=== PATIENT | male | born 1955 | race Two or more races ===

== ENCOUNTER 2016-03-24 02:36 | Inpatient (IN) | payer MEDICARE, OTHER ==
[~2016-03-24] VITALS: Ht 167.6 cm; Wt 83.9 kg
[2016-03-24] VITALS (27 sets, daily range): BP systolic 88–214; BP diastolic 67–121; PULSE 42–70; RESP 16–21; TEMP 91.4
[~2016-03-24 02:36] MED LIST: BACTDS PO; DICL100G9 TP; DULO60CA6 PO; ESOM40CA PO; ROSU20TA PO; SSD1C20 TOP; TELM40TA2 PO; TIOT18CA IH
[2016-03-24] MEDS ORDERED: AMIODARONE 150 MG INJ ONE (02:49)
[2016-03-24] MEDS ORDERED: ROCURONIUM 50 MG INJ ONE (03:00)
[2016-03-24] MEDS ORDERED: ETOMIDATE 20 MG INJ ONE (03:00)
[2016-03-24] MEDS ORDERED: PROPOFOL 100 ML ONE (03:04)
[2016-03-24] MEDS ORDERED: PROPOFOL 100 ML IV STA (03:12)
[2016-03-24] MEDS ORDERED: VECURONIUM 100 MG in DEXTROSE 5% 100 ML IV ONE (03:12)
[2016-03-24] MEDS ORDERED: ASPIRIN 300 MG SUPP PR STA (03:12)
[2016-03-24] MEDS ORDERED: SODIUM CHLORIDE 0.9% 500 ML BAG IV* STA (03:12)
[2016-03-24 03:27] LABS: BASOPHILS % 0.4 % (0.0-2.0); EOSINOPHILS # 0.1 10^3/ul (0.0-0.5); EOSINOPHILS % 0.6 % (0.0-7.0); HEMATOCRIT 39.5 % (42.0-52.0); HEMOGLOBIN 13.2 g/dl (14.0-18.0); LYMPHOCYTES # 3.9 10^3/ul (0.8-2.9); LYMPHOCYTES % 42.9 % (15.0-51.0); MEAN CORPUSCULAR HEMOGLOBIN 29.2 pg (29.0-33.0); MEAN CORPUSCULAR HGB CONC 33.5 g/dl (32.0-37.0); MEAN CORPUSCULAR VOLUME 87.3 fl (82.0-101.0); MEAN PLATELET VOLUME 8.4 fl (7.4-10.4); MONOCYTE # 0.7 10^3/ul (0.3-0.9); MONOCYTES % 7.3 % (0.0-11.0); NEUTROPHIL # 4.4 10^3/ul (1.6-7.5); NEUTROPHILS % 48.8 % (39.0-77.0); PLATELET COUNT 291 10^3/UL (140-440); RED BLOOD COUNT 4.52 10^6/ul (4.70-6.10); RED CELL DISTRIBUTION WIDTH 12.5 % (11.5-14.5); UNCORRECTED WBC 9.1 10^3/ul (4.8-10.8); WHITE BLOOD COUNT 9.1 10^3/ul (4.8-10.8)
--- NOTE | 2016-03-24 03:29 | RADRPT ---
PROCEDURE: XR Chest. CLINICAL INDICATION: Patient experiencing Hypothermia. TECHNIQUE: Single frontal chest x-ray. COMPARISON: None. FINDINGS: The tip of the endotracheal tube is approximately 7.4 cm above the lana. There is hypoinflation of the lungs. The patient is in lordotic position. The heart is not enlarged. External cardiac pacema ker pad projected over left chest. No focal lung consolidation is seen. Degenerative changes in th oracic spine. Calcification in the aortic arch. Appearance of left subclavian catheter with the ti p in the region of the atriocaval junction projected over electrode. No definite pneumothorax is see n with the patient supine. IMPRESSION: No acute abnormality seen as noted above. Please see above. RPTAT: HJES .Edgard Christianson MD, MD Date Time Electronically viewed and signed by .Edgard Christianson MD, on 03/24/2016 03:28 .S/
[2016-03-24 03:30] LABS: ALBUMIN 4.3 g/dl (3.3-4.9); CONDITION 1
[2016-03-24] MEDS ORDERED: OCULAR LUBRICANT 3.5 GM OPH OINT BOTH EYES ONE (03:30)
[2016-03-24] MEDS ORDERED: LIDOCAINE 100 MG SYRINGE IV ONE (03:30)
[2016-03-24] MEDS ORDERED: LIDOCAINE 2 GM/D5W 500 ML IV SCH (03:30)
[2016-03-24] MEDS ORDERED: ETOMIDATE 20 MG INJ IV ONE (03:30)
[2016-03-24] MEDS ORDERED: ARTIFICIAL TEARS 15 ML OPH BOTH EYES ONE (03:30)
[2016-03-24] MEDS ORDERED: AMIODARONE 150MG/D5W BOLUS 100 ML IV ONE (03:30)
[2016-03-24] MEDS ORDERED: SUCCINYLCHOLINE CHLORIDE 100 MG/5 ML SYG IV ONE (03:30)
[2016-03-24 03:31] LABS: POTASSIUM 3.9 mmol/L (3.5-5.1)
[2016-03-24 03:32] LABS: INR 0.85; PARTIAL THROMBOPLASTIN TIME 29.5 Sec (25.0-35.0); PROTIME 11.6 Sec (12.2-14.2); PT RATIO 0.9
[2016-03-24 03:33] LABS: ALBUMIN/GLOBULIN RATIO 1.34; BILIRUBIN,INDIRECT 0.4 mg/dl (0-1.1); BILIRUBIN,TOTAL 0.4 mg/dl (0.2-1.3); CREATININE 0.74 mg/dl (0.61-1.24); PHOSPHORUS 4.5 mg/dl (2.5-4.9); TOTAL PROTEIN 7.5 g/dl (6.1-8.1)
[2016-03-24 03:34] LABS: CALCIUM 9.6 mg/dl (8.4-10.2); MAGNESIUM 1.9 mg/dl (1.7-2.5)
[2016-03-24 03:35] LABS: ADD UMIC YES; URINE BILIRUBIN (Dip) NEGATIVE (NEGATIVE); URINE BLOOD (Dip) 3+ (NEGATIVE); URINE COLOR LT. YELLOW (YELLOW); URINE KETONES (Dip) NEGATIVE (NEGATIVE); URINE LEUKOCYTE ESTERASE (Dip) NEGATIVE (NEGATIVE); URINE NITRITE (Dip) NEGATIVE (NEGATIVE); URINE TOTAL PROTEIN (Dip) 4+ (NEGATIVE); URINE UROBILINOGEN (Dip) 0.2 E.U./dL (0.1-1.0)
[2016-03-24 03:44] LABS: TROPONIN-I 0.019 ng/ml (0.00-0.12)
--- NOTE | 2016-03-24 03:44 | ERA ---
ER Documentation Chief Complaint Date/Time DATE: 03/24/16 TIME: 03:40 Chief Complaint HPI This is a 60-year-old male initially checked in for a "cough". Patient syncopized and was found to be in full arrest immediately rushed into the department from triage. Found to be in V. fib arrest. Patient shocked at 200. Regain a pulse. Intubated. Went into V. fib again. Shocked again. Interestingly, was given amiodarone bolus along with amiodarone drip along with lidocaine bolus along with lidocaine drip. Patient ruled in for hypothermia protocol and was started on that as well. No history of cardiac disease per family at the bedside. Patient has a [id number] history of smoking. ROS All systems reviewed and are negative except as per history of present illness. Medications Home Meds Active Scripts Silver Sulfadiazine (THERMAZENE 1% 25 GM) 1 Applic Cr, 1 APPLIC TOP BID, #1 TUB Prov:EZIO NAVARRETE 07/13/15 Sulfamethoxazole-Trimethoprim* (Bactrim* DS) 800-160 Mg Tab, 1 TAB PO BID for 5 Days, TAB Prov:EZIO NAVARRETE 07/13/15 Reported Medications Diclofenac Sodium (Voltaren) 100 Gm Gel..gm., 100 GM TP 04/29/11 Duloxetine Hcl* (Cymbalta*) 60 Mg Capsule.dr, 60 MG PO 04/29/11 Rosuvastatin Calcium* (Crestor*) 20 Mg Tablet, 20 MG PO 04/29/11 Esomeprazole Mag Trihydrate (Nexium) 40 Mg Capsule.dr, 40 MG PO 04/29/11 Telmisartan (Micardis) 40 Mg Tablet, 40 MG PO 04/29/11 Tiotropium Adolphus* (Spiriva*) 18 Mcg Cap.w.dev, 18 MCG IH 04/29/11 Allergies Allergies: Coded Allergies: No Known Allergy (Unverified , 04/29/11) PMhx/Soc History of Surgery: Yes (RIGHT EAR SURGERY - 5 YRS AGO) Anesthesia Reaction: No Hx Neurological Disorder: No Hx Respiratory Disorders: No Hx Cardiac Disorders: Yes (HTN) Hx Psychiatric Problems: No Hx Miscellaneous Medical Probl: No Hx Alcohol Use: Yes (OCCASIONAL) Hx Substance Use: No Hx Tobacco Use: Yes (~1 PACK IN 3 DAYS) Physical Exam Vitals Vital Signs Date Time Temp Pulse Resp B/P Pulse Ox O2 Delivery O2 Flow Rate FiO2 03/24/16 02:58 103 16 100 100 Physical Exam Const: [] Head: Atraumatic Eyes: Normal Conjunctiva ENT: Normal External Ears, Nose and Mouth. Neck: Full range of motion..~ No meningismus. Resp: Clear to auscultation bilaterally Cardio: Regular rate and rhythm, no murmurs Abd: Soft, non tender, non distended. Normal bowel sounds Skin: No petechiae or rashes Back: No midline or flank tenderness Ext: No cyanosis, or edema Neur: obtunded Psych: Normal Mood and Affect Result Diagram: 03/24/16 02503/24/16 0250 Results 24 hrs Laboratory Tests Test 03/24/16 02:50 03/24/16 03:28 Activated Partial Thromboplast Time 29.5Sec Alanine Aminotransferase (ALT/SGPT) 29IU/L Albumin 4.3g/dl Albumin/Globulin Ratio 1.34 Alkaline Phosphatase 79IU/L Anion Gap 17 Aspartate Amino Transf (AST/SGOT) 22IU/L Basophils # 0.010^3/ul Basophils % 0.4% Blood Urea Nitrogen 15mg/dl Calcium Level 9.6mg/dl Carbon Dioxide Level 29mmol/L Chloride Level 101mmol/L Creatinine 0.74mg/dl Direct Bilirubin 0.00mg/dl Eosinophils # 0.110^3/ul Eosinophils % 0.6% Globulin 3.20g/dl Glucose Level 103mg/dl Hematocrit 39.5% Hemoglobin 13.2g/dl INR International Normalized Ratio 0.85 Indirect Bilirubin 0.4mg/dl Lymphocytes # 3.910^3/ul Lymphocytes % 42.9% Magnesium Level 1.9mg/dl Mean Corpuscular Hemoglobin 29.2pg Mean Corpuscular Hemoglobin Concent 33.5g/dl Mean Corpuscular Volume 87.3fl Mean Platelet Volume 8.4fl Monocytes # 0.710^3/ul Monocytes % 7.3% Neutrophils # 4.410^3/ul Neutrophils % 48.8% Nucleated Red Blood Cells # 0.010^3/ul Nucleated Red Blood Cells % 0.0/100WBC Phosphorus Level 4.5mg/dl Platelet Count 76277^3/UL Potassium Level 3.9mmol/L Prothrombin Time 11.6Sec Prothrombin Time Ratio 0.9 Red Blood Count 4.5210^6/ul Red Cell Distribution Width 12.5% Sodium Level 143mmol/L Total Bilirubin 0.4mg/dl Total Protein 7.5g/dl Troponin I Pending White Blood Count 9.110^3/ul Bedside Glucose 183mg/dL Current Medications Medications (Trade) Dose Ordered Sig/Sudheer Route PRN Reason Start Time Stop Time Status Last Admin Dose Admin Propofol (Diprivan) 100 ml @ ud STK-MED ONCE .ROUTE 03/24/16 03:04 03/24/16 03:05 DC Sodium Chloride 500 ml 500 ml ONCE STAT IV* 03/24/16 03:12 03/24/16 03:15 DC 03/24/16 03:18 Propofol (Diprivan) 100 ml @ 0 mls/hr ONCE STAT IV 03/24/16 03:12 03/24/16 03:15 DC 03/24/16 03:19 Aspirin 300 mg 300 mg ONCE STAT DE 03/24/16 03:12 03/24/16 03:15 DC 03/24/16 03:20 Vecuronium Adolphus/Dextrose (Norcuron/D5W) 100 ml @ 0 mls/hr Q0M ONCE IV 03/24/16 03:12 03/24/16 03:15 DC Eye Lubricant (Akwa Oint) 1 applic ONCE ONCE BOTH EYES 03/24/16 03:30 03/24/16 03:31 DC Eye Lubricant 2 drop 2 drop ONCE ONCE BOTH EYES 03/24/16 03:30 03/24/16 03:31 DC Amiodarone HCl 100 ml @ 600 mls/hr ONCE ONCE IV 03/24/16 03:30 03/24/16 03:39 DC Amiodarone HCl/ Dextrose (Cordarone Iv/ D5W) 500 ml @ 0 mls/hr Q0M IV 03/24/16 03:30 03/25/16 03:29 Lidocaine 100 mg 100 mg ONCE ONCE IV 03/24/16 03:30 03/24/16 03:31 DC 03/24/16 03:25 Lidocaine HCl/ Dextrose (Lidocaine 2 Gm/ D5W) 500 ml @ 15 mls/hr Q24H IV 03/24/16 03:30 Etomidate (Amidate) 20 mg ONCE ONCE IV 03/24/16 03:30 03/24/16 03:31 DC 03/24/16 03:25 Succinylcholine Chloride (Anectine Syringe) 100 mg ONCE ONCE IV 03/24/16 03:30 03/24/16 03:31 DC Procedures/MDM EKG: Rate/Rhythm: Sinus tachycardia QRS, ST, T-waves: ST depressions 2 3 aVF Impression: Postarrest ischemia Chest X-ray 1V Interpreted by me: Soft Tissue: No acute abnormalities Bones: No acute abnormalities Mediastinum/Cardiac Silhouette/Lungs: ET tube and central line in good position Critical Care: Time: 74 minute minutes Treatments/Evaluations: Close monitoring and treatment of unstable vital signs, cardiorespiratory, and neurologic status, while maintaining tight balance of fluid, respiratory, and cardiac interventions. Patient suffered a V. tach ventricular fibrillation arrest. He has been stabilized in the department. Is been started on hypothermia protocol. He will be admitted to the ICU to the hospitalist. Departure Diagnosis: Primary Impression: Cardiac arrest Additional Impression: Ventricular fibrillation Condition: Critical CHANDAN NIXON Mar 24, 2016 03:44
[2016-03-24 03:47] LABS: AADO2 Arterial 97.4 mmHg (7.0-24.0); Allen Test ACCEPTAB; Arterial Base Excess -4.4 mmol/L (-3.0-3); Arterial COHb 0.6 % (0.0-3.0); Arterial HCO3 22.6 mmol/L (22.0-26.0); Arterial MetHb 0.3 % (0.0-1.5); Arterial Total Hemglobin 13.8 g/dl (12.0-18.0); MODE VENT - AC
[2016-03-24] MEDS: SOD CHLORIDE 0.9% 1,000 ML IV SCH ×4 (03:47→23:47)
[2016-03-24] MEDS: AMIODARONE 900 MG in DEXTROSE 5% 482 ML IV SCH ×2 (03:51→19:59)
[2016-03-24] MEDS ORDERED: NITROGLYCERIN (SL) 0.4 MG TAB SL PRN (04:00)
[2016-03-24] MEDS ORDERED: ACETAMINOPHEN 650 MG SUPP PR PRN ×2 (04:00)
[2016-03-24] MEDS ORDERED: MEPERIDINE 25 MG INJ IV PRN ×2 (04:00)
[2016-03-24] MEDS ORDERED: ONDANSETRON 4 MG INJ IV PRN (04:00)
[2016-03-24] MEDS ORDERED: ACETAMINOPHEN 650MG/20.3ML CUP PO PRN (04:00)
[2016-03-24] MEDS ORDERED: BISACODYL (EC) 5 MG TAB PO PRN (04:00)
[2016-03-24] MEDS ORDERED: DEXTROSE 50% 50 ML SYRINGE IV PRN ×2 (04:00)
[2016-03-24 04:02] LABS: BACTERIA,URINE MANY; SQUAMOUS EPITHELIAL CELL,UR FEW; URINE RBCS >50 /HPF (0)
[2016-03-24] MEDS: VECURONIUM 100 MG in DEXTROSE 5% 100 ML IV SCH ×2 (04:15→21:28)
[2016-03-24] MEDS ORDERED: LEVALBUTEROL (NEB) 1.25 MG/0.5 ML AMP INH STA (04:25)
[2016-03-24] MEDS: LIDOCAINE 2 GM/D5W 500 ML IV SCH ×2 (04:30→19:03)
[2016-03-24] MEDS ORDERED: AMIODARONE 900 MG in DEXTROSE 5% 482 ML IV SCH (04:30)
[2016-03-24] MEDS ORDERED: HEPARIN 1000 UNITS/ML 10 ML INJ IV ONE (04:30)
--- NOTE | 2016-03-24 04:36 | HP ---
Date/Time of Note Date/Time of Note DATE: 03/24/16 TIME: 04:25 Assessment/Plan VTE Prophylaxis VTE Prophylaxis Intervention: heparin Assessment/Plan Assessment/Plan 60 yo male with a past medical history of essential hypertension, arthritis, dyslipidemia, GERD, depression who came in for cough. 1. V fib arrest - will admit the patient to the ICU, continue with hypothermia protocol, consult pulm/cardio, heparin gtt, IV fluids, sedation, serial labs, TSH, Mag level, cardiac enzymes 2. Vent dependent respiratory failure with acidosis - continue with vent, pulm recs 3. Essential hypertension - maintain sbp > 90 4. Dyslipidemia - check lipid panel, hold statin 5. Arthritis - hold medications 6. GERD - continue with protonix IV 7. Depression - hold medications 8. GI ppx - protonix 9. DVT ppx - heparin gtt serious condition. as per clinical course. this critical care note took greater than 1 hour to complete HPI/ROS Admit Date/Time Admit Date/Time 03/24/2016, 4:25 am Hx of Present Illness 60 yo male with a past medical history of essential hypertension, arthritis, dyslipidemia, GERD, depression who came in for cough. He subsequently had a coughing bout while being seen in the ER here at [facility] and passed out. He was noted to be in Vfib arrest. He was shocked twice, CPR was initiated as per ACLS protocol, given Amiodarone gtt and Lidocaine gtt. He was appropriately resuscitated, and intubated. He is subsequently going to be placed on hypothermia protocol. All this information was gathered from the chart and ER physician. ROS cannot be completed, the patient is intubated and sedated PMH/Family/Social Past Medical History depression, sciatica, arthritis Medical History: GERD, high cholesterol, hypertension Past Surgical History Past Surgical Hx: no surgical history Family History Significant Family History: other (both parents are unknown cause) Social History Alcohol Use: none Smoking Status: Current every day smoker Drug Use: none Exam/Review of Systems Vital Signs Vitals Vital Signs Date Time Temp Pulse Resp B/P Pulse Ox O2 Delivery O2 Flow Rate FiO2 03/24/16 03:53 88 99 40 03/24/16 02:58 16 Exam Exam Gen Ko: intubated and sedated HEENT: NC/AT, PERRLA, EOMI, ETT in place NECK: supple, no thyromegaly THORAX: symmetrical, no obvious deformities CV: S1S2, RRR, II/ aortic sclerosis murmur Lungs: coarse breath sounds throughout all lung horne Abd: soft, NT/ND, +BS, no rebound, no guarding, neg HSM EXT: no edema, no ecchymosis, no clubbing Neuro: sedated Psych: cannot assess Skin: C/D/I Labs Result Diagram: 03/24/16 0250 03/24/16 0250 Medications Medications Current Medications Amiodarone HCl 900 mg/Dextrose 500 ml @ 0 mls/hr Q0M IV Last administered on t 03:51; Admin Dose 0 MLS/HR; Start 03/24/16 at 03:30; Stop 03/25/16 at 03 :29 Lidocaine HCl/ Dextrose 500 ml @ 15 mls/hr Q24H IV ; Start 03/24/16 at 03:30; Stop 03/24/16 at 04:29 Sodium Chloride (NS) 1,000 ml @ 50 mls/hr Q20H IV ; Start 03/24/16 at 03:47 Ondansetron HCl (Zofran Inj) 4 mg Q6H PRN IV NAUSEA AND/OR VOMITING; Start 01/28 at 04:00 Nitroglycerin (Nitroglycerin (Sl Tab) 0.4 Mg) 1 tab Q5M PRN SL CHEST PAIN; Start 03/24/16 at 04:00 Acetaminophen (Tylenol Supp) 650 mg Q4H PRN [place] PAIN LEVEL 1-3 OR FEVER; Start 03/24/16 at 04:00 Morphine Sulfate (morphine) 2 mg Q4H PRN IV PAIN LEVEL 7-10; Start 03/24/16 at 04:00 Lorazepam (Ativan) 1 mg Q2H PRN IV ANXIETY; Start 03/24/16 at 04:00 Bisacodyl (Dulcolax) 5 mg DAILY PRN PO CONSTIPATION; Start 03/24/16 at 04:00 Pantoprazole 40 mg 40 mg DAILY@06 IV ; Start 03/24/16 at 06:00 Vecuronium [place] 100 mg/ Dextrose 100 ml @ 4.1 mls/hr Q24H IV ; Start at 04:15 Sodium Chloride (NS) 1,000 ml @ 50 mls/hr Q20H IV ; Start 03/24/16 at 03:47 Acetaminophen (Tylenol Supp) 650 mg Q4H PRN IL TEMP > 37C; Start 03/24/16 at 04 :00 Acetaminophen (Tylenol Liquid) 650 mg Q4H PRN PO TEMP > 37C; Start 03/24/16 at 04:00 Acetaminophen (Tylenol Supp) 500 mg Q6H [place] ; Start 03/25/16 at 04:00 Acetaminophen (Tylenol Liquid) 500 mg Q6H PO ; Start 03/25/16 at 04:00 Meperidine HCl (Demerol) 12.5 mg Q4H PRN IV POST OPERATIVE SHIVERING; Start 01/28 at 04:00 Meperidine HCl (Demerol) 25 mg Q4H PRN IV POST OPERATIVE SHIVERING; Start 03/24 at 04:00 Eye Lubricant (Akwa Oint) 1 applic Q6 BOTH EYES ; Start 03/24/16 at 06:00 Eye Lubricant (Artificial Tears Oph) 2 drop Q6 BOTH EYES ; Start 03/24/16 at 06: 00 Diagnostic Test (Pha) (Accucheck) 1 ea Q1H XX ; Start 03/24/16 at 04:00 Dextrose (D50w Syringe) 25 ml Q15M PRN IV Till BS 80 mg/dL or above x2; Start 03/24/16 at 04:00 Dextrose 50 ml 50 ml Q15M PRN IV Till BS 80 mg/dL or above x2; Start 03/24/16 at 04:00 Amiodarone HCl 900 mg/Dextrose 500 ml @ 0 mls/hr Q0M IV ; Start 03/24/16 at 04: 30; Stop 03/25/16 at 04:29 Lidocaine HCl/ Dextrose (Lidocaine 2 Gm/ D5W) 500 ml @ 15 mls/hr Q24H IV ; Start 03/24/16 at 04:30 Procedures Procedures CXR IMPRESSION: No acute abnormality seen as noted above. Please see above. RAMAN BARRETT MD Mar 24, 2016 04:35
[2016-03-24] MEDS: ACCUCHECK XX SCH ×19 (04:49→23:08)
--- NOTE | 2016-03-24 05:03 | RADRPT ---
PROCEDURE: XR Abdomen. CLINICAL INDICATION: Cardiac arrest TECHNIQUE: AP abdomen x-ray. COMPARISON: None. FINDINGS: External pacer overlies the chest. Nasogastric tube courses into the mid stomach. The lung bases a re grossly clear. Degenerative change of the spine is seen. Nonobstructive bowel gas pattern. No definite supine evidence for free air. Probable rectal temperature probe. No abnormal calcificatio ns.. IMPRESSION: No definite acute abnormality. RPTAT: HLBE Physician Berhane Date Time Electronically viewed and signed by Lisa Garcia Physician on 03/24/2016 05:03 LE/
[2016-03-24] MEDS: INSULIN REGULAR, HUMAN 100 UNIT in SOD CHLORIDE 0.9% 99 ML IV SCH ×4 (05:28→20:33)
[2016-03-24] MEDS ORDERED: VECURONIUM 10 MG VIAL IV ONE (05:30)
[2016-03-24] MEDS ORDERED: hydrALAzine 20 MG INJ IV ONE (06:00)
[2016-03-24 06:20] LABS: EOSINOPHILS % 0.1 % (0.0-7.0); HEMOGLOBIN 13.3 g/dl (14.0-18.0); LYMPHOCYTES # 1.5 10^3/ul (0.8-2.9); MEAN CORPUSCULAR HEMOGLOBIN 29.7 pg (29.0-33.0); MEAN CORPUSCULAR HGB CONC 34.1 g/dl (32.0-37.0); MEAN PLATELET VOLUME 8.4 fl (7.4-10.4); MONOCYTES % 6.9 % (0.0-11.0); NEUTROPHIL # 12.6 10^3/ul (1.6-7.5); PLATELET COUNT 252 10^3/UL (140-440); RED BLOOD COUNT 4.48 10^6/ul (4.70-6.10); RED CELL DISTRIBUTION WIDTH 12.9 % (11.5-14.5); UNCORRECTED WBC 15.2 10^3/ul (4.8-10.8); WHITE BLOOD COUNT 15.2 10^3/ul (4.8-10.8)
[2016-03-24 06:26] LABS: CONDITION 1
[2016-03-24 06:49] LABS: ALBUMIN 4.2 g/dl (3.3-4.9); POTASSIUM 3.6 mmol/L (3.5-5.1)
[2016-03-24 06:52] LABS: ALBUMIN/GLOBULIN RATIO 1.2; BILIRUBIN,INDIRECT 0.4 mg/dl (0-1.1); BILIRUBIN,TOTAL 0.4 mg/dl (0.2-1.3); CREATININE 0.56 mg/dl (0.61-1.24); TOTAL PROTEIN 7.7 g/dl (6.1-8.1)
[2016-03-24] MEDS ORDERED: OLME40TA14 PO (07:00)
[2016-03-24] MEDS ORDERED: ROSU40TA PO (07:00)
[2016-03-24] MEDS ORDERED: DUTA0.5C PO (07:01)
[2016-03-24] MEDS ORDERED: LISI40TA9 PO (07:01)
[2016-03-24] MEDS ORDERED: LIPA1CAP6 PO (07:02)
[2016-03-24] MEDS ORDERED: BUDE6HFA INHALATION (07:03)
[2016-03-24] MEDS ORDERED: GABA300C16 PO (07:04)
[2016-03-24 07:13] LABS: CHOL/HDL RATIO 10.2 RATIO
[2016-03-24] MEDS ORDERED: HYDROmorphONE 1 MG/ML SYG IV STA (07:16)
[2016-03-24] MEDS: OCULAR LUBRICANT 3.5 GM OPH OINT BOTH EYES SCH ×3 (07:29→18:16)
[2016-03-24] MEDS: ARTIFICIAL TEARS 15 ML OPH BOTH EYES SCH ×3 (07:29→18:16)
[2016-03-24 08:38] LABS: INR 0.83; PROTIME 11.4 Sec (12.2-14.2); PT RATIO 0.9
[2016-03-24 08:39] LABS: PARTIAL THROMBOPLASTIN TIME 28.1 Sec (25.0-35.0)
[2016-03-24] MEDS: HEPARIN 25000 UNITS/250 ML 250 ML IV SCH ×2 (08:58→21:55)
[2016-03-24] MEDS: PANTOPRAZOLE 40 MG INJ IV SCH (09:04)
[2016-03-24 10:06] LABS: AADO2 Arterial 140.9 mmHg (7.0-24.0); Allen Test ACCEPTAB; Arterial Base Excess -0.8 mmol/L (-3.0-3); Arterial COHb 0.3 % (0.0-3.0); Arterial Fraction of Oxyhgb 97.5 % (93.0-99.0); Arterial HCO3 24.6 mmol/L (22.0-26.0); Arterial MetHb 0.3 % (0.0-1.5); Arterial Total Hemglobin 14.2 g/dl (12.0-18.0); Blood Gas Low PEEP Setting 0 cmH2O; MODE VENT - AC
--- NOTE | 2016-03-24 10:28 | QN ---
Documentation Comment Observation Note: Time: 4 hours Family Hx: Negative for diabetes Evaluation: Multiple exams showed improving symptoms and no evidence of clinical decompensation. Patient is still pending an ICU bed at this time. RICHARD CAVAZOS MD Mar 24, 2016 10:27
[2016-03-24] MEDS ORDERED: HEPARIN 1000 UNITS/ML 10 ML INJ IV PRN (10:30)
[2016-03-24] MEDS ORDERED: ASPIRIN 81 MG TAB PO ONE (15:00)
[2016-03-24 15:55] LABS: TROPONIN-I 3.68 ng/ml (0.00-0.12)
--- NOTE | 2016-03-24 16:00 | RADRPT ---
Echocardiogram Report Patient Name: JACKIE BARTHOLOMEW Gender: Male Date: 1955 Study Date: 24-Mar-2016 Lubricating Machine Tender: German Mcghee RDCS Location: ER Ref. Physician: RAMAN BARRETT Quality: Good Procedures: Transthoracic echocardiogram with complete 2D, M-Mode, and doppler examination. Indications: Cardiac Arrest. 2D/M Mode Doppler Measurement Value Normal Ranges Measurement Value Normal Ranges LVIDd 2D 4.8 3.5 - 5.6 cm AV Peak Clayton 1.1 m/sec LVIDs 2D 3.7 2.1 - 4.1 cm AV Peak PG 5.2 mmHg LVPWd 2D 1.0 0.6 - 1.1 cm LVOT Peak Clayton 1.1 m/sec IVSd 2D 1.1 0.6 - 1.1 cm LVOT Peak PG 4.4 mmHg AoR Diam 2D 2.2 2.0 - 3.7 cm MV E Peak Clayton 0.6 m/sec EDV 2D 108.0 cm3 MV A Peak Clayton 0.8 m/sec ESV 2D 51.5 cm3 MV E/A 0.8 LA Dimen 2D 3.1 2.3 - 4.0 cm MV Decel Time 159 msec MV Decel Bowman 4 MV E/A 0.8 Findings Left Ventricle: Normal left ventricular systolic function. Normal left ventricular cavity size. Normal left ventricular wall thickness. Ejection fraction is visually estimated at 65 %. Tissue Doppler/Mitral Doppler indices are consistent with impaired relaxation (Stage I diastolic dysfunction). Right Ventricle: Normal right ventricular size. Normal right ventricular systolic function. Left Atrium: The left atrium is normal in size. Right Atrium: The right atrium is normal in size. Mitral Valve: Normal appearance and function of the mitral valve with trace physiologic regurgitation. Aortic Valve: Normal appearance of the aortic valve. No significant aortic stenosis or insufficiency. Tricuspid Valve: Normal appearance and function of the tricuspid valve with trace physiologic regurgitation. Pericardium: Normal pericardium with no significant pericardial effusion. Aorta: Normal aortic root. IVC: Inferior vena cava without respiratory collapse, however, patient on ventilator. Conclusions 1.Normal left ventricular systolic function. Normal left ventricular cavity size. Normal left ventricular wall thickness. Ejection fraction is visually estimated at 60-65 %. Tissue Doppler/Mitral Doppler indices are consistent with impaired relaxation (Stage I diastolic dysfunction). 2.Normal appearance and function of the mitral valve with trace physiologic regurgitation. 3.Normal appearance and function of the tricuspid valve with trace physiologic regurgitation. Electronically Signed By: Didier Stephens 24-Mar-2016 15:59:09 -0800 Patient Name: JACKIE BARTHOLOMEW Study Date: 24-Mar-[id number]
--- NOTE | 2016-03-24 17:09 | CONS ---
DATE OF ADMISSION: 03/24/2016 DATE OF CONSULTATION: 03/24/2016 TYPE OF CONSULTATION: Cardiology. REASON FOR CONSULTATION: Cardiac arrest. REQUESTING PHYSICIAN: Dr. Oliver from the hospitalist service. HISTORY OF PRESENT ILLNESS: Mr. Guillory is a 60-year-old male with history of hypertension, dyslip idemia, gastroesophageal reflux disease, depression who initially presented with complaints of cough and an additional substernal chest pain per family at bedside. While in the emergency department, h e patient passed out and was found to have a Vfib requiring shocks x2, CPR and ACLS protocol. The p atient was given amiodarone and lidocaine and resuscitated, intubated, and has been placed on hypoth ermic protocol. The patient's initial EKG upon arrival had revealed sinus tachycardia 125 with conc erning inferior elevations and anterior depressions. The patient had a followup EKG that continued to show this. Per ER doctor, Dr. Nair they contacted the on-call map clerk, Dr. Nevarez, who felt that the patient should not go to the cardiac cath technician overnight and as noted earlier, the patient was placed on hypothermic protocol, where he remains at this time with stable blood pressure. The patie nt's most recent EKG from 3:50 in the morning reveals sinus rhythm at a rate of 90, right axis deviation, anterior ST depressions. Patient's initial labs were notable for white count of 9.1, he moglobin 13.2, platelet count 291, a sodium of 143, potassium 3.9, creatinine of 0.7, BUN 15. Tropo hang negative. LDL 198, HDL 30, triglycerides of 397. INR 0.85. UA borderline positive. The teze nt has not had a followup troponin drawn since admit. The patient's AST is 146 and ALT is 153. Patient's chest x-ray revealed no acute cardiopulmonary abnormalities, and the patient underwent a K UB revealing no definite acute abnormalities. The patient at this time is in the ER on sedation, in tubated ongoing antiarrhythmics waiting admit to the ICU. PAST MEDICAL HISTORY: As above in HPI. MEDICATIONS CURRENTLY IN HOSPITAL: 1. Tylenol. 2. Lipitor 20 mg at bedtime. 3. Heparin IV. 4. Protonix. 5. Amiodarone IV. 6. Lidocaine IV. 7. Zofran p.r.n. 8. Ativan p.r.n. 9. Dulcolax p.r.n. 10. Tylenol p.r.n. ALLERGIES: NO KNOWN DRUG ALLERGIES. SOCIAL HISTORY: Positive tobacco, social ETOH, no illicit drug use. FAMILY HISTORY: No history of sudden cardiac or early CAD. REVIEW OF SYSTEMS: As above in HPI. CONSTITUTIONAL: No fevers, chills. PULMONARY: Respiratory failure status post intubation. GASTROINTESTINAL: No nausea, vomiting. GENITOURINARY: No hematuria, dysuria. MUSCULOSKELETAL: Degenerative joint disease. PSYCHIATRIC: The patient has depression. NEUROLOGIC: Sedated, altered mental status. CARDIOVASCULAR: Chest pain prior to arrest. PHYSICAL EXAMINATION: VITAL SIGNS: Temperature of 91.4 on hypothermic protocol, blood pressure 109/83, pulse 50, respirat ions 16, saturating 100%. GENERAL: The patient is sedated, intubated. NECK: JVP approximately 9 cm water. CHEST: Upper airway sounds are rhonchorous sounds. HEART: Bradycardic, regular rhythm, normal S1, S2, 1/6 systolic murmur. ABDOMEN: Positive bowel sounds, soft. EXTREMITIES: No pitting edema, 1+ pulses bilaterally posterior tibial. LABORATORIES: As above in HPI, with most recently from this morning, sodium of 41, potassium 3.6, c reatinine of 0.56, BUN 12. AST 146, ALT 153. INR 0.83. UA positive. White blood cell count 15.2, hemoglobin 13.3, platelet count 252. ABG revealing a pH of 7.413, a PaO2 103, a pCO2 of 38. ELECTROCARDIOGRAM: As above in HPI. No further electrocardiograms for my review at this time. IMPRESSION: 1. Cardiac arrest. Assess for acute coronary syndrome preceding possibly. 2. Chest pain concerning for possible acute coronary syndrome prior to arrest. 3. Abnormal EKG with initial ST elevations concerning for acute myocardial infarction. 4. Respiratory failure, status post intubation. 5. Encephalopathy. 6. Bradycardia, likely secondary to hypothermia. 7. Ongoing tobacco usage. 8. Leukocytosis. 9. Mild anemia. 10. Increased liver function tests. RECOMMENDATIONS: 1. At this time, would maintain the patient on telemetry monitoring, follow rhythm and rate control closely. 2. Continue the patient's heparin at this time and additionally initiate patient on standing aspiri n. 3. Continue the patient's amiodarone and lidocaine at this time. 4. Continue the patient's statin at this time. 5. Trend the patient's cardiac enzymes and thus second troponin stat now, has not had one since 3:0 0 in the morning. 6. Check serial EKGs and thus check a repeat EKG now. It has not been done since 3:00 in the [facility]. 7. Continue the patient's hypothermia protocol. Thank you for allowing me to take part in the care of this patient. I will continue to follow along very closely with you. Further recommendations will be made as the patient progresses through his inpatient hospital clinical course. Dictated By: LEROY WEINER/AMBER Conf#: [id number] DID#: [id number] CC: DELMY OLIVER MD;*End*
--- NOTE | 2016-03-24 18:05 | CONS ---
DATE OF ADMISSION: 03/24/2016 DATE OF CONSULTATION: REASON FOR CONSULTATION: Ventilator management. Thank you, Dr. Garcia, for this consultation. HISTORY OF PRESENT ILLNESS: This is a 60-year-old gentleman with history of hypertension, hyperlipi demia, depression presented with several days of cough, was being seen in the emergency room, became unresponsive, and went into VFib arrest requiring defibrillation, CPR, ACLS protocol, placed on lid ocaine and then amiodarone drip with return of circulation after that. Placed on mechanical ventila tion. Currently continues heparin drip, amiodarone, vecuronium, propofol. Remains currently hemody namically stable on hypothermia protocol. PAST MEDICAL HISTORY: As above. MEDICATIONS: Per chart. ALLERGIES: NONE. SOCIAL HISTORY: Alcohol occasionally. SYSTEMS REVIEW: A 12-point review of systems currently unable to perform. PHYSICAL EXAMINATION: GENERAL: Morbidly obese gentleman, intubated on mechanical ventilation, appears comfortable at rest , no acute distress. VITAL SIGNS: Temperature 93, pulse is 43, blood pressure 137/91, O2 saturation 96% on FIO2 of 100%. NECK: Supple. No JVD or lymphadenopathy. CARDIAC: S1, S2. No added sounds or murmurs. CHEST: Diminished air entry bilaterally. ABDOMEN: Soft, nontender. No guarding or rebound. EXTREMITIES: No cyanosis, clubbing, 1+ edema. NEUROLOGIC: Generalized weakness. Unable to assess. LABORATORY DATA: White count 15.2, hemoglobin 13.3, platelets 252. BNP was pending at time of this dictation. Troponin 3.68. ABG: pH 7.41, pCO2 of 38, PaO2 of 103, bicarbonate was 24. EKG shows no acute ischemic changes. Abdominal x-ray was unremarkable. Chest x-ray was clear, no infiltrates or effusions. IMPRESSION AND PLAN: 1. Ventricular fibrillation arrest, possible underlying coronary artery disease. 2. Possible anoxic brain injury. 3. Probable aspiration pneumonitis. 4. History of questionable coronary artery disease. The patient will require: 1. Supplemental O2. 2. Bronchodilators. 3. Hypothermia protocol. 4. Sedation and paralysis. 5. DVT and GI prophylaxis. 6. Neurology evaluation post-reversal of hypothermia. 7. Consider cardiac catheterization. Dictated By: ASHISH CRUZ/AMBER Conf#: [id number] DID#: [id number] CC: RAMAN GARCIA MD;*End*
[2016-03-24] MEDS: LEVOFLOXACIN 500MG/D5W (PMX) 100 ML IVPB SCH (18:13)
[2016-03-24 18:49] LABS: AADO2 Arterial 183.8 mmHg (7.0-24.0); Allen Test ACCEPTAB; Arterial Base Excess -3.2 mmol/L (-3.0-3); Arterial COHb 0.3 % (0.0-3.0); Arterial Fraction of Oxyhgb 95.2 % (93.0-99.0); Arterial HCO3 22.4 mmol/L (22.0-26.0); Arterial MetHb 0.3 % (0.0-1.5); Arterial Total Hemglobin 13.5 g/dl (12.0-18.0); MODE VENT - AC
[2016-03-24] MEDS: FENTAnyl 1,000 MCG in DEXTROSE 5% 80 ML IV SCH (18:51)
[2016-03-24] MEDS: PROPOFOL 100 ML IV SCH ×2 (19:13→21:39)
[2016-03-24 19:33] LABS: TROPONIN-I 8.53 ng/ml (0.00-0.12)
[2016-03-24] MEDS: ATORVASTATIN 40 MG TAB PO SCH (21:03)
[2016-03-24 21:28] LABS: BASOPHILS % 0.1 % (0.0-2.0); EOSINOPHILS % 0.1 % (0.0-7.0); HEMATOCRIT 37.4 % (42.0-52.0); HEMOGLOBIN 12.6 g/dl (14.0-18.0); LYMPHOCYTES # 1.1 10^3/ul (0.8-2.9); LYMPHOCYTES % 11.5 % (15.0-51.0); MEAN CORPUSCULAR HEMOGLOBIN 29.6 pg (29.0-33.0); MEAN CORPUSCULAR HGB CONC 33.8 g/dl (32.0-37.0); MEAN CORPUSCULAR VOLUME 87.8 fl (82.0-101.0); MEAN PLATELET VOLUME 8.3 fl (7.4-10.4); MONOCYTE # 0.7 10^3/ul (0.3-0.9); MONOCYTES % 6.6 % (0.0-11.0); NEUTROPHIL # 8.1 10^3/ul (1.6-7.5); NEUTROPHILS % 81.7 % (39.0-77.0); PLATELET COUNT 226 10^3/UL (140-440); RED BLOOD COUNT 4.26 10^6/ul (4.70-6.10); RED CELL DISTRIBUTION WIDTH 13.2 % (11.5-14.5); UNCORRECTED WBC 9.9 10^3/ul (4.8-10.8); WHITE BLOOD COUNT 9.9 10^3/ul (4.8-10.8)
[2016-03-24 21:32] LABS: POTASSIUM 3.5 mmol/L (3.5-5.1)
[2016-03-24 21:35] LABS: CALCIUM 8.6 mg/dl (8.4-10.2); CREATININE 0.48 mg/dl (0.61-1.24); PHOSPHORUS 4.1 mg/dl (2.5-4.9)
[2016-03-24 21:36] LABS: MAGNESIUM 1.5 mg/dl (1.7-2.5)
[2016-03-24 22:06] LABS: TROPONIN-I 9.81 ng/ml (0.00-0.12)
[2016-03-24 22:20] LABS: CONDITION 1
[2016-03-24] MEDS: morphine 2 MG INJ IV PRN (22:27)
[2016-03-24] MEDS ORDERED: MAGNESIUM SULFATE 3 GM in SOD CHLORIDE 0.9% 100 ML IVPB ONE (22:30)
[2016-03-25] VITALS (103 sets, daily range): BP systolic 79–216; BP diastolic 59–139; PULSE 39–132; RESP 16; Ht 167.6 cm; Wt 83.9 kg
[2016-03-25 00:57] LABS: 50/50 PTT 1 HOUR 49.7 Sec; 50/50 PTT IMMED 43.6 Sec; PARTIAL THROMBOPLASTIN TIME 69.8 Sec (25.0-35.0)
[2016-03-25] MEDS: ACCUCHECK XX SCH ×24 (01:00→23:00)
[2016-03-25] MEDS: ACETAMINOPHEN 650 MG SUPP PR SCH ×4 (04:00→22:00)
[2016-03-25] MEDS: morphine 2 MG INJ IV PRN ×2 (04:00→18:17)
[2016-03-25] MEDS ORDERED: ACETAMINOPHEN 650MG/20.3ML CUP PO SCH (04:00)
[2016-03-25 04:15] LABS: BASOPHILS % 0.3 % (0.0-2.0); EOSINOPHILS % 0.2 % (0.0-7.0); HEMATOCRIT 37.8 % (42.0-52.0); HEMOGLOBIN 12.8 g/dl (14.0-18.0); LYMPHOCYTES # 1.1 10^3/ul (0.8-2.9); LYMPHOCYTES % 12.2 % (15.0-51.0); MEAN CORPUSCULAR HEMOGLOBIN 29.5 pg (29.0-33.0); MEAN CORPUSCULAR HGB CONC 33.9 g/dl (32.0-37.0); MEAN PLATELET VOLUME 8.1 fl (7.4-10.4); MONOCYTE # 0.7 10^3/ul (0.3-0.9); NEUTROPHIL # 7.1 10^3/ul (1.6-7.5); NEUTROPHILS % 79.3 % (39.0-77.0); PLATELET COUNT 227 10^3/UL (140-440); RED BLOOD COUNT 4.35 10^6/ul (4.70-6.10); RED CELL DISTRIBUTION WIDTH 12.7 % (11.5-14.5)
[2016-03-25 04:28] LABS: ALBUMIN 3.7 g/dl (3.3-4.9)
[2016-03-25 04:29] LABS: POTASSIUM 3.1 mmol/L (3.5-5.1)
[2016-03-25 04:31] LABS: ALBUMIN/GLOBULIN RATIO 1.23; BILIRUBIN,INDIRECT 0.5 mg/dl (0-1.1); BILIRUBIN,TOTAL 0.5 mg/dl (0.2-1.3); CONDITION 1; CREATININE 0.49 mg/dl (0.61-1.24); TOTAL PROTEIN 6.7 g/dl (6.1-8.1)
[2016-03-25 05:16] LABS: TROPONIN-I 18.1 ng/ml (0.00-0.12)
[2016-03-25] MEDS: ARTIFICIAL TEARS 15 ML OPH BOTH EYES SCH ×5 (05:27→23:54)
[2016-03-25] MEDS: OCULAR LUBRICANT 3.5 GM OPH OINT BOTH EYES SCH ×5 (05:27→23:54)
[2016-03-25] MEDS: PANTOPRAZOLE 40 MG INJ IV SCH (05:31)
[2016-03-25] MEDS: VECURONIUM 100 MG in DEXTROSE 5% 100 ML IV SCH (06:20)
--- NOTE | 2016-03-25 07:03 | RADRPT ---
PROCEDURE: CHEST - 1 VIEW CLINICAL INDICATION: 60 year-old male with shortness of breath. TECHNIQUE: A single frontal AP view of the chest was performed. The images were reviewed on a PAC S workstation. COMPARISON: Chest x-ray January 22, 2017. FINDINGS: There is a left subclavian central line present with the tip in the mid superior vena cava. There i s an endotracheal tube identified with the tip in the mid trachea approximately 4.0 cm above the car do. There is a nasogastric tube extending below the diaphragm in the stomach region however the ti p is not on the current radiograph. The cardiomediastinal silhouette is prominent but without signi ficant interval change. There has been interval collapse of the right upper lobe. There is a shall ow inspiration. There is minimal bibasilar subsegmental atelectasis. . There is no evidence for c ongestive heart failure. There is no evidence for pneumothorax. The osseous structures are intact. IMPRESSION: 1. Left subclavian central line with the tip in the mid superior vena cava. 2. Endotracheal tube with the tip in the mid trachea. 3. Nasogastric tube. 4. Interval collapse right upper lobe. 5. Shallow inspiration. 6. Minimal bilateral lower lung zone subsegmental atelectasis. CALL REPORT: A call report was made to [facility] ICU Dom RN on March 25, 2016 at 06:59 a.m. .Corey Bonilla MD, MD Date Time Electronically viewed and signed by .Corey Bonilla MD, on 03/25/2016 07:02 .M/
[2016-03-25 07:17] LABS: MAGNESIUM 2.7 mg/dl (1.7-2.5); PHOSPHORUS 4.2 mg/dl (2.5-4.9)
[2016-03-25] MEDS: PROPOFOL 100 ML IV SCH ×3 (07:58→23:55)
[2016-03-25 08:02] LABS: CHOL/HDL RATIO 7.7 RATIO
[2016-03-25 08:34] LABS: AADO2 Arterial 132.4 mmHg (7.0-24.0); Allen Test ACCEPTAB; Arterial Base Excess -0.2 mmol/L (-3.0-3); Arterial COHb 0.3 % (0.0-3.0); Arterial Fraction of Oxyhgb 97.5 % (93.0-99.0); Arterial HCO3 25.2 mmol/L (22.0-26.0); Arterial MetHb 0.4 % (0.0-1.5); Arterial Total Hemglobin 13.8 g/dl (12.0-18.0); Blood Gas Low PEEP Setting 0 cmH2O; MODE VENT - AC
[2016-03-25] MEDS: LEVOFLOXACIN 500MG/D5W (PMX) 100 ML IVPB SCH (09:00)
[2016-03-25 09:23] LABS: INR 0.9; PROTIME 12.1 Sec (12.2-14.2); PT RATIO 0.9
[2016-03-25] MEDS ORDERED: POTASSIUM CHLORIDE 250 ML IVPB ONE (10:00)
--- NOTE | 2016-03-25 10:19 | PN ---
DATE: 03/25/2016 SUBJECTIVE: The patient is still intubated, on hypothermia protocol, seen by cardiology team and pulmonary team yesterday. OBJECTIVE VITAL SIGNS: T-max 93.6. Pulse is 50 to 52, respirations 16. Blood pressure is 112/82, saturating 100% on mechanical ventilation, FIO2 of 40. GENERAL: The patient is lying in bed, intubated and sedated. HEENT: Unable to assess fully. NECK: Supple, no thyromegaly. LUNGS: Distant breath sounds bilaterally. CARDIOVASCULAR: S1, S2 heard. No rubs or gallops. ABDOMEN: Soft, nontender, nondistended. nL BS MUSCULOSKELETAL: No lower extremity edema bilaterally. NEUROLOGIC: Unable to fully assess as the patient is sedated. LABORATORY DATA: CBC is normal. Comprehensive metabolic panel shows an AST of 310, ALT is 149, potassium is 3.1. The rest of the comprehensive metabolic panel is normal. Troponin is 18.1. Triglycerides 469, total cholesterol 280, mag 2.7. IMAGING: Chest x-ray this morning interval collapsed right upper lobe, shallow inspiration, minimal bilateral lower lung zone subsegmental atelectasis. ASSESSMENT AND PLAN: This is a 60-year-old male with past medical history of hypertension, arthritis, high cholesterol, gastroesophageal reflux disease, depression who comes in with ventricular fibrillation arrest, now intubated and sedated on the hypothermia protocol. 1. Ventricular fibrillation arrest. Again, continue intensive care unit care with hypothermia protocol. Follow cardiology and pulmonary recommendations. The patient is on intravenous fluids. Continue statin. Off of heparin drip now. 2. Essential hypertension. Blood pressure stable. Continue to monitor for now. 3. Elevated troponins, concern for ST elevation myocardial infarction given initially EKG and follow up cardiology recommendations. The patient initially was on heparin drip. Continue to monitor for now. Heart rate is in the sinus deshawn range. 4. High cholesterol. Continue Lipitor. 5. Possible anoxic brain injury from. Consider electroencephalogram and neurology consult. 6. Check TSH. 7. Gastrointestinal prophylaxis. Proton pump inhibitor. 8. Deep venous thrombosis prophylaxis. Would add sequential compression devices. Critical care time spent on patient care today 45 minutes. Dictated By: SUNDEEP REDDY Conf#: [id number] DID#: [id number] [facility]
--- NOTE | 2016-03-25 10:20 | CONS ---
Date/Time of Note Date/Time of Note DATE: 03/25/16 TIME: 10:18 Consult Date/Type/Reason Admit Date/Time Mar 24, 2016 at 17:54 Initial Consult Date Type of Consultation: pulmonary Subjective Patient remains stable on mechanical ventilation Continues rewarming process Currently hemodynamically stable Still continues paralytic and sedation Objective Vital Signs Date Time Temp Pulse Resp B/P Pulse Ox O2 Delivery O2 Flow Rate FiO2 03/25/16 09:40 64 16 100 40 03/25/16 09:00 112/82 Mechanical Ventilator 03/25/16 08:00 93.6 Intake and Output 03/24/16 03/24/16 03/25/16 14:59 22:59 06:59 Intake Total 503.44 ml 905.4 ml Output Total 1175 ml 1245 ml Balance -671.56 ml -339.6 ml PHYSICAL EXAMINATION: GENERAL: Morbidly obese gentleman, intubated on mechanical ventilation, appears comfortable at rest, no acute distress. VITAL SIGNS: As above NECK: Supple. No JVD or lymphadenopathy. CARDIAC: S1, S2. No added sounds or murmurs. CHEST: Diminished air entry bilaterally. ABDOMEN: Soft, nontender. No guarding or rebound. EXTREMITIES: No cyanosis, clubbing, 1+ edema. NEUROLOGIC: Generalized weakness. Unable to assess. Results/Medications Result Diagram: 03/25/16 0343 03/25/16 0343 Results 24 hrs Laboratory Tests Test 03/24/16 10:25 03/24/16 11:09 03/24/16 12:09 03/24/16 13:02 Bedside Glucose 98 100 123 121 Test 03/24/16 14:02 03/24/16 14:54 03/24/16 14:55 03/24/16 15:05 Bedside Glucose 113 119 Creatine Kinase 1402 H Creatine Kinase Index 10.8 Creatinine Kinase MB (Mass) 151.00 H Troponin I 3.680 *H Activated Partial Thromboplast Time 76.8 *H Test 03/24/16 15:47 03/24/16 16:28 03/24/16 18:32 03/24/16 18:35 Arterial Blood HCO3 22.4 Arterial Blood Base Excess -3.2 L Arterial Blood Oxygen Saturation 95.8 Flip Test ACCEPTAB Arterial Blood Gas Puncture Site Right Radial Arterial Blood Carboxyhemoglobin 0.3 Arterial Blood Date Drawn 03/24/2016 6:35:26 PM Arterial Blood Methemoglobin 0.3 Arterial Blood pCO2 (Temp correct) 34.7 L Arterial Blood pH (Temp corrected) 7.406 Arterial Blood pO2 (Temp corrected) 65.5 L Blood Gas A-a O2 Differential 183.8 H Blood Gas Actual Respiration Rate 16 Blood Gas Critical Value Read Back Juwan KRAFT RN Blood Gas Modality VENT - AC Blood Gas Notified Time 03/24/2016 6:49:10 PM Blood Gas Notified Whom RDIX Blood Gas Respiration Rate 16.0 Blood Gas Specimen Source Blood arterial Blood Gas Temperature 32.6 Blood Gas Tidal Volume 500.0 FiO2 40.0 Oxyhemoglobin Percent 95.2 Total Hemoglobin 13.5 Bedside Glucose 114 126 Creatine Kinase 2512 #H Creatine Kinase Index 10.4 Creatinine Kinase MB (Mass) 262.00 H Troponin I 8.530 *H Test 03/24/16 19:06 03/24/16 20:28 03/24/16 21:05 03/24/16 21:10 Bedside Glucose 131 116 110 Activated Partial Thromboplast Time 69.8 H Amylase Level 51 Anion Gap 13 Basophils # 0.0 Basophils % 0.1 Blood Urea Nitrogen 9 Calcium Level 8.6 Carbon Dioxide Level 27 Chloride Level 100 Creatinine 0.48 L Eosinophils # 0.0 Eosinophils % 0.1 Fibrinogen 466.0 H Glucose Level 111 Hematocrit 37.4 L Hemoglobin 12.6 L Lipase 178 Lymphocytes # 1.1 Lymphocytes % 11.5 L Magnesium Level 1.5 L Mean Corpuscular Hemoglobin 29.6 Mean Corpuscular Hemoglobin Concent 33.8 Mean Corpuscular Volume 87.8 Mean Platelet Volume 8.3 Mix PTT Normal Plasma 1 Hour 49.7 Mix PTT Normal Plasma Immediate 43.6 Monocytes # 0.7 Monocytes % 6.6 Neutrophils # 8.1 H Neutrophils % 81.7 H Nucleated Red Blood Cells # 0.0 Nucleated Red Blood Cells % 0.0 Phosphorus Level 4.1 Platelet Count 226 Potassium Level 3.5 Red Blood Count 4.26 L Red Cell Distribution Width 13.2 Sodium Level 136 Troponin I 9.810 *H White Blood Count 9.9 # Test 03/24/16 21:58 03/24/16 23:08 03/25/16 00:14 03/25/16 02:13 Bedside Glucose 128 115 117 92 Test 03/25/16 03:16 03/25/16 03:43 03/25/16 04:14 03/25/16 05:08 Bedside Glucose 98 111 116 Activated Partial Thromboplast Time 71.8 *H Alanine Aminotransferase (ALT/SGPT) 149 H Albumin 3.7 Albumin/Globulin Ratio 1.23 Alkaline Phosphatase 107 Amylase Level 43 Anion Gap 15 Aspartate Amino Transf (AST/SGOT) 310 #H Basophils # 0.0 Basophils % 0.3 Blood Urea Nitrogen 8 Calcium Level 9.0 Carbon Dioxide Level 28 Chloride Level 103 Cholesterol Level 280 H Cholesterol/HDL Ratio 7.7 Creatine Kinase 4758 H Creatine Kinase Index 10.4 Creatinine 0.49 L Creatinine Kinase MB (Mass) 493.00 H Direct Bilirubin 0.00 Eosinophils # 0.0 Eosinophils % 0.2 Fibrinogen 474.0 H Globulin 3.00 Glucose Level 100 HDL Cholesterol 36 Hematocrit 37.8 L Hemoglobin 12.8 L INR International Normalized Ratio 0.90 Indirect Bilirubin 0.5 LDL Cholesterol, Calculated 150 Lipase 150 Lymphocytes # 1.1 Lymphocytes % 12.2 L Magnesium Level 2.7 #H Mean Corpuscular Hemoglobin 29.5 Mean Corpuscular Hemoglobin Concent 33.9 Mean Corpuscular Volume 87.0 Mean Platelet Volume 8.1 Monocytes # 0.7 Monocytes % 8.0 Neutrophils # 7.1 Neutrophils % 79.3 H Nucleated Red Blood Cells # 0.0 Nucleated Red Blood Cells % 0.0 Phosphorus Level 4.2 Platelet Count 227 Potassium Level 3.1 L Prothrombin Time 12.1 L Prothrombin Time Ratio 0.9 Red Blood Count 4.35 L Red Cell Distribution Width 12.7 Sodium Level 143 Total Bilirubin 0.5 Total Protein 6.7 # Triglycerides Level 469 H Troponin I 18.100 *H White Blood Count 9.0 Test 03/25/16 06:16 03/25/16 07:00 03/25/16 09:05 Bedside Glucose 108 106 96 Arterial Blood HCO3 25.2 Arterial Blood Base Excess -0.2 Arterial Blood Oxygen Saturation 98.2 H Flip Test ACCEPTAB Arterial Blood Gas Puncture Site Right Radial Arterial Blood Carboxyhemoglobin 0.3 Arterial Blood Date Drawn 03/25/2016 7:35:53 AM Arterial Blood Methemoglobin 0.4 Arterial Blood pCO2 (Temp correct) 38.6 Arterial Blood pH (Temp corrected) 7.420 Arterial Blood pO2 (Temp corrected) 111.2 H Blood Gas A-a O2 Differential 132.4 H Blood Gas Actual Respiration Rate 16 Blood Gas Low PEEP Setting 0 Blood Gas Modality VENT - AC Blood Gas Notified Time 03/25/2016 7:56:32 AM Blood Gas Notified Whom JLD Blood Gas Respiration Rate 16.0 Blood Gas Specimen Source Blood arterial Blood Gas Temperature 34.1 Blood Gas Tidal Volume 500.0 FiO2 40.0 Oxyhemoglobin Percent 97.5 Total Hemoglobin 13.8 Medications Current Medications Sodium Chloride (NS) 1,000 ml @ 50 mls/hr Q20H IV Last administered on 18:12; Admin Dose 50 MLS/HR; Start 03/24/16 at 03:47 Ondansetron HCl (Zofran Inj) 4 mg Q6H PRN IV NAUSEA AND/OR VOMITING; Start 01/28 at 04:00 Nitroglycerin (Nitroglycerin (Sl Tab) 0.4 Mg) 1 tab Q5M PRN SL CHEST PAIN; Start 03/24/16 at 04:00 Morphine Sulfate (morphine) 2 mg Q4H PRN IV PAIN LEVEL 7-10 Last administered on 03/25/16 04:00; Admin Dose 2 MG; Start 03/24/16 at 04:00 Lorazepam (Ativan) 1 mg Q2H PRN IV ANXIETY; Start 03/24/16 at 04:00 Bisacodyl (Dulcolax) 5 mg DAILY PRN PO CONSTIPATION; Start 03/24/16 at 04:00 Pantoprazole 40 mg 40 mg DAILY@06 IV Last administered on 03/25/16 05:31; Admin Dose 40 MG; Start 03/24/16 at 06:00 Vecuronium [place] 100 mg/ Dextrose 100 ml @ 4.1 mls/hr Q24H IV Last administered on 03/25/16 06:20; Admin Dose 8.1 MLS/HR; Start 03/24/16 at 04:15 Sodium Chloride (NS) 1,000 ml @ 50 mls/hr Q20H IV Last administered on 23:47; Admin Dose 50 MLS/HR; Start 03/24/16 at 03:47 Acetaminophen (Tylenol Supp) 650 mg Q4H PRN VA TEMP > 37C; Start 03/24/16 at 04 :00 Acetaminophen (Tylenol Liquid) 650 mg Q4H PRN PO TEMP > 37C; Start 03/24/16 at 04:00 Acetaminophen (Tylenol Supp) 500 mg Q6H VA ; Start 03/25/16 at 04:00 Acetaminophen (Tylenol Liquid) 500 mg Q6H PO ; Start 03/25/16 at 04:00; Status Future Hold Meperidine HCl (Demerol) 12.5 mg Q4H PRN IV POST OPERATIVE SHIVERING; Start 01/28 at 04:00 Meperidine HCl (Demerol) 25 mg Q4H PRN IV POST OPERATIVE SHIVERING; Start 03/24 at 04:00 Eye Lubricant (Akwa Oint) 1 applic Q6 BOTH EYES Last administered on 03/25/16 05:27; Admin Dose 1 APPLIC; Start 03/24/16 at 06:00 Eye Lubricant (Artificial Tears Oph) 2 drop Q6 BOTH EYES Last administered on 05:27; Admin Dose 2 DROP; Start 03/24/16 at 06:00 Diagnostic Test (Pha) (Accucheck) 1 ea Q1H XX Last administered on 03/25/16 09 :06; Admin Dose 1 EA; Start 03/24/16 at 04:00 Dextrose (D50w Syringe) 25 ml Q15M PRN IV Till BS 80 mg/dL or above x2; Start 03/24/16 at 04:00 Dextrose (D50w Syringe) 50 ml Q15M PRN IV Till BS 80 mg/dL or above x2; Start 03/24/16 at 04:00 Atorvastatin Calcium 40 mg 40 mg QHS PO Last administered on 03/24/16 21:03; Admin Dose 40 MG; Start 03/24/16 at 21:00 Fentanyl 1000 mcg/ Dextrose 100 ml @ 2.5 mls/hr TITRATE IV Last administered on 03/24/16 18:51; Admin Dose 2.5 MLS/HR; Start 03/24/16 at 17:30 Levofloxacin/ Dextrose 100 ml @ 100 mls/hr DAILY IVPB Last administered on 09:00; Admin Dose 100 MLS/HR; Start 03/24/16 at 18:00 Potassium Chloride (KCl 40 MEQ/250 ML NS) 250 ml @ 62.5 mls/hr ONCE ONCE IVPB ; Start 03/25/16 at 10:00; Stop 03/25/16 at 13:59 Assessment/Plan Chief Complaint/Hosp Course IMPRESSION AND PLAN: 1. Ventricular fibrillation arrest, possible underlying coronary artery disease. 2. Possible anoxic brain injury. 3. Probable aspiration pneumonitis. 4. History of questionable coronary artery disease. The patient will require: 1. Supplemental O2. 2. Bronchodilators. 3. Hypothermia protocol. 4. Sedation and paralysis. 5. DVT and GI prophylaxis. 6. Neurology evaluation post-reversal of hypothermia. 7. Consider cardiac catheterization. 8. DC IV heparin Problems: ASHISH MOORE MD, [facility] Mar 25, 2016 10:20
--- NOTE | 2016-03-25 11:03 | RADRPT ---
Vent Rate: 51 bpm RR Interval: 0 msec NC Interval: 182 msec QRS Duration: 86 msec QT Interval: 494 msec QTC Interval: 455 msec P-R-T [place]: 4 - 9 - 61 degrees Sinus bradycardia Nonspecific T wave abnormality Abnormal ECG Electronically Signed By: Feliz Kennedy [id number]
[2016-03-25 11:50] LABS: BASOPHILS % 0.1 % (0.0-2.0); EOSINOPHILS % 0.1 % (0.0-7.0); HEMATOCRIT 36.3 % (42.0-52.0); HEMOGLOBIN 12.3 g/dl (14.0-18.0); LYMPHOCYTES # 0.7 10^3/ul (0.8-2.9); LYMPHOCYTES % 7.1 % (15.0-51.0); MEAN CORPUSCULAR HEMOGLOBIN 29.6 pg (29.0-33.0); MEAN CORPUSCULAR HGB CONC 33.9 g/dl (32.0-37.0); MEAN CORPUSCULAR VOLUME 87.4 fl (82.0-101.0); MEAN PLATELET VOLUME 8.6 fl (7.4-10.4); MONOCYTE # 0.5 10^3/ul (0.3-0.9); MONOCYTES % 5.4 % (0.0-11.0); NEUTROPHIL # 8.2 10^3/ul (1.6-7.5); NEUTROPHILS % 87.3 % (39.0-77.0); PLATELET COUNT 202 10^3/UL (140-440); RED BLOOD COUNT 4.15 10^6/ul (4.70-6.10); RED CELL DISTRIBUTION WIDTH 13.4 % (11.5-14.5); UNCORRECTED WBC 9.4 10^3/ul (4.8-10.8); WHITE BLOOD COUNT 9.4 10^3/ul (4.8-10.8)
[2016-03-25 11:53] LABS: POTASSIUM 3.8 mmol/L (3.5-5.1)
[2016-03-25 11:55] LABS: CREATININE 0.6 mg/dl (0.61-1.24)
[2016-03-25 11:56] LABS: CALCIUM 8.8 mg/dl (8.4-10.2); MAGNESIUM 2.2 mg/dl (1.7-2.5); PHOSPHORUS 4.1 mg/dl (2.5-4.9)
[2016-03-25 12:02] LABS: INR 0.9; PROTIME 12.1 Sec (12.2-14.2); PT RATIO 0.9
[2016-03-25] MEDS: ASPIRIN 81 MG TAB PO SCH (12:02)
[2016-03-25 12:03] LABS: PARTIAL THROMBOPLASTIN TIME 34.9 Sec (25.0-35.0)
[2016-03-25 12:34] LABS: CONDITION 1
[2016-03-25 12:48] LABS: TROPONIN-I 19.1 ng/ml (0.00-0.12)
[2016-03-25] MEDS: FENTAnyl 1,000 MCG in DEXTROSE 5% 80 ML IV SCH (15:08)
[2016-03-25 16:25] LABS: AADO2 Arterial 142.5 mmHg (7.0-24.0); Allen Test ACCEPTAB; Arterial Base Excess 0.2 mmol/L (-3.0-3); Arterial COHb 0.3 % (0.0-3.0); Arterial Fraction of Oxyhgb 96.4 % (93.0-99.0); Arterial HCO3 25.8 mmol/L (22.0-26.0); Arterial MetHb 0.3 % (0.0-1.5); Arterial Total Hemglobin 13.8 g/dl (12.0-18.0); MODE VENT - AC
[2016-03-25] MEDS: SOD CHLORIDE 0.9% 1,000 ML IV SCH ×2 (16:55→19:47)
--- NOTE | 2016-03-25 17:18 | RADRPT ---
PROCEDURE: XR Chest. CLINICAL INDICATION: Shortness of breath. TECHNIQUE: Single frontal view. COMPARISON: 03/25/2016. 0608 hours. FINDINGS: The endotracheal tube, nasogastric tube, and left subclavian vein catheter remain in satisfactory po sition. There is complete collapse of the right upper lobe, unchanged. The lungs are otherwise sesar ar. The heart size is normal. There is no pleural effusion. There is no pneumothorax. IMPRESSION: 1. No change from the prior study done earlier the same day. RPTAT: QQ .Yossi Larose MD, MD Date Time Electronically viewed and signed by .Yossi Larose MD, MD on 03/25/2016 17:18 .R/
[2016-03-25 18:15] LABS: HEMATOCRIT 37.6 % (42.0-52.0); HEMOGLOBIN 12.7 g/dl (14.0-18.0); MEAN CORPUSCULAR HEMOGLOBIN 29.5 pg (29.0-33.0); MEAN CORPUSCULAR HGB CONC 33.7 g/dl (32.0-37.0); MEAN CORPUSCULAR VOLUME 87.5 fl (82.0-101.0); MEAN PLATELET VOLUME 8.1 fl (7.4-10.4); PLATELET COUNT 209 10^3/UL (140-440); RED CELL DISTRIBUTION WIDTH 13.1 % (11.5-14.5)
[2016-03-25 18:21] LABS: CONDITION 1; LH ANALYZER COMMENTS 1
[2016-03-25 18:25] LABS: INR 0.94; PROTIME 12.6 Sec (12.2-14.2)
[2016-03-25 18:26] LABS: CREATININE 0.58 mg/dl (0.61-1.24); PARTIAL THROMBOPLASTIN TIME 34.5 Sec (25.0-35.0)
[2016-03-25 18:27] LABS: MAGNESIUM 1.9 mg/dl (1.7-2.5)
[2016-03-25 18:54] LABS: TROPONIN-I 48.4 ng/ml (0.00-0.12)
[2016-03-25 19:14] LABS: LYMPHOCYTES # 0.7 10^3/ul (0.8-2.9); NEUTROPHIL # 10.1 10^3/ul (1.6-7.5)
[2016-03-25] MEDS: LORAZEPAM 2 MG INJ IV PRN (20:24)
[2016-03-25] MEDS: ATORVASTATIN 40 MG TAB PO SCH (22:23)
[2016-03-26] VITALS (71 sets, daily range): BP systolic 77–125; BP diastolic 46–99; PULSE 92–110; RESP 12–25
[2016-03-26] MEDS: FENTAnyl 1,000 MCG in DEXTROSE 5% 80 ML IV SCH ×3 (00:01→22:55)
[2016-03-26] MEDS: ACCUCHECK XX SCH ×8 (00:03→07:54)
[2016-03-26] MEDS: LORAZEPAM 2 MG INJ IV PRN (03:34)
[2016-03-26] MEDS: ACETAMINOPHEN 650 MG SUPP PR SCH ×4 (04:00→21:36)
[2016-03-26 05:44] LABS: HEMATOCRIT 33.6 % (42.0-52.0); HEMOGLOBIN 11.2 g/dl (14.0-18.0); LYMPHOCYTES % 7.9 % (15.0-51.0); MEAN CORPUSCULAR HEMOGLOBIN 29.6 pg (29.0-33.0); MEAN CORPUSCULAR HGB CONC 33.3 g/dl (32.0-37.0); MEAN CORPUSCULAR VOLUME 88.9 fl (82.0-101.0); MEAN PLATELET VOLUME 9.3 fl (7.4-10.4); MONOCYTE # 0.9 10^3/ul (0.3-0.9); MONOCYTES % 7.2 % (0.0-11.0); NEUTROPHIL # 10.4 10^3/ul (1.6-7.5); NEUTROPHILS % 84.9 % (39.0-77.0); PLATELET COUNT 204 10^3/UL (140-440); RED BLOOD COUNT 3.78 10^6/ul (4.70-6.10); RED CELL DISTRIBUTION WIDTH 13.3 % (11.5-14.5); UNCORRECTED WBC 12.3 10^3/ul (4.8-10.8); WHITE BLOOD COUNT 12.3 10^3/ul (4.8-10.8)
[2016-03-26] MEDS: ARTIFICIAL TEARS 15 ML OPH BOTH EYES SCH ×3 (05:50→17:12)
[2016-03-26] MEDS: SOD CHLORIDE 0.9% 1,000 ML IV SCH ×3 (05:50→21:34)
[2016-03-26] MEDS: OCULAR LUBRICANT 3.5 GM OPH OINT BOTH EYES SCH ×3 (05:50→17:12)
[2016-03-26] MEDS: PANTOPRAZOLE 40 MG INJ IV SCH (05:50)
[2016-03-26 05:53] LABS: POTASSIUM 3.9 mmol/L (3.5-5.1)
[2016-03-26 05:54] LABS: CONDITION 1
[2016-03-26 05:55] LABS: CREATININE 1.25 mg/dl (0.61-1.24)
[2016-03-26 05:56] LABS: ALBUMIN/GLOBULIN RATIO 1.03; BILIRUBIN,INDIRECT 0.7 mg/dl (0-1.1); BILIRUBIN,TOTAL 0.7 mg/dl (0.2-1.3); CALCIUM 8.5 mg/dl (8.4-10.2); TOTAL PROTEIN 5.9 g/dl (6.1-8.1)
[2016-03-26] MEDS: PROPOFOL 100 ML IV SCH ×4 (07:51→21:33)
--- NOTE | 2016-03-26 08:40 | PN ---
Date/Time of Note Date/Time of Note DATE: 03/26/16 TIME: 08:29 Assessment/Plan VTE Prophylaxis VTE Prophylaxis Intervention: SCD's Lines/Catheters IV Catheter Type (from Nrs): Central Line Central line still needed: Yes Urinary Cath still in place: Yes Reason Cath still needed: other (indicate) Assessment/Plan Assessment/Plan This is a 60-year-old male with past medical history of hypertension, arthritis , high cholesterol, gastroesophageal reflux disease, depression who comes in with ventricular fibrillation arrest, now intubated and sedated on the hypothermia protocol. 1. Ventricular fibrillation arrest likely 2/ #4 s/p CPR + ROSC / Hypothermia protocol 2. Acute resp failure with collapsed RUL on last CXR: remains intubated on full vent support / pulm following 3. Essential hypertension. Blood pressure stable. Continue to monitor for now. 3. NSTEMI + probable ST elevation myocardial infarction given initial EKG and follow up cardiology recommendations. Cardiology following / patient may require Cath when more stable 4. Hyperglycemia without Documented hx of DM likely steroid induced / was on steroids for ?COPD / d/c insulin drip and use SSI only 5. Depression resume home meds once stable 6. COPD no evidence of exacerbation / pulm following 7. BPH mccann currently in place / resume home meds once stable 8. High cholesterol. Continue Lipitor. 9. Transaminitis: improving 10. Rhabdomyolysis: Continue IVF / trend CK 11. RANDY: ?ATN / monitor creatinine / r/o obstruction / cont IVF Dispo: f/u cardio and pulm recs. Prophylaxis: Lovenox / PPI Further evaluation and treatment will be based on clinical course Full discussion with care team done. All questions Answered Please also see orders. Total time spent on this evaluation >35mins Subjective 24 Hr Interval Summary Free Text/Dictation Patient seen and examined. opens eyes and moves all extremities and tries to pull at tube off sedation Intubated and sedated for comfort, but no pressor support. Now off hypothermia protocol Subjective hx not possible: pt critical status Exam/Review of Systems Vital Signs Vitals Vital Signs Date Time Temp Pulse Resp B/P Pulse Ox O2 Delivery O2 Flow Rate FiO2 03/26/16 06:45 101 16 92/60 97 Mechanical Ventilator 03/26/16 05:28 40 03/26/16 04:00 99.2 Intake and Output 03/25/16 03/25/16 03/26/16 15:00 23:00 07:00 Intake Total 681.2 ml 639.7 ml 559.4 ml Output Total 630 ml 470 ml 330 ml Balance 51.2 ml 169.7 ml 229.4 ml Exam Constitutional: No alert, No oriented Psych: other (unable to assess) Head: atraumatic, normocephalic Eyes: PERRL ENMT: intubated Respiratory: clear to auscultation, diminished breath sounds Cardiovascular: regular rate and rhythm, No murmurs/extra sounds Gastrointestinal: bowel sounds, non-tender, soft Neurological: other (sedated on propofol) Results Result Diagram: 03/26/16 0245 03/26/16 0245 Results 24 hrs Laboratory Tests Test 03/25/16 09:05 03/25/16 11:10 03/25/16 11:11 03/25/16 11:15 Bedside Glucose 96 105 Activated Partial Thromboplast Time 34.9 Amylase Level 46 Anion Gap 12 Basophils # 0.0 Basophils % 0.1 Blood Urea Nitrogen 9 Calcium Level 8.8 Carbon Dioxide Level 29 Chloride Level 103 Creatine Kinase 4122 H Creatine Kinase Index 12.3 Creatinine 0.60 L Creatinine Kinase MB (Mass) 508.00 H Eosinophils # 0.0 Eosinophils % 0.1 Fibrinogen 507.0 #H Glucose Level 91 Hematocrit 36.3 L Hemoglobin 12.3 L INR International Normalized Ratio 0.90 Lipase 49 Lymphocytes # 0.7 L Lymphocytes % 7.1 L Magnesium Level 2.2 Mean Corpuscular Hemoglobin 29.6 Mean Corpuscular Hemoglobin Concent 33.9 Mean Corpuscular Volume 87.4 Mean Platelet Volume 8.6 Monocytes # 0.5 Monocytes % 5.4 Neutrophils # 8.2 H Neutrophils % 87.3 H Nucleated Red Blood Cells # 0.0 Nucleated Red Blood Cells % 0.0 Phosphorus Level 4.1 Platelet Count 202 Potassium Level 3.8 Prothrombin Time 12.1 L Prothrombin Time Ratio 0.9 Red Blood Count 4.15 L Red Cell Distribution Width 13.4 Sodium Level 140 Thyroid Stimulating Hormone (TSH) 1.700 Troponin I 19.100 *H White Blood Count 9.4 Free Thyroxine 1.36 Test 03/25/16 13:05 03/25/16 15:02 03/25/16 16:00 03/25/16 17:06 Bedside Glucose 95 95 102 Arterial Blood HCO3 25.8 Arterial Blood Base Excess 0.2 Arterial Blood Oxygen Saturation 97.0 Flip Test ACCEPTAB Arterial Blood Gas Puncture Site Right Radial Arterial Blood Carboxyhemoglobin 0.3 Arterial Blood Date Drawn 03/25/2016 4:05:51 PM Arterial Blood Methemoglobin 0.3 Arterial Blood pCO2 (Temp correct) 43.3 Arterial Blood pH (Temp corrected) 7.389 Arterial Blood pO2 (Temp corrected) 94.0 Blood Gas A-a O2 Differential 142.5 H Blood Gas Actual Respiration Rate 16 Blood Gas Modality VENT - AC Blood Gas Notified Time 03/25/2016 4:24:48 PM Blood Gas Notified Whom AT Blood Gas Respiration Rate 16.0 Blood Gas Specimen Source Blood arterial Blood Gas Temperature 36.0 Blood Gas Tidal Volume 500.0 FiO2 40.0 Oxyhemoglobin Percent 96.4 Total Hemoglobin 13.8 Test 03/25/16 18:05 03/25/16 19:08 03/25/16 20:53 03/25/16 22:26 Activated Partial Thromboplast Time 34.5 Amylase Level 36 Anion Gap 13 Band Neutrophils % 9.0 H Basophils # Basophils % Blood Urea Nitrogen 8 Calcium Level 9.0 Carbon Dioxide Level 30 Chloride Level 102 Creatine Kinase 2329 H Creatine Kinase Index 17.3 Creatinine 0.58 L Creatinine Kinase MB (Mass) 403.00 H Eosinophils # Eosinophils % Fibrinogen 562.0 #H Glucose Level 105 Hematocrit 37.6 L Hemoglobin 12.7 L INR International Normalized Ratio 0.94 Lipase 28 Lymphocytes # 0.7 L Lymphocytes % 5.0 L Magnesium Level 1.9 Mean Corpuscular Hemoglobin 29.5 Mean Corpuscular Hemoglobin Concent 33.7 Mean Corpuscular Volume 87.5 Mean Platelet Volume 8.1 Monocytes # 1.0 H Monocytes % 8.0 Neutrophils # 10.1 H Neutrophils % 78.0 H Nucleated Red Blood Cells # Nucleated Red Blood Cells % 0.0 Phosphorus Level 4.0 Platelet Count 209 Potassium Level 4.0 Prothrombin Time 12.6 Prothrombin Time Ratio 1.0 Red Blood Count 4.30 L Red Cell Distribution Width 13.1 Sodium Level 141 Troponin I 48.400 *H White Blood Count 13.0 #H Bedside Glucose 95 108 96 Test 03/25/16 23:59 03/26/16 02:45 03/26/16 03:58 03/26/16 07:53 Bedside Glucose 98 95 101 Alanine Aminotransferase (ALT/SGPT) 111 H Albumin 3.0 L Albumin/Globulin Ratio 1.03 Alkaline Phosphatase 85 Anion Gap 14 Aspartate Amino Transf (AST/SGOT) 177 H Basophils # 0.0 Basophils % 0.0 Blood Urea Nitrogen 11 Calcium Level 8.5 Carbon Dioxide Level 28 Chloride Level 103 Creatinine 1.25 H Direct Bilirubin 0.00 Eosinophils # 0.0 Eosinophils % 0.0 Globulin 2.90 Glucose Level 92 Hematocrit 33.6 L Hemoglobin 11.2 L Indirect Bilirubin 0.7 Lymphocytes # 1.0 Lymphocytes % 7.9 L Mean Corpuscular Hemoglobin 29.6 Mean Corpuscular Hemoglobin Concent 33.3 Mean Corpuscular Volume 88.9 Mean Platelet Volume 9.3 Monocytes # 0.9 Monocytes % 7.2 Neutrophils # 10.4 H Neutrophils % 84.9 H Nucleated Red Blood Cells # 0.0 Nucleated Red Blood Cells % 0.0 Platelet Count 204 Potassium Level 3.9 Red Blood Count 3.78 L Red Cell Distribution Width 13.3 Sodium Level 141 Total Bilirubin 0.7 Total Protein 5.9 L White Blood Count 12.3 H Medications Medications Current Medications Sodium Chloride (NS) 1,000 ml @ 50 mls/hr Q20H IV Last administered on 05:50; Admin Dose 50 MLS/HR; Start 03/24/16 at 03:47 Ondansetron HCl (Zofran Inj) 4 mg Q6H PRN IV NAUSEA AND/OR VOMITING; Start 01/28 at 04:00 Nitroglycerin (Nitroglycerin (Sl Tab) 0.4 Mg) 1 tab Q5M PRN SL CHEST PAIN; Start 03/24/16 at 04:00 Morphine Sulfate (morphine) 2 mg Q4H PRN IV PAIN LEVEL 7-10 Last administered on 03/25/16 18:17; Admin Dose 2 MG; Start 03/24/16 at 04:00 Lorazepam (Ativan) 1 mg Q2H PRN IV ANXIETY Last administered on 03/26/16 03:34 ; Admin Dose 1 MG; Start 03/24/16 at 04:00 Bisacodyl (Dulcolax) 5 mg DAILY PRN PO CONSTIPATION; Start 03/24/16 at 04:00 Pantoprazole 40 mg 40 mg DAILY@06 IV Last administered on 03/26/16 05:50; Admin Dose 40 MG; Start 03/24/16 at 06:00 Vecuronium [place] 100 mg/ Dextrose 100 ml @ 4.1 mls/hr Q24H IV Last administered on 03/25/16 06:20; Admin Dose 8.1 MLS/HR; Start 03/24/16 at 04:15 Sodium Chloride (NS) 1,000 ml @ 50 mls/hr Q20H IV Last administered on 23:47; Admin Dose 50 MLS/HR; Start 03/24/16 at 03:47 Acetaminophen (Tylenol Supp) [address] TEMP > 37C; Start 03/24/16 at 04 :00 Acetaminophen (Tylenol Liquid) 650 mg Q4H PRN PO TEMP > 37C; Start 03/24/16 at 04:00 Acetaminophen (Tylenol Supp) [address] ; Start 03/25/16 at 04:00 Acetaminophen (Tylenol Liquid) 500 mg Q6H PO ; Start 03/25/16 at 04:00; Status Future Hold Meperidine HCl (Demerol) 12.5 mg Q4H PRN IV POST OPERATIVE SHIVERING; Start 01/28 at 04:00 Meperidine HCl (Demerol) 25 mg Q4H PRN IV POST OPERATIVE SHIVERING; Start 03/24 at 04:00 Eye Lubricant (Akwa Oint) 1 applic Q6 BOTH EYES Last administered on 03/26/16 05:50; Admin Dose 1 APPLIC; Start 03/24/16 at 06:00 Eye Lubricant (Artificial Tears Oph) 2 drop Q6 BOTH EYES Last administered on 05:50; Admin Dose 2 DROP; Start 03/24/16 at 06:00 Diagnostic Test (Pha) (Accucheck) 1 ea Q1H XX Last administered on 03/26/16 07 :54; Admin Dose 1 EA; Start 03/24/16 at 04:00 Dextrose (D50w Syringe) 25 ml Q15M PRN IV Till BS 80 mg/dL or above x2; Start 03/24/16 at 04:00 Dextrose (D50w Syringe) 50 ml Q15M PRN IV Till BS 80 mg/dL or above x2; Start 03/24/16 at 04:00 Atorvastatin Calcium 40 mg 40 mg QHS PO Last administered on 03/25/16 22:23; Admin Dose 40 MG; Start 03/24/16 at 21:00 Fentanyl 1000 mcg/ Dextrose 100 ml @ 2.5 mls/hr TITRATE IV Last administered on 03/26/16 00:01; Admin Dose 2.5 MLS/HR; Start 03/24/16 at 17:30 Levofloxacin/ Dextrose (Levaquin 500mg/ D5W 100 ml (Pmx)) 100 ml @ 100 mls/hr DAILY IVPB Last administered on 03/25/16 09:00; Admin Dose 100 MLS/HR; Start 03/24/16 at 18:00 Aspirin (Aspirin) 162 mg DAILY PO Last administered on 03/25/16 12:02; Admin Dose 162 MG; Start 03/25/16 at 11:30 Procedures Procedures Echocardiogram Report Patient Name: JACKIE BARTHOLOMEW Gender: Male Date: 1955 Study Date: 24-Mar-2016 Rn Telemetry: German Mcghee RDCS Location: ER Ref. Physician: RAMAN BARRETT Quality: Good Procedures: Transthoracic echocardiogram with complete 2D, M-Mode, and doppler examination. Indications: Cardiac Arrest. 2D/M Mode Doppler Measurement Value Normal Ranges Measurement Value Normal Ranges LVIDd 2D 4.8 3.5 - 5.6 cm AV Peak [place] 1.1 m/sec LVIDs 2D 3.7 2.1 - 4.1 cm AV Peak PG 5.2 mmHg LVPWd 2D 1.0 0.6 - 1.1 cm LVOT Peak [place] 1.1 m/sec IVSd 2D 1.1 0.6 - 1.1 cm LVOT Peak PG 4.4 mmHg AoR Diam 2D 2.2 2.0 - 3.7 cm MV E Peak [place] 0.6 m/sec EDV 2D 108.0 cm3 MV A Peak [place] 0.8 m/sec ESV 2D 51.5 cm3 MV E/A 0.8 LA Dimen 2D 3.1 2.3 - 4.0 cm MV Decel Time 159 msec MV Decel [place] 4 MV E/A 0.8 Findings Left Ventricle: Normal left ventricular systolic function. Normal left ventricular cavity size. Normal left ventricular wall thickness. Ejection fraction is visually estimated at 65 %. Tissue Doppler/Mitral Doppler indices are consistent with impaired relaxation (Stage I diastolic dysfunction). Right Ventricle: Normal right ventricular size. Normal right ventricular systolic function. Left Atrium: The left atrium is normal in size. Right Atrium: The right atrium is normal in size. Mitral Valve: Normal appearance and function of the mitral valve with trace physiologic regurgitation. Aortic Valve: Normal appearance of the aortic valve. No significant aortic stenosis or insufficiency. Tricuspid Valve: Normal appearance and function of the tricuspid valve with trace physiologic regurgitation. Pericardium: Normal pericardium with no significant pericardial effusion. Aorta: Normal aortic root. IVC: Inferior vena cava without respiratory collapse, however, patient on ventilator. Conclusions 1. Normal left ventricular systolic function. Normal left ventricular cavity size. Normal left ventricular wall thickness. Ejection fraction is visually estimated at 60-65 %. Tissue Doppler/Mitral Doppler indices are consistent with impaired relaxation (Stage I diastolic dysfunction). 2. Normal appearance and function of the mitral valve with trace physiologic regurgitation. 3. Normal appearance and function of the tricuspid valve with trace physiologic regurgitation. Electronically Signed By: Didier Stephens 24-Mar-2016 15:59:09 -0800 PROCEDURE: XR Chest. CLINICAL INDICATION: Shortness of breath. TECHNIQUE: Single frontal view. COMPARISON: 03/25/2016. FINDINGS: The endotracheal tube, nasogastric tube, and left subclavian vein catheter remain in satisfactory position. There is persistent opacification of the right upper lobe, unchanged. The lungs are hypoinflated with central vascular crowding. The heart size is normal. There is no pleural effusion. There is no pneumothorax. IMPRESSION: Hypoinflation. Otherwise, no significant interval change compared to the prior study. RPTAT: JJ .Freeman Jim MD, MD Date Time Electronically viewed and signed by .Freeman Jim MD, on 03/26/2016 09:21 DELMY OLIVER Mar 26, 2016 08:39
--- NOTE | 2016-03-26 08:53 | RADRPT ---
Vent Rate: 54 bpm RR Interval: 0 msec NH Interval: 170 msec QRS Duration: 100 msec QT Interval: 530 msec QTC Interval: 502 msec P-R-T [place]: -3 - 10 - 68 degrees Sinus bradycardia Nonspecific T wave abnormality Prolonged QT Abnormal ECG Electronically Signed By: Feliz Kennedy [id number]
[2016-03-26] MEDS: LEVOFLOXACIN 500MG/D5W (PMX) 100 ML IVPB SCH (09:19)
[2016-03-26] MEDS: ASPIRIN 81 MG TAB PO SCH (09:19)
--- NOTE | 2016-03-26 09:21 | RADRPT ---
PROCEDURE: XR Chest. CLINICAL INDICATION: Shortness of breath. TECHNIQUE: Single frontal view. COMPARISON: 03/25/2016. FINDINGS: The endotracheal tube, nasogastric tube, and left subclavian vein catheter remain in satisfactory po sition. There is persistent opacification of the right upper lobe, unchanged. The lungs are hypoin flated with central vascular crowding. The heart size is normal. There is no pleural effusion. Th ere is no pneumothorax. IMPRESSION: Hypoinflation. Otherwise, no significant interval change compared to the prior study. RPTAT: JJ .Freeman Jim MD, MD Date Time Electronically viewed and signed by .Freeman Jim MD, MD on 03/26/2016 09:21 .A/
[2016-03-26] MEDS ORDERED: LIDOCAINE 1% (MDV) 20 ML INJ ONE ×2 (10:33→13:55)
[2016-03-26] MEDS ORDERED: FUROSEMIDE 40 MG INJ IV SCH (11:00)
--- NOTE | 2016-03-26 11:06 | CONS ---
Date/Time of Note Date/Time of Note DATE: 03/26/16 TIME: 11:05 Consult Date/Type/Reason Admit Date/Time Mar 24, 2016 at 17:54 Type of Consultation: pulmonary Subjective Agitated on mechanical ventilation Opens eyes and follows commands according to family Remains hemodynamically stable Objective Vital Signs Date Time Temp Pulse Resp B/P Pulse Ox O2 Delivery O2 Flow Rate FiO2 03/26/16 10:30 92 12 89/58 100 03/26/16 10:00 Mechanical Ventilator 03/26/16 08:00 99.4 03/26/16 07:10 40 Intake and Output 03/25/16 03/25/16 03/26/16 15:00 23:00 07:00 Intake Total 681.2 ml 639.7 ml 559.4 ml Output Total 630 ml 470 ml 330 ml Balance 51.2 ml 169.7 ml 229.4 ml PHYSICAL EXAMINATION: GENERAL: Morbidly obese gentleman, intubated on mechanical ventilation, appears comfortable at rest, no acute distress. VITAL SIGNS: As above NECK: Supple. No JVD or lymphadenopathy. CARDIAC: S1, S2. No added sounds or murmurs. CHEST: Diminished air entry bilaterally. ABDOMEN: Soft, nontender. No guarding or rebound. EXTREMITIES: No cyanosis, clubbing, 1+ edema. NEUROLOGIC: Generalized weakness. Unable to assess. Results/Medications Result Diagram: 03/26/16 0245 03/26/16 0245 Results 24 hrs Chest x-ray Right upper lobe atelectasis collapse Laboratory Tests Test 03/25/16 11:10 03/25/16 11:11 03/25/16 11:15 03/25/16 13:05 Activated Partial Thromboplast Time 34.9 Amylase Level 46 Anion Gap 12 Basophils # 0.0 Basophils % 0.1 Blood Urea Nitrogen 9 Calcium Level 8.8 Carbon Dioxide Level 29 Chloride Level 103 Creatine Kinase 4122 H Creatine Kinase Index 12.3 Creatinine 0.60 L Creatinine Kinase MB (Mass) 508.00 H Eosinophils # 0.0 Eosinophils % 0.1 Fibrinogen 507.0 #H Glucose Level 91 Hematocrit 36.3 L Hemoglobin 12.3 L INR International Normalized Ratio 0.90 Lipase 49 Lymphocytes # 0.7 L Lymphocytes % 7.1 L Magnesium Level 2.2 Mean Corpuscular Hemoglobin 29.6 Mean Corpuscular Hemoglobin Concent 33.9 Mean Corpuscular Volume 87.4 Mean Platelet Volume 8.6 Monocytes # 0.5 Monocytes % 5.4 Neutrophils # 8.2 H Neutrophils % 87.3 H Nucleated Red Blood Cells # 0.0 Nucleated Red Blood Cells % 0.0 Phosphorus Level 4.1 Platelet Count 202 Potassium Level 3.8 Prothrombin Time 12.1 L Prothrombin Time Ratio 0.9 Red Blood Count 4.15 L Red Cell Distribution Width 13.4 Sodium Level 140 Thyroid Stimulating Hormone (TSH) 1.700 Troponin I 19.100 *H White Blood Count 9.4 Free Thyroxine 1.36 Bedside Glucose 105 95 Test 03/25/16 15:02 03/25/16 16:00 03/25/16 17:06 03/25/16 18:05 Bedside Glucose 95 102 Arterial Blood HCO3 25.8 Arterial Blood Base Excess 0.2 Arterial Blood Oxygen Saturation 97.0 Flip Test ACCEPTAB Arterial Blood Gas Puncture Site Right Radial Arterial Blood Carboxyhemoglobin 0.3 Arterial Blood Date Drawn 03/25/2016 4:05:51 PM Arterial Blood Methemoglobin 0.3 Arterial Blood pCO2 (Temp correct) 43.3 Arterial Blood pH (Temp corrected) 7.389 Arterial Blood pO2 (Temp corrected) 94.0 Blood Gas A-a O2 Differential 142.5 H Blood Gas Actual Respiration Rate 16 Blood Gas Modality VENT - AC Blood Gas Notified Time 03/25/2016 4:24:48 PM Blood Gas Notified Whom AT Blood Gas Respiration Rate 16.0 Blood Gas Specimen Source Blood arterial Blood Gas Temperature 36.0 Blood Gas Tidal Volume 500.0 FiO2 40.0 Oxyhemoglobin Percent 96.4 Total Hemoglobin 13.8 Activated Partial Thromboplast Time 34.5 Amylase Level 36 Anion Gap 13 Band Neutrophils % 9.0 H Basophils # Basophils % Blood Urea Nitrogen 8 Calcium Level 9.0 Carbon Dioxide Level 30 Chloride Level 102 Creatine Kinase 2329 H Creatine Kinase Index 17.3 Creatinine 0.58 L Creatinine Kinase MB (Mass) 403.00 H Eosinophils # Eosinophils % Fibrinogen 562.0 #H Glucose Level 105 Hematocrit 37.6 L Hemoglobin 12.7 L INR International Normalized Ratio 0.94 Lipase 28 Lymphocytes # 0.7 L Lymphocytes % 5.0 L Magnesium Level 1.9 Mean Corpuscular Hemoglobin 29.5 Mean Corpuscular Hemoglobin Concent 33.7 Mean Corpuscular Volume 87.5 Mean Platelet Volume 8.1 Monocytes # 1.0 H Monocytes % 8.0 Neutrophils # 10.1 H Neutrophils % 78.0 H Nucleated Red Blood Cells # Nucleated Red Blood Cells % 0.0 Phosphorus Level 4.0 Platelet Count 209 Potassium Level 4.0 Prothrombin Time 12.6 Prothrombin Time Ratio 1.0 Red Blood Count 4.30 L Red Cell Distribution Width 13.1 Sodium Level 141 Troponin I 48.400 *H White Blood Count 13.0 #H Test 03/25/16 19:08 03/25/16 20:53 03/25/16 22:26 03/25/16 23:59 Bedside Glucose 95 108 96 98 Test 03/26/16 02:45 03/26/16 03:58 03/26/16 07:53 Alanine Aminotransferase (ALT/SGPT) 111 H Albumin 3.0 L Albumin/Globulin Ratio 1.03 Alkaline Phosphatase 85 Anion Gap 14 Aspartate Amino Transf (AST/SGOT) 177 H Basophils # 0.0 Basophils % 0.0 Blood Urea Nitrogen 11 Calcium Level 8.5 Carbon Dioxide Level 28 Chloride Level 103 Creatinine 1.25 H Direct Bilirubin 0.00 Eosinophils # 0.0 Eosinophils % 0.0 Globulin 2.90 Glucose Level 92 Hematocrit 33.6 L Hemoglobin 11.2 L Indirect Bilirubin 0.7 Lymphocytes # 1.0 Lymphocytes % 7.9 L Mean Corpuscular Hemoglobin 29.6 Mean Corpuscular Hemoglobin Concent 33.3 Mean Corpuscular Volume 88.9 Mean Platelet Volume 9.3 Monocytes # 0.9 Monocytes % 7.2 Neutrophils # 10.4 H Neutrophils % 84.9 H Nucleated Red Blood Cells # 0.0 Nucleated Red Blood Cells % 0.0 Platelet Count 204 Potassium Level 3.9 Red Blood Count 3.78 L Red Cell Distribution Width 13.3 Sodium Level 141 Total Bilirubin 0.7 Total Protein 5.9 L White Blood Count 12.3 H Bedside Glucose 95 101 Medications Current Medications Ondansetron HCl (Zofran Inj) 4 mg Q6H PRN IV NAUSEA AND/OR VOMITING; Start 01/28 at 04:00 Nitroglycerin (Nitroglycerin (Sl Tab) 0.4 Mg) 1 tab Q5M PRN SL CHEST PAIN; Start 03/24/16 at 04:00 Morphine Sulfate (morphine) 2 mg Q4H PRN IV PAIN LEVEL 7-10 Last administered on 03/25/16t 18:17; Admin Dose 2 MG; Start 03/24/16 at 04:00 Lorazepam (Ativan) 1 mg Q2H PRN IV ANXIETY Last administered on 03/26/16 03:34 ; Admin Dose 1 MG; Start 03/24/16 at 04:00 Bisacodyl (Dulcolax) 5 mg DAILY PRN PO CONSTIPATION; Start 03/24/16 at 04:00 Pantoprazole 40 mg 40 mg DAILY@06 IV Last administered on 03/26/16 05:50; Admin Dose 40 MG; Start 03/24/16 at 06:00 Vecuronium [place]/Dextrose (Norcuron/D5W) 100 ml @ 4.1 mls/hr Q24H IV Last administered on 03/25/16 06:20; Admin Dose 8.1 MLS/HR; Start 03/24/16 at 04:15 Acetaminophen (Tylenol Supp) 650 mg Q4H PRN [place] TEMP > 37C; Start 03/24/16 at 04 :00 Acetaminophen (Tylenol Liquid) 650 mg Q4H PRN PO TEMP > 37C; Start 03/24/16 at 04:00 Acetaminophen (Tylenol Supp) 500 mg Q6H [place] ; Start 03/25/16 at 04:00 Acetaminophen (Tylenol Liquid) 500 mg Q6H PO ; Start 03/25/16 at 04:00; Status Future Hold Meperidine HCl (Demerol) 12.5 mg Q4H PRN IV POST OPERATIVE SHIVERING; Start 01/28 at 04:00 Meperidine HCl (Demerol) 25 mg Q4H PRN IV POST OPERATIVE SHIVERING; Start 03/24 at 04:00 Eye Lubricant (Akwa Oint) 1 applic Q6 BOTH EYES Last administered on 03/26/16 05:50; Admin Dose 1 APPLIC; Start 03/24/16 at 06:00 Eye Lubricant (Artificial Tears Oph) 2 drop Q6 BOTH EYES Last administered on 05:50; Admin Dose 2 DROP; Start 03/24/16 at 06:00 Atorvastatin Calcium 40 mg 40 mg QHS PO Last administered on 03/25/16 22:23; Admin Dose 40 MG; Start 03/24/16 at 21:00 Fentanyl 1000 mcg/ Dextrose 100 ml @ 2.5 mls/hr TITRATE IV Last administered on 03/26/16 00:01; Admin Dose 2.5 MLS/HR; Start 03/24/16 at 17:30 Levofloxacin/ Dextrose (Levaquin 500mg/ D5W 100 ml (Pmx)) 100 ml @ 100 mls/hr DAILY IVPB Last administered on 03/26/16 09:19; Admin Dose 100 MLS/HR; Start 03/24/16 at 18:00 Aspirin 162 mg 162 mg DAILY PO Last administered on 03/26/16 09:19; Admin Dose 162 MG; Start 03/25/16 at 11:30 Sodium Chloride (NS) 1,000 ml @ 75 mls/hr [id number] IV Last administered on 03/26 10:47; Admin Dose 75 MLS/HR; Start 03/26/16 at 09:30 Insulin Aspart (Novolog Insulin Pen) NOVOLOG *MILD* ALGORI... Q4 SC ; Start at 13:00 Diagnostic Test (Pha) (Accucheck) 1 ea 02 XX ; Start 03/27/16 at 02:00 Furosemide (Lasix) 40 mg DAILY@06 IV ; Start 03/26/16 at 11:00 Assessment/Plan Chief Complaint/Hosp Course IMPRESSION AND PLAN: 1. Ventricular fibrillation arrest, possible underlying coronary artery disease. 2. Resolving encephalopathy 3. Probable aspiration pneumonitis. Right upper lobe mucous plugging 4. History of questionable coronary artery disease. The patient will require: 1. Supplemental O2. 2. Bronchodilators. 3. Bronchoscopy with lavage right upper lobe 4. Decrease sedation CPAP weaning trial 5. DVT and GI prophylaxis. 6. Neurology evaluation post-reversal of hypothermia. 7. Consider cardiac catheterization. Problems: ASHISH MOORE MD, [facility] Mar 26, 2016 11:06
--- NOTE | 2016-03-26 11:15 | RADRPT ---
PROCEDURE: XR Chest 1 View. CLINICAL INDICATION: Shortness of breath, status post bronchoscopy. TECHNIQUE: AP view of the chest were obtained. COMPARISON: March 26, 2016 FINDINGS: The heart size is within normal limits. Calcified atherosclerosis is noted in the aorta. Endotrache al and nasogastric tubes are stable and appear in grossly appropriate location. Left-sided central line is unchanged. The lungs are hypoinflated. Interstitial prominence in both lungs is unchanged. Improved aeration of the right upper lobe is identified. Mild residual atelectasis or infiltrate remains. No pneumothorax as visualized. Osseous structures appear intact. IMPRESSION: Calcified atherosclerosis in the aorta. Improved aeration of the right upper lobe. Mild residual atelectasis or infiltrate remains. No pneumothorax. Hypoinflated lungs. Stable support lines and tubes. RPTAT: AA .Brian Cruz MD, Date Time Electronically viewed and signed by .Brian Cruz MD, MD on 03/26/2016 11:15 .P/
[2016-03-26] MEDS ORDERED: INSULIN ASPART [NOVOLOG] 3 ML PEN SC SCH (11:30)
[2016-03-26] MEDS: ENOXAPARIN 40 MG/0.4 ML SYG SC SCH (11:50)
[2016-03-26] MEDS ORDERED: HEPARIN 25000 UNITS/250 ML 250 ML IV SCH (12:00)
[2016-03-26] MEDS ORDERED: HEPARIN 1000 UNITS/ML 10 ML INJ IV PRN (12:00)
[2016-03-26] MEDS: INSULIN ASPART [NOVOLOG] 3 ML PEN SC SCH ×3 (13:00→21:00)
[2016-03-26 13:37] LABS: CK-MB 51.8 ng/ml (0.0-2.4)
[2016-03-26 13:43] LABS: TROPONIN-I 29.8 ng/ml (0.00-0.12)
--- NOTE | 2016-03-26 13:52 | CONS ---
Date/Time of Note Date/Time of Note DATE: 03/26/16 TIME: 13:45 Assessment/Plan Assessment/Plan Chief Complaint/Hosp Course IMPRESSION: 1. Cardiac arrest. Assess for acute coronary syndrome preceding possibly. 2. Chest pain concerning for possible acute coronary syndrome prior to arrest. 3. Abnormal EKG with initial ST elevations concerning for acute myocardial infarction.-troponin to 48 overnight 4. Respiratory failure, status post intubation. 5. Encephalopathy. 6. Bradycardia, likely secondary to hypothermia-improved s/p hypothermia 7. Ongoing tobacco usage. 8. Leukocytosis. 9. Mild anemia. 10. Increased liver function tests. 11.Renal insufficiency Recc: -Tele -serial ecg;'s -Continue current -Continue asa -LHC with probable PTCA/stent today Problems: Consultation Date/Type/Reason Admit Date/Time Mar 24, 2016 at 17:54 Initial Consult Date 03/25/2016 Type of Consultation: Cardiology Reason for Consultation Cardiac arrest/NSTEMI Referring Provider: DELMY OLIVER Exam/Review of Systems Vital Signs Vitals Vital Signs Date Time Temp Pulse Resp B/P Pulse Ox O2 Delivery O2 Flow Rate FiO2 03/26/16 12:00 103 03/26/16 11:20 16 95 40 03/26/16 10:30 89/58 03/26/16 10:00 Mechanical Ventilator 03/26/16 08:00 99.4 Intake and Output 03/25/16 03/25/16 03/26/16 14:59 22:59 06:59 Intake Total 644.0 ml 633.2 ml 428.6 ml Output Total 580 ml 480 ml 370 ml Balance 64.0 ml 153.2 ml 58.6 ml Exam Review of Systems: CONSTITUTIONAL: No fevers, chills. PULMONARY: intubated CARDIOVASCULAR: No obvious chest pain/palpitations GASTROINTESTINAL: No nausea/vomiting. GENITOURINARY: No hematuria/dysuria. MUSCULOSKELETAL: No obvious myagias/arthalgias. PSYCHIATRIC: No documented depression. NEUROLOGIC: sedated Constitutional: other (seadted) Head: normocephalic Eyes: nl conjunctiva ENMT: intubated Neck: jvd (9 cm water), supple Respiratory: diminished breath sounds (at bases/B) Cardiovascular: regular rate and rhythm Gastrointestinal: non-tender, soft Musculoskeletal: muscle tone (normal) Extremities: edema (none) Neurological: other (sedated) Results Result Diagram: 03/26/16 0245 03/26/16 0245 Results 24 hrs Laboratory Tests Test 03/25/16 15:02 03/25/16 16:00 03/25/16 17:06 03/25/16 18:05 Bedside Glucose 95 102 Arterial Blood HCO3 25.8 Arterial Blood Base Excess 0.2 Arterial Blood Oxygen Saturation 97.0 Flip Test ACCEPTAB Arterial Blood Gas Puncture Site Right Radial Arterial Blood Carboxyhemoglobin 0.3 Arterial Blood Date Drawn 03/25/2016 4:05:51 PM Arterial Blood Methemoglobin 0.3 Arterial Blood pCO2 (Temp correct) 43.3 Arterial Blood pH (Temp corrected) 7.389 Arterial Blood pO2 (Temp corrected) 94.0 Blood Gas A-a O2 Differential 142.5 H Blood Gas Actual Respiration Rate 16 Blood Gas Modality VENT - AC Blood Gas Notified Time 03/25/2016 4:24:48 PM Blood Gas Notified Whom AT Blood Gas Respiration Rate 16.0 Blood Gas Specimen Source Blood arterial Blood Gas Temperature 36.0 Blood Gas Tidal Volume 500.0 FiO2 40.0 Oxyhemoglobin Percent 96.4 Total Hemoglobin 13.8 Activated Partial Thromboplast Time 34.5 Amylase Level 36 Anion Gap 13 Band Neutrophils % 9.0 H Basophils # Basophils % Blood Urea Nitrogen 8 Calcium Level 9.0 Carbon Dioxide Level 30 Chloride Level 102 Creatine Kinase 2329 H Creatine Kinase Index 17.3 Creatinine 0.58 L Creatinine Kinase MB (Mass) 403.00 H Eosinophils # Eosinophils % Fibrinogen 562.0 #H Glucose Level 105 Hematocrit 37.6 L Hemoglobin 12.7 L INR International Normalized Ratio 0.94 Lipase 28 Lymphocytes # 0.7 L Lymphocytes % 5.0 L Magnesium Level 1.9 Mean Corpuscular Hemoglobin 29.5 Mean Corpuscular Hemoglobin Concent 33.7 Mean Corpuscular Volume 87.5 Mean Platelet Volume 8.1 Monocytes # 1.0 H Monocytes % 8.0 Neutrophils # 10.1 H Neutrophils % 78.0 H Nucleated Red Blood Cells # Nucleated Red Blood Cells % 0.0 Phosphorus Level 4.0 Platelet Count 209 Potassium Level 4.0 Prothrombin Time 12.6 Prothrombin Time Ratio 1.0 Red Blood Count 4.30 L Red Cell Distribution Width 13.1 Sodium Level 141 Troponin I 48.400 *H White Blood Count 13.0 #H Test 03/25/16 19:08 03/25/16 20:53 03/25/16 22:26 03/25/16 23:59 Bedside Glucose 95 108 96 98 Test 03/26/16 02:45 03/26/16 03:58 03/26/16 07:53 03/26/16 12:25 Alanine Aminotransferase (ALT/SGPT) 111 H Albumin 3.0 L Albumin/Globulin Ratio 1.03 Alkaline Phosphatase 85 Anion Gap 14 Aspartate Amino Transf (AST/SGOT) 177 H Basophils # 0.0 Basophils % 0.0 Blood Urea Nitrogen 11 Calcium Level 8.5 Carbon Dioxide Level 28 Chloride Level 103 Creatinine 1.25 H Direct Bilirubin 0.00 Eosinophils # 0.0 Eosinophils % 0.0 Globulin 2.90 Glucose Level 92 Hematocrit 33.6 L Hemoglobin 11.2 L Indirect Bilirubin 0.7 Lymphocytes # 1.0 Lymphocytes % 7.9 L Mean Corpuscular Hemoglobin 29.6 Mean Corpuscular Hemoglobin Concent 33.3 Mean Corpuscular Volume 88.9 Mean Platelet Volume 9.3 Monocytes # 0.9 Monocytes % 7.2 Neutrophils # 10.4 H Neutrophils % 84.9 H Nucleated Red Blood Cells # 0.0 Nucleated Red Blood Cells % 0.0 Platelet Count 204 Potassium Level 3.9 Red Blood Count 3.78 L Red Cell Distribution Width 13.3 Sodium Level 141 Total Bilirubin 0.7 Total Protein 5.9 L White Blood Count 12.3 H Bedside Glucose 95 101 Creatine Kinase 934 #H Creatine Kinase Index 5.5 Creatinine Kinase MB (Mass) 51.80 H Troponin I 29.800 *H Test 03/26/16 13:17 Bedside Glucose 83 Medications Medications Current Medications Ondansetron HCl (Zofran Inj) 4 mg Q6H PRN IV NAUSEA AND/OR VOMITING; Start 01/28 at 04:00 Nitroglycerin (Nitroglycerin (Sl Tab) 0.4 Mg) 1 tab Q5M PRN SL CHEST PAIN; Start 03/24/16 at 04:00 Morphine Sulfate (morphine) 2 mg Q4H PRN IV PAIN LEVEL 7-10 Last administered on 03/25/16 18:17; Admin Dose 2 MG; Start 03/24/16 at 04:00 Lorazepam (Ativan) 1 mg Q2H PRN IV ANXIETY Last administered on 03/26/16 03:34 ; Admin Dose 1 MG; Start 03/24/16 at 04:00 Bisacodyl (Dulcolax) 5 mg DAILY PRN PO CONSTIPATION; Start 03/24/16 at 04:00 Pantoprazole 40 mg 40 mg DAILY@06 IV Last administered on 03/26/16 05:50; Admin Dose 40 MG; Start 03/24/16 at 06:00 Vecuronium [place]/Dextrose (Norcuron/D5W) 100 ml @ 4.1 mls/hr Q24H IV Last administered on 03/25/16 06:20; Admin Dose 8.1 MLS/HR; Start 03/24/16 at 04:15 Acetaminophen (Tylenol Supp) 650 mg Q4H PRN MI TEMP > 37C; Start 03/24/16 at 04 :00 Acetaminophen (Tylenol Liquid) 650 mg Q4H PRN PO TEMP > 37C; Start 03/24/16 at 04:00 Acetaminophen (Tylenol Supp) 500 mg Q6H MI ; Start 03/25/16 at 04:00 Acetaminophen (Tylenol Liquid) 500 mg Q6H PO ; Start 03/25/16 at 04:00; Status Future Hold Meperidine HCl (Demerol) 12.5 mg Q4H PRN IV POST OPERATIVE SHIVERING; Start 01/28 at 04:00 Meperidine HCl (Demerol) 25 mg Q4H PRN IV POST OPERATIVE SHIVERING; Start 03/24 at 04:00 Eye Lubricant (Akwa Oint) 1 applic Q6 BOTH EYES Last administered on 03/26/16 13:14; Admin Dose 1 APPLIC; Start 03/24/16 at 06:00 Eye Lubricant (Artificial Tears Oph) 2 drop Q6 BOTH EYES Last administered on 13:14; Admin Dose 2 DROP; Start 03/24/16 at 06:00 Atorvastatin Calcium 40 mg 40 mg QHS PO Last administered on 03/25/16 22:23; Admin Dose 40 MG; Start 03/24/16 at 21:00 Fentanyl 1000 mcg/ Dextrose 100 ml @ 2.5 mls/hr TITRATE IV Last administered on 03/26/16 11:49; Admin Dose 2.5 MLS/HR; Start 03/24/16 at 17:30 Levofloxacin/ Dextrose (Levaquin 500mg/ D5W 100 ml (Pmx)) 100 ml @ 100 mls/hr DAILY IVPB Last administered on 03/26/16 09:19; Admin Dose 100 MLS/HR; Start 03/24/16 at 18:00 Aspirin 162 mg 162 mg DAILY PO Last administered on 03/26/16 09:19; Admin Dose 162 MG; Start 03/25/16 at 11:30 Sodium Chloride (NS) 1,000 ml @ 75 mls/hr [id number] IV Last administered on 03/26 10:47; Admin Dose 75 MLS/HR; Start 03/26/16 at 09:30 Insulin Aspart (Novolog Insulin Pen) NOVOLOG *MILD* ALGORI... Q4 SC ; Start at 13:00 Diagnostic Test (Pha) (Accucheck) 1 ea 02 XX ; Start 03/27/16 at 02:00 Furosemide (Lasix) 40 mg DAILY@06 IV ; Start 03/26/16 at 11:00; Status Future Hold Enoxaparin Sodium (Lovenox) 40 mg DAILY SC Last administered on 03/26/16 11:50 ; Admin Dose 40 MG; Start 03/26/16 at 11:30 LEROY GARCIA Mar 26, 2016 13:52
[2016-03-26] MEDS ORDERED: HEPARIN 1000 UNITS/ML 10 ML INJ ONE (13:54)
[2016-03-26] MEDS ORDERED: NITROGLYCERIN (IC) 100 MCG/ML INJ ONE (13:55)
[2016-03-26] MEDS ORDERED: IODIXANOL LOCM 100 ML BTL ONE ×2 (13:55→15:02)
[2016-03-26] MEDS ORDERED: VERAPAMIL 5 MG INJ ONE (13:55)
[2016-03-26] MEDS ORDERED: BIVALIRUDIN 250MG /NS 50 ML 50 ML IVPB ONE (15:02)
[2016-03-26] MEDS ORDERED: TICAGRELOR 90 MG TABLET ONE (15:09)
[2016-03-26] MEDS ORDERED: BIVALIRUDIN 250MG /NS 50 ML 50 ML IVPB SCH (15:24)
[2016-03-26] MEDS ORDERED: SOD CHLORIDE 0.9% 1,000 ML IV SCH (15:30)
--- NOTE | 2016-03-26 16:59 | CARRPT ---
DATE OF PROCEDURE: 03/26/2016 TYPE OF PROCEDURE: 1. Left heart catheterization. 2. Coronary angiography. 3. Measurement of left ventricular and diastolic pressures. 4. Percutaneous transluminal coronary angioplasty with placement of a Promus drug-eluting stent x1 to the proximal right coronary artery, 4.0 x 16 mm. ATTENDING PHYSICIAN: Leroy Stephens MD REFERRING PHYSICIAN: Dr. Oliver from the hospitalist service. TYPE OF ANESTHESIA: Conscious and local. INDICATION: Acute myocardial infarction, with a rise in troponins, status post cardiac arrest. BRIEF HISTORY AND HOSPITAL COURSE: Mr. Guillory is a 60-year-old male with a history of hypertensio n, dyslipidemia, and ongoing tobacco usage, who initially had complaints of substernal chest pain an d then suffered a cardiac arrest in the emergency department, ventricular fibrillation. He was medi dennys managed and placed on the hypothermia protocol and has now been brought to the cardiac cath la b due to ongoing increasing troponins to assess for the possibility of significant obstructive coron cecilia artery disease lending to positive troponins, acute myocardial infarction, and cardiac arrest. PROCEDURE: After informed consent was obtained, the patient was brought to the [facility] cardiac catheterization laboratory, where his right and left groin areas were prepped and d raped in the usual sterile fashion. Lidocaine 2% was infiltrated in the area in order to achieve ad equate local anesthesia. Using a modified Seldinger technique, the right radial artery was cannulat ed and a 6-Kiswahili arterial sheath was placed and a 6-Kiswahili JL3.5 catheter was used to cannulate the left main coronary ostium. With contrast injection multiple views of the left coronary arterial sy stem were obtained. The JL3.5 was removed over a guidewire and a JR4 was used to cannulate the righ t coronary arterial ostium. With contrast injection multiple views of the right coronary arterial s ystem were obtained. The JL4 was removed over a guidewire and a 6-Kiswahili pigtail was passed , across the aorta and down the ascending aorta, and then used to measure left ventricular end diastol ic pressure as we pulled back across the aortic valve to assess for significant gradient, which ther e was not, and removed. At this time we moved directly into an interventional procedure, given the findings of significant obstructive lesion in the patient's right coronary artery, likely the culpri t of the patient's acute myocardial infarction. A JR4 guide was used to cannulate the right coronar y arterial ostium. The patient was given an Angiomax bolus continuous infusion. A 0.014 harvey dewire was passed distal to the lesion. The lesion was pretreated with a 3.0 x 12-mm balloon inflat ed to 18 atmospheres. The balloon was removed and the lesion was stented with a 4.0 x 16-mm drug-el uting stent, deployed at 18 atmospheres, post-dilated with the stent delivery system up to 20 atmosp heres. The stent delivery system was removed. Followup angiogram was obtained, revealing an excell ent result. Following deployment of the stent, VINCE 3 flow throughout the vessel, no signs of comp lications, including perforation or dissection. Subsequently at this time the interventional guide and guidewire were removed. The patient was given aspirin 325 and Brilinta 180. The patient's watkins th was removed. A TR band was applied. This completed the procedure. There were no noted complica tions. FINDINGS: CORONARY ANGIOGRAPHY: Right coronary artery proximally is a 4-mm vessel and has a 95% stenosis in i ts proximal portion, the likely culprit of acute myocardial infarction and cardiac arrest. The himanshu mani of the right coronary artery is free of significant focal stenoses. It is a dominant vessel an d gives off a 2-mm PDA and a 2-mm posterolateral branch, each with no significant focal stenoses. T he patient's left main proximally is very short, almost nonexistent. It is 4 mm. It has no significa nt stenoses. The circumflex proximally is a 4-mm vessel and has an ostial 20% stenosis. The circumflex is then f ree of significant focal stenoses until it gets to the circumflex continuation AV groove, which is f lush occluded, and there is a very sizable obtuse marginal that then bifurcates here and is widely p atent, with no significant stenosis. The LAD proximally is a 3 to 4-mm vessel and has an ostial 30% stenosis. The mid portion of the LAD there is a 20% stenosis. The remainder of LAD is free of significant focal stenosis thereafter, an d goes around the apex. There are 2 mid branching diagonals, each approximately 2 mm, with no signi ficant focal stenoses. Measurement of left ventricular end diastolic pressure is 20 to 30. No significant aortic stenosis by gradient. No significant aortic stenosis by gradient. Left ventricular end diastole pressure is 28 to 30. TOTAL FLUOROSCOPY TIME: 7.1 minutes. TOTAL CONTRAST: 80 mL. IMPRESSION: 1. Two-vessel obstructive coronary artery disease involving 100% occlusion of the patient's circumf faiza continuation AV groove and then a proximal right coronary artery 95% stenosis, the likely culpri t of the patient's acute myocardial infarction. Status post successful percutaneous transluminal co ronary angioplasty and stent placement x1 to the proximal right coronary artery with a 4.0 x 16-mm d rug-eluting stent. 2. Elevated left heart filling pressures. 3. No significant aortic stenosis by gradient. RECOMMENDATIONS: In light of the procedural findings at this time would: 1. Maintain the patient on aspirin 81 mg, 1 tab p.o. daily indefinitely. 2. Brilinta 90 mg, 1 tab p.o. b.i.d. times at least 1 year. 3. Aggressive risk factor reduction. 4. The patient will be readmitted to the intensive care unit for post-intervention observation and continued management of his presenting symptoms of acute myocardial infarction and cardiac arrest. Dictated By: LEROY WEINER/AMBER Conf#: [id number] DID#: [id number] CC: DELMY OLIVER MD;*EndCC*
[2016-03-26 18:17] LABS: CK-MB 41.7 ng/ml (0.0-2.4); TROPONIN-I 32.1 ng/ml (0.00-0.12)
[2016-03-26] MEDS: ALBUTEROL HFA 8 GM INHALER INH SCH (20:04)
[2016-03-26] MEDS: IPRATROPIUM (HFA) 12.9 GM INHALER INH SCH (20:04)
[2016-03-26] MEDS: ATORVASTATIN 40 MG TAB PO SCH (21:33)
[2016-03-26] MEDS: TICAGRELOR 90 MG TABLET PO SCH (21:37)
[2016-03-27] VITALS (60 sets, daily range): BP systolic 73–117; BP diastolic 55–101; PULSE 94–115; RESP 14–23
[2016-03-27] MEDS ORDERED: NITROGLYCERIN 2% 1 GM OINT PKT TD SCH
[2016-03-27] MEDS: OCULAR LUBRICANT 3.5 GM OPH OINT BOTH EYES SCH (00:30)
[2016-03-27] MEDS: ARTIFICIAL TEARS 15 ML OPH BOTH EYES SCH (00:30)
[2016-03-27] MEDS: INSULIN ASPART [NOVOLOG] 3 ML PEN SC SCH ×6 (00:35→23:40)
[2016-03-27] MEDS: PROPOFOL 100 ML IV SCH ×5 (00:35→20:45)
[2016-03-27] MEDS: ALBUTEROL HFA 8 GM INHALER INH SCH ×4 (01:59→19:36)
[2016-03-27] MEDS: IPRATROPIUM (HFA) 12.9 GM INHALER INH SCH ×4 (01:59→19:36)
[2016-03-27] MEDS: ACCUCHECK XX SCH (02:00)
[2016-03-27] MEDS: ACETAMINOPHEN 650 MG SUPP PR SCH ×4 (04:00→22:00)
[2016-03-27] MEDS: VECURONIUM 100 MG in DEXTROSE 5% 100 ML IV SCH (04:15)
[2016-03-27 05:29] LABS: BASOPHILS % 0.1 % (0.0-2.0); EOSINOPHILS % 0.1 % (0.0-7.0); HEMATOCRIT 27.8 % (42.0-52.0); HEMOGLOBIN 9.3 g/dl (14.0-18.0); LYMPHOCYTES # 0.6 10^3/ul (0.8-2.9); LYMPHOCYTES % 5.9 % (15.0-51.0); MEAN CORPUSCULAR HGB CONC 33.6 g/dl (32.0-37.0); MEAN CORPUSCULAR VOLUME 89.3 fl (82.0-101.0); MEAN PLATELET VOLUME 8.9 fl (7.4-10.4); MONOCYTES % 8.7 % (0.0-11.0); NEUTROPHIL # 9.4 10^3/ul (1.6-7.5); NEUTROPHILS % 85.2 % (39.0-77.0); PLATELET COUNT 187 10^3/UL (140-440); RED BLOOD COUNT 3.11 10^6/ul (4.70-6.10); RED CELL DISTRIBUTION WIDTH 13.4 % (11.5-14.5)
[2016-03-27] MEDS: PANTOPRAZOLE 40 MG INJ IV SCH (05:35)
[2016-03-27 05:37] LABS: ALBUMIN 2.6 g/dl (3.3-4.9)
[2016-03-27 05:39] LABS: CREATININE 0.97 mg/dl (0.61-1.24)
[2016-03-27 05:40] LABS: ALBUMIN/GLOBULIN RATIO 1.04; BILIRUBIN,DIRECT 0.1 mg/dl (0.00-0.20); BILIRUBIN,INDIRECT 0.8 mg/dl (0-1.1); BILIRUBIN,TOTAL 0.9 mg/dl (0.2-1.3); TOTAL PROTEIN 5.1 g/dl (6.1-8.1)
[2016-03-27 05:41] LABS: CALCIUM 8.6 mg/dl (8.4-10.2)
[2016-03-27 05:53] LABS: CHOL/HDL RATIO 7.9 RATIO
[2016-03-27 06:02] LABS: CK-MB 19.6 ng/ml (0.0-2.4)
[2016-03-27 06:05] LABS: TROPONIN-I 27.8 ng/ml (0.00-0.12)
[2016-03-27 06:21] LABS: CONDITION 1
[2016-03-27] MEDS: FENTAnyl 1,000 MCG in DEXTROSE 5% 80 ML IV SCH ×2 (07:49→19:01)
[2016-03-27 08:46] LABS: AADO2 Arterial 144.6 mmHg (7.0-24.0); Allen Test ACCEPTAB; Arterial Base Excess -0.5 mmol/L (-3.0-3); Arterial COHb 0.3 % (0.0-3.0); Arterial Fraction of Oxyhgb 95.6 % (93.0-99.0); Arterial HCO3 25.3 mmol/L (22.0-26.0); Arterial MetHb 0.2 % (0.0-1.5); Arterial Total Hemglobin 11.5 g/dl (12.0-18.0); MODE VENT - AC
--- NOTE | 2016-03-27 08:47 | RADRPT ---
PROCEDURE: XR Chest. CLINICAL INDICATION: Shortness of breath. TECHNIQUE: Single frontal view. COMPARISON: 03/26/2016. FINDINGS: The endotracheal tube, nasogastric tube, and left subclavian vein catheter remain in satisfactory po sition. There is mild right upper lobe atelectasis, unchanged. There is mild left basilar atelecta sis, worse than seen previously. The lungs are otherwise clear. The heart size is normal. There is calcification in the aorta consistent with atherosclerosis. There is no pleural effusion. There is no pneumothorax. IMPRESSION: 1. Slightly worse appearance of the left lung base. 2. No other change from 03/26/2016. RPTAT: QQ .Yossi Larose MD, MD Date Time Electronically viewed and signed by .Yossi Larose MD, MD on 03/27/2016 08:46 .R/
[2016-03-27] MEDS: SOD CHLORIDE 0.9% 1,000 ML IV SCH (08:54)
[2016-03-27] MEDS ORDERED: ASPIRIN (EC) 81 MG TAB PO SCH (09:00)
[2016-03-27] MEDS: ASPIRIN 81 MG TAB PO SCH (09:00)
[2016-03-27] MEDS: LEVOFLOXACIN 500MG/D5W (PMX) 100 ML IVPB SCH (09:02)
[2016-03-27] MEDS: TICAGRELOR 90 MG TABLET PO SCH ×2 (09:04→20:56)
[2016-03-27] MEDS: ENOXAPARIN 40 MG/0.4 ML SYG SC SCH (09:09)
--- NOTE | 2016-03-27 09:18 | PN ---
Date/Time of Note Date/Time of Note DATE: 03/27/16 TIME: 09:08 Assessment/Plan VTE Prophylaxis VTE Prophylaxis Intervention: SCD's Lines/Catheters IV Catheter Type (from Nrs): Central Line Central line still needed: Yes Urinary Cath still in place: Yes Reason Cath still needed: other (indicate) (intubated and sedated) Assessment/Plan Assessment/Plan This is a 60-year-old male with past medical history of hypertension, arthritis , high cholesterol, gastroesophageal reflux disease, depression who comes in with ventricular fibrillation arrest, now intubated and sedated on the hypothermia protocol. 1. Ventricular fibrillation arrest likely 2/2 #4 s/p CPR + ROSC / s/p Hypothermia protocol 2. Acute resp failure with collapsed RUL : remains intubated on full vent support / pulm following / successful bronchoscopy + Lavage done 03/26/15 / ?CPAP trials today / also on Levaquin 3. Essential hypertension. Blood pressure stable. Continue to monitor for now. 4. NSTEMI + probable ST elevation myocardial infarction given initial EKG s/p Cath 03/26/15 / Culprit lesion: RCA s/p large stent / life long ASA + brilinta for at least 1 year 6. Hyperglycemia without Documented hx of DM likely steroid induced / was on steroids for ?COPD / d/c insulin drip and use SSI only 7. Depression resume home meds once stable 8. Chronic Tobacco abuse + COPD Will need cessation counselling when more alert / no evidence of exacerbation / pulm following 9. RANDY 2/2 ?ATN: Creatinine improved off Lasix / monitor / diurese very carefully / strict Is and Os 10. BPH mccann currently in place / resume home meds once stable 11. Dyslipidemia. Statin 12. Transaminitis 2/2 ?shock liver : improving 13. Rhabdomyolysis: Continue IVF / trend CK 14: UTI : Levaquin Dispo: ?Tube feeds f/u cardio and pulm recs. Eval for neurologic injury when off sedation Prophylaxis: Lovenox / PPI Further evaluation and treatment will be based on clinical course Full discussion with care team done. All questions Answered Please also see orders. Total time spent on this evaluation >35mins Subjective 24 Hr Interval Summary Free Text/Dictation Patient seen and examined. had an eventful day yesterday. Bronchoscopy and then Cardiac cath Subjective hx not possible: pt critical status Exam/Review of Systems Vital Signs Vitals Vital Signs Date Time Temp Pulse Resp B/P Pulse Ox O2 Delivery O2 Flow Rate FiO2 03/27/16 08:30 101 16 96/66 97 03/27/16 08:00 100.3 Mechanical Ventilator 03/27/16 05:15 40 Intake and Output 03/26/16 03/26/16 03/27/16 15:00 23:00 07:00 Intake Total 730.4 ml 657.6 ml 766.9 ml Output Total 380 ml 655 ml 740 ml Balance 350.4 ml 2.6 ml 26.9 ml Exam Constitutional: No alert, No oriented Psych: other (unable to assess) Head: atraumatic, normocephalic Eyes: PERRL ENMT: intubated Respiratory: clear to auscultation, diminished breath sounds Cardiovascular: regular rate and rhythm, No murmurs/extra sounds Gastrointestinal: bowel sounds, non-tender, soft Neurological: other (sedated on propofol) Results Result Diagram: 03/27/1641903/27/16419 Results 24 hrs Laboratory Tests Test 03/26/16 12:25 03/26/16 13:17 03/26/16 17:10 03/26/16 17:25 Creatine Kinase 934 #H 767 H Creatine Kinase Index 5.5 5.4 Creatinine Kinase MB (Mass) 51.80 H 41.70 H Troponin I 29.800 *H 32.100 *H Bedside Glucose 83 85 Test 03/26/16 21:35 03/27/16 00:34 03/27/16 04:20 03/27/16 05:12 Bedside Glucose 82 115 100 Alanine Aminotransferase (ALT/SGPT) 74 H Albumin 2.6 L Albumin/Globulin Ratio 1.04 Alkaline Phosphatase 72 Anion Gap 11 Aspartate Amino Transf (AST/SGOT) 90 H Basophils # 0.0 Basophils % 0.1 Blood Urea Nitrogen 15 Calcium Level 8.6 Carbon Dioxide Level 27 Chloride Level 107 Cholesterol Level 199 Cholesterol/HDL Ratio 7.9 Creatine Kinase 577 H Creatine Kinase Index 3.4 Creatinine 0.97 Creatinine Kinase MB (Mass) 19.60 H Direct Bilirubin 0.10 Eosinophils # 0.0 Eosinophils % 0.1 Globulin 2.50 Glucose Level 93 HDL Cholesterol 25 L Hematocrit 27.8 L Hemoglobin 9.3 L Indirect Bilirubin 0.8 LDL Cholesterol, Calculated 118 Lymphocytes # 0.6 L Lymphocytes % 5.9 L Magnesium Level 1.8 Mean Corpuscular Hemoglobin 30.0 Mean Corpuscular Hemoglobin Concent 33.6 Mean Corpuscular Volume 89.3 Mean Platelet Volume 8.9 Monocytes # 1.0 H Monocytes % 8.7 Neutrophils # 9.4 H Neutrophils % 85.2 H Nucleated Red Blood Cells # 0.0 Nucleated Red Blood Cells % 0.0 Platelet Count 187 Potassium Level 4.0 Red Blood Count 3.11 L Red Cell Distribution Width 13.4 Sodium Level 141 Total Bilirubin 0.9 Total Protein 5.1 L Triglycerides Level 282 H Troponin I 27.800 *H White Blood Count 11.0 H Test 03/27/16 07:00 Arterial Blood HCO3 25.3 Arterial Blood Base Excess -0.5 Arterial Blood Oxygen Saturation 96.1 Flip Test ACCEPTAB Arterial Blood Gas Puncture Site Right Radial Arterial Blood Carboxyhemoglobin 0.3 Arterial Blood Date Drawn 03/27/2016 8:25:18 AM Arterial Blood Methemoglobin 0.2 Arterial Blood pCO2 (Temp correct) 46.4 H Arterial Blood pH (Temp corrected) 7.354 Arterial Blood pO2 (Temp corrected) 87.2 Blood Gas A-a O2 Differential 144.6 H Blood Gas Actual Respiration Rate 16 Blood Gas Modality VENT - AC Blood Gas Notified Time 03/27/2016 8:45:55 AM Blood Gas Notified Whom DT Blood Gas Respiration Rate 16.0 Blood Gas Specimen Source Blood arterial Blood Gas Temperature 37.0 Blood Gas Tidal Volume 500.0 FiO2 40.0 Oxyhemoglobin Percent 95.6 Total Hemoglobin 11.5 L Medications Medications Current Medications Ondansetron HCl (Zofran Inj) 4 mg Q6H PRN IV NAUSEA AND/OR VOMITING; Start 01/28 at 04:00 Nitroglycerin (Nitroglycerin (Sl Tab) 0.4 Mg) 1 tab Q5M PRN SL CHEST PAIN; Start 03/24/16 at 04:00 Morphine Sulfate (morphine) 2 mg Q4H PRN IV PAIN LEVEL 7-10 Last administered on 03/25/16 18:17; Admin Dose 2 MG; Start 03/24/16 at 04:00 Lorazepam (Ativan) 1 mg Q2H PRN IV ANXIETY Last administered on 03/26/16 03:34 ; Admin Dose 1 MG; Start 03/24/16 at 04:00 Bisacodyl (Dulcolax) 5 mg DAILY PRN PO CONSTIPATION; Start 03/24/16 at 04:00 Pantoprazole (Protonix Iv) 40 mg DAILY@06 IV Last administered on 03/27/16 05: 35; Admin Dose 40 MG; Start 03/24/16 at 06:00 Acetaminophen (Tylenol Liquid) 650 mg Q4H PRN PO TEMP > 37C; Start 03/24/16 at 04:00 Acetaminophen (Tylenol Supp) 500 mg Q6H AL Last administered on 03/27/16 09:02 ; Admin Dose 500 MG; Start 03/25/16 at 04:00 Acetaminophen (Tylenol Liquid) 500 mg Q6H PO ; Start 03/25/16 at 04:00; Status Future Hold Meperidine HCl (Demerol) 12.5 mg Q4H PRN IV POST OPERATIVE SHIVERING; Start 01/28 at 04:00 Meperidine HCl (Demerol) 25 mg Q4H PRN IV POST OPERATIVE SHIVERING; Start 03/24 at 04:00 Atorvastatin Calcium 40 mg 40 mg QHS PO Last administered on 03/26/16 21:33; Admin Dose 40 MG; Start 03/24/16 at 21:00 Fentanyl 1000 mcg/ Dextrose 100 ml @ 2.5 mls/hr TITRATE IV Last administered on 03/27/16 07:49; Admin Dose 2.5 MLS/HR; Start 03/24/16 at 17:30 Levofloxacin/ Dextrose (Levaquin 500mg/ D5W 100 ml (Pmx)) 100 ml @ 100 mls/hr DAILY IVPB Last administered on 03/27/16 09:02; Admin Dose 100 MLS/HR; Start 03/24/16 at 18:00 Aspirin 162 mg 162 mg DAILY PO Last administered on 03/26/16 09:19; Admin Dose 162 MG; Start 03/25/16 at 11:30 Sodium Chloride (NS) 1,000 ml @ 75 mls/hr [id number] IV Last administered on 03/27 08:54; Admin Dose 75 MLS/HR; Start 03/26/16 at 09:30 Insulin Aspart (Novolog Insulin Pen) NOVOLOG *MILD* ALGORI... Q4 SC ; Start at 13:00 Diagnostic Test (Pha) (Accucheck) 1 ea 02 XX ; Start 03/27/16 at 02:00 Furosemide (Lasix) 40 mg DAILY@06 IV ; Start 03/26/16 at 11:00; Status Future Hold Enoxaparin Sodium (Lovenox) 40 mg DAILY SC Last administered on 03/26/16 11:50 ; Admin Dose 40 MG; Start 03/26/16 at 11:30 Aspirin (Halfprin) 81 mg DAILY PO Last administered on 03/27/16 09:02; Admin Dose 81 MG; Start 03/27/16 at 09:00 Ticagrelor (Brilinta) 90 mg BID PO Last administered on 03/27/16 09:04; Admin Dose 90 MG; Start 03/26/16 at 21:00 Procedures Procedures PROCEDURE: XR Chest. CLINICAL INDICATION: Shortness of breath. TECHNIQUE: Single frontal view. COMPARISON: 03/26/2016. FINDINGS: The endotracheal tube, nasogastric tube, and left subclavian vein catheter remain in satisfactory position. There is mild right upper lobe atelectasis, unchanged. There is mild left basilar atelectasis, worse than seen previously. The lungs are otherwise clear. The heart size is normal. There is calcification in the aorta consistent with atherosclerosis. There is no pleural effusion. There is no pneumothorax. IMPRESSION: 1. Slightly worse appearance of the left lung base. 2. No other change from 03/26/2016. RPTAT: QQ .Yossi Larose MD, MD Date Time Electronically viewed and signed by .Yossi Larose MD, MD on 03/27/2016 08:46 .R/ CC: ASHISH MOORE MD, [facility] DELMY OLIVER Mar 27, 2016 09:18
--- NOTE | 2016-03-27 10:11 | CONS ---
Date/Time of Note Date/Time of Note DATE: 03/27/16 TIME: 10:08 Consult Date/Type/Reason Admit Date/Time Mar 24, 2016 at 17:54 Type of Consultation: pulmonary pulmonary Ordering Provider: DELMY OLIVER Subjective Status post bronchoscopy and then coronary angiogram with stent placement to the RCA yesterday Remains intubated sedated on mechanical ventilation overnight Febrile this morning Objective Vital Signs Date Time Temp Pulse Resp B/P Pulse Ox O2 Delivery O2 Flow Rate FiO2 03/27/16 08:30 101 16 96/66 97 03/27/16 08:00 100.3 Mechanical Ventilator 03/27/16 05:15 40 Intake and Output 03/26/16 03/26/16 03/27/16 15:00 23:00 07:00 Intake Total 730.4 ml 657.6 ml 766.9 ml Output Total 380 ml 655 ml 740 ml Balance 350.4 ml 2.6 ml 26.9 ml PHYSICAL EXAMINATION GENERAL: Obese Italian gentleman intubated on mechanical ventilation VITAL SIGNS: see below. HEENT: Pupils equal, round, and reactive to light. CARDIAC: S1, S2, CHEST: Diminished air entry bilaterally. ABDOMEN: Mildly distended. Bowel sounds present abdomen mildly distended no guarding or rebound. EXTREMITIES: No cyanosis, clubbing edema +1 NEUROLOGIC: No focal deficits. Results/Medications Result Diagram: 03/27/16 0420 03/27/16 0420 Results 24 hrs Chest x-ray No significant infiltrates or effusions Improved aeration right upper lobe Laboratory Tests Test 03/26/16 12:25 03/26/16 13:17 03/26/16 17:10 03/26/16 17:25 Creatine Kinase 934 #H 767 H Creatine Kinase Index 5.5 5.4 Creatinine Kinase MB (Mass) 51.80 H 41.70 H Troponin I 29.800 *H 32.100 *H Bedside Glucose 83 85 Test 03/26/16 21:35 03/27/16 00:34 03/27/16 04:20 03/27/16 05:12 Bedside Glucose 82 115 100 Alanine Aminotransferase (ALT/SGPT) 74 H Albumin 2.6 L Albumin/Globulin Ratio 1.04 Alkaline Phosphatase 72 Anion Gap 11 Aspartate Amino Transf (AST/SGOT) 90 H Basophils # 0.0 Basophils % 0.1 Blood Urea Nitrogen 15 Calcium Level 8.6 Carbon Dioxide Level 27 Chloride Level 107 Cholesterol Level 199 Cholesterol/HDL Ratio 7.9 Creatine Kinase 577 H Creatine Kinase Index 3.4 Creatinine 0.97 Creatinine Kinase MB (Mass) 19.60 H Direct Bilirubin 0.10 Eosinophils # 0.0 Eosinophils % 0.1 Globulin 2.50 Glucose Level 93 HDL Cholesterol 25 L Hematocrit 27.8 L Hemoglobin 9.3 L Indirect Bilirubin 0.8 LDL Cholesterol, Calculated 118 Lymphocytes # 0.6 L Lymphocytes % 5.9 L Magnesium Level 1.8 Mean Corpuscular Hemoglobin 30.0 Mean Corpuscular Hemoglobin Concent 33.6 Mean Corpuscular Volume 89.3 Mean Platelet Volume 8.9 Monocytes # 1.0 H Monocytes % 8.7 Neutrophils # 9.4 H Neutrophils % 85.2 H Nucleated Red Blood Cells # 0.0 Nucleated Red Blood Cells % 0.0 Platelet Count 187 Potassium Level 4.0 Red Blood Count 3.11 L Red Cell Distribution Width 13.4 Sodium Level 141 Total Bilirubin 0.9 Total Protein 5.1 L Triglycerides Level 282 H Troponin I 27.800 *H White Blood Count 11.0 H Test 03/27/16 07:00 Arterial Blood HCO3 25.3 Arterial Blood Base Excess -0.5 Arterial Blood Oxygen Saturation 96.1 Flip Test ACCEPTAB Arterial Blood Gas Puncture Site Right Radial Arterial Blood Carboxyhemoglobin 0.3 Arterial Blood Date Drawn 03/27/2016 8:25:18 AM Arterial Blood Methemoglobin 0.2 Arterial Blood pCO2 (Temp correct) 46.4 H Arterial Blood pH (Temp corrected) 7.354 Arterial Blood pO2 (Temp corrected) 87.2 Blood Gas A-a O2 Differential 144.6 H Blood Gas Actual Respiration Rate 16 Blood Gas Modality VENT - AC Blood Gas Notified Time 03/27/2016 8:45:55 AM Blood Gas Notified Whom DT Blood Gas Respiration Rate 16.0 Blood Gas Specimen Source Blood arterial Blood Gas Temperature 37.0 Blood Gas Tidal Volume 500.0 FiO2 40.0 Oxyhemoglobin Percent 95.6 Total Hemoglobin 11.5 L Medications Current Medications Ondansetron HCl (Zofran Inj) 4 mg Q6H PRN IV NAUSEA AND/OR VOMITING; Start 01/28 at 04:00 Nitroglycerin (Nitroglycerin (Sl Tab) 0.4 Mg) 1 tab Q5M PRN SL CHEST PAIN; Start 03/24/16 at 04:00 Morphine Sulfate (morphine) 2 mg Q4H PRN IV PAIN LEVEL 7-10 Last administered on 03/25/16 18:17; Admin Dose 2 MG; Start 03/24/16 at 04:00 Lorazepam (Ativan) 1 mg Q2H PRN IV ANXIETY Last administered on 03/26/16 03:34 ; Admin Dose 1 MG; Start 03/24/16 at 04:00 Bisacodyl (Dulcolax) 5 mg DAILY PRN PO CONSTIPATION; Start 03/24/16 at 04:00 Pantoprazole (Protonix Iv) 40 mg DAILY@06 IV Last administered on 03/27/16 05: 35; Admin Dose 40 MG; Start 03/24/16 at 06:00 Acetaminophen (Tylenol Liquid) 650 mg Q4H PRN PO TEMP > 37C; Start 03/24/16 at 04:00 Acetaminophen (Tylenol Supp) 500 mg Q6H DC Last administered on 03/27/16 09:02 ; Admin Dose 500 MG; Start 03/25/16 at 04:00 Acetaminophen (Tylenol Liquid) 500 mg Q6H PO ; Start 03/25/16 at 04:00; Status Future Hold Meperidine HCl (Demerol) 12.5 mg Q4H PRN IV POST OPERATIVE SHIVERING; Start 01/28 at 04:00 Meperidine HCl (Demerol) 25 mg Q4H PRN IV POST OPERATIVE SHIVERING; Start 03/24 at 04:00 Atorvastatin Calcium 40 mg 40 mg QHS PO Last administered on 03/26/16 21:33; Admin Dose 40 MG; Start 03/24/16 at 21:00 Fentanyl 1000 mcg/ Dextrose 100 ml @ 2.5 mls/hr TITRATE IV Last administered on 03/27/16 07:49; Admin Dose 2.5 MLS/HR; Start 03/24/16 at 17:30 Levofloxacin/ Dextrose (Levaquin 500mg/ D5W 100 ml (Pmx)) 100 ml @ 100 mls/hr DAILY IVPB Last administered on 03/27/16 09:02; Admin Dose 100 MLS/HR; Start 03/24/16 at 18:00 Aspirin 162 mg 162 mg DAILY PO Last administered on 03/26/16 09:19; Admin Dose 162 MG; Start 03/25/16 at 11:30 Sodium Chloride (NS) 1,000 ml @ 75 mls/hr [id number] IV Last administered on 03/27 08:54; Admin Dose 75 MLS/HR; Start 03/26/16 at 09:30 Insulin Aspart (Novolog Insulin Pen) NOVOLOG *MILD* ALGORI... Q4 SC ; Start at 13:00 Diagnostic Test (Pha) (Accucheck) 1 ea 02 XX ; Start 03/27/16 at 02:00 Furosemide (Lasix) 40 mg DAILY@06 IV ; Start 03/26/16 at 11:00; Status Future Hold Enoxaparin Sodium (Lovenox) 40 mg DAILY SC Last administered on 03/27/16 09:09 ; Admin Dose 40 MG; Start 03/26/16 at 11:30 Aspirin (Halfprin) 81 mg DAILY PO Last administered on 03/27/16 09:02; Admin Dose 81 MG; Start 03/27/16 at 09:00 Ticagrelor (Brilinta) 90 mg BID PO Last administered on 03/27/16 09:04; Admin Dose 90 MG; Start 03/26/16 at 21:00 Assessment/Plan Chief Complaint/Hosp Course IMPRESSION AND PLAN: 1. Ventricular fibrillation arrest, evidence of significant RCA disease status post stent placement 2. Resolving encephalopathy 3. Probable aspiration pneumonitis. Right upper lobe mucous plugging respiratory failure secondary to above 4. Probable underlying obstructive sleep apnea The patient will require: 1. Supplemental O2. 2. Bronchodilators. 3. Status post bronchoscopy will encourage incentive spirometry postextubation 4. Decrease sedation CPAP weaning trial 5. DVT and GI prophylaxis. 6. Neurology evaluation post-reversal of hypothermia. A require EEG if neurologically not improving 7. Cardiac recommendations post catheterization and stent placement Problems: ASHISH MOORE MD, [facility] Mar 27, 2016 10:10
--- NOTE | 2016-03-27 12:07 | CONS ---
Date/Time of Note Date/Time of Note DATE: 03/27/16 TIME: 12:02 Assessment/Plan Assessment/Plan Chief Complaint/Hosp Course IMPRESSION: 1. Cardiac arrest. Assess for acute coronary syndrome preceding possibly.- likely related to acute [place] 2. Chest pain concerning for possible acute coronary syndrome prior to arrest. 3. Abnormal EKG with initial ST elevations concerning for acute myocardial infarction.-s/p PTCA/stent x 1 RCA with MARIAELENA 03/26 4. Respiratory failure, status post intubation. 5. Encephalopathy. 6. Bradycardia, likely secondary to hypothermia-improved s/p hypothermia 7. Ongoing tobacco usage. 8. Leukocytosis. 9. Mild anemia. 10. Increased liver function tests. 11.Renal insufficiency Recc: -Tele -serial ecg;'s -Continue current -Continue asa/brilinta/statin Problems: Consultation Date/Type/Reason Admit Date/Time Mar 24, 2016 at 17:54 Initial Consult Date 03/25/2016 Type of Consultation: Cardiology Reason for Consultation ACUTE [place] Referring Provider: DELMY OLIVER Exam/Review of Systems Vital Signs Vitals Vital Signs Date Time Temp Pulse Resp B/P Pulse Ox O2 Delivery O2 Flow Rate FiO2 03/27/16 11:30 115 16 90/60 92 03/27/16 11:00 Mechanical Ventilator 03/27/16 08:00 100.3 03/27/16 05:15 40 Intake and Output 03/26/16 03/26/16 03/27/16 15:00 23:00 07:00 Intake Total 730.4 ml 657.6 ml 766.9 ml Output Total 380 ml 655 ml 770 ml Balance 350.4 ml 2.6 ml -3.1 ml Exam Review of Systems: CONSTITUTIONAL: No fevers, chills. PULMONARY: intubated CARDIOVASCULAR: No obvious chest pain/palpitations GASTROINTESTINAL: No nausea/vomiting. GENITOURINARY: No hematuria/dysuria. MUSCULOSKELETAL: No obvious myagias/arthalgias. PSYCHIATRIC: No documented depression. NEUROLOGIC: No weakness Constitutional: other (encephalopathy) Psych: no complaints Head: normocephalic ENMT: mucosa pink and moist Neck: jvd (9 cm water), supple Respiratory: diminished breath sounds Cardiovascular: regular rate and rhythm Gastrointestinal: non-tender, soft Musculoskeletal: muscle tone Extremities: edema (none) Neurological: other (No focal deficits) Results Result Diagram: 03/27/16 0420 03/27/16 0420 Results 24 hrs Laboratory Tests Test 03/26/16 12:25 03/26/16 13:17 03/26/16 17:10 03/26/16 17:25 Creatine Kinase 934 #H 767 H Creatine Kinase Index 5.5 5.4 Creatinine Kinase MB (Mass) 51.80 H 41.70 H Troponin I 29.800 *H 32.100 *H Bedside Glucose 83 85 Test 03/26/16 21:35 03/27/16 00:34 03/27/16 04:20 03/27/16 05:12 Bedside Glucose 82 115 100 Alanine Aminotransferase (ALT/SGPT) 74 H Albumin 2.6 L Albumin/Globulin Ratio 1.04 Alkaline Phosphatase 72 Anion Gap 11 Aspartate Amino Transf (AST/SGOT) 90 H Basophils # 0.0 Basophils % 0.1 Blood Urea Nitrogen 15 Calcium Level 8.6 Carbon Dioxide Level 27 Chloride Level 107 Cholesterol Level 199 Cholesterol/HDL Ratio 7.9 Creatine Kinase 577 H Creatine Kinase Index 3.4 Creatinine 0.97 Creatinine Kinase MB (Mass) 19.60 H Direct Bilirubin 0.10 Eosinophils # 0.0 Eosinophils % 0.1 Globulin 2.50 Glucose Level 93 HDL Cholesterol 25 L Hematocrit 27.8 L Hemoglobin 9.3 L Indirect Bilirubin 0.8 LDL Cholesterol, Calculated 118 Lymphocytes # 0.6 L Lymphocytes % 5.9 L Magnesium Level 1.8 Mean Corpuscular Hemoglobin 30.0 Mean Corpuscular Hemoglobin Concent 33.6 Mean Corpuscular Volume 89.3 Mean Platelet Volume 8.9 Monocytes # 1.0 H Monocytes % 8.7 Neutrophils # 9.4 H Neutrophils % 85.2 H Nucleated Red Blood Cells # 0.0 Nucleated Red Blood Cells % 0.0 Platelet Count 187 Potassium Level 4.0 Red Blood Count 3.11 L Red Cell Distribution Width 13.4 Sodium Level 141 Total Bilirubin 0.9 Total Protein 5.1 L Triglycerides Level 282 H Troponin I 27.800 *H White Blood Count 11.0 H Test 03/27/16 07:00 03/27/16 10:07 Arterial Blood HCO3 25.3 Arterial Blood Base Excess -0.5 Arterial Blood Oxygen Saturation 96.1 Filp Test ACCEPTAB Arterial Blood Gas Puncture Site Right Radial Arterial Blood Carboxyhemoglobin 0.3 Arterial Blood Date Drawn 03/27/2016 8:25:18 AM Arterial Blood Methemoglobin 0.2 Arterial Blood pCO2 (Temp correct) 46.4 H Arterial Blood pH (Temp corrected) 7.354 Arterial Blood pO2 (Temp corrected) 87.2 Blood Gas A-a O2 Differential 144.6 H Blood Gas Actual Respiration Rate 16 Blood Gas Modality VENT - AC Blood Gas Notified Time 03/27/2016 8:45:55 AM Blood Gas Notified Whom DT Blood Gas Respiration Rate 16.0 Blood Gas Specimen Source Blood arterial Blood Gas Temperature 37.0 Blood Gas Tidal Volume 500.0 FiO2 40.0 Oxyhemoglobin Percent 95.6 Total Hemoglobin 11.5 L Bedside Glucose 124 Medications Medications Current Medications Ondansetron HCl (Zofran Inj) 4 mg Q6H PRN IV NAUSEA AND/OR VOMITING; Start 01/28 at 04:00 Nitroglycerin (Nitroglycerin (Sl Tab) 0.4 Mg) 1 tab Q5M PRN SL CHEST PAIN; Start 03/24/16 at 04:00 Morphine Sulfate (morphine) 2 mg Q4H PRN IV PAIN LEVEL 7-10 Last administered on 03/25/16 18:17; Admin Dose 2 MG; Start 03/24/16 at 04:00 Lorazepam (Ativan) 1 mg Q2H PRN IV ANXIETY Last administered on 03/26/16 03:34 ; Admin Dose 1 MG; Start 03/24/16 at 04:00 Bisacodyl (Dulcolax) 5 mg DAILY PRN PO CONSTIPATION; Start 03/24/16 at 04:00 Pantoprazole (Protonix Iv) 40 mg DAILY@06 IV Last administered on 03/27/16 05: 35; Admin Dose 40 MG; Start 03/24/16 at 06:00 Acetaminophen (Tylenol Liquid) 650 mg Q4H PRN PO TEMP > 37C; Start 03/24/16 at 04:00 Acetaminophen (Tylenol Supp) 500 mg Q6H MA Last administered on 03/27/16 09:02 ; Admin Dose 500 MG; Start 03/25/16 at 04:00 Acetaminophen (Tylenol Liquid) 500 mg Q6H PO ; Start 03/25/16 at 04:00; Status Future Hold Meperidine HCl (Demerol) 12.5 mg Q4H PRN IV POST OPERATIVE SHIVERING; Start 01/28 at 04:00 Meperidine HCl (Demerol) 25 mg Q4H PRN IV POST OPERATIVE SHIVERING; Start 03/24 at 04:00 Atorvastatin Calcium 40 mg 40 mg QHS PO Last administered on 03/26/16 21:33; Admin Dose 40 MG; Start 03/24/16 at 21:00 Fentanyl 1000 mcg/ Dextrose 100 ml @ 2.5 mls/hr TITRATE IV Last administered on 03/27/16 07:49; Admin Dose 2.5 MLS/HR; Start 03/24/16 at 17:30 Levofloxacin/ Dextrose (Levaquin 500mg/ D5W 100 ml (Pmx)) 100 ml @ 100 mls/hr DAILY IVPB Last administered on 03/27/16 09:02; Admin Dose 100 MLS/HR; Start 03/24/16 at 18:00 Aspirin 162 mg 162 mg DAILY PO Last administered on 03/26/16 09:19; Admin Dose 162 MG; Start 03/25/16 at 11:30 Sodium Chloride (NS) 1,000 ml @ 75 mls/hr [id number] IV Last administered on 03/27 08:54; Admin Dose 75 MLS/HR; Start 03/26/16 at 09:30 Insulin Aspart (Novolog Insulin Pen) NOVOLOG *MILD* ALGORI... Q4 SC ; Start at 13:00 Diagnostic Test (Pha) (Accucheck) 1 ea 02 XX ; Start 03/27/16 at 02:00 Furosemide (Lasix) 40 mg DAILY@06 IV ; Start 03/26/16 at 11:00; Status Future Hold Enoxaparin Sodium (Lovenox) 40 mg DAILY SC Last administered on 03/27/16 09:09 ; Admin Dose 40 MG; Start 03/26/16 at 11:30 Aspirin (Halfprin) 81 mg DAILY PO Last administered on 03/27/16 09:02; Admin Dose 81 MG; Start 03/27/16 at 09:00 Ticagrelor (Brilinta) 90 mg BID PO Last administered on 03/27/16 09:04; Admin Dose 90 MG; Start 03/26/16 at 21:00 LEROY GARCIA Mar 27, 2016 12:07
--- NOTE | 2016-03-27 17:01 | RADRPT ---
PROCEDURE: CT Brain without contrast. CLINICAL INDICATION: Cardiac arrest TECHNIQUE: A CT of the brain was performed utilizing axial imaging from the skull base through the vertex without IV contrast. Multiplanar reformatted images were made. Images were reviewed on a [employer] workstation. The CTDIvol is 43 mGy and the DLP is 630 mGycm. COMPARISON: None FINDINGS: There is mild to moderate age appropriate diffuse cerebral volume loss with sulcal and ventricular d ilatation. No discrete extra-axial fluid collection or masses present. The ventricles are in the m idline and of normal contour and configuration. There is minimal white matter disease in both cereb ral hemispheres. No associated mass effect is seen. There is no intracranial hemorrhage. There is old post traumatic deformity on the medial wall of the left orbit. Opacification is presen t is scattered ethmoid air cells and there is trace fluid and mucoperiosteal thickening in the sphen oid sinus. IMPRESSION: No intracranial hemorrhage or mass. Mild white matter disease compatible with chronic small vessel ischemia. .Kenroy Gutiérrez MD, MD Date Time Electronically viewed and signed by .Kenryo Gutiérrez MD, on 03/27/2016 17:01 .A/
[2016-03-27] MEDS ORDERED: SOD CHLORIDE 0.9% 500 ML IV ONE (18:00)
[2016-03-27] MEDS: ATORVASTATIN 40 MG TAB PO SCH (20:45)
[2016-03-28] VITALS (50 sets, daily range): BP systolic 81–162; BP diastolic 56–107; PULSE 86–124; RESP 12–34
[2016-03-28] MEDS: PROPOFOL 100 ML IV SCH ×3 (00:18→12:41)
[2016-03-28] MEDS: SOD CHLORIDE 0.9% 1,000 ML IV SCH ×2 (00:18→15:44)
[2016-03-28] MEDS: IPRATROPIUM (HFA) 12.9 GM INHALER INH SCH ×3 (01:21→17:01)
[2016-03-28] MEDS: ALBUTEROL HFA 8 GM INHALER INH SCH ×3 (01:21→17:01)
[2016-03-28] MEDS: ACCUCHECK XX SCH (01:30)
[2016-03-28] MEDS: ACETAMINOPHEN 650 MG SUPP PR SCH (03:43)
[2016-03-28] MEDS: FENTAnyl 1,000 MCG in DEXTROSE 5% 80 ML IV SCH (03:49)
[2016-03-28 05:10] LABS: BASOPHILS % 0.2 % (0.0-2.0); EOSINOPHILS % 0.3 % (0.0-7.0); HEMATOCRIT 25.9 % (42.0-52.0); HEMOGLOBIN 8.7 g/dl (14.0-18.0); LYMPHOCYTES # 1.1 10^3/ul (0.8-2.9); LYMPHOCYTES % 9.9 % (15.0-51.0); MEAN CORPUSCULAR HEMOGLOBIN 29.8 pg (29.0-33.0); MEAN CORPUSCULAR HGB CONC 33.5 g/dl (32.0-37.0); MEAN CORPUSCULAR VOLUME 89.1 fl (82.0-101.0); MEAN PLATELET VOLUME 8.5 fl (7.4-10.4); MONOCYTE # 0.9 10^3/ul (0.3-0.9); NEUTROPHIL # 9.2 10^3/ul (1.6-7.5); NEUTROPHILS % 81.6 % (39.0-77.0); PLATELET COUNT 229 10^3/UL (140-440); RED BLOOD COUNT 2.91 10^6/ul (4.70-6.10); RED CELL DISTRIBUTION WIDTH 13.5 % (11.5-14.5); UNCORRECTED WBC 11.3 10^3/ul (4.8-10.8); WHITE BLOOD COUNT 11.3 10^3/ul (4.8-10.8)
[2016-03-28 05:15] LABS: POTASSIUM 4.1 mmol/L (3.5-5.1)
[2016-03-28 05:18] LABS: CREATININE 0.96 mg/dl (0.61-1.24); PHOSPHORUS 4.3 mg/dl (2.5-4.9)
[2016-03-28 05:19] LABS: CALCIUM 8.8 mg/dl (8.4-10.2); MAGNESIUM 2.1 mg/dl (1.7-2.5)
[2016-03-28 05:23] LABS: CONDITION 1
[2016-03-28] MEDS: INSULIN ASPART [NOVOLOG] 3 ML PEN SC SCH ×3 (05:27→17:40)
[2016-03-28] MEDS: PANTOPRAZOLE 40 MG INJ IV SCH (05:27)
[2016-03-28 05:40] LABS: CK-MB 5.65 ng/ml (0.0-2.4)
[2016-03-28 06:48] LABS: TROPONIN-I 18.6 ng/ml (0.00-0.12)
[2016-03-28] MEDS: ENOXAPARIN 40 MG/0.4 ML SYG SC SCH (08:45)
[2016-03-28] MEDS: TICAGRELOR 90 MG TABLET PO SCH ×2 (08:45→20:27)
[2016-03-28] MEDS: LEVOFLOXACIN 500MG/D5W (PMX) 100 ML IVPB SCH (08:46)
[2016-03-28] MEDS: ASPIRIN 81 MG TAB NGT SCH (08:47)
--- NOTE | 2016-03-28 08:51 | PN ---
Date/Time of Note Date/Time of Note DATE: 03/28/16 TIME: 08:20 Assessment/Plan VTE Prophylaxis VTE Prophylaxis Intervention: SCD's Lines/Catheters IV Catheter Type (from Nrs): Central Line Central line still needed: Yes Urinary Cath still in place: Yes Reason Cath still needed: other (indicate) Assessment/Plan Assessment/Plan This is a 60-year-old male with past medical history of hypertension, arthritis , high cholesterol, gastroesophageal reflux disease, depression who comes in with ventricular fibrillation arrest, now intubated and sedated on the hypothermia protocol. 1. Ventricular fibrillation arrest likely 2/2 #4 s/p CPR + ROSC / s/p Hypothermia protocol 2. Acute resp failure with collapsed RUL : remains intubated on full vent support / pulm following / successful bronchoscopy + Lavage done 03/26/15 / failed CPAP Tuesday/ also on Levaquin 3. Essential hypertension. Blood pressure stable. Continue to monitor for now. 4. NSTEMI + probable ST elevation myocardial infarction given initial EKG s/p Cath 03/26/15 / Culprit lesion: RCA s/p large stent / life long ASA + brilinta for at least 1 year / troponin trending down / cardio following 6. Hyperglycemia without Documented hx of DM likely steroid induced / was on steroids for ?COPD / d/c insulin drip and use SSI only / may d/c SSI if no coverage needed 7. Depression resume home meds once stable 8. Chronic Tobacco abuse + COPD Will need cessation counselling when more alert / no evidence of COPD exacerbation / pulm following 9. RANDY 2/2 ?ATN: Creatinine improved off Lasix / monitor / diurese very carefully / strict Is and Os 10. BPH mccann currently in place / resume home meds once stable 11. Dyslipidemia. Statin 12. Transaminitis 2/2 ?shock liver : improving 13. Rhabdomyolysis: Continue IVF / trend CK 14: UTI : Levaquin 15: Mild SIRS: improved, still mildly hypotensive, continue fluids Prophylaxis: Lovenox / PPI Eval for neurologic injury when off sedation Further evaluation and treatment will be based on clinical course Full discussion with care team done. All questions Answered Please also see orders. Total time spent on this evaluation >35mins Subjective 24 Hr Interval Summary Free Text/Dictation Patient seen and examined. Intubated and sedated on propfol and versed for comfort, but no pressor support. Subjective hx not possible: pt non-verbal, pt critical status Exam/Review of Systems Vital Signs Vitals Vital Signs Date Time Temp Pulse Resp B/P Pulse Ox O2 Delivery O2 Flow Rate FiO2 03/28/16 08:00 98.8 86 16 102/70 96 Mechanical Ventilator 03/28/16 05:24 40 Intake and Output 03/27/16 03/27/16 03/28/16 15:00 23:00 07:00 Intake Total 888.24 ml 1412.38 ml 1112.60 ml Output Total 305 ml 225 ml 225 ml Balance 583.24 ml 1187.38 ml 887.60 ml Exam Constitutional: No alert, No oriented Psych: other (unable to assess) Head: atraumatic, normocephalic Eyes: PERRL ENMT: intubated Respiratory: clear to auscultation, diminished breath sounds Cardiovascular: regular rate and rhythm, No murmurs/extra sounds Gastrointestinal: bowel sounds, non-tender, soft Neurological: other (sedated on propofol) Results Result Diagram: 03/28/16 0430 03/28/16 0430 Results 24 hrs Laboratory Tests Test 03/27/16 10:07 03/27/16 12:21 03/27/16 17:09 03/27/16 23:31 Bedside Glucose 124 109 104 100 Test 03/28/16 04:30 03/28/16 05:26 Anion Gap 15 Basophils # 0.0 Basophils % 0.2 Blood Urea Nitrogen 20 Calcium Level 8.8 Carbon Dioxide Level 26 Chloride Level 105 Creatine Kinase 395 #H Creatine Kinase Index 1.4 Creatinine 0.96 Creatinine Kinase MB (Mass) 5.65 H Eosinophils # 0.0 Eosinophils % 0.3 Glucose Level 100 Hematocrit 25.9 L Hemoglobin 8.7 L Lymphocytes # 1.1 Lymphocytes % 9.9 L Magnesium Level 2.1 Mean Corpuscular Hemoglobin 29.8 Mean Corpuscular Hemoglobin Concent 33.5 Mean Corpuscular Volume 89.1 Mean Platelet Volume 8.5 Monocytes # 0.9 Monocytes % 8.0 Neutrophils # 9.2 H Neutrophils % 81.6 H Nucleated Red Blood Cells # 0.0 Nucleated Red Blood Cells % 0.0 Phosphorus Level 4.3 Platelet Count 229 # Potassium Level 4.1 Red Blood Count 2.91 L Red Cell Distribution Width 13.5 Sodium Level 142 Troponin I 18.600 *H White Blood Count 11.3 H Bedside Glucose 102 Medications Medications Current Medications Ondansetron HCl (Zofran Inj) 4 mg Q6H PRN IV NAUSEA AND/OR VOMITING; Start 01/28 at 04:00 Nitroglycerin (Nitroglycerin (Sl Tab) 0.4 Mg) 1 tab Q5M PRN SL CHEST PAIN; Start 03/24/16 at 04:00 Morphine Sulfate (morphine) 2 mg Q4H PRN IV PAIN LEVEL 7-10 Last administered on 03/25/16 18:17; Admin Dose 2 MG; Start 03/24/16 at 04:00 Lorazepam (Ativan) 1 mg Q2H PRN IV ANXIETY Last administered on 03/26/16 03:34 ; Admin Dose 1 MG; Start 03/24/16 at 04:00 Bisacodyl (Dulcolax) 5 mg DAILY PRN PO CONSTIPATION; Start 03/24/16 at 04:00 Pantoprazole (Protonix Iv) 40 mg DAILY@06 IV Last administered on 03/28/16 05: 27; Admin Dose 40 MG; Start 03/24/16 at 06:00 Acetaminophen (Tylenol Liquid) 650 mg Q4H PRN PO TEMP > 37C; Start 03/24/16 at 04:00 Acetaminophen (Tylenol Supp) [address] Last administered on 03/28/16 03:43 ; Admin Dose 500 MG; Start 03/25/16 at 04:00 Acetaminophen (Tylenol Liquid) 500 mg Q6H PO ; Start 03/25/16 at 04:00; Status Future Hold Meperidine HCl (Demerol) 12.5 mg Q4H PRN IV POST OPERATIVE SHIVERING; Start 01/28 at 04:00 Meperidine HCl (Demerol) 25 mg Q4H PRN IV POST OPERATIVE SHIVERING; Start 03/24 at 04:00 Atorvastatin Calcium 40 mg 40 mg QHS PO Last administered on 03/27/16 20:45; Admin Dose 40 MG; Start 03/24/16 at 21:00 Fentanyl 1000 mcg/ Dextrose 100 ml @ 2.5 mls/hr TITRATE IV Last administered on 03/28/16 03:49; Admin Dose 2.5 MLS/HR; Start 03/24/16 at 17:30 Levofloxacin/ Dextrose 100 ml @ 100 mls/hr DAILY IVPB Last administered on 09:02; Admin Dose 100 MLS/HR; Start 03/24/16 at 18:00 Sodium Chloride (NS) 1,000 ml @ 75 mls/hr [id number] IV Last administered on 03/28 00:18; Admin Dose 75 MLS/HR; Start 03/26/16 at 09:30 Diagnostic Test (Pha) (Accucheck) 1 ea 02 XX ; Start 03/27/16 at 02:00 Furosemide (Lasix) 40 mg DAILY@06 IV ; Start 03/26/16 at 11:00; Status Future Hold Enoxaparin Sodium (Lovenox) 40 mg DAILY SC Last administered on 03/27/16 09:09 ; Admin Dose 40 MG; Start 03/26/16 at 11:30 Aspirin (Halfprin) 81 mg DAILY PO Last administered on 03/27/16 09:02; Admin Dose 81 MG; Start 03/27/16 at 09:00 Ticagrelor (Brilinta) 90 mg BID PO Last administered on 03/27/16 20:56; Admin Dose 90 MG; Start 03/26/16 at 21:00 Insulin Aspart (Novolog Insulin Pen) NOVOLOG *MILD* ALGORI... Q6 SC ; Start at 00:00 DELMY OLIVER Mar 28, 2016 08:51
[2016-03-28] MEDS ORDERED: ENOXAPARIN 40 MG/0.4 ML SYG SC SCH (09:00)
[2016-03-28 09:04] LABS: AADO2 Arterial 175.1 mmHg (7.0-24.0); Allen Test ACCEPTAB; Arterial Base Excess -3.4 mmol/L (-3.0-3); Arterial COHb 0.3 % (0.0-3.0); Arterial Fraction of Oxyhgb 92.6 % (93.0-99.0); Arterial HCO3 23.4 mmol/L (22.0-26.0); Arterial MetHb 0.2 % (0.0-1.5); Arterial Total Hemglobin 10.2 g/dl (12.0-18.0); MODE VENT - AC
[2016-03-28] MEDS: LORAZEPAM 2 MG INJ IV PRN (09:35)
[2016-03-28] MEDS: morphine 2 MG INJ IV PRN ×4 (10:00→21:27)
[2016-03-28] MEDS ORDERED: GLUCAGON 1 MG INJ IM PRN (12:00)
[2016-03-28] MEDS ORDERED: DEXTROSE 50% 50 ML SYRINGE IV PRN ×2 (12:00)
[2016-03-28] MEDS ORDERED: GLUCOSE GEL 15 GRAM TUBE BUCCAL PRN (12:00)
[2016-03-28] MEDS ORDERED: GLUCOSE GEL 15 GRAM TUBE PO PRN ×2 (12:00)
--- NOTE | 2016-03-28 12:07 | RADRPT ---
PROCEDURE: XR Chest AP portable CLINICAL INDICATION: No pneumonia, CHF TECHNIQUE: An AP portable radiograph of the chest was submitted. COMPARISON: 03/27/2016 FINDINGS: Support Hardware: The endotracheal tube, the NG tube, and a left subclavian central venous catheter are stable and positioning. Cardiovascular: The cardiovascular silhouette appears unremarkable except for atherosclerotic change s involving the aorta. Lung Guillermo: Subsegmental atelectasis is again seen to the heart within the left lower lobe and ther e is a developing infiltrate within the right upper lobe. Pleural Spaces: No pneumothorax or pleural effusion is identified. Osseous Structures: The osseous structures appear intact. Soft Tissues: The soft tissues appear unremarkable. IMPRESSION: 1. The tubes and lines are stable and positioning. 2. Subsegmental atelectasis is again seen to the heart with in the left lower lung zone and there i s a vague developing infiltrate within the right upper lobe. Physician Antolin Date Time Electronically viewed and signed by Physician Antolin on 03/28/2016 12:07 /
--- NOTE | 2016-03-28 12:44 | CONS ---
Date/Time of Note Date/Time of Note DATE: 03/28/16 TIME: 12:43 Consult Date/Type/Reason Admit Date/Time Mar 24, 2016 at 17:54 Type of Consultation: pulmonary Ordering Provider: DELMY OLIVER Subjective Patient is more alert this morning with family at bedside Placed on CPAP weaning trial Currently hemodynamically stable Objective Vital Signs Date Time Temp Pulse Resp B/P Pulse Ox O2 Delivery O2 Flow Rate FiO2 03/28/16 12:00 109 03/28/16 12:00 98.9 14 138/81 90 Mechanical Ventilator 03/28/16 08:00 40 Intake and Output 03/27/16 03/27/16 03/28/16 14:59 22:59 06:59 Intake Total 893.16 ml 1392.54 ml 1232.20 ml Output Total 305 ml 235 ml 245 ml Balance 588.16 ml 1157.54 ml 987.20 ml PHYSICAL EXAMINATION GENERAL: Obese Romansh gentleman intubated on mechanical ventilation VITAL SIGNS: see below. HEENT: Pupils equal, round, and reactive to light. CARDIAC: S1, S2, CHEST: Diminished air entry bilaterally. ABDOMEN: Mildly distended. Bowel sounds present abdomen mildly distended no guarding or rebound. EXTREMITIES: No cyanosis, clubbing edema +1 NEUROLOGIC: No focal deficits. Results/Medications Result Diagram: 03/28/16 0430 03/28/16 0430 Results 24 hrs Chest x-ray Low lung volumes rest and pulmonary edema Laboratory Tests Test 03/27/16 17:09 03/27/16 23:31 03/28/16 04:30 03/28/16 05:26 Bedside Glucose 104 100 102 Anion Gap 15 Basophils # 0.0 Basophils % 0.2 Blood Urea Nitrogen 20 Calcium Level 8.8 Carbon Dioxide Level 26 Chloride Level 105 Creatine Kinase 395 #H Creatine Kinase Index 1.4 Creatinine 0.96 Creatinine Kinase MB (Mass) 5.65 H Eosinophils # 0.0 Eosinophils % 0.3 Glucose Level 100 Hematocrit 25.9 L Hemoglobin 8.7 L Lymphocytes # 1.1 Lymphocytes % 9.9 L Magnesium Level 2.1 Mean Corpuscular Hemoglobin 29.8 Mean Corpuscular Hemoglobin Concent 33.5 Mean Corpuscular Volume 89.1 Mean Platelet Volume 8.5 Monocytes # 0.9 Monocytes % 8.0 Neutrophils # 9.2 H Neutrophils % 81.6 H Nucleated Red Blood Cells # 0.0 Nucleated Red Blood Cells % 0.0 Phosphorus Level 4.3 Platelet Count 229 # Potassium Level 4.1 Red Blood Count 2.91 L Red Cell Distribution Width 13.5 Sodium Level 142 Troponin I 18.600 *H White Blood Count 11.3 H Test 03/28/16 07:00 03/28/16 12:05 Arterial Blood HCO3 23.4 Arterial Blood Base Excess -3.4 L Arterial Blood Oxygen Saturation 93.1 L Flip Test ACCEPTAB Arterial Blood Gas Puncture Site Right Radial Arterial Blood Carboxyhemoglobin 0.3 Arterial Blood Date Drawn 03/28/2016 8:40:16 AM Arterial Blood Methemoglobin 0.2 Arterial Blood pCO2 (Temp correct) 44.4 Arterial Blood pH (Temp corrected) 7.325 L Arterial Blood pO2 (Temp corrected) 62.0 L Blood Gas A-a O2 Differential 175.1 H Blood Gas Actual Respiration Rate 17 Blood Gas Critical Value Read Back K IHIRG RN Blood Gas Modality VENT - AC Blood Gas Notified Time 03/28/2016 9:02:15 AM Blood Gas Notified Whom DT Blood Gas Respiration Rate 16.0 Blood Gas Specimen Source Blood arterial Blood Gas Temperature 34.0 Blood Gas Tidal Volume 500.0 FiO2 40.0 Oxyhemoglobin Percent 92.6 L Total Hemoglobin 10.2 L Bedside Glucose 103 Medications Current Medications Ondansetron HCl (Zofran Inj) 4 mg Q6H PRN IV NAUSEA AND/OR VOMITING; Start 01/28 at 04:00 Nitroglycerin (Nitroglycerin (Sl Tab) 0.4 Mg) 1 tab Q5M PRN SL CHEST PAIN; Start 03/24/16 at 04:00 Morphine Sulfate (morphine) 2 mg Q4H PRN IV PAIN LEVEL 7-10 Last administered on 03/28/16 10:00; Admin Dose 2 MG; Start 03/24/16 at 04:00 Lorazepam (Ativan) 1 mg Q2H PRN IV ANXIETY Last administered on 03/28/16 09:35 ; Admin Dose 1 MG; Start 03/24/16 at 04:00 Bisacodyl (Dulcolax) 5 mg DAILY PRN PO CONSTIPATION; Start 03/24/16 at 04:00 Pantoprazole (Protonix Iv) 40 mg DAILY@06 IV Last administered on 03/28/16 05: 27; Admin Dose 40 MG; Start 03/24/16 at 06:00 Acetaminophen (Tylenol Liquid) 650 mg Q4H PRN PO TEMP > 37C; Start 03/24/16 at 04:00 Acetaminophen (Tylenol Liquid) 500 mg Q6H PO ; Start 03/25/16 at 04:00; Status Future Hold Meperidine HCl (Demerol) 12.5 mg Q4H PRN IV POST OPERATIVE SHIVERING; Start 01/28 at 04:00 Meperidine HCl (Demerol) 25 mg Q4H PRN IV POST OPERATIVE SHIVERING; Start 03/24 at 04:00 Atorvastatin Calcium 40 mg 40 mg QHS PO Last administered on 03/27/16 20:45; Admin Dose 40 MG; Start 03/24/16 at 21:00 Fentanyl 1000 mcg/ Dextrose 100 ml @ 2.5 mls/hr TITRATE IV Last administered on 03/28/16 03:49; Admin Dose 2.5 MLS/HR; Start 03/24/16 at 17:30 Levofloxacin/ Dextrose 100 ml @ 100 mls/hr DAILY IVPB Last administered on 08:46; Admin Dose 100 MLS/HR; Start 03/24/16 at 18:00 Sodium Chloride (NS) 1,000 ml @ 75 mls/hr [id number] IV Last administered on 03/28 00:18; Admin Dose 75 MLS/HR; Start 03/26/16 at 09:30 Diagnostic Test (Pha) (Accucheck) 1 ea 02 XX ; Start 03/27/16 at 02:00 Furosemide (Lasix) 40 mg DAILY@06 IV ; Start 03/26/16 at 11:00; Status Future Hold Enoxaparin Sodium (Lovenox) 40 mg DAILY SC Last administered on 03/28/16 08:45 ; Admin Dose 40 MG; Start 03/26/16 at 11:30 Ticagrelor (Brilinta) 90 mg BID PO Last administered on 03/28/16 08:45; Admin Dose 90 MG; Start 03/26/16 at 21:00 Insulin Aspart (Novolog Insulin Pen) NOVOLOG *MILD* ALGORI... Q6 SC ; Start at 00:00 Aspirin (Aspirin) 81 mg DAILY NGT Last administered on 03/28/16t 08:47; Admin Dose 81 MG; Start 03/28/16 at 09:00 Miscellaneous Information 1 ea NOTE XX ; Start 03/28/16 at 12:00 Glucose (Glutose) 15 gm Q15M PRN PO DECREASED GLUCOSE; Start 03/28/16 at 12:00 Glucose (Glutose) 22.5 gm Q15M PRN PO DECREASED GLUCOSE; Start 03/28/16 at 12: 00 Dextrose (D50w Syringe) 25 ml Q15M PRN IV DECREASED GLUCOSE; Start 03/28/16 at 12:00 Dextrose (D50w Syringe) 50 ml Q15M PRN IV DECREASED GLUCOSE; Start 03/28/16 at 12:00 Glucagon (Glucagen) 1 mg Q15M PRN IM DECREASED GLUCOSE; Start 03/28/16 at 12:00 Glucose (Glutose) 15 gm Q15M PRN BUCCAL DECREASED GLUCOSE; Start 03/28/16 at 12 :00 Assessment/Plan Chief Complaint/Hosp Course IMPRESSION AND PLAN: 1. Ventricular fibrillation arrest, evidence of significant RCA disease status post stent placement 2. Resolving encephalopathy 3. Probable aspiration pneumonitis. Right upper lobe mucous plugging respiratory failure secondary to above 4. Probable underlying obstructive sleep apnea 5. Chest x-ray evidence of pulmonary edema The patient will require: 1. Supplemental O2. 2. Bronchodilators. 3. Status post bronchoscopy will encourage incentive spirometry postextubation 4. Decrease sedation CPAP weaning trial 5. DVT and GI prophylaxis. 6. Neurology evaluation post-reversal of hypothermia. A require EEG if neurologically not improving 7. Cardiac recommendations post catheterization and stent placement 8. Needs increased diuretics Problems: A[facility]ISH MOORE MD, [facility] Mar 28, 2016 12:44
[2016-03-28 13:11] LABS: AADO2 Arterial 170.6 mmHg (7.0-24.0); Allen Test ACCEPTAB; Arterial Base Excess -1.6 mmol/L (-3.0-3); Arterial COHb 0.3 % (0.0-3.0); Arterial Fraction of Oxyhgb 89.8 % (93.0-99.0); Arterial HCO3 24.1 mmol/L (22.0-26.0); Arterial MetHb 0.3 % (0.0-1.5); Arterial Total Hemglobin 10.5 g/dl (12.0-18.0); Blood Gas PS 10; MODE VENT - CPAP
[2016-03-28] MEDS: FUROSEMIDE 40 MG INJ IV SCH ×2 (13:44→17:40)
--- NOTE | 2016-03-28 13:49 | CONS ---
Date/Time of Note Date/Time of Note DATE: 03/28/16 TIME: 13:47 Assessment/Plan Assessment/Plan Chief Complaint/Hosp Course IMPRESSION: 1. Cardiac arrest. Assess for acute coronary syndrome preceding possibly.- likely related to acute NH 2. Chest pain concerning for possible acute coronary syndrome prior to arrest. 3. Abnormal EKG with initial ST elevations concerning for acute myocardial infarction.-s/p PTCA/stent x 1 RCA with MARIAELENA 03/26 4. Respiratory failure, status post extubation 5. Encephalopathy. 6. Bradycardia, likely secondary to hypothermia-improved s/p hypothermia 7. Ongoing tobacco usage. 8. Leukocytosis. 9. Mild anemia. 10. Increased liver function tests. 11.Renal insufficiency Recc: -Tele -serial ecg;'s -Continue current -Continue asa/brilinta/statin -Dose lasix and follow volume status clsoely Problems: Consultation Date/Type/Reason Admit Date/Time Mar 24, 2016 at 17:54 Initial Consult Date 03/25/2016 Type of Consultation: Cardiology Reason for Consultation Acute NH Referring Provider: DELMY OLIVER Exam/Review of Systems Vital Signs Vitals Vital Signs Date Time Temp Pulse Resp B/P Pulse Ox O2 Delivery O2 Flow Rate FiO2 03/28/16 12:00 109 03/28/16 12:00 98.9 14 138/81 90 Mechanical Ventilator 03/28/16 11:30 40 Intake and Output 03/27/16 03/27/16 03/28/16 15:00 23:00 07:00 Intake Total 888.24 ml 1412.38 ml 1112.60 ml Output Total 305 ml 225 ml 225 ml Balance 583.24 ml 1187.38 ml 887.60 ml Exam Review of Systems: CONSTITUTIONAL: No fevers, chills. PULMONARY: resp distress s/p extubation CARDIOVASCULAR: No chest pain/palpitations GASTROINTESTINAL: No nausea/vomiting. GENITOURINARY: No hematuria/dysuria. MUSCULOSKELETAL: No myagias/arthalgias. PSYCHIATRIC: The patient denies depression. NEUROLOGIC: No weakness Constitutional: alert Psych: no complaints Head: normocephalic ENMT: mucosa pink and moist Neck: jvd (9 cm water), supple Respiratory: diminished breath sounds (at bases/B) Cardiovascular: other (tachycardic, regular rhythm) Gastrointestinal: non-tender, soft Musculoskeletal: muscle tone Extremities: normal pulses Neurological: other (No focal deficits) Results Result Diagram: 03/28/16 0430 03/28/16 0430 Results 24 hrs Laboratory Tests Test 03/27/16 17:09 03/27/16 23:31 03/28/16 04:30 03/28/16 05:26 Bedside Glucose 104 100 102 Anion Gap 15 Basophils # 0.0 Basophils % 0.2 Blood Urea Nitrogen 20 Calcium Level 8.8 Carbon Dioxide Level 26 Chloride Level 105 Creatine Kinase 395 #H Creatine Kinase Index 1.4 Creatinine 0.96 Creatinine Kinase MB (Mass) 5.65 H Eosinophils # 0.0 Eosinophils % 0.3 Glucose Level 100 Hematocrit 25.9 L Hemoglobin 8.7 L Lymphocytes # 1.1 Lymphocytes % 9.9 L Magnesium Level 2.1 Mean Corpuscular Hemoglobin 29.8 Mean Corpuscular Hemoglobin Concent 33.5 Mean Corpuscular Volume 89.1 Mean Platelet Volume 8.5 Monocytes # 0.9 Monocytes % 8.0 Neutrophils # 9.2 H Neutrophils % 81.6 H Nucleated Red Blood Cells # 0.0 Nucleated Red Blood Cells % 0.0 Phosphorus Level 4.3 Platelet Count 229 # Potassium Level 4.1 Red Blood Count 2.91 L Red Cell Distribution Width 13.5 Sodium Level 142 Troponin I 18.600 *H White Blood Count 11.3 H Test 03/28/16 07:00 03/28/16 12:05 03/28/16 12:30 Arterial Blood HCO3 23.4 24.1 Arterial Blood Base Excess -3.4 L -1.6 Arterial Blood Oxygen Saturation 93.1 L 90.3 L Flip Test ACCEPTAB ACCEPTAB Arterial Blood Gas Puncture Site Right Radial Right Radial Arterial Blood Carboxyhemoglobin 0.3 0.3 Arterial Blood Date Drawn 03/28/2016 8:40:16 AM 03/28/2016 1:00:06 PM Arterial Blood Methemoglobin 0.2 0.3 Arterial Blood pCO2 (Temp correct) 44.4 44.6 Arterial Blood pH (Temp corrected) 7.325 L 7.350 Arterial Blood pO2 (Temp corrected) 62.0 L 63.3 L Blood Gas A-a O2 Differential 175.1 H 170.6 H Blood Gas Actual Respiration Rate 17 25 Blood Gas Critical Value Read Back K MARTINA ORTEGA RN Blood Gas Modality VENT - AC VENT - CPAP Blood Gas Notified Time 03/28/2016 9:02:15 AM 03/28/2016 1:11:18 PM Blood Gas Notified Whom DT RDIX Blood Gas Respiration Rate 16.0 Blood Gas Specimen Source Blood arterial Blood arterial Blood Gas Temperature 34.0 37.0 Blood Gas Tidal Volume 500.0 656.0 FiO2 40.0 40.0 Oxyhemoglobin Percent 92.6 L 89.8 L Total Hemoglobin 10.2 L 10.5 L Bedside Glucose 103 Blood Gas Low PEEP Setting 5.0 Blood Gas Pressure Support 10 Medications Medications Current Medications Ondansetron HCl (Zofran Inj) 4 mg Q6H PRN IV NAUSEA AND/OR VOMITING; Start 01/28 at 04:00 Nitroglycerin (Nitroglycerin (Sl Tab) 0.4 Mg) 1 tab Q5M PRN SL CHEST PAIN; Start 03/24/16 at 04:00 Morphine Sulfate (morphine) 2 mg Q4H PRN IV PAIN LEVEL 7-10 Last administered on 03/28/16 13:05; Admin Dose 2 MG; Start 03/24/16 at 04:00 Lorazepam (Ativan) 1 mg Q2H PRN IV ANXIETY Last administered on 03/28/16 09:35 ; Admin Dose 1 MG; Start 03/24/16 at 04:00 Bisacodyl (Dulcolax) 5 mg DAILY PRN PO CONSTIPATION; Start 03/24/16 at 04:00 Pantoprazole (Protonix Iv) 40 mg DAILY@06 IV Last administered on 03/28/16 05: 27; Admin Dose 40 MG; Start 03/24/16 at 06:00 Acetaminophen (Tylenol Liquid) 650 mg Q4H PRN PO TEMP > 37C; Start 03/24/16 at 04:00 Acetaminophen (Tylenol Liquid) 500 mg Q6H PO ; Start 03/25/16 at 04:00; Status Future Hold Meperidine HCl (Demerol) 25 mg Q4H PRN IV POST OPERATIVE SHIVERING; Start 03/24 at 04:00 Atorvastatin Calcium 40 mg 40 mg QHS PO Last administered on 03/27/16 20:45; Admin Dose 40 MG; Start 03/24/16 at 21:00 Fentanyl 1000 mcg/ Dextrose 100 ml @ 2.5 mls/hr TITRATE IV Last administered on 03/28/16 03:49; Admin Dose 2.5 MLS/HR; Start 03/24/16 at 17:30 Levofloxacin/ Dextrose 100 ml @ 100 mls/hr DAILY IVPB Last administered on 08:46; Admin Dose 100 MLS/HR; Start 03/24/16 at 18:00 Sodium Chloride (NS) 1,000 ml @ 75 mls/hr [id number] IV Last administered on 03/28 00:18; Admin Dose 75 MLS/HR; Start 03/26/16 at 09:30 Diagnostic Test (Pha) (Accucheck) 1 ea 02 XX ; Start 03/27/16 at 02:00 Enoxaparin Sodium (Lovenox) 40 mg DAILY SC Last administered on 03/28/16 08:45 ; Admin Dose 40 MG; Start 03/26/16 at 11:30 Ticagrelor (Brilinta) 90 mg BID PO Last administered on 03/28/16 08:45; Admin Dose 90 MG; Start 03/26/16 at 21:00 Insulin Aspart (Novolog Insulin Pen) NOVOLOG *MILD* ALGORI... Q6 SC ; Start at 00:00 Aspirin (Aspirin) 81 mg DAILY NGT Last administered on 03/28/16 08:47; Admin Dose 81 MG; Start 03/28/16 at 09:00 Miscellaneous Information 1 ea NOTE XX ; Start 03/28/16 at 12:00 Glucose (Glutose) 15 gm Q15M PRN PO DECREASED GLUCOSE; Start 03/28/16 at 12:00 Glucose (Glutose) 22.5 gm Q15M PRN PO DECREASED GLUCOSE; Start 03/28/16 at 12: 00 Dextrose (D50w Syringe) 25 ml Q15M PRN IV DECREASED GLUCOSE; Start 03/28/16 at 12:00 Dextrose (D50w Syringe) 50 ml Q15M PRN IV DECREASED GLUCOSE; Start 03/28/16 at 12:00 Glucagon (Glucagen) 1 mg Q15M PRN IM DECREASED GLUCOSE; Start 03/28/16 at 12:00 Glucose (Glutose) 15 gm Q15M PRN BUCCAL DECREASED GLUCOSE; Start 03/28/16 at 12 :00 LEROY GARCIA Mar 28, 2016 13:49
[2016-03-28 15:56] LABS: CK-MB 5.66 ng/ml (0.0-2.4); TROPONIN-I 15.2 ng/ml (0.00-0.12)
[2016-03-28] MEDS: ALBUTEROL/IPRATROPIUM (NEB) 3 ML AMP HHN SCH ×2 (17:30→20:53)
--- NOTE | 2016-03-28 19:35 | RADRPT ---
PROCEDURE: XR Chest. CLINICAL INDICATION: Shortness of breath. TECHNIQUE: Single frontal view. COMPARISON: 03/28/2016. 0602 hours. FINDINGS: The endotracheal tube has been removed. The nasogastric tube tip is in the stomach. The heart is enlarged. There is calcification in the aorta consistent with atherosclerosis. Mild r ight upper lobe atelectasis and left basilar atelectasis are unchanged. The lungs are otherwise sesar ar. There is no pleural effusion. There is no pneumothorax. IMPRESSION: 1. Endotracheal tube removed. 2. No other change from the prior study done earlier the same day. RPTAT: QQ .Yossi Larose MD, MD Date Time Electronically viewed and signed by .Yossi Larose MD, MD on 03/28/2016 19:34 .R/
[2016-03-28] MEDS: ATORVASTATIN 40 MG TAB PO SCH (20:26)
[2016-03-29] VITALS (27 sets, daily range): BP systolic 106–145; BP diastolic 50–88; PULSE 85–110; RESP 10–21
[2016-03-29] MEDS: ALBUTEROL/IPRATROPIUM (NEB) 3 ML AMP HHN SCH ×6 (01:46→20:34)
[2016-03-29] MEDS: ACCUCHECK XX SCH (02:00)
[2016-03-29 04:45] LABS: BASOPHILS % 0.2 % (0.0-2.0); EOSINOPHILS % 0.3 % (0.0-7.0); HEMATOCRIT 25.3 % (42.0-52.0); HEMOGLOBIN 8.5 g/dl (14.0-18.0); LYMPHOCYTES # 0.9 10^3/ul (0.8-2.9); LYMPHOCYTES % 9.4 % (15.0-51.0); MEAN CORPUSCULAR HEMOGLOBIN 29.5 pg (29.0-33.0); MEAN CORPUSCULAR HGB CONC 33.6 g/dl (32.0-37.0); MEAN CORPUSCULAR VOLUME 87.8 fl (82.0-101.0); MEAN PLATELET VOLUME 7.9 fl (7.4-10.4); MONOCYTE # 0.9 10^3/ul (0.3-0.9); MONOCYTES % 9.5 % (0.0-11.0); NEUTROPHIL # 7.3 10^3/ul (1.6-7.5); NEUTROPHILS % 80.6 % (39.0-77.0); PLATELET COUNT 294 10^3/UL (140-440); RED BLOOD COUNT 2.89 10^6/ul (4.70-6.10); RED CELL DISTRIBUTION WIDTH 13.3 % (11.5-14.5); UNCORRECTED WBC 9.1 10^3/ul (4.8-10.8); WHITE BLOOD COUNT 9.1 10^3/ul (4.8-10.8)
[2016-03-29 04:50] LABS: CONDITION 1
[2016-03-29 05:03] LABS: ALBUMIN 3.1 g/dl (3.3-4.9)
[2016-03-29 05:05] LABS: CREATININE 0.79 mg/dl (0.61-1.24)
[2016-03-29 05:06] LABS: BILIRUBIN,DIRECT 0.3 mg/dl (0.00-0.20); BILIRUBIN,TOTAL 1.3 mg/dl (0.2-1.3); TOTAL PROTEIN 6.7 g/dl (6.1-8.1)
[2016-03-29 05:07] LABS: CALCIUM 8.9 mg/dl (8.4-10.2)
[2016-03-29 05:18] LABS: CK-MB 2.51 ng/ml (0.0-2.4)
[2016-03-29 05:19] LABS: POTASSIUM 2.9 mmol/L (3.5-5.1)
[2016-03-29] MEDS ORDERED: POTASSIUM CHLORIDE 250 ML IVPB ONE (05:30)
[2016-03-29] MEDS: SOD CHLORIDE 0.9% 1,000 ML IV SCH (05:34)
[2016-03-29] MEDS: morphine 2 MG INJ IV PRN ×4 (05:38→18:14)
[2016-03-29] MEDS: INSULIN ASPART [NOVOLOG] 3 ML PEN SC SCH ×4 (06:00→18:00)
[2016-03-29] MEDS: FUROSEMIDE 40 MG INJ IV SCH (06:17)
[2016-03-29] MEDS: PANTOPRAZOLE 40 MG INJ IV SCH (06:17)
[2016-03-29 08:25] LABS: AADO2 Arterial 97.8 mmHg (7.0-24.0); Allen Test ACCEPTAB; Arterial Base Excess 9.7 mmol/L (-3.0-3); Arterial COHb 0.3 % (0.0-3.0); Arterial Fraction of Oxyhgb 88.3 % (93.0-99.0); Arterial HCO3 32.4 mmol/L (22.0-26.0); Arterial MetHb 0 % (0.0-1.5); Arterial Total Hemglobin 11.5 g/dl (12.0-18.0); MODE NASAL CANNULA
[2016-03-29] MEDS: LEVOFLOXACIN 500MG/D5W (PMX) 100 ML IVPB SCH (09:08)
[2016-03-29] MEDS: ASPIRIN 81 MG TAB NGT SCH (09:08)
[2016-03-29] MEDS: TICAGRELOR 90 MG TABLET PO SCH ×2 (09:09→21:30)
[2016-03-29] MEDS: ENOXAPARIN 40 MG/0.4 ML SYG SC SCH (09:10)
--- NOTE | 2016-03-29 10:50 | CONS ---
Date/Time of Note Date/Time of Note DATE: 03/29/16 TIME: 10:48 Consult Date/Type/Reason Admit Date/Time Mar 24, 2016 at 17:54 Type of Consultation: pulmonary Ordering Provider: DELMY OLIVER Subjective Sitting up in bed awake alert comfortable on Ventimask Objective Vital Signs Date Time Temp Pulse Resp B/P Pulse Ox O2 Delivery O2 Flow Rate FiO2 03/29/16 10:00 102 18 135/78 98 Venturi Mask 03/29/16 09:51 12.0 40 03/29/16 08:00 98.6 Intake and Output 03/28/16 03/28/16 03/29/16 15:00 23:00 07:00 Intake Total 865.70 ml 740 ml 755 ml Output Total 1450 ml 2750 ml 720 ml Balance -584.30 ml -2010 ml 35 ml PHYSICAL EXAMINATION GENERAL: Obese Pashto gentleman on Ventimask oxygen VITAL SIGNS: see below. HEENT: Pupils equal, round, and reactive to light. CARDIAC: S1, S2, CHEST: Diminished air entry bilaterally. ABDOMEN: Mildly distended. Bowel sounds present abdomen mildly distended no guarding or rebound. EXTREMITIES: No cyanosis, clubbing edema +1 NEUROLOGIC: No focal deficits. Results/Medications Result Diagram: 03/29/16 0320 03/29/16 0320 Results 24 hrs Laboratory Tests Test 03/28/16 12:05 03/28/16 12:30 03/28/16 15:05 03/28/16 17:39 Bedside Glucose 103 107 Arterial Blood HCO3 24.1 Arterial Blood Base Excess -1.6 Arterial Blood Oxygen Saturation 90.3 L Flip Test ACCEPTAB Arterial Blood Gas Puncture Site Right Radial Arterial Blood Carboxyhemoglobin 0.3 Arterial Blood Date Drawn 03/28/2016 1:00:06 PM Arterial Blood Methemoglobin 0.3 Arterial Blood pCO2 (Temp correct) 44.6 Arterial Blood pH (Temp corrected) 7.350 Arterial Blood pO2 (Temp corrected) 63.3 L Blood Gas A-a O2 Differential 170.6 H Blood Gas Actual Respiration Rate 25 Blood Gas Critical Value Read Back MDP MILO RN Blood Gas Low PEEP Setting 5.0 Blood Gas Modality VENT - CPAP Blood Gas Notified Time 03/28/2016 1:11:18 PM Blood Gas Notified Whom RDIX Blood Gas Pressure Support 10 Blood Gas Specimen Source Blood arterial Blood Gas Temperature 37.0 Blood Gas Tidal Volume 656.0 FiO2 40.0 Oxyhemoglobin Percent 89.8 L Total Hemoglobin 10.5 L Creatine Kinase 484 H Creatine Kinase Index 1.2 Creatinine Kinase MB (Mass) 5.66 H Troponin I 15.200 *H Test 03/29/16 02:04 03/29/16 03:20 03/29/16 06:15 03/29/16 07:20 Bedside Glucose 128 139 Alanine Aminotransferase (ALT/SGPT) 65 Albumin 3.1 L Alkaline Phosphatase 193 #H Anion Gap 15 Aspartate Amino Transf (AST/SGOT) 71 H Basophils # 0.0 Basophils % 0.2 Blood Urea Nitrogen 16 Calcium Level 8.9 Carbon Dioxide Level 34 H Chloride Level 102 Creatinine 0.79 Creatinine Kinase MB (Mass) 2.51 H Direct Bilirubin 0.30 #H Eosinophils # 0.0 Eosinophils % 0.3 Glucose Level 127 Hematocrit 25.3 L Hemoglobin 8.5 L Indirect Bilirubin 1.0 Lymphocytes # 0.9 Lymphocytes % 9.4 L Mean Corpuscular Hemoglobin 29.5 Mean Corpuscular Hemoglobin Concent 33.6 Mean Corpuscular Volume 87.8 Mean Platelet Volume 7.9 Monocytes # 0.9 Monocytes % 9.5 Neutrophils # 7.3 Neutrophils % 80.6 H Nucleated Red Blood Cells # 0.0 Nucleated Red Blood Cells % 0.0 Platelet Count 294 # Potassium Level 2.9 *L Red Blood Count 2.89 L Red Cell Distribution Width 13.3 Sodium Level 148 H Total Bilirubin 1.3 Total Protein 6.7 # White Blood Count 9.1 Arterial Blood HCO3 32.4 H Arterial Blood Base Excess 9.7 H Arterial Blood Oxygen Saturation 88.6 L Flip Test ACCEPTAB Arterial Blood Gas Puncture Site Right Radial Arterial Blood Carboxyhemoglobin 0.3 Arterial Blood Date Drawn 03/29/2016 8:16:08 AM Arterial Blood Methemoglobin 0 Arterial Blood pCO2 (Temp correct) 36.8 Arterial Blood pH (Temp corrected) 7.563 *H Arterial Blood pO2 (Temp corrected) 51.2 *L Blood Gas A-a O2 Differential 97.8 H Blood Gas Critical Value Read Back L ANGELES SPARKS Blood Gas Modality NASAL CANNULA Blood Gas Notified Time 03/29/2016 8:25:44 AM Blood Gas Notified Whom CESAR Blood Gas Specimen Source Blood arterial Blood Gas Temperature 37.0 FiO2 27.0 Oxyhemoglobin Percent 88.3 L Total Hemoglobin 11.5 L Medications Current Medications Ondansetron HCl (Zofran Inj) 4 mg Q6H PRN IV NAUSEA AND/OR VOMITING; Start 01/28 at 04:00 Nitroglycerin (Nitroglycerin (Sl Tab) 0.4 Mg) 1 tab Q5M PRN SL CHEST PAIN; Start 03/24/16 at 04:00 Lorazepam (Ativan) 1 mg Q2H PRN IV ANXIETY Last administered on 03/28/16 09:35 ; Admin Dose 1 MG; Start 03/24/16 at 04:00 Bisacodyl (Dulcolax) 5 mg DAILY PRN PO CONSTIPATION; Start 03/24/16 at 04:00 Pantoprazole (Protonix Iv) 40 mg DAILY@06 IV Last administered on 03/29/16 06: 17; Admin Dose 40 MG; Start 03/24/16 at 06:00 Acetaminophen (Tylenol Liquid) 650 mg Q4H PRN PO TEMP > 37C; Start 03/24/16 at 04:00 Acetaminophen (Tylenol Liquid) 500 mg Q6H PO ; Start 03/25/16 at 04:00; Status Future Hold Atorvastatin Calcium 40 mg 40 mg QHS PO Last administered on 03/28/16 20:26; Admin Dose 40 MG; Start 03/24/16 at 21:00 Fentanyl 1000 mcg/ Dextrose 100 ml @ 2.5 mls/hr TITRATE IV Last administered on 03/28/16 03:49; Admin Dose 2.5 MLS/HR; Start 03/24/16 at 17:30 Levofloxacin/ Dextrose 100 ml @ 100 mls/hr DAILY IVPB Last administered on 09:08; Admin Dose 100 MLS/HR; Start 03/24/16 at 18:00 Sodium Chloride (NS) 1,000 ml @ 75 mls/hr [id number] IV Last administered on 03/29 05:34; Admin Dose 75 MLS/HR; Start 03/26/16 at 09:30 Diagnostic Test (Pha) (Accucheck) 1 ea 02 XX ; Start 03/27/16 at 02:00 Enoxaparin Sodium (Lovenox) 40 mg DAILY SC Last administered on 1/16/17at 09:10 ; Admin Dose 40 MG; Start 03/26/16 at 11:30 Ticagrelor (Brilinta) 90 mg BID PO Last administered on 03/29/16 09:09; Admin Dose 90 MG; Start 03/26/16 at 21:00 Insulin Aspart (Novolog Insulin Pen) NOVOLOG *MILD* ALGORI... Q6 SC ; Start at 00:00 Aspirin (Aspirin) 81 mg DAILY NGT Last administered on 03/29/16 09:08; Admin Dose 81 MG; Start 03/28/16 at 09:00 Miscellaneous Information 1 ea NOTE XX ; Start 03/28/16 at 12:00 Glucose (Glutose) 15 gm Q15M PRN PO DECREASED GLUCOSE; Start 03/28/16 at 12:00 Glucose (Glutose) 22.5 gm Q15M PRN PO DECREASED GLUCOSE; Start 03/28/16 at 12: 00 Dextrose (D50w Syringe) 25 ml Q15M PRN IV DECREASED GLUCOSE; Start 03/28/16 at 12:00 Dextrose (D50w Syringe) 50 ml Q15M PRN IV DECREASED GLUCOSE; Start 03/28/16 at 12:00 Glucagon (Glucagen) 1 mg Q15M PRN IM DECREASED GLUCOSE; Start 03/28/16 at 12:00 Glucose (Glutose) 15 gm Q15M PRN BUCCAL DECREASED GLUCOSE; Start 03/28/16 at 12 :00 Morphine Sulfate (morphine) 2 mg Q3H PRN IV PAIN LEVEL 7-10 Last administered on 03/29/16 08:56; Admin Dose 2 MG; Start 03/28/16 at 21:00 Acetaminophen/ Hydrocodone Bitart ([place] (5/325)) 1 tab Q6H PRN PO PAIN LEVEL 1 -5; Start 03/29/16 at 10:00 Acetaminophen/ Hydrocodone Bitart ([place] (5/325)) 2 tab Q6H PRN PO PAIN LEVEL 6 -10; Start 03/29/16 at 10:00 Assessment/Plan Chief Complaint/Hosp Course IMPRESSION AND PLAN: 1. Ventricular fibrillation arrest, evidence of significant RCA disease status post stent placement 2. Resolving encephalopathy 3. Probable aspiration pneumonitis. Right upper lobe mucous plugging respiratory failure secondary to above now extubated on facemask O2 4. Probable underlying obstructive sleep apnea 5. Chest x-ray evidence of pulmonary edema The patient will require: 1. Incentive spirometry 2. Bronchodilators. 3. Status post bronchoscopy will encourage incentive spirometry postextubation 4. Supplemental O2 and nocturnal noninvasive positive pressure ventilation 5. DVT and GI prophylaxis. 6. Neurology evaluation post-reversal of hypothermia. A require EEG if neurologically not improving 7. Cardiac recommendations post catheterization and stent placement 8. Needs increased diuretics 9. Ambulate PT recommendations Problems: ASHISH MOORE MD, [facility] Mar 29, 2016 10:50
--- NOTE | 2016-03-29 11:29 | PN ---
Date/Time of Note Date/Time of Note DATE: 03/29/16 TIME: 11:20 Assessment/Plan VTE Prophylaxis VTE Prophylaxis Intervention: SCD's Lines/Catheters IV Catheter Type (from Nrsg): Central Line Central line still needed: Yes Urinary Cath still in place: Yes Reason Cath still needed: urinary retention Assessment/Plan Chief Complaint/Hosp Course Assessment/Plan: 60-year-old male with past medical history of hypertension, arthritis, high cholesterol, gastroesophageal reflux disease, depression who comes in with ventricular fibrillation arrest, res distress initially intubated and sedated on the hypothermia protocol, now extubated. 1. Ventricular fibrillation arrest likely 2/2 #4 - s/p CPR + ROSC / s/p Hypothermia protocol now more alert, but weak still - monitor HR, f/u CV and pulm rec's 2. Acute resp failure with collapsed RUL - initially intubated on full vent support, now extubated / pulm following / successful bronchoscopy + Lavage done 03/26/15 / failed CPAP Tuesday/ on abx - continue to try to wean O2 requirements, f/u pulm rec's - duoneb's prn - per pulm, continue diuretics 3. Essential hypertension. - Blood pressure stable. Continue to monitor for now. 4. NSTEMI + probable ST elevation myocardial infarction given initial EKG - s/ p Cath 03/26/15 / Culprit lesion: RCA s/p large stent / - continue life long ASA + brilinta for at least 1 year / troponin trending down / cardio following 6. Hyperglycemia without Documented hx of DM - likely steroid induced / was on steroids for ?COPD / d/c insulin drip and use SSI only / may d/c SSI if no coverage needed - monitor, ISS 7. Depression resume home meds once stable 8. Chronic Tobacco abuse + COPD Will need cessation counselling when more alert / no evidence of COPD exacerbation / pulm following - Duoneb's prn 9. RANDY 2/2 ?ATN: Creatinine improved now/ monitor / diurese very carefully / strict Is and Os 10. BPH mccann currently in place / resume home meds once stable 11. Dyslipidemia. Statin 12. Transaminitis 2/2 ?shock liver : improving 13. Rhabdomyolysis: Continue IVF / trend CK 14: UTI : Levaquin 15: Mild SIRS: improved, still mildly hypotensive, continue fluids Prophylaxis: Lovenox / PPI Critical care time spent today on care = 45mins Problems: Subjective 24 Hr Interval Summary Free Text/Dictation Pt extubated yesterday, on N.[place] presently. Seen by pulm team. Exam/Review of Systems Vital Signs Vitals Vital Signs Date Time Temp Pulse Resp B/P Pulse Ox O2 Delivery O2 Flow Rate FiO2 03/29/16 11:00 109 18 135/69 93 Venturi Mask 03/29/16 09:51 12.0 40 03/29/16 08:00 98.6 Intake and Output 03/28/16 03/28/16 03/29/16 15:00 23:00 07:00 Intake Total 865.70 ml 740 ml 755 ml Output Total 1450 ml 2750 ml 720 ml Balance -584.30 ml -2010 ml 35 ml Exam Constitutional: alert, lethargic Psych: no anxiety Head: atraumatic, normocephalic Eyes: PERRL ENMT: intubated Respiratory: clear to auscultation, diminished breath sounds Cardiovascular: regular rate and rhythm, No murmurs/extra sounds Gastrointestinal: bowel sounds, non-tender, soft Neurological: other (sedated on propofol) no focal deficits Results Result Diagram: 03/29/16 0320 03/29/16 0320 Results 24 hrs Laboratory Tests Test 03/28/16 12:05 03/28/16 12:30 03/28/16 15:05 03/28/16 17:39 Bedside Glucose 103 107 Arterial Blood HCO3 24.1 Arterial Blood Base Excess -1.6 Arterial Blood Oxygen Saturation 90.3 L Flip Test ACCEPTAB Arterial Blood Gas Puncture Site Right Radial Arterial Blood Carboxyhemoglobin 0.3 Arterial Blood Date Drawn 03/28/2016 1:00:06 PM Arterial Blood Methemoglobin 0.3 Arterial Blood pCO2 (Temp correct) 44.6 Arterial Blood pH (Temp corrected) 7.350 Arterial Blood pO2 (Temp corrected) 63.3 L Blood Gas A-a O2 Differential 170.6 H Blood Gas Actual Respiration Rate 25 Blood Gas Critical Value Read Back MDP SHANNON RN Blood Gas Low PEEP Setting 5.0 Blood Gas Modality VENT - CPAP Blood Gas Notified Time 03/28/2016 1:11:18 PM Blood Gas Notified Whom RDIX Blood Gas Pressure Support 10 Blood Gas Specimen Source Blood arterial Blood Gas Temperature 37.0 Blood Gas Tidal Volume 656.0 FiO2 40.0 Oxyhemoglobin Percent 89.8 L Total Hemoglobin 10.5 L Creatine Kinase 484 H Creatine Kinase Index 1.2 Creatinine Kinase MB (Mass) 5.66 H Troponin I 15.200 *H Test 03/29/16 02:04 03/29/16 03:20 03/29/16 06:15 03/29/16 07:20 Bedside Glucose 128 139 Alanine Aminotransferase (ALT/SGPT) 65 Albumin 3.1 L Alkaline Phosphatase 193 #H Anion Gap 15 Aspartate Amino Transf (AST/SGOT) 71 H Basophils # 0.0 Basophils % 0.2 Blood Urea Nitrogen 16 Calcium Level 8.9 Carbon Dioxide Level 34 H Chloride Level 102 Creatinine 0.79 Creatinine Kinase MB (Mass) 2.51 H Direct Bilirubin 0.30 #H Eosinophils # 0.0 Eosinophils % 0.3 Glucose Level 127 Hematocrit 25.3 L Hemoglobin 8.5 L Indirect Bilirubin 1.0 Lymphocytes # 0.9 Lymphocytes % 9.4 L Mean Corpuscular Hemoglobin 29.5 Mean Corpuscular Hemoglobin Concent 33.6 Mean Corpuscular Volume 87.8 Mean Platelet Volume 7.9 Monocytes # 0.9 Monocytes % 9.5 Neutrophils # 7.3 Neutrophils % 80.6 H Nucleated Red Blood Cells # 0.0 Nucleated Red Blood Cells % 0.0 Platelet Count 294 # Potassium Level 2.9 *L Red Blood Count 2.89 L Red Cell Distribution Width 13.3 Sodium Level 148 H Total Bilirubin 1.3 Total Protein 6.7 # White Blood Count 9.1 Arterial Blood HCO3 32.4 H Arterial Blood Base Excess 9.7 H Arterial Blood Oxygen Saturation 88.6 L Flip Test ACCEPTAB Arterial Blood Gas Puncture Site Right Radial Arterial Blood Carboxyhemoglobin 0.3 Arterial Blood Date Drawn 03/29/2016 8:16:08 AM Arterial Blood Methemoglobin 0 Arterial Blood pCO2 (Temp correct) 36.8 Arterial Blood pH (Temp corrected) 7.563 *H Arterial Blood pO2 (Temp corrected) 51.2 *L Blood Gas A-a O2 Differential 97.8 H Blood Gas Critical Value Read Back L ANGELES SPARKS Blood Gas Modality NASAL CANNULA Blood Gas Notified Time 03/29/2016 8:25:44 AM Blood Gas Notified Whom LLOYDD Blood Gas Specimen Source Blood arterial Blood Gas Temperature 37.0 FiO2 27.0 Oxyhemoglobin Percent 88.3 L Total Hemoglobin 11.5 L Medications Medications Current Medications Ondansetron HCl (Zofran Inj) 4 mg Q6H PRN IV NAUSEA AND/OR VOMITING; Start 01/28 at 04:00 Nitroglycerin (Nitroglycerin (Sl Tab) 0.4 Mg) 1 tab Q5M PRN SL CHEST PAIN; Start 03/24/16 at 04:00 Lorazepam (Ativan) 1 mg Q2H PRN IV ANXIETY Last administered on 03/28/16 09:35 ; Admin Dose 1 MG; Start 03/24/16 at 04:00 Bisacodyl (Dulcolax) 5 mg DAILY PRN PO CONSTIPATION; Start 03/24/16 at 04:00 Pantoprazole (Protonix Iv) 40 mg DAILY@06 IV Last administered on 03/29/16 06: 17; Admin Dose 40 MG; Start 03/24/16 at 06:00 Acetaminophen (Tylenol Liquid) 650 mg Q4H PRN PO TEMP > 37C; Start 03/24/16 at 04:00 Acetaminophen (Tylenol Liquid) 500 mg Q6H PO ; Start 03/25/16 at 04:00; Status Future Hold Atorvastatin Calcium 40 mg 40 mg QHS PO Last administered on 03/28/16 20:26; Admin Dose 40 MG; Start 03/24/16 at 21:00 Fentanyl 1000 mcg/ Dextrose 100 ml @ 2.5 mls/hr TITRATE IV Last administered on 03/28/16 03:49; Admin Dose 2.5 MLS/HR; Start 03/24/16 at 17:30 Levofloxacin/ Dextrose (Levaquin 500mg/ D5W 100 ml (Pmx)) 100 ml @ 100 mls/hr DAILY IVPB Last administered on 03/29/16 09:08; Admin Dose 100 MLS/HR; Start 03/24/16 at 18:00 Diagnostic Test (Pha) (Accucheck) 1 ea 02 XX ; Start 03/27/16 at 02:00 Enoxaparin Sodium (Lovenox) 40 mg DAILY SC Last administered on 03/29/16 09:10 ; Admin Dose 40 MG; Start 03/26/16 at 11:30 Ticagrelor (Brilinta) 90 mg BID PO Last administered on 03/29/16 09:09; Admin Dose 90 MG; Start 03/26/16 at 21:00 Insulin Aspart (Novolog Insulin Pen) NOVOLOG *MILD* ALGORI... Q6 SC ; Start at 00:00 Aspirin (Aspirin) 81 mg DAILY NGT Last administered on 03/29/16 09:08; Admin Dose 81 MG; Start 03/28/16 at 09:00 Miscellaneous Information 1 ea NOTE XX ; Start 03/28/16 at 12:00 Glucose (Glutose) 15 gm Q15M PRN PO DECREASED GLUCOSE; Start 03/28/16 at 12:00 Glucose (Glutose) 22.5 gm Q15M PRN PO DECREASED GLUCOSE; Start 03/28/16 at 12: 00 Dextrose (D50w Syringe) 25 ml Q15M PRN IV DECREASED GLUCOSE; Start 03/28/16 at 12:00 Dextrose (D50w Syringe) 50 ml Q15M PRN IV DECREASED GLUCOSE; Start 03/28/16 at 12:00 Glucagon (Glucagen) 1 mg Q15M PRN IM DECREASED GLUCOSE; Start 03/28/16 at 12:00 Glucose (Glutose) 15 gm Q15M PRN BUCCAL DECREASED GLUCOSE; Start 03/28/16 at 12 :00 Morphine Sulfate (morphine) 2 mg Q3H PRN IV PAIN LEVEL 7-10 Last administered on 03/29/16 08:56; Admin Dose 2 MG; Start 03/28/16 at 21:00 Acetaminophen/ Hydrocodone Bitart ([place] (5/325)) 1 tab Q6H PRN PO PAIN LEVEL 1 -5; Start 03/29/16 at 10:00 Acetaminophen/ Hydrocodone Bitart ([place] (5/325)) 2 tab Q6H PRN PO PAIN LEVEL 6 -10; Start 03/29/16 at 10:00 SUNDEEP GARZA Mar 29, 2016 11:29
[2016-03-29] MEDS ORDERED: ALBUTEROL/IPRATROPIUM (NEB) 3 ML AMP HHN PRN (11:30)
[2016-03-29] MEDS: POTASSIUM CHLORIDE 50 ML IVPB PRN ×3 (11:30→13:30)
[2016-03-29] MEDS ORDERED: POTASSIUM CHLORIDE 150 ML ONE (11:33)
[2016-03-29] MEDS: HYDROCODONE/APAP (5/325) TAB PO PRN ×2 (11:53→20:03)
--- NOTE | 2016-03-29 12:35 | CONS ---
Date/Time of Note Date/Time of Note DATE: 03/29/16 TIME: 12:31 Assessment/Plan Assessment/Plan Chief Complaint/Hosp Course IMPRESSION: 1. Cardiac arrest. Assess for acute coronary syndrome preceding possibly.- likely related to acute MS 2. Chest pain concerning for possible acute coronary syndrome prior to arrest. 3. Abnormal EKG with initial ST elevations concerning for acute myocardial infarction.-s/p PTCA/stent x 1 RCA with MARIAELENA 03/26 4. Respiratory failure, status post extubation 5. Encephalopathy. 6. Bradycardia, likely secondary to hypothermia-improved s/p hypothermia 7. Ongoing tobacco usage. 8. Leukocytosis. 9. Mild anemia. 10. Increased liver function tests. 11.Renal insufficiency-improved Recc: -Tele -serial ecg;'s -Continue current -Continue asa/brilinta/statin -add BB low dose -Continue lasix diuresis but will continue at daily -Smoking cessation Problems: Consultation Date/Type/Reason Admit Date/Time Mar 24, 2016 at 17:54 Initial Consult Date 03/25/2016 Type of Consultation: Cardiology Reason for Consultation Acute MS Referring Provider: DELMY OLIVER Exam/Review of Systems Vital Signs Vitals Vital Signs Date Time Temp Pulse Resp B/P Pulse Ox O2 Delivery O2 Flow Rate FiO2 03/29/16 12:00 98.6 101 16 136/67 96 Nasal Cannula 03/29/16 09:51 12.0 40 Intake and Output 03/28/16 03/28/16 03/29/16 15:00 23:00 07:00 Intake Total 865.70 ml 740 ml 755 ml Output Total 1450 ml 2750 ml 720 ml Balance -584.30 ml -2010 ml 35 ml Exam Review of Systems: CONSTITUTIONAL: No fevers, chills. PULMONARY: No sob CARDIOVASCULAR: No chest pain/palpitations GASTROINTESTINAL: No nausea/vomiting. GENITOURINARY: No hematuria/dysuria. MUSCULOSKELETAL: No myagias/arthalgias. PSYCHIATRIC: The patient denies depression. NEUROLOGIC: No weakness Constitutional: alert, oriented Psych: no complaints Head: normocephalic ENMT: mucosa pink and moist Neck: jvd (9 cm water), supple Respiratory: diminished breath sounds Cardiovascular: regular rate and rhythm Gastrointestinal: non-tender, soft Musculoskeletal: muscle tone Extremities: normal pulses Neurological: other (No focal deficits) Results Result Diagram: 1/16/17 0320 03/29/16 1055 Results 24 hrs Laboratory Tests Test 03/28/16 15:05 03/28/16 17:39 03/29/16 02:04 03/29/16 03:20 Creatine Kinase 484 H Creatine Kinase Index 1.2 Creatinine Kinase MB (Mass) 5.66 H 2.51 H Troponin I 15.200 *H Bedside Glucose 107 128 Alanine Aminotransferase (ALT/SGPT) 65 Albumin 3.1 L Alkaline Phosphatase 193 #H Anion Gap 15 Aspartate Amino Transf (AST/SGOT) 71 H Basophils # 0.0 Basophils % 0.2 Blood Urea Nitrogen 16 Calcium Level 8.9 Carbon Dioxide Level 34 H Chloride Level 102 Creatinine 0.79 Direct Bilirubin 0.30 #H Eosinophils # 0.0 Eosinophils % 0.3 Glucose Level 127 Hematocrit 25.3 L Hemoglobin 8.5 L Indirect Bilirubin 1.0 Lymphocytes # 0.9 Lymphocytes % 9.4 L Mean Corpuscular Hemoglobin 29.5 Mean Corpuscular Hemoglobin Concent 33.6 Mean Corpuscular Volume 87.8 Mean Platelet Volume 7.9 Monocytes # 0.9 Monocytes % 9.5 Neutrophils # 7.3 Neutrophils % 80.6 H Nucleated Red Blood Cells # 0.0 Nucleated Red Blood Cells % 0.0 Platelet Count 294 # Potassium Level 2.9 *L Red Blood Count 2.89 L Red Cell Distribution Width 13.3 Sodium Level 148 H Total Bilirubin 1.3 Total Protein 6.7 # White Blood Count 9.1 Test 03/29/16 06:15 03/29/16 07:20 03/29/16 10:55 Bedside Glucose 139 Arterial Blood HCO3 32.4 H Arterial Blood Base Excess 9.7 H Arterial Blood Oxygen Saturation 88.6 L Flip Test ACCEPTAB Arterial Blood Gas Puncture Site Right Radial Arterial Blood Carboxyhemoglobin 0.3 Arterial Blood Date Drawn 03/29/2016 8:16:08 AM Arterial Blood Methemoglobin 0 Arterial Blood pCO2 (Temp correct) 36.8 Arterial Blood pH (Temp corrected) 7.563 *H Arterial Blood pO2 (Temp corrected) 51.2 *L Blood Gas A-a O2 Differential 97.8 H Blood Gas Critical Value Read Back L ANGELES SPARKS Blood Gas Modality NASAL CANNULA Blood Gas Notified Time 03/29/2016 8:25:44 AM Blood Gas Notified Whom JLD Blood Gas Specimen Source Blood arterial Blood Gas Temperature 37.0 FiO2 27.0 Oxyhemoglobin Percent 88.3 L Total Hemoglobin 11.5 L Potassium Level 3.0 L Medications Medications Current Medications Ondansetron HCl (Zofran Inj) 4 mg Q6H PRN IV NAUSEA AND/OR VOMITING; Start 01/28 at 04:00 Nitroglycerin (Nitroglycerin (Sl Tab) 0.4 Mg) 1 tab Q5M PRN SL CHEST PAIN; Start 03/24/16 at 04:00 Lorazepam (Ativan) 1 mg Q2H PRN IV ANXIETY Last administered on 03/28/16 09:35 ; Admin Dose 1 MG; Start 03/24/16 at 04:00 Bisacodyl (Dulcolax) 5 mg DAILY PRN PO CONSTIPATION; Start 03/24/16 at 04:00 Pantoprazole (Protonix Iv) 40 mg DAILY@06 IV Last administered on 03/29/16 06: 17; Admin Dose 40 MG; Start 03/24/16 at 06:00 Acetaminophen (Tylenol Liquid) 650 mg Q4H PRN PO TEMP > 37C; Start 03/24/16 at 04:00 Acetaminophen (Tylenol Liquid) 500 mg Q6H PO ; Start 03/25/16 at 04:00; Status Future Hold Atorvastatin Calcium 40 mg 40 mg QHS PO Last administered on 03/28/16 20:26; Admin Dose 40 MG; Start 03/24/16 at 21:00 Fentanyl 1000 mcg/ Dextrose 100 ml @ 2.5 mls/hr TITRATE IV Last administered on 03/28/16 03:49; Admin Dose 2.5 MLS/HR; Start 03/24/16 at 17:30 Levofloxacin/ Dextrose (Levaquin 500mg/ D5W 100 ml (Pmx)) 100 ml @ 100 mls/hr DAILY IVPB Last administered on 03/29/16 09:08; Admin Dose 100 MLS/HR; Start 03/24/16 at 18:00 Diagnostic Test (Pha) (Accucheck) 1 ea 02 XX ; Start 03/27/16 at 02:00 Enoxaparin Sodium (Lovenox) 40 mg DAILY SC Last administered on 03/29/16 09:10 ; Admin Dose 40 MG; Start 03/26/16 at 11:30 Ticagrelor (Brilinta) 90 mg BID PO Last administered on 03/29/16 09:09; Admin Dose 90 MG; Start 03/26/16 at 21:00 Insulin Aspart (Novolog Insulin Pen) NOVOLOG *MILD* ALGORI... Q6 SC ; Start at 00:00 Aspirin (Aspirin) 81 mg DAILY NGT Last administered on 03/29/16 09:08; Admin Dose 81 MG; Start 03/28/16 at 09:00 Miscellaneous Information 1 ea NOTE XX ; Start 03/28/16 at 12:00 Glucose (Glutose) 15 gm Q15M PRN PO DECREASED GLUCOSE; Start 03/28/16 at 12:00 Glucose (Glutose) 22.5 gm Q15M PRN PO DECREASED GLUCOSE; Start 03/28/16 at 12: 00 Dextrose (D50w Syringe) 25 ml Q15M PRN IV DECREASED GLUCOSE; Start 03/28/16 at 12:00 Dextrose (D50w Syringe) 50 ml Q15M PRN IV DECREASED GLUCOSE; Start 03/28/16 at 12:00 Glucagon (Glucagen) 1 mg Q15M PRN IM DECREASED GLUCOSE; Start 03/28/16 at 12:00 Glucose (Glutose) 15 gm Q15M PRN BUCCAL DECREASED GLUCOSE; Start 03/28/16 at 12 :00 Morphine Sulfate (morphine) 2 mg Q3H PRN IV PAIN LEVEL 7-10 Last administered on 03/29/16 08:56; Admin Dose 2 MG; Start 03/28/16 at 21:00 Acetaminophen/ Hydrocodone Bitart ([place] (5/325)) 1 tab Q6H PRN PO PAIN LEVEL 1 -5; Start 03/29/16 at 10:00 Acetaminophen/ Hydrocodone Bitart ([place] (5/325)) 2 tab Q6H PRN PO PAIN LEVEL 6 -10 Last administered on 03/29/16 11:53; Admin Dose 2 TAB; Start 03/29/16 at 10 :00 LEROY GARCIA Mar 29, 2016 12:34
[2016-03-29] MEDS: ATORVASTATIN 40 MG TAB PO SCH (21:28)
[2016-03-29] MEDS: METOPROLOL 25 MG TAB PO SCH (21:28)
[2016-03-30] VITALS (25 sets, daily range): BP systolic 112–144; BP diastolic 60–93; PULSE 72–109; RESP 10–25
[2016-03-30] MEDS: ALBUTEROL/IPRATROPIUM (NEB) 3 ML AMP HHN SCH ×3 (00:57→09:30)
[2016-03-30] MEDS: ACCUCHECK XX SCH ×2 (02:00→23:33)
[2016-03-30] MEDS: PANTOPRAZOLE 40 MG INJ IV SCH (05:27)
[2016-03-30] MEDS: HYDROCODONE/APAP (5/325) TAB PO PRN ×2 (05:29→19:35)
[2016-03-30] MEDS: INSULIN ASPART [NOVOLOG] 3 ML PEN SC SCH ×5 (06:00→23:33)
[2016-03-30 06:34] LABS: POTASSIUM 3.5 mmol/L (3.5-5.1)
[2016-03-30 06:36] LABS: CREATININE 0.84 mg/dl (0.61-1.24)
[2016-03-30 06:37] LABS: CALCIUM 9.1 mg/dl (8.4-10.2)
[2016-03-30 07:07] LABS: BASOPHILS % 0.1 % (0.0-2.0); HEMATOCRIT 24.7 % (42.0-52.0); HEMOGLOBIN 8.4 g/dl (14.0-18.0); LYMPHOCYTES % 10.7 % (15.0-51.0); MEAN CORPUSCULAR HEMOGLOBIN 29.8 pg (29.0-33.0); MEAN CORPUSCULAR VOLUME 87.7 fl (82.0-101.0); MEAN PLATELET VOLUME 7.7 fl (7.4-10.4); MONOCYTE # 1.1 10^3/ul (0.3-0.9); MONOCYTES % 12.7 % (0.0-11.0); NEUTROPHIL # 6.8 10^3/ul (1.6-7.5); NEUTROPHILS % 76.5 % (39.0-77.0); PLATELET COUNT 328 10^3/UL (140-440); RED BLOOD COUNT 2.82 10^6/ul (4.70-6.10); RED CELL DISTRIBUTION WIDTH 13.3 % (11.5-14.5); UNCORRECTED WBC 8.9 10^3/ul (4.8-10.8); WHITE BLOOD COUNT 8.9 10^3/ul (4.8-10.8)
[2016-03-30 07:19] LABS: CONDITION 1
[2016-03-30] MEDS: POTASSIUM CHLORIDE 50 ML IVPB PRN ×2 (08:19→09:57)
[2016-03-30] MEDS: FUROSEMIDE 40 MG INJ IV SCH (08:19)
[2016-03-30] MEDS: ASPIRIN 81 MG TAB NGT SCH (08:19)
[2016-03-30] MEDS: TICAGRELOR 90 MG TABLET PO SCH ×2 (08:20→20:41)
[2016-03-30] MEDS: ENOXAPARIN 40 MG/0.4 ML SYG SC SCH (08:20)
[2016-03-30] MEDS: METOPROLOL 25 MG TAB PO SCH ×2 (08:21→20:39)
[2016-03-30] MEDS: LEVOFLOXACIN 500MG/D5W (PMX) 100 ML IVPB SCH (09:18)
--- NOTE | 2016-03-30 10:56 | RADRPT ---
Vent Rate: 101 bpm RR Interval: 0 msec OK Interval: 146 msec QRS Duration: 78 msec QT Interval: 374 msec QTC Interval: 484 msec P-R-T [place]: 60 - 42 - 68 degrees Sinus tachycardia Nonspecific T wave abnormality Abnormal ECG Electronically Signed By: Feliz Kennedy [id number]
--- NOTE | 2016-03-30 11:03 | CONS ---
Date/Time of Note Date/Time of Note DATE: 03/30/16 TIME: 11:01 Assessment/Plan Assessment/Plan Additional Assessment/Plan 1. Cardiac arrest. Assess for acute coronary syndrome preceding possibly.- likely related to acute ID- no new ectopy now- no Class I indication for ICD now. 2. Chest pain concerning for possible acute coronary syndrome prior to arrest. s/p MARIAELENA - now on asa/brilinta 3. Abnormal EKG with initial ST elevations concerning for acute myocardial infarction.-s/p PTCA/stent x 1 RCA with MARIAELENA 03/26 4. Respiratory failure, status post extubation - better resp status now 5. Encephalopathy- more alert 6. Bradycardia, likely secondary to hypothermia-improved s/p hypothermia- better HR now 7. Ongoing tobacco usage. 8. Leukocytosis- anti-bx as needed 9. Mild anemia. 10. Increased liver function tests. 11.Renal insufficiency-improved - some hematuria- H/H stable, will follow Consultation Date/Type/Reason Admit Date/Time Mar 24, 2016 at 17:54 Initial Consult Date Type of Consultation: Cardiology Referring Provider: DELMY OLIVER 24 HR Interval Summary Free Text/Dictation Much better - hematuria noted - s/p MARIAELENA - con't dual anti-coagulation now ROS: No fever, no chills, no nausea, no vomiting, no diarrhea/constipation No recent weight changes No chest pain, no PND, no orthopnea - better No dizziness, blurred vision No thirst, no heat or cold intolerance Exam/Review of Systems Vital Signs Vitals Vital Signs Date Time Temp Pulse Resp B/P Pulse Ox O2 Delivery O2 Flow Rate FiO2 03/30/16 10:00 88 19 134/84 97 Nasal Cannula 2.0 03/30/16 08:00 99.3 03/30/16 04:32 40 Intake and Output 03/29/16 03/29/16 03/30/16 15:00 23:00 07:00 Intake Total 1015 ml 700 ml 370 ml Output Total 2525 ml 645 ml 310 ml Balance -1510 ml 55 ml 60 ml Exam General: WN/WD/NAD, AOx 2-3 [place] HEENT: Unicetric/atraumatic/EOMI (follows commands) NECK: JVD elevated, no thyromegaly Lymph: no lymphadenopathy HEART: regular with no S3, II/ systolic murmur at apex LUNGS: Coarse sounds ABD: soft, NT, ND, +BS : Intact Neuro: non focal SKIN: chronic changes EXT: trace edema Results Result Diagram: 03/30/16 0500 03/30/16 0500 Results 24 hrs Laboratory Tests Test 03/29/16 17:07 03/29/16 18:19 03/30/16 00:48 03/30/16 05:00 Potassium Level 3.3 L 3.5 Bedside Glucose 118 128 Anion Gap 16 Basophils # 0.0 Basophils % 0.1 Blood Urea Nitrogen 22 H Calcium Level 9.1 Carbon Dioxide Level 34 H Chloride Level 103 Creatinine 0.84 Eosinophils # 0.0 Eosinophils % 0.0 Glucose Level 119 Hematocrit 24.7 L Hemoglobin 8.4 L Lymphocytes # 1.0 Lymphocytes % 10.7 L Mean Corpuscular Hemoglobin 29.8 Mean Corpuscular Hemoglobin Concent 34.0 Mean Corpuscular Volume 87.7 Mean Platelet Volume 7.7 Monocytes # 1.1 H Monocytes % 12.7 H Neutrophils # 6.8 Neutrophils % 76.5 Nucleated Red Blood Cells # 0.0 Nucleated Red Blood Cells % 0.0 Platelet Count 328 Red Blood Count 2.82 L Red Cell Distribution Width 13.3 Sodium Level 149 H White Blood Count 8.9 Test 03/30/16 05:42 Bedside Glucose 131 Medications Medications Current Medications Ondansetron HCl (Zofran Inj) 4 mg Q6H PRN IV NAUSEA AND/OR VOMITING; Start 01/28 at 04:00 Nitroglycerin (Nitroglycerin (Sl Tab) 0.4 Mg) 1 tab Q5M PRN SL CHEST PAIN; Start 03/24/16 at 04:00 Lorazepam (Ativan) 1 mg Q2H PRN IV ANXIETY Last administered on 03/28/16 09:35 ; Admin Dose 1 MG; Start 03/24/16 at 04:00 Bisacodyl (Dulcolax) 5 mg DAILY PRN PO CONSTIPATION; Start 03/24/16 at 04:00 Pantoprazole (Protonix Iv) 40 mg DAILY@06 IV Last administered on 03/30/16 05: 27; Admin Dose 40 MG; Start 03/24/16 at 06:00 Acetaminophen (Tylenol Liquid) 650 mg Q4H PRN PO TEMP > 37C; Start 03/24/16 at 04:00 Acetaminophen (Tylenol Liquid) 500 mg Q6H PO ; Start 03/25/16 at 04:00; Status Future Hold Atorvastatin Calcium 40 mg 40 mg QHS PO Last administered on 03/29/16 21:28; Admin Dose 40 MG; Start 03/24/16 at 21:00 Fentanyl 1000 mcg/ Dextrose 100 ml @ 2.5 mls/hr TITRATE IV Last administered on 03/28/16 03:49; Admin Dose 2.5 MLS/HR; Start 03/24/16 at 17:30 Levofloxacin/ Dextrose (Levaquin 500mg/ D5W 100 ml (Pmx)) 100 ml @ 100 mls/hr DAILY IVPB Last administered on 03/30/16 09:18; Admin Dose 100 MLS/HR; Start 03/24/16 at 18:00 Diagnostic Test (Pha) (Accucheck) 1 ea 02 XX ; Start 03/27/16 at 02:00 Enoxaparin Sodium (Lovenox) 40 mg DAILY SC Last administered on 03/30/16 08:20 ; Admin Dose 40 MG; Start 03/26/16 at 11:30 Ticagrelor (Brilinta) 90 mg BID PO Last administered on 03/30/16 08:20; Admin Dose 90 MG; Start 03/26/16 at 21:00 Insulin Aspart (Novolog Insulin Pen) NOVOLOG *MILD* ALGORI... Q6 SC ; Start at 00:00 Aspirin (Aspirin) 81 mg DAILY NGT Last administered on 03/30/16 08:19; Admin Dose 81 MG; Start 03/28/16 at 09:00 Miscellaneous Information 1 ea NOTE XX ; Start 03/28/16 at 12:00 Glucose (Glutose) 15 gm Q15M PRN PO DECREASED GLUCOSE; Start 03/28/16 at 12:00 Glucose (Glutose) 22.5 gm Q15M PRN PO DECREASED GLUCOSE; Start 03/28/16 at 12: 00 Dextrose (D50w Syringe) 25 ml Q15M PRN IV DECREASED GLUCOSE; Start 03/28/16 at 12:00 Dextrose (D50w Syringe) 50 ml Q15M PRN IV DECREASED GLUCOSE; Start 03/28/16 at 12:00 Glucagon (Glucagen) 1 mg Q15M PRN IM DECREASED GLUCOSE; Start 03/28/16 at 12:00 Glucose (Glutose) 15 gm Q15M PRN BUCCAL DECREASED GLUCOSE; Start 03/28/16 at 12 :00 Morphine Sulfate (morphine) 2 mg Q3H PRN IV PAIN LEVEL 7-10 Last administered on 03/29/16 18:14; Admin Dose 2 MG; Start 03/28/16 at 21:00 Acetaminophen/ Hydrocodone Bitart ([place] (5/325)) 1 tab Q6H PRN PO PAIN LEVEL 1 -5 Last administered on 03/30/16 05:29; Admin Dose 1 TAB; Start 03/29/16 at 10: 00 Acetaminophen/ Hydrocodone Bitart ([place] (5/325)) 2 tab Q6H PRN PO PAIN LEVEL 6 -10 Last administered on 03/29/16 20:03; Admin Dose 2 TAB; Start 03/29/16 at 10 :00 Furosemide (Lasix) 40 mg DAILY IV Last administered on 03/30/16 08:19; Admin Dose 40 MG; Start 03/30/16 at 09:00 Metoprolol Tartrate (Lopressor) 25 mg BID PO Last administered on 03/30/16 08: 21; Admin Dose 25 MG; Start 03/29/16 at 21:00 KORIN KLEIN MD Mar 30, 2016 11:03
--- NOTE | 2016-03-30 11:03 | RADRPT ---
Vent Rate: 100 bpm RR Interval: 0 msec GA Interval: 140 msec QRS Duration: 88 msec QT Interval: 340 msec QTC Interval: 438 msec P-R-T [place]: 67 - 6 - 47 degrees Normal sinus rhythm Possible Acute pericarditis Abnormal ECG Electronically Signed By: Feliz Kennedy [id number]
--- NOTE | 2016-03-30 11:06 | CONS ---
Date/Time of Note Date/Time of Note DATE: 03/30/16 TIME: 11:04 Consult Date/Type/Reason Admit Date/Time Mar 24, 2016 at 17:54 Type of Consultation: pulmonary Ordering Provider: DELMY OLIVER Subjective Sitting out of bed comfortable at rest no acute distress Facemask oxygen Wiggins catheter in place with significant diuresis Objective Vital Signs Date Time Temp Pulse Resp B/P Pulse Ox O2 Delivery O2 Flow Rate FiO2 03/30/16 10:00 88 19 134/84 97 Nasal Cannula 2.0 03/30/16 08:00 99.3 03/30/16 04:32 40 Intake and Output 03/29/16 03/29/16 03/30/16 15:00 23:00 07:00 Intake Total 1015 ml 700 ml 370 ml Output Total 2525 ml 645 ml 310 ml Balance -1510 ml 55 ml 60 ml PHYSICAL EXAMINATION GENERAL: Obese [place]ian gentleman on Ventimask oxygen VITAL SIGNS: see below. HEENT: Pupils equal, round, and reactive to light. CARDIAC: S1, S2, CHEST: Diminished air entry bilaterally. ABDOMEN: Mildly distended. Bowel sounds present abdomen mildly distended no guarding or rebound. EXTREMITIES: No cyanosis, clubbing edema +1 NEUROLOGIC: No focal deficits. Results/Medications Result Diagram: 03/30/16 0500 03/30/16 0500 Results 24 hrs Laboratory Tests Test 03/29/16 17:07 03/29/16 18:19 03/30/16 00:48 03/30/16 05:00 Potassium Level 3.3 L 3.5 Bedside Glucose 118 128 Anion Gap 16 Basophils # 0.0 Basophils % 0.1 Blood Urea Nitrogen 22 H Calcium Level 9.1 Carbon Dioxide Level 34 H Chloride Level 103 Creatinine 0.84 Eosinophils # 0.0 Eosinophils % 0.0 Glucose Level 119 Hematocrit 24.7 L Hemoglobin 8.4 L Lymphocytes # 1.0 Lymphocytes % 10.7 L Mean Corpuscular Hemoglobin 29.8 Mean Corpuscular Hemoglobin Concent 34.0 Mean Corpuscular Volume 87.7 Mean Platelet Volume 7.7 Monocytes # 1.1 H Monocytes % 12.7 H Neutrophils # 6.8 Neutrophils % 76.5 Nucleated Red Blood Cells # 0.0 Nucleated Red Blood Cells % 0.0 Platelet Count 328 Red Blood Count 2.82 L Red Cell Distribution Width 13.3 Sodium Level 149 H White Blood Count 8.9 Test 03/30/16 05:42 Bedside Glucose 131 Medications Current Medications Ondansetron HCl (Zofran Inj) 4 mg Q6H PRN IV NAUSEA AND/OR VOMITING; Start 01/28 at 04:00 Nitroglycerin (Nitroglycerin (Sl Tab) 0.4 Mg) 1 tab Q5M PRN SL CHEST PAIN; Start 03/24/16 at 04:00 Bisacodyl (Dulcolax) 5 mg DAILY PRN PO CONSTIPATION; Start 03/24/16 at 04:00 Pantoprazole (Protonix Iv) 40 mg DAILY@06 IV Last administered on 03/30/16 05: 27; Admin Dose 40 MG; Start 03/24/16 at 06:00 Acetaminophen (Tylenol Liquid) 650 mg Q4H PRN PO TEMP > 37C; Start 03/24/16 at 04:00 Acetaminophen (Tylenol Liquid) 500 mg Q6H PO ; Start 03/25/16 at 04:00; Status Future Hold Atorvastatin Calcium 40 mg 40 mg QHS PO Last administered on 03/29/16 21:28; Admin Dose 40 MG; Start 03/24/16 at 21:00 Fentanyl 1000 mcg/ Dextrose 100 ml @ 2.5 mls/hr TITRATE IV Last administered on 03/28/16 03:49; Admin Dose 2.5 MLS/HR; Start 03/24/16 at 17:30 Levofloxacin/ Dextrose (Levaquin 500mg/ D5W 100 ml (Pmx)) 100 ml @ 100 mls/hr DAILY IVPB Last administered on 03/30/16 09:18; Admin Dose 100 MLS/HR; Start 03/24/16 at 18:00 Diagnostic Test (Pha) (Accucheck) 1 ea 02 XX ; Start 03/27/16 at 02:00 Enoxaparin Sodium (Lovenox) 40 mg DAILY SC Last administered on 03/30/16 08:20 ; Admin Dose 40 MG; Start 03/26/16 at 11:30 Ticagrelor (Brilinta) 90 mg BID PO Last administered on 03/30/16 08:20; Admin Dose 90 MG; Start 03/26/16 at 21:00 Insulin Aspart (Novolog Insulin Pen) NOVOLOG *MILD* ALGORI... Q6 SC ; Start at 00:00 Aspirin (Aspirin) 81 mg DAILY NGT Last administered on 03/30/16 08:19; Admin Dose 81 MG; Start 03/28/16 at 09:00 Miscellaneous Information 1 ea NOTE XX ; Start 03/28/16 at 12:00 Glucose (Glutose) 15 gm Q15M PRN PO DECREASED GLUCOSE; Start 03/28/16 at 12:00 Glucose (Glutose) 22.5 gm Q15M PRN PO DECREASED GLUCOSE; Start 03/28/16 at 12: 00 Dextrose (D50w Syringe) 25 ml Q15M PRN IV DECREASED GLUCOSE; Start 03/28/16 at 12:00 Dextrose (D50w Syringe) 50 ml Q15M PRN IV DECREASED GLUCOSE; Start 03/28/16 at 12:00 Glucagon (Glucagen) 1 mg Q15M PRN IM DECREASED GLUCOSE; Start 03/28/16 at 12:00 Glucose (Glutose) 15 gm Q15M PRN BUCCAL DECREASED GLUCOSE; Start 03/28/16 at 12 :00 Morphine Sulfate (morphine) 2 mg Q3H PRN IV PAIN LEVEL 7-10 Last administered on 03/29/16 18:14; Admin Dose 2 MG; Start 03/28/16 at 21:00 Acetaminophen/ Hydrocodone Bitart ([place] (5/325)) 1 tab Q6H PRN PO PAIN LEVEL 1 -5 Last administered on 03/30/16 05:29; Admin Dose 1 TAB; Start 03/29/16 at 10: 00 Acetaminophen/ Hydrocodone Bitart ([place] (5/325)) 2 tab Q6H PRN PO PAIN LEVEL 6 -10 Last administered on 03/29/16 20:03; Admin Dose 2 TAB; Start 03/29/16 at 10 :00 Furosemide (Lasix) 40 mg DAILY IV Last administered on 03/30/16 08:19; Admin Dose 40 MG; Start 03/30/16 at 09:00 Metoprolol Tartrate (Lopressor) 25 mg BID PO Last administered on 03/30/16 08: 21; Admin Dose 25 MG; Start 03/29/16 at 21:00 Nicotine (Nicoderm 21 Mg/ 24hr) 1 patch DAILY TRANSDERM ; Start 03/30/16 at 11: 00; Status UNV Assessment/Plan Chief Complaint/Hosp Course IMPRESSION AND PLAN: 1. Ventricular fibrillation arrest, evidence of significant RCA disease status post stent placement 2. Resolving encephalopathy 3. Probable aspiration pneumonitis. Right upper lobe mucous plugging respiratory failure secondary to above now extubated on facemask O2 4. Probable underlying obstructive sleep apnea 5. Dysphagia The patient will require: 1. Incentive spirometry 2. Bronchodilators. 3. Supplemental O2 and nocturnal noninvasive positive pressure ventilation, incentive spirometry 4. DVT and GI prophylaxis. 5. Cardiac recommendations post catheterization and stent placement 6. Continue diuretics as tolerated correction of hypernatraemia 7. Ambulate with physical therapy 8. Consider DC Wiggins catheter Problems: ASHISH MOORE MD, [facility] Mar 30, 2016 11:06
--- NOTE | 2016-03-30 11:28 | PN ---
Date/Time of Note Date/Time of Note DATE: 03/30/16 TIME: 11:20 Assessment/Plan VTE Prophylaxis VTE Prophylaxis Intervention: SCD's Lines/Catheters IV Catheter Type (from Nrs): Central Line Central line still needed: Yes Urinary Cath still in place: Yes Reason Cath still needed: urinary retention Assessment/Plan Chief Complaint/Hosp Course Assessment/Plan: 60-year-old male with past medical history of hypertension, arthritis, high cholesterol, gastroesophageal reflux disease, depression who comes in with ventricular fibrillation arrest, res distress initially intubated and sedated on the hypothermia protocol, now extubated. 1. Ventricular fibrillation arrest likely 2/2 #4 - s/p CPR + ROSC / s/p Hypothermia protocol - now more alert, but weak still - monitor HR, f/u CV and pulm rec's 2. Acute resp failure with collapsed RUL - initially intubated on full vent support, now extubated / pulm following / successful bronchoscopy + Lavage done 03/26/15 / on abx - continue to try to wean O2 requirements, f/u pulm rec's - duoneb's prn - per pulm, continue diuretics 3. Essential hypertension. - Blood pressure stable. Continue to monitor for now. 4. NSTEMI + probable ST elevation myocardial infarction given initial EKG - s/ p Cath 03/26/15 / Culprit lesion: RCA s/p large stent - continue life long ASA + brilinta for at least 1 year / troponin trending down / cardio following 6. Hyperglycemia without Documented hx of DM - likely steroid induced / was on steroids for ?COPD / FS stable now - continue SSI only / may d/c SSI if no coverage needed - monitor, ISS 7. Depression resume home meds once stable 8. Chronic Tobacco abuse + COPD - Will need cessation counselling when more alert / no evidence of COPD exacerbation / pulm following - Duoneb's prn 9. RANDY 2/2 ?ATN: Creatinine improved now/ monitor / diurese very carefully / strict Is and Os 10. BPH mccann currently in place / resume home meds once stable 11. Dyslipidemia. Statin 12. Transaminitis 2/2 ?shock liver : improving 13. Rhabdomyolysis: Continue IVF / trend CK 14: UTI : Levaquin 15: Mild SIRS: improved, still mildly hypotensive, continue fluids Prophylaxis: Lovenox / PPI Critical care time spent today on care = 40 mins Problems: Exam/Review of Systems Vital Signs Vitals Vital Signs Date Time Temp Pulse Resp B/P Pulse Ox O2 Delivery O2 Flow Rate FiO2 03/30/16 11:00 72 10 112/63 94 Nasal Cannula 2.0 03/30/16 08:00 99.3 03/30/16 04:32 40 Intake and Output 03/29/16 03/29/16 03/30/16 15:00 23:00 07:00 Intake Total 1015 ml 700 ml 370 ml Output Total 2525 ml 645 ml 310 ml Balance -1510 ml 55 ml 60 ml Exam Constitutional: alert, still slightly lethargic, family at bedside Psych: no anxiety Head: atraumatic, normocephalic Eyes: PERRL ENMT: supple Respiratory: clear to auscultation, diminished breath sounds Cardiovascular: regular rate and rhythm, No murmurs/extra sounds Gastrointestinal: bowel sounds, non-tender, soft Neurological: other (sedated on propofol) no focal deficits Results Result Diagram: 03/30/16 0500 03/30/16 0500 Results 24 hrs Laboratory Tests Test 03/29/16 17:07 03/29/16 18:19 03/30/16 00:48 03/30/16 05:00 Potassium Level 3.3 L 3.5 Bedside Glucose 118 128 Anion Gap 16 Basophils # 0.0 Basophils % 0.1 Blood Urea Nitrogen 22 H Calcium Level 9.1 Carbon Dioxide Level 34 H Chloride Level 103 Creatinine 0.84 Eosinophils # 0.0 Eosinophils % 0.0 Glucose Level 119 Hematocrit 24.7 L Hemoglobin 8.4 L Lymphocytes # 1.0 Lymphocytes % 10.7 L Mean Corpuscular Hemoglobin 29.8 Mean Corpuscular Hemoglobin Concent 34.0 Mean Corpuscular Volume 87.7 Mean Platelet Volume 7.7 Monocytes # 1.1 H Monocytes % 12.7 H Neutrophils # 6.8 Neutrophils % 76.5 Nucleated Red Blood Cells # 0.0 Nucleated Red Blood Cells % 0.0 Platelet Count 328 Red Blood Count 2.82 L Red Cell Distribution Width 13.3 Sodium Level 149 H White Blood Count 8.9 Test 03/30/16 05:42 Bedside Glucose 131 Medications Medications Current Medications Ondansetron HCl (Zofran Inj) 4 mg Q6H PRN IV NAUSEA AND/OR VOMITING; Start 01/28 at 04:00 Nitroglycerin (Nitroglycerin (Sl Tab) 0.4 Mg) 1 tab Q5M PRN SL CHEST PAIN; Start 03/24/16 at 04:00 Bisacodyl (Dulcolax) 5 mg DAILY PRN PO CONSTIPATION; Start 03/24/16 at 04:00 Pantoprazole (Protonix Iv) 40 mg DAILY@06 IV Last administered on 03/30/16 05: 27; Admin Dose 40 MG; Start 03/24/16 at 06:00 Acetaminophen (Tylenol Liquid) 650 mg Q4H PRN PO TEMP > 37C; Start 03/24/16 at 04:00 Acetaminophen (Tylenol Liquid) 500 mg Q6H PO ; Start 03/25/16 at 04:00; Status Future Hold Atorvastatin Calcium 40 mg 40 mg QHS PO Last administered on 03/29/16 21:28; Admin Dose 40 MG; Start 03/24/16 at 21:00 Fentanyl 1000 mcg/ Dextrose 100 ml @ 2.5 mls/hr TITRATE IV Last administered on 03/28/16 03:49; Admin Dose 2.5 MLS/HR; Start 03/24/16 at 17:30 Levofloxacin/ Dextrose (Levaquin 500mg/ D5W 100 ml (Pmx)) 100 ml @ 100 mls/hr DAILY IVPB Last administered on 03/30/16 09:18; Admin Dose 100 MLS/HR; Start 03/24/16 at 18:00 Diagnostic Test (Pha) (Accucheck) 1 ea 02 XX ; Start 03/27/16 at 02:00 Enoxaparin Sodium (Lovenox) 40 mg DAILY SC Last administered on 03/30/16 08:20 ; Admin Dose 40 MG; Start 03/26/16 at 11:30 Ticagrelor (Brilinta) 90 mg BID PO Last administered on 03/30/16 08:20; Admin Dose 90 MG; Start 03/26/16 at 21:00 Insulin Aspart (Novolog Insulin Pen) NOVOLOG *MILD* ALGORI... Q6 SC ; Start at 00:00 Aspirin (Aspirin) 81 mg DAILY NGT Last administered on 03/30/16 08:19; Admin Dose 81 MG; Start 03/28/16 at 09:00 Miscellaneous Information 1 ea NOTE XX ; Start 03/28/16 at 12:00 Glucose (Glutose) 15 gm Q15M PRN PO DECREASED GLUCOSE; Start 03/28/16 at 12:00 Glucose (Glutose) 22.5 gm Q15M PRN PO DECREASED GLUCOSE; Start 03/28/16 at 12: 00 Dextrose (D50w Syringe) 25 ml Q15M PRN IV DECREASED GLUCOSE; Start 03/28/16 at 12:00 Dextrose (D50w Syringe) 50 ml Q15M PRN IV DECREASED GLUCOSE; Start 03/28/16 at 12:00 Glucagon (Glucagen) 1 mg Q15M PRN IM DECREASED GLUCOSE; Start 03/28/16 at 12:00 Glucose (Glutose) 15 gm Q15M PRN BUCCAL DECREASED GLUCOSE; Start 03/28/16 at 12 :00 Morphine Sulfate (morphine) 2 mg Q3H PRN IV PAIN LEVEL 7-10 Last administered on 03/29/16 18:14; Admin Dose 2 MG; Start 03/28/16 at 21:00 Acetaminophen/ Hydrocodone Bitart ([place] (5/325)) 1 tab Q6H PRN PO PAIN LEVEL 1 -5 Last administered on 03/30/16 05:29; Admin Dose 1 TAB; Start 03/29/16 at 10: 00 Acetaminophen/ Hydrocodone Bitart ([place] (5/325)) 2 tab Q6H PRN PO PAIN LEVEL 6 -10 Last administered on 03/29/16 20:03; Admin Dose 2 TAB; Start 03/29/16 at 10 :00 Furosemide (Lasix) 40 mg DAILY IV Last administered on 03/30/16 08:19; Admin Dose 40 MG; Start 03/30/16 at 09:00 Metoprolol Tartrate (Lopressor) 25 mg BID PO Last administered on 03/30/16 08: 21; Admin Dose 25 MG; Start 03/29/16 at 21:00 Nicotine (Nicoderm 21 Mg/ 24hr) 1 patch DAILY TRANSDERM ; Start 03/30/16 at 11: 00 SUNDEEP GARZA Mar 30, 2016 11:28
[2016-03-30] MEDS ORDERED: ALBUTEROL/IPRATROPIUM (NEB) 3 ML AMP HHN PRN (11:50)
[2016-03-30] MEDS: NICOTINE (21 MG/24 HR) PATCH TRANSDERM SCH (11:57)
[2016-03-30] MEDS: SALMETEROL/FLUTICASONE 250/50 INHA INH SCH (20:39)
[2016-03-30] MEDS: ATORVASTATIN 40 MG TAB PO SCH (20:39)
[2016-03-31] VITALS (11 sets, daily range): BP systolic 114–141; BP diastolic 69–81; PULSE 86–95; RESP 18–22
[2016-03-31] MEDS: HYDROCODONE/APAP (5/325) TAB PO PRN ×3 (03:05→21:26)
[2016-03-31] MEDS: INSULIN ASPART [NOVOLOG] 3 ML PEN SC SCH ×4 (06:00→23:58)
[2016-03-31] MEDS: LEVOFLOXACIN 500 MG TAB NGT SCH (06:13)
[2016-03-31] MEDS: PANTOPRAZOLE 40 MG INJ IV SCH (06:13)
[2016-03-31] MEDS: METOPROLOL 25 MG TAB PO SCH ×2 (08:51→21:19)
[2016-03-31] MEDS: ASPIRIN 81 MG TAB NGT SCH (08:52)
[2016-03-31] MEDS: FUROSEMIDE 40 MG INJ IV SCH (08:53)
[2016-03-31] MEDS: NICOTINE (21 MG/24 HR) PATCH TRANSDERM SCH (08:54)
[2016-03-31] MEDS: ENOXAPARIN 40 MG/0.4 ML SYG SC SCH (08:57)
[2016-03-31] MEDS: TICAGRELOR 90 MG TABLET PO SCH ×2 (08:57→21:24)
[2016-03-31] MEDS: SALMETEROL/FLUTICASONE 250/50 INHA INH SCH ×2 (09:15→21:18)
[2016-03-31 10:00] LABS: BASOPHILS % 0.3 % (0.0-2.0); EOSINOPHILS # 0.1 10^3/ul (0.0-0.5); EOSINOPHILS % 0.6 % (0.0-7.0); HEMOGLOBIN 9.7 g/dl (14.0-18.0); LYMPHOCYTES # 1.2 10^3/ul (0.8-2.9); LYMPHOCYTES % 11.2 % (15.0-51.0); MEAN CORPUSCULAR HEMOGLOBIN 29.2 pg (29.0-33.0); MEAN CORPUSCULAR HGB CONC 33.6 g/dl (32.0-37.0); MEAN CORPUSCULAR VOLUME 87.1 fl (82.0-101.0); MEAN PLATELET VOLUME 7.5 fl (7.4-10.4); MONOCYTE # 1.1 10^3/ul (0.3-0.9); NEUTROPHIL # 7.9 10^3/ul (1.6-7.5); NEUTROPHILS % 76.9 % (39.0-77.0); PLATELET COUNT 469 10^3/UL (140-440); RED BLOOD COUNT 3.33 10^6/ul (4.70-6.10); RED CELL DISTRIBUTION WIDTH 13.6 % (11.5-14.5); UNCORRECTED WBC 10.3 10^3/ul (4.8-10.8); WHITE BLOOD COUNT 10.3 10^3/ul (4.8-10.8)
[2016-03-31 10:11] LABS: POTASSIUM 3.5 mmol/L (3.5-5.1)
[2016-03-31 10:14] LABS: CREATININE 0.85 mg/dl (0.61-1.24)
[2016-03-31 10:15] LABS: CALCIUM 9.4 mg/dl (8.4-10.2)
[2016-03-31 10:24] LABS: CONDITION 1; MAGNESIUM 2.3 mg/dl (1.7-2.5); PHOSPHORUS 4.8 mg/dl (2.5-4.9)
--- NOTE | 2016-03-31 10:35 | CONS ---
Date/Time of Note Date/Time of Note DATE: 03/31/16 TIME: 10:31 Assessment/Plan Assessment/Plan Chief Complaint/Hosp Course IMPRESSION: 1. Cardiac arrest. Assess for acute coronary syndrome preceding possibly.- likely related to acute RI 2. Chest pain concerning for possible acute coronary syndrome prior to arrest. 3. Abnormal EKG with initial ST elevations concerning for acute myocardial infarction.-s/p PTCA/stent x 1 RCA with MARIAELENA 03/26 4. Respiratory failure, status post extubation 5. Encephalopathy. 6. Bradycardia, likely secondary to hypothermia-improved s/p hypothermia 7. Ongoing tobacco usage. 8. Leukocytosis. 9. Mild anemia. 10. Increased liver function tests. 11.Renal insufficiency-improved Recc: -Tele -serial ecg;'s -Continue current BB -Continue asa/brilinta/statin -start low dose oral nitrates -Follow MS closely -Smoking cessation Problems: Consultation Date/Type/Reason Admit Date/Time Mar 24, 2016 at 17:54 Initial Consult Date 03/25/2016 Type of Consultation: Cardiology Reason for Consultation cardiac arrest/Acute RI Referring Provider: DELMY OLIVER Exam/Review of Systems Vital Signs Vitals Vital Signs Date Time Temp Pulse Resp B/P Pulse Ox O2 Delivery O2 Flow Rate FiO2 03/31/16 08:20 86 03/31/16 07:48 97.9 20 137/81 94 03/31/16 05:50 2.0 03/31/16 00:10 Nasal Cannula 03/30/16 04:32 40 Intake and Output 03/30/16 03/30/16 03/31/16 15:00 23:00 07:00 Intake Total 260 ml 220 ml Output Total 2525 ml 395 ml Balance -2265 ml -395 ml 220 ml Exam Review of Systems: CONSTITUTIONAL: No fevers, chills. PULMONARY: No sob CARDIOVASCULAR: No chest pain/palpitations GASTROINTESTINAL: No nausea/vomiting. GENITOURINARY: No hematuria/dysuria. MUSCULOSKELETAL: No myagias/arthalgias. PSYCHIATRIC: The patient denies depression. NEUROLOGIC: Mile generalized weakness Constitutional: alert, oriented Psych: no complaints Head: normocephalic ENMT: mucosa pink and moist Neck: jvd (9 cm water), supple Respiratory: diminished breath sounds (at bases/B) Cardiovascular: regular rate and rhythm Gastrointestinal: non-tender, soft Musculoskeletal: muscle tone (normal) Extremities: pitting pedal edema (bilateral) Neurological: other (No focal deficits) Results Result Diagram: 03/31/1620 03/31/16 0920 Results 24 hrs Laboratory Tests Test 03/30/16 11:56 03/30/16 17:38 03/30/16 23:32 03/31/16 06:12 Bedside Glucose 111 114 110 116 Test 03/31/16 09:20 Anion Gap 17 H Basophils # 0.0 Basophils % 0.3 Blood Urea Nitrogen 28 H Calcium Level 9.4 Carbon Dioxide Level 32 H Chloride Level 101 Creatinine 0.85 Eosinophils # 0.1 Eosinophils % 0.6 Glucose Level 108 Hematocrit 29.0 L Hemoglobin 9.7 L Lymphocytes # 1.2 Lymphocytes % 11.2 L Magnesium Level 2.3 Mean Corpuscular Hemoglobin 29.2 Mean Corpuscular Hemoglobin Concent 33.6 Mean Corpuscular Volume 87.1 Mean Platelet Volume 7.5 Monocytes # 1.1 H Monocytes % 11.0 Neutrophils # 7.9 H Neutrophils % 76.9 Nucleated Red Blood Cells # 0.0 Nucleated Red Blood Cells % 0.0 Phosphorus Level 4.8 Platelet Count 469 #H Potassium Level 3.5 Red Blood Count 3.33 L Red Cell Distribution Width 13.6 Sodium Level 146 H White Blood Count 10.3 Medications Medications Current Medications Ondansetron HCl (Zofran Inj) 4 mg Q6H PRN IV NAUSEA AND/OR VOMITING; Start 01/28 at 04:00 Nitroglycerin (Nitroglycerin (Sl Tab) 0.4 Mg) 1 tab Q5M PRN SL CHEST PAIN; Start 03/24/16 at 04:00 Bisacodyl (Dulcolax) 5 mg DAILY PRN PO CONSTIPATION; Start 03/24/16 at 04:00 Pantoprazole (Protonix Iv) 40 mg DAILY@06 IV Last administered on 03/31/16t 06: 13; Admin Dose 40 MG; Start 03/24/16 at 06:00 Acetaminophen (Tylenol Liquid) 650 mg Q4H PRN PO TEMP > 37C; Start 03/24/16 at 04:00 Acetaminophen (Tylenol Liquid) 500 mg Q6H PO ; Start 03/25/16 at 04:00; Status Future Hold Atorvastatin Calcium (Lipitor) 40 mg QHS PO Last administered on 03/30/16 20: 39; Admin Dose 40 MG; Start 03/24/16 at 21:00 Diagnostic Test (Pha) (Accucheck) 1 ea 02 XX ; Start 03/27/16 at 02:00 Enoxaparin Sodium (Lovenox) 40 mg DAILY SC Last administered on 03/31/16 08:57 ; Admin Dose 40 MG; Start 03/26/16 at 11:30 Ticagrelor (Brilinta) 90 mg BID PO Last administered on 03/31/16 08:57; Admin Dose 90 MG; Start 03/26/16 at 21:00 Insulin Aspart (Novolog Insulin Pen) NOVOLOG *MILD* ALGORI... Q6 SC ; Start at 00:00 Aspirin (Aspirin) 81 mg DAILY NGT Last administered on 03/31/16 08:52; Admin Dose 81 MG; Start 03/28/16 at 09:00 Miscellaneous Information 1 ea NOTE XX ; Start 03/28/16 at 12:00 Glucose (Glutose) 15 gm Q15M PRN PO DECREASED GLUCOSE; Start 03/28/16 at 12:00 Glucose (Glutose) 22.5 gm Q15M PRN PO DECREASED GLUCOSE; Start 03/28/16 at 12: 00 Dextrose (D50w Syringe) 25 ml Q15M PRN IV DECREASED GLUCOSE; Start 03/28/16 at 12:00 Dextrose (D50w Syringe) 50 ml Q15M PRN IV DECREASED GLUCOSE; Start 03/28/16 at 12:00 Glucagon (Glucagen) 1 mg Q15M PRN IM DECREASED GLUCOSE; Start 03/28/16 at 12:00 Glucose (Glutose) 15 gm Q15M PRN BUCCAL DECREASED GLUCOSE; Start 03/28/16 at 12 :00 Morphine Sulfate (morphine) 2 mg Q3H PRN IV PAIN LEVEL 7-10 Last administered on 03/29/16 18:14; Admin Dose 2 MG; Start 03/28/16 at 21:00 Acetaminophen/ Hydrocodone Bitart ([place] (5/325)) 1 tab Q6H PRN PO PAIN LEVEL 1 -5 Last administered on 03/31/16 03:05; Admin Dose 1 TAB; Start 03/29/16 at 10: 00 Acetaminophen/ Hydrocodone Bitart ([place] (5/325)) 2 tab Q6H PRN PO PAIN LEVEL 6 -10 Last administered on 03/29/16 20:03; Admin Dose 2 TAB; Start 03/29/16 at 10 :00 Furosemide (Lasix) 40 mg DAILY IV Last administered on 03/31/16 08:53; Admin Dose 40 MG; Start 03/30/16 at 09:00 Metoprolol Tartrate (Lopressor) 25 mg BID PO Last administered on 03/31/16 08: 51; Admin Dose 25 MG; Start 03/29/16 at 21:00 Nicotine (Nicoderm 21 Mg/ 24hr) 1 patch DAILY TRANSDERM Last administered on 08:54; Admin Dose 1 PATCH; Start 03/30/16 at 11:00 Salmeterol Xinafoate/ Fluticasone (Advair 250/50 Diskus) 1 inh BID INH Last administered on 03/31/16 09:15; Admin Dose 1 INH; Start 03/30/16 at 21:00 Levofloxacin (Levaquin) 500 mg DAILY@06 NGT Last administered on 03/31/16 06: 13; Admin Dose 500 MG; Start 03/31/16 at 06:00 LEROY GARCIA Mar 31, 2016 10:35
--- NOTE | 2016-03-31 10:47 | PN ---
Date/Time of Note Date/Time of Note DATE: 03/31/16 TIME: 10:45 Assessment/Plan VTE Prophylaxis VTE Prophylaxis Intervention: SCD's Lines/Catheters IV Catheter Type (from Nrs): Saline Lock Urinary Cath still in place: Yes Reason Cath still needed: urinary retention Assessment/Plan Chief Complaint/Hosp Course Assessment/Plan: 60-year-old male with past medical history of hypertension, arthritis, high cholesterol, gastroesophageal reflux disease, depression who comes in with ventricular fibrillation arrest, res distress initially intubated and sedated on the hypothermia protocol, now extubated. 1. Ventricular fibrillation arrest likely 2/2 #4 - s/p CPR + ROSC / s/p Hypothermia protocol - now more alert, ambulating with PT assistance, improving overall. - monitor HR, f/u CV and pulm rec's 2. Acute resp failure with collapsed RUL - initially intubated on full vent support, now extubated / pulm following / successful bronchoscopy + Lavage done 03/26/15 / on abx - continue to try to wean O2 requirements, f/u pulm rec's - duoneb's prn - per pulm, continue diuretics 3. Essential hypertension. - Blood pressure stable. Continue to monitor for now. 4. NSTEMI + probable ST elevation myocardial infarction given initial EKG - s/ p Cath 03/26/15 / Culprit lesion: RCA s/p large stent - continue life long ASA + brilinta for at least 1 year / troponin trending down / cardio following 6. Hyperglycemia without Documented hx of DM - likely steroid induced / was on steroids for ?COPD / FS stable now - continue SSI only / may d/c SSI if no coverage needed - monitor, ISS 7. Depression resume home meds once stable 8. Chronic Tobacco abuse + COPD cessation counselling / no evidence of COPD exacerbation / pulm following - Duoneb's prn 9. RANDY 2/2 ?ATN: Creatinine improved now/ monitor / diurese very carefully / strict Is and Os 10. BPH - monitor 11. Dyslipidemia. Statin 12. Transaminitis 2/2 ?shock liver : improving 13. Rhabdomyolysis: Continue IVF / trend CK 14: UTI : Levaquin 15: Mild SIRS: improved - monitor Prophylaxis: Lovenox / PPI Dispo: - d/c home in 24 hrs hopefully with HHPT and FWW, and when cleared by CV team. Problems: Subjective 24 Hr Interval Summary Free Text/Dictation Less cp now, ambulating, seen by CV and PT teams. Exam/Review of Systems Vital Signs Vitals Vital Signs Date Time Temp Pulse Resp B/P Pulse Ox O2 Delivery O2 Flow Rate FiO2 03/31/16 08:20 86 03/31/16 07:48 97.9 20 137/81 94 03/31/16 05:50 2.0 03/31/16 00:10 Nasal Cannula 03/30/16 04:32 40 Intake and Output 03/30/16 03/30/16 03/31/16 15:00 23:00 07:00 Intake Total 260 ml 220 ml Output Total 2525 ml 395 ml Balance -2265 ml -395 ml 220 ml Exam Constitutional: alert, still slightly lethargic, family at bedside Psych: no anxiety Head: atraumatic, normocephalic Eyes: PERRL ENMT: supple Respiratory: clear to auscultation, diminished breath sounds Cardiovascular: regular rate and rhythm, No murmurs/extra sounds Gastrointestinal: bowel sounds, non-tender, soft Neurological: other (sedated on propofol) no focal deficits Results Result Diagram: 03/31/16 0920 03/31/16 0920 Results 24 hrs Laboratory Tests Test 03/30/16 11:56 03/30/16 17:38 03/30/16 23:32 03/31/16 06:12 Bedside Glucose 111 114 110 116 Test 03/31/16 09:20 Anion Gap 17 H Basophils # 0.0 Basophils % 0.3 Blood Urea Nitrogen 28 H Calcium Level 9.4 Carbon Dioxide Level 32 H Chloride Level 101 Creatinine 0.85 Eosinophils # 0.1 Eosinophils % 0.6 Glucose Level 108 Hematocrit 29.0 L Hemoglobin 9.7 L Lymphocytes # 1.2 Lymphocytes % 11.2 L Magnesium Level 2.3 Mean Corpuscular Hemoglobin 29.2 Mean Corpuscular Hemoglobin Concent 33.6 Mean Corpuscular Volume 87.1 Mean Platelet Volume 7.5 Monocytes # 1.1 H Monocytes % 11.0 Neutrophils # 7.9 H Neutrophils % 76.9 Nucleated Red Blood Cells # 0.0 Nucleated Red Blood Cells % 0.0 Phosphorus Level 4.8 Platelet Count 469 #H Potassium Level 3.5 Red Blood Count 3.33 L Red Cell Distribution Width 13.6 Sodium Level 146 H White Blood Count 10.3 Medications Medications Current Medications Ondansetron HCl (Zofran Inj) 4 mg Q6H PRN IV NAUSEA AND/OR VOMITING; Start 01/28 at 04:00 Nitroglycerin (Nitroglycerin (Sl Tab) 0.4 Mg) 1 tab Q5M PRN SL CHEST PAIN; Start 03/24/16 at 04:00 Bisacodyl (Dulcolax) 5 mg DAILY PRN PO CONSTIPATION; Start 03/24/16 at 04:00 Pantoprazole (Protonix Iv) 40 mg DAILY@06 IV Last administered on 03/31/16 06: 13; Admin Dose 40 MG; Start 03/24/16 at 06:00 Acetaminophen (Tylenol Liquid) 650 mg Q4H PRN PO TEMP > 37C; Start 03/24/16 at 04:00 Acetaminophen (Tylenol Liquid) 500 mg Q6H PO ; Start 03/25/16 at 04:00; Status Future Hold Atorvastatin Calcium (Lipitor) 40 mg QHS PO Last administered on 03/30/16 20: 39; Admin Dose 40 MG; Start 03/24/16 at 21:00 Diagnostic Test (Pha) (Accucheck) 1 ea 02 XX ; Start 03/27/16 at 02:00 Enoxaparin Sodium (Lovenox) 40 mg DAILY SC Last administered on 03/31/16 08:57 ; Admin Dose 40 MG; Start 03/26/16 at 11:30 Ticagrelor (Brilinta) 90 mg BID PO Last administered on 03/31/16 08:57; Admin Dose 90 MG; Start 03/26/16 at 21:00 Insulin Aspart (Novolog Insulin Pen) NOVOLOG *MILD* ALGORI... Q6 SC ; Start at 00:00 Aspirin (Aspirin) 81 mg DAILY NGT Last administered on 03/31/16 08:52; Admin Dose 81 MG; Start 03/28/16 at 09:00 Miscellaneous Information 1 ea NOTE XX ; Start 03/28/16 at 12:00 Glucose (Glutose) 15 gm Q15M PRN PO DECREASED GLUCOSE; Start 03/28/16 at 12:00 Glucose (Glutose) 22.5 gm Q15M PRN PO DECREASED GLUCOSE; Start 03/28/16 at 12: 00 Dextrose (D50w Syringe) 25 ml Q15M PRN IV DECREASED GLUCOSE; Start 03/28/16 at 12:00 Dextrose (D50w Syringe) 50 ml Q15M PRN IV DECREASED GLUCOSE; Start 03/28/16 at 12:00 Glucagon (Glucagen) 1 mg Q15M PRN IM DECREASED GLUCOSE; Start 03/28/16 at 12:00 Glucose (Glutose) 15 gm Q15M PRN BUCCAL DECREASED GLUCOSE; Start 03/28/16 at 12 :00 Morphine Sulfate (morphine) 2 mg Q3H PRN IV PAIN LEVEL 7-10 Last administered on 03/29/16 18:14; Admin Dose 2 MG; Start 03/28/16 at 21:00 Acetaminophen/ Hydrocodone Bitart ([place] (5/325)) 1 tab Q6H PRN PO PAIN LEVEL 1 -5 Last administered on 03/31/16 03:05; Admin Dose 1 TAB; Start 03/29/16 at 10: 00 Acetaminophen/ Hydrocodone Bitart ([place] (5/325)) 2 tab Q6H PRN PO PAIN LEVEL 6 -10 Last administered on 03/29/16 20:03; Admin Dose 2 TAB; Start 03/29/16 at 10 :00 Furosemide (Lasix) 40 mg DAILY IV Last administered on 03/31/16 08:53; Admin Dose 40 MG; Start 03/30/16 at 09:00 Metoprolol Tartrate (Lopressor) 25 mg BID PO Last administered on 03/31/16 08: 51; Admin Dose 25 MG; Start 03/29/16 at 21:00 Nicotine (Nicoderm 21 Mg/ 24hr) 1 patch DAILY TRANSDERM Last administered on 08:54; Admin Dose 1 PATCH; Start 03/30/16 at 11:00 Salmeterol Xinafoate/ Fluticasone (Advair 250/50 Diskus) 1 inh BID INH Last administered on 03/31/16 09:15; Admin Dose 1 INH; Start 03/30/16 at 21:00 Levofloxacin (Levaquin) 500 mg DAILY@06 NGT Last administered on 03/31/16 06: 13; Admin Dose 500 MG; Start 03/31/16 at 06:00 Isosorbide Mononitrate (Imdur) 30 mg DAILY PO ; Start 04/01/16 at 09:00; Status UNV SUNDEEP GARZA Mar 31, 2016 10:47
[2016-03-31] MEDS: ISOSORBIDE MONONITRATE(SR)30 MG TAB PO SCH (12:23)
--- NOTE | 2016-03-31 14:37 | CONS ---
Date/Time of Note Date/Time of Note DATE: 03/31/16 TIME: 14:35 Consult Date/Type/Reason Admit Date/Time Mar 24, 2016 at 17:54 Type of Consultation: Pulm Ordering Provider: DELMY OLIVER Subjective Comfortable, awake alert oriented Objective Vital Signs Date Time Temp Pulse Resp B/P Pulse Ox O2 Delivery O2 Flow Rate FiO2 03/31/16 12:15 88 03/31/16 11:24 97.7 20 141/71 94 03/31/16 07:45 Nasal Cannula 2.0 03/30/16 04:32 40 Intake and Output 03/30/16 03/30/16 03/31/16 15:00 23:00 07:00 Intake Total 260 ml 220 ml Output Total 2525 ml 395 ml Balance -2265 ml -395 ml 220 ml PHYSICAL EXAMINATION GENERAL: Obese Yi gentleman on n/c VITAL SIGNS: see below. HEENT: Pupils equal, round, and reactive to light. CARDIAC: S1, S2, CHEST: Diminished air entry bilaterally. ABDOMEN: Mildly distended. Bowel sounds present abdomen mildly distended no guarding or rebound. EXTREMITIES: No cyanosis, clubbing edema +1 NEUROLOGIC: No focal deficits. Results/Medications Result Diagram: 03/31/16 0920 03/31/16 0920 Results 24 hrs Laboratory Tests Test 03/30/16 17:38 03/30/16 23:32 03/31/16 06:12 03/31/16 09:20 Bedside Glucose 114 110 116 Anion Gap 17 H Basophils # 0.0 Basophils % 0.3 Blood Urea Nitrogen 28 H Calcium Level 9.4 Carbon Dioxide Level 32 H Chloride Level 101 Creatinine 0.85 Eosinophils # 0.1 Eosinophils % 0.6 Glucose Level 108 Hematocrit 29.0 L Hemoglobin 9.7 L Lymphocytes # 1.2 Lymphocytes % 11.2 L Magnesium Level 2.3 Mean Corpuscular Hemoglobin 29.2 Mean Corpuscular Hemoglobin Concent 33.6 Mean Corpuscular Volume 87.1 Mean Platelet Volume 7.5 Monocytes # 1.1 H Monocytes % 11.0 Neutrophils # 7.9 H Neutrophils % 76.9 Nucleated Red Blood Cells # 0.0 Nucleated Red Blood Cells % 0.0 Phosphorus Level 4.8 Platelet Count 469 #H Potassium Level 3.5 Red Blood Count 3.33 L Red Cell Distribution Width 13.6 Sodium Level 146 H White Blood Count 10.3 Test 03/31/16 12:02 Bedside Glucose 117 Medications Current Medications Ondansetron HCl (Zofran Inj) 4 mg Q6H PRN IV NAUSEA AND/OR VOMITING; Start 01/28 at 04:00 Nitroglycerin (Nitroglycerin (Sl Tab) 0.4 Mg) 1 tab Q5M PRN SL CHEST PAIN; Start 03/24/16 at 04:00 Bisacodyl (Dulcolax) 5 mg DAILY PRN PO CONSTIPATION; Start 03/24/16 at 04:00 Pantoprazole (Protonix Iv) 40 mg DAILY@06 IV Last administered on 03/31/16 06: 13; Admin Dose 40 MG; Start 03/24/16 at 06:00 Acetaminophen (Tylenol Liquid) 650 mg Q4H PRN PO TEMP > 37C; Start 03/24/16 at 04:00 Acetaminophen (Tylenol Liquid) 500 mg Q6H PO ; Start 03/25/16 at 04:00; Status Future Hold Atorvastatin Calcium (Lipitor) 40 mg QHS PO Last administered on 03/30/16 20: 39; Admin Dose 40 MG; Start 03/24/16 at 21:00 Diagnostic Test (Pha) (Accucheck) 1 ea 02 XX ; Start 03/27/16 at 02:00 Enoxaparin Sodium (Lovenox) 40 mg DAILY SC Last administered on 03/31/16 08:57 ; Admin Dose 40 MG; Start 03/26/16 at 11:30 Ticagrelor (Brilinta) 90 mg BID PO Last administered on 03/31/16 08:57; Admin Dose 90 MG; Start 03/26/16 at 21:00 Insulin Aspart (Novolog Insulin Pen) NOVOLOG *MILD* [place]... Q6 SC ; Start at 00:00 Aspirin (Aspirin) 81 mg DAILY NGT Last administered on 03/31/16 08:52; Admin Dose 81 MG; Start 03/28/16 at 09:00 Miscellaneous Information 1 ea NOTE XX ; Start 03/28/16 at 12:00 Glucose (Glutose) 15 gm Q15M PRN PO DECREASED GLUCOSE; Start 03/28/16 at 12:00 Glucose (Glutose) 22.5 gm Q15M PRN PO DECREASED GLUCOSE; Start 03/28/16 at 12: 00 Dextrose (D50w Syringe) 25 ml Q15M PRN IV DECREASED GLUCOSE; Start 03/28/16 at 12:00 Dextrose (D50w Syringe) 50 ml Q15M PRN IV DECREASED GLUCOSE; Start 03/28/16 at 12:00 Glucagon (Glucagen) 1 mg Q15M PRN IM DECREASED GLUCOSE; Start 03/28/16 at 12:00 Glucose (Glutose) 15 gm Q15M PRN BUCCAL DECREASED GLUCOSE; Start 03/28/16 at 12 :00 Morphine Sulfate (morphine) 2 mg Q3H PRN IV PAIN LEVEL 7-10 Last administered on 03/29/16 18:14; Admin Dose 2 MG; Start 03/28/16 at 21:00 Acetaminophen/ Hydrocodone Bitart ([place] (5/325)) 1 tab Q6H PRN PO PAIN LEVEL 1 -5 Last administered on 03/31/16 03:05; Admin Dose 1 TAB; Start 03/29/16 at 10: 00 Acetaminophen/ Hydrocodone Bitart ([place] (5/325)) 2 tab Q6H PRN PO PAIN LEVEL 6 -10 Last administered on 03/29/16 20:03; Admin Dose 2 TAB; Start 03/29/16 at 10 :00 Furosemide (Lasix) 40 mg DAILY IV Last administered on 03/31/16 08:53; Admin Dose 40 MG; Start 03/30/16 at 09:00 Metoprolol Tartrate (Lopressor) 25 mg BID PO Last administered on 03/31/16 08: 51; Admin Dose 25 MG; Start 03/29/16 at 21:00 Nicotine (Nicoderm 21 Mg/ 24hr) 1 patch DAILY TRANSDERM Last administered on 08:54; Admin Dose 1 PATCH; Start 03/30/16 at 11:00 Salmeterol Xinafoate/ Fluticasone (Advair 250/50 Diskus) 1 inh BID INH Last administered on 03/31/16 09:15; Admin Dose 1 INH; Start 03/30/16 at 21:00 Levofloxacin (Levaquin) 500 mg DAILY@06 NGT Last administered on 03/31/16 06: 13; Admin Dose 500 MG; Start 03/31/16 at 06:00 Isosorbide Mononitrate (Imdur) 30 mg DAILY PO Last administered on 03/31/16t 12 :23; Admin Dose 30 MG; Start 03/31/16 at 12:00 Assessment/Plan Chief Complaint/Hosp Course IMPRESSION AND PLAN: 1. Ventricular fibrillation arrest, evidence of significant RCA disease status post stent placement 2. Resolved encephalopathy 3. Probable aspiration pneumonitis. Right upper lobe mucous plugging respiratory failure secondary to above now extubated on n/c 4. Probable underlying obstructive sleep apnea 5. Dysphagia The patient will require: 1. Incentive spirometry 2. Bronchodilators. 3. Supplemental O2 and nocturnal noninvasive positive pressure ventilation, incentive spirometry 4. DVT and GI prophylaxis. 5. Cardiac recommendations post catheterization and stent placement 6. Encourage OOB, PT recs. Problems: ASHISH MOORE MD, [facility] Mar 31, 2016 14:37
[2016-03-31] MEDS: ATORVASTATIN 40 MG TAB PO SCH (21:19)
[2016-04-01] VITALS (10 sets, daily range): BP systolic 109–125; BP diastolic 56–71; PULSE 72–105; RESP 19–20
[2016-04-01] MEDS: ACCUCHECK XX SCH (02:00)
[2016-04-01] MEDS: INSULIN ASPART [NOVOLOG] 3 ML PEN SC SCH ×3 (06:00→18:00)
[2016-04-01] MEDS: LEVOFLOXACIN 500 MG TAB NGT SCH (06:28)
[2016-04-01] MEDS: PANTOPRAZOLE 40 MG INJ IV SCH (06:28)
[2016-04-01] MEDS: HYDROCODONE/APAP (5/325) TAB PO PRN (09:20)
[2016-04-01] MEDS: FUROSEMIDE 40 MG INJ IV SCH (09:21)
[2016-04-01] MEDS: ASPIRIN 81 MG TAB NGT SCH (09:22)
[2016-04-01] MEDS: ISOSORBIDE MONONITRATE(SR)30 MG TAB PO SCH (09:22)
[2016-04-01] MEDS: NICOTINE (21 MG/24 HR) PATCH TRANSDERM SCH (09:25)
[2016-04-01] MEDS: ENOXAPARIN 40 MG/0.4 ML SYG SC SCH (09:33)
[2016-04-01] MEDS: TICAGRELOR 90 MG TABLET PO SCH (09:36)
[2016-04-01] MEDS: SALMETEROL/FLUTICASONE 250/50 INHA INH SCH (09:39)
[2016-04-01] MEDS: METOPROLOL 25 MG TAB PO SCH (09:39)
--- NOTE | 2016-04-01 11:59 | PN ---
Date/Time of Note Date/Time of Note DATE: 04/01/16 TIME: 11:57 Assessment/Plan VTE Prophylaxis VTE Prophylaxis Intervention: SCD's Lines/Catheters IV Catheter Type (from Nrs): Central Line Central line still needed: Yes Urinary Cath still in place: No Assessment/Plan Chief Complaint/Hosp Course Assessment/Plan: 60-year-old male with past medical history of hypertension, arthritis, high cholesterol, gastroesophageal reflux disease, depression who comes in with ventricular fibrillation arrest, res distress initially intubated and sedated on the hypothermia protocol, now extubated. 1. Ventricular fibrillation arrest likely 2/2 #4 - s/p CPR + ROSC / s/p Hypothermia protocol - now more alert, ambulating with PT assistance, improving overall. - monitor HR, f/u CV and pulm rec's 2. Acute resp failure with collapsed RUL - initially intubated on full vent support, now extubated / pulm following / successful bronchoscopy + Lavage done 03/26/15 / on abx - continue to try to wean O2 requirements, f/u pulm rec's - duoneb's prn - per pulm, continue diuretics 3. Essential hypertension. - Blood pressure stable. Continue to monitor for now. 4. NSTEMI + probable ST elevation myocardial infarction given initial EKG - s/ p Cath 03/26/15 / Culprit lesion: RCA s/p large stent - continue life long ASA + brilinta for at least 1 year / troponin trending down / cardio following 6. Hyperglycemia without Documented hx of DM - likely steroid induced / was on steroids for ?COPD / FS stable now - continue SSI only / may d/c SSI if no coverage needed - monitor, ISS 7. Depression resume home meds once stable 8. Chronic Tobacco abuse + COPD cessation counselling / no evidence of COPD exacerbation / pulm following - Duoneb's prn 9. RANDY 2/2 ?ATN: Creatinine improved now/ monitor / diurese very carefully / strict Is and Os 10. BPH - monitor 11. Dyslipidemia. Statin 12. Transaminitis 2/2 ?shock liver : improving 13. Rhabdomyolysis: Continue IVF / trend CK 14: UTI : Levaquin 15: Mild SIRS: improved - monitor Prophylaxis: SCD's / PPI Dispo: - d/c home in 24 hrs hopefully with HHPT and FWW, and when cleared by CV team. Problems: Subjective 24 Hr Interval Summary Free Text/Dictation Pt has less cp, tolerating soft diet. Exam/Review of Systems Vital Signs Vitals Vital Signs Date Time Temp Pulse Resp B/P Pulse Ox O2 Delivery O2 Flow Rate FiO2 04/01/16 11:21 98.7 81 20 125/62 91 04/01/16 07:55 2.0 03/31/16 16:25 28 03/31/16 07:45 Nasal Cannula Intake and Output 03/31/16 03/31/16 04/01/16 15:00 23:00 07:00 Intake Total 480 ml 300 ml Balance 480 ml 300 ml Exam Constitutional: alert, less lethargic Psych: no anxiety Head: atraumatic, normocephalic Eyes: PERRL ENMT: supple Respiratory: clear to auscultation, diminished breath sounds Cardiovascular: regular rate and rhythm, No murmurs/extra sounds Gastrointestinal: bowel sounds, non-tender, soft Neurological: other (sedated on propofol) no focal deficits Results Result Diagram: 03/31/1691903/31/16 0920 Results 24 hrs Laboratory Tests Test 03/31/16 12:02 03/31/16 18:49 03/31/16 23:58 04/01/16 06:36 Bedside Glucose 117 105 120 139 Test 04/01/16 11:46 Bedside Glucose 116 Medications Medications Current Medications Ondansetron HCl (Zofran Inj) 4 mg Q6H PRN IV NAUSEA AND/OR VOMITING; Start 01/28 at 04:00 Nitroglycerin (Nitroglycerin (Sl Tab) 0.4 Mg) 1 tab Q5M PRN SL CHEST PAIN; Start 03/24/16 at 04:00 Bisacodyl (Dulcolax) 5 mg DAILY PRN PO CONSTIPATION; Start 03/24/16 at 04:00 Pantoprazole (Protonix Iv) 40 mg DAILY@06 IV Last administered on 04/01/16t 06: 28; Admin Dose 40 MG; Start 03/24/16 at 06:00 Acetaminophen (Tylenol Liquid) 650 mg Q4H PRN PO TEMP > 37C; Start 03/24/16 at 04:00 Acetaminophen (Tylenol Liquid) 500 mg Q6H PO ; Start 03/25/16 at 04:00; Status Future Hold Atorvastatin Calcium (Lipitor) 40 mg QHS PO Last administered on 03/31/16 21: 19; Admin Dose 40 MG; Start 03/24/16 at 21:00 Diagnostic Test (Pha) (Accucheck) 1 ea 02 XX ; Start 03/27/16 at 02:00 Enoxaparin Sodium (Lovenox) 40 mg DAILY SC Last administered on 04/01/16 09:33 ; Admin Dose 40 MG; Start 03/26/16 at 11:30 Ticagrelor (Brilinta) 90 mg BID PO Last administered on 04/01/16 09:36; Admin Dose 90 MG; Start 03/26/16 at 21:00 Insulin Aspart (Novolog Insulin Pen) NOVOLOG *MILD* [place]... Q6 SC ; Start at 00:00 Aspirin (Aspirin) 81 mg DAILY NGT Last administered on 04/01/16 09:22; Admin Dose 81 MG; Start 03/28/16 at 09:00 Miscellaneous Information 1 ea NOTE XX ; Start 03/28/16 at 12:00 Glucose (Glutose) 15 gm Q15M PRN PO DECREASED GLUCOSE; Start 03/28/16 at 12:00 Glucose (Glutose) 22.5 gm Q15M PRN PO DECREASED GLUCOSE; Start 03/28/16 at 12: 00 Dextrose (D50w Syringe) 25 ml Q15M PRN IV DECREASED GLUCOSE; Start 03/28/16 at 12:00 Dextrose (D50w Syringe) 50 ml Q15M PRN IV DECREASED GLUCOSE; Start 03/28/16 at 12:00 Glucagon (Glucagen) 1 mg Q15M PRN IM DECREASED GLUCOSE; Start 03/28/16 at 12:00 Glucose (Glutose) 15 gm Q15M PRN BUCCAL DECREASED GLUCOSE; Start 03/28/16 at 12 :00 Morphine Sulfate (morphine) 2 mg Q3H PRN IV PAIN LEVEL 7-10 Last administered on 03/29/16 18:14; Admin Dose 2 MG; Start 03/28/16 at 21:00 Acetaminophen/ Hydrocodone Bitart ([place] (5/325)) 1 tab Q6H PRN PO PAIN LEVEL 1 -5 Last administered on 04/01/16 09:20; Admin Dose 1 TAB; Start 03/29/16 at 10: 00 Acetaminophen/ Hydrocodone Bitart ([place] (5/325)) 2 tab Q6H PRN PO PAIN LEVEL 6 -10 Last administered on 03/29/16 20:03; Admin Dose 2 TAB; Start 03/29/16 at 10 :00 Furosemide (Lasix) 40 mg DAILY IV Last administered on 04/01/16 09:21; Admin Dose 40 MG; Start 03/30/16 at 09:00 Metoprolol Tartrate (Lopressor) 25 mg BID PO Last administered on 04/01/16 09: 39; Admin Dose 25 MG; Start 03/29/16 at 21:00 Nicotine (Nicoderm 21 Mg/ 24hr) 1 patch DAILY TRANSDERM Last administered on 09:25; Admin Dose 1 PATCH; Start 03/30/16 at 11:00 Salmeterol Xinafoate/ Fluticasone (Advair 250/50 Diskus) 1 inh BID INH Last administered on 04/01/16 09:39; Admin Dose 1 INH; Start 03/30/16 at 21:00 Levofloxacin (Levaquin) 500 mg DAILY@06 NGT Last administered on 04/01/16 06: 28; Admin Dose 500 MG; Start 03/31/16 at 06:00 Isosorbide Mononitrate (Imdur) 30 mg DAILY PO Last administered on 04/01/16 09 :22; Admin Dose 30 MG; Start 03/31/16 at 12:00 SUNDEEP GARZA Apr 01, 2016 11:59
--- NOTE | 2016-04-01 13:05 | CONS ---
Date/Time of Note Date/Time of Note DATE: 04/01/16 TIME: 13:02 Assessment/Plan Assessment/Plan Chief Complaint/Hosp Course IMPRESSION: 1. Cardiac arrest. Assess for acute coronary syndrome preceding possibly.- likely related to acute NC 2. Chest pain concerning for possible acute coronary syndrome prior to arrest. 3. Abnormal EKG with initial ST elevations concerning for acute myocardial infarction.-s/p PTCA/stent x 1 RCA with MARIAELENA 03/26 4. Respiratory failure, status post extubation 5. Encephalopathy. 6. Bradycardia, likely secondary to hypothermia-improved s/p hypothermia 7. Ongoing tobacco usage. 8. Leukocytosis. 9. Mild anemia. 10. Increased liver function tests. 11.Renal insufficiency-improved Recc: -Tele -serial ecg;'s -Continue current BB/oral nitrates -Continue asa/brilinta/statin -Follow MS closely -Smoking cessation Problems: Consultation Date/Type/Reason Admit Date/Time Mar 24, 2016 at 17:54 Initial Consult Date 03/25/2016 Type of Consultation: Cardiology Reason for Consultation cardiac arresst Referring Provider: DELMY OLIVER Exam/Review of Systems Vital Signs Vitals Vital Signs Date Time Temp Pulse Resp B/P Pulse Ox O2 Delivery O2 Flow Rate FiO2 04/01/16 12:27 72 04/01/16 11:21 98.7 20 125/62 91 04/01/16 07:55 2.0 03/31/16 16:25 28 03/31/16 07:45 Nasal Cannula Intake and Output 03/31/16 03/31/16 04/01/16 15:00 23:00 07:00 Intake Total 480 ml 300 ml Balance 480 ml 300 ml Exam Review of Systems: CONSTITUTIONAL: No fevers, chills. PULMONARY: No sob CARDIOVASCULAR: No chest pain/palpitations GASTROINTESTINAL: No nausea/vomiting. GENITOURINARY: No hematuria/dysuria. MUSCULOSKELETAL: No myagias/arthalgias. PSYCHIATRIC: The patient denies depression. NEUROLOGIC: no focal deficits Constitutional: alert, oriented Psych: no complaints Head: normocephalic ENMT: mucosa pink and moist Neck: jvd, supple Respiratory: diminished breath sounds Cardiovascular: regular rate and rhythm Gastrointestinal: non-tender, soft Musculoskeletal: muscle tone Extremities: normal pulses Neurological: other (No focal deficits) Results Result Diagram: 03/31/16 0920 03/31/16 0920 Results 24 hrs Laboratory Tests Test 03/31/16 18:49 03/31/16 23:58 04/01/16 06:36 04/01/16 11:46 Bedside Glucose 105 120 139 116 Medications Medications Current Medications Ondansetron HCl (Zofran Inj) 4 mg Q6H PRN IV NAUSEA AND/OR VOMITING; Start 01/28 at 04:00 Nitroglycerin (Nitroglycerin (Sl Tab) 0.4 Mg) 1 tab Q5M PRN SL CHEST PAIN; Start 03/24/16 at 04:00 Bisacodyl (Dulcolax) 5 mg DAILY PRN PO CONSTIPATION; Start 03/24/16 at 04:00 Pantoprazole (Protonix Iv) 40 mg DAILY@06 IV Last administered on 04/01/16 06: 28; Admin Dose 40 MG; Start 03/24/16 at 06:00 Acetaminophen (Tylenol Liquid) 650 mg Q4H PRN PO TEMP > 37C; Start 03/24/16 at 04:00 Acetaminophen (Tylenol Liquid) 500 mg Q6H PO ; Start 03/25/16 at 04:00; Status Future Hold Atorvastatin Calcium (Lipitor) 40 mg QHS PO Last administered on 03/31/16 21: 19; Admin Dose 40 MG; Start 03/24/16 at 21:00 Diagnostic Test (Pha) (Accucheck) 1 ea 02 XX ; Start 03/27/16 at 02:00 Ticagrelor (Brilinta) 90 mg BID PO Last administered on 04/01/16 09:36; Admin Dose 90 MG; Start 03/26/16 at 21:00 Insulin Aspart (Novolog Insulin Pen) NOVOLOG *MILD* ALGORI... Q6 SC ; Start at 00:00 Aspirin (Aspirin) 81 mg DAILY NGT Last administered on 04/01/16 09:22; Admin Dose 81 MG; Start 03/28/16 at 09:00 Miscellaneous Information 1 ea NOTE XX ; Start 03/28/16 at 12:00 Glucose (Glutose) 15 gm Q15M PRN PO DECREASED GLUCOSE; Start 03/28/16 at 12:00 Glucose (Glutose) 22.5 gm Q15M PRN PO DECREASED GLUCOSE; Start 03/28/16 at 12: 00 Dextrose (D50w Syringe) 25 ml Q15M PRN IV DECREASED GLUCOSE; Start 03/28/16 at 12:00 Dextrose (D50w Syringe) 50 ml Q15M PRN IV DECREASED GLUCOSE; Start 03/28/16 at 12:00 Glucagon (Glucagen) 1 mg Q15M PRN IM DECREASED GLUCOSE; Start 03/28/16 at 12:00 Glucose (Glutose) 15 gm Q15M PRN BUCCAL DECREASED GLUCOSE; Start 03/28/16 at 12 :00 Morphine Sulfate (morphine) 2 mg Q3H PRN IV PAIN LEVEL 7-10 Last administered on 03/29/16 18:14; Admin Dose 2 MG; Start 03/28/16 at 21:00 Acetaminophen/ Hydrocodone Bitart ([place] (5/325)) 1 tab Q6H PRN PO PAIN LEVEL 1 -5 Last administered on 04/01/16 09:20; Admin Dose 1 TAB; Start 03/29/16 at 10: 00 Acetaminophen/ Hydrocodone Bitart ([place] (5/325)) 2 tab Q6H PRN PO PAIN LEVEL 6 -10 Last administered on 03/29/16 20:03; Admin Dose 2 TAB; Start 03/29/16 at 10 :00 Furosemide (Lasix) 40 mg DAILY IV Last administered on 04/01/16 09:21; Admin Dose 40 MG; Start 03/30/16 at 09:00 Metoprolol Tartrate (Lopressor) 25 mg BID PO Last administered on 04/01/16 09: 39; Admin Dose 25 MG; Start 03/29/16 at 21:00 Nicotine (Nicoderm 21 Mg/ 24hr) 1 patch DAILY TRANSDERM Last administered on 09:25; Admin Dose 1 PATCH; Start 03/30/16 at 11:00 Salmeterol Xinafoate/ Fluticasone (Advair 250/50 Diskus) 1 inh BID INH Last administered on 04/01/16 09:39; Admin Dose 1 INH; Start 03/30/16 at 21:00 Levofloxacin (Levaquin) 500 mg DAILY@06 NGT Last administered on 04/01/16 06: 28; Admin Dose 500 MG; Start 03/31/16 at 06:00 Isosorbide Mononitrate (Imdur) 30 mg DAILY PO Last administered on 04/01/16t 09 :22; Admin Dose 30 MG; Start 03/31/16 at 12:00 LEROY GARCIA Apr 01, 2016 13:05
--- NOTE | 2016-04-01 14:23 | PN ---
DATE: 04/01/2016 SUBJECTIVE: The patient remains stable this morning. No new events. PHYSICAL EXAMINATION: VITAL SIGNS: Temperature 98, pulse 81, blood pressure 125/62, O2 sat 91% on 2 L nasal cannula. NECK: Supple. No JVD or lymphadenopathy. CARDIAC: S1, S2, no added sounds or murmurs. CHEST: Diminished air entry bilaterally. ABDOMEN: Soft, nontender. No guarding or rebound. EXTREMITIES: No cyanosis, clubbing. NEUROLOGIC: Grossly intact. No focal deficits. LABORATORY DATA: White count and chemistry pending at the time of this dictation. IMPRESSION AND PLAN: 1. Status post cardiopulmonary arrest. 2. Status post hypothermia protocol. 3. Coronary artery disease, status post stent placement in right coronary artery. 4. Possible underlying obstructive sleep apnea. Patient will need: 1. Continue incentive spirometry. 2. Supplemental O2. 3. Physical therapy and ambulation. 4. Cardiac recommendations including continuing Brilinta. 5. Continue blood pressure management. 6. DVT and GI prophylaxis. Dictated By: ASHISH CRUZ/AMBER Conf#: [id number] DID#: [id number]
[2016-04-01 15:08] LABS: CK-MB 0.51 ng/ml (0.0-2.4)
[2016-04-01 15:12] LABS: TROPONIN-I 7.07 ng/ml (0.00-0.12)
--- NOTE | 2016-04-01 17:03 | PDOCDIS ---
Discharge Instructions CONDITION Patient Condition: Stable HOME CARE INSTRUCTIONS: Special Diet: Soft, thinned liquids, Cardiac ACTIVITY: Activity Restrictions: Slowly Increase Activity FOLLOW UP/APPOINTMENTS Appointments Please take your medications as prescribed, and see your doctor in the clinic in 1 week. SUNDEEP GARZA Apr 01, 2016 17:03
[2016-04-01] MEDS ORDERED: LEVO500T72 NGT (17:06)
[2016-04-01] MEDS ORDERED: NICO1PAT6 TRANSDERM (17:06)
[2016-04-01] MEDS ORDERED: TICA90TA PO (17:06)
[2016-04-01] MEDS ORDERED: FURO20TA3 PO (17:06)
[2016-04-01] MEDS ORDERED: ASP81 NGT (17:06)
[2016-04-01] MEDS ORDERED: NIT4 SL (17:06)
[2016-04-01] MEDS ORDERED: ISOS30TA5 PO (17:06)
[2016-04-01] MEDS ORDERED: METO-448 PO (17:06)
--- NOTE | 2016-04-01 18:26 | DS ---
DATE OF ADMISSION: 03/24/2016 DATE OF DISCHARGE: 04/01/2016 HOSPITAL COURSE: This is a 60-year-old male originally admitted on 03/24/2016 and being discharged home on 04/01/2016. The patient came in with a V. fib arrest. He was shocked twice and CPR was ini tiated for ACLS protocol. The patient was given amiodarone with lidocaine. He was initially admitt ed to ICU and intubated. He was found ____ ventilator dependent respiratory failure with acidosis a s well. He was seen by multiple specialists during this hospital stay including cardiology team, pu lmonary team, speech therapy, physical therapy teams. The patient was eventually extubated after go ing successful bronchoscopy and lavage. He was placed on antibiotics as well for presumed upper res piratory infection. The patient was found with non-ST elevation FL as well and given initial EKG fi ndings and he underwent a left heart catheterization on 03/26/2106 and there was a blockage in the R CA, a significant blockage that was stented by cardiology team. He was placed on aspirin and Brilin ta as well. Afterwards, the patient was extubated. He was eventually transferred out of ICU. He w as counseled on smoking cessation and placed on nicotine patch. He slowly recovered and worked with physical therapy and speech therapy. His heart rate and blood pressures were monitored very carefu lly. His troponins were trended, they were still elevated but trending down by the time of discharg e. His pain symptoms improved. He was able to ambulate and tolerate a p.o. diet. His antibiotics were switched to p.o., and after being cleared by cardiology team and pulmonary team, he will be dis charged home today in improved condition. DISCHARGE MEDICATIONS: He will be sent with the following medications: 1. Aspirin 81 mg daily. 2. Lasix 20 mg daily. 3. Imdur 30 mg daily. 4. Levaquin 500 mg daily for 5 days. 5. Metoprolol 25 mg b.i.d. 6. Nicotine patch 21 mg transdermal daily. 7. Nitroglycerin 0.4 mg sublingual every 5 minutes p.r.n. 8. Brilinta 90 mg b.i.d. 9. He will continue Symbicort 160/4.5 two puffs inhaled b.i.d. 10. Voltaren 100 mg gel topical. 11. Cymbalta 60 mg daily. 12. Avodart 0.5 mg daily. 13. Nexium 40 mg daily. 14. Gabapentin 300 mg at bedtime. 15. Creon DR 24,000 one capsule with meals. 16. Spiriva 18 mcg inhaled. He will need to follow up with cardiology team in the next 2 to 3 weeks. FINAL DIAGNOSES: 1. Ventricular fibrillation cardiac arrest with findings of [id number] myocardial infarction, status post left heart catheterization with coronary artery disease and RCA blockage, status post s tent. 2. Acute respiratory failure with collapsed right upper lobe, status post successful bronchoscopy a nd lavage, now extubated and improving on antibiotics. 3. Essential hypertension. 4. Hyperglycemia secondary to steroids, now improved. 5. Depression, on home medications. 6. Chronic tobacco use and chronic obstructive pulmonary disease, counseled on smoking cessation. On nicotine patch. 7. Acute kidney injury secondary to acute tubular necrosis, now resolved. 8. Benign prostatic hypertrophy. 9. ____ cholesterol ____. 10. Transaminitis, resolving. 11. Rhabdomyolysis, resolved. 12. Urinary tract infection, status post treatment with antibiotics. 13. Gram-positive rods, 1 out of 2 bottles positive ____ blood cultures, status post treatment with antibiotics. No fevers. 14. He will go home with a front-wheeled walker and home health PT as well. 15. History of gastroesophageal reflux disease. 16. Arthritis. Time spent discharging patient 50 minutes. Dictated By: SUNEDEP REDDY Conf#: [id number] DID#: [id number]
[2016-04-02] MEDS ORDERED: INFLUENZA VIRUS VACCINE 0.5 ML (DISPENSING) IM* ONE (09:00)
== END 2016-04-01 18:30 | disposition home health service (06) | DRG 246 ==
LOC: E/R 02:36 → ICU 17:54 → TEL 03-30 18:22
PROVIDERS: ADMIT Student in an Organized Health Care Education/Training Program; ATTEND Student in an Organized Health Care Education/Training Program
PROC: 0BH17EZ Insertion of Endotracheal Airway into Trachea, Via Natural or Artificial Opening (ICD-10-PCS; 2016-03-24)
PROC: 5A1955Z Respiratory Ventilation, Greater than 96 Consecutive Hours (ICD-10-PCS; 2016-03-24)
PROC: 4A023N7 Measurement of Cardiac Sampling and Pressure, Left Heart, Percutaneous Approach (ICD-10-PCS; 2016-03-26)
PROC: B2011ZZ Plain Radiography of Multiple Coronary Arteries using Low Osmolar Contrast (ICD-10-PCS; 2016-03-26)
PROC: 027034Z Dilation of Coronary Artery, One Artery with Drug-eluting Intraluminal Device, Percutaneous Approach (ICD-10-PCS; principal; 2016-03-26 13:30)
DX: I21.4 Non-ST elevation (NSTEMI) myocardial infarction (principal); I49.01 Ventricular fibrillation; J96.00 Acute respiratory failure, unspecified whether with hypoxia or hypercapnia; K72.00 Acute and subacute hepatic failure without coma; J69.0 Pneumonitis due to inhalation of food and vomit; G93.40 Encephalopathy, unspecified; Z99.11 Dependence on respirator [ventilator] status; M62.82 Rhabdomyolysis; N17.9 Acute kidney failure, unspecified; N39.0 Urinary tract infection, site not specified; J98.11 Atelectasis; Z72.0 Tobacco use; I10 Essential (primary) hypertension; E78.5 Hyperlipidemia, unspecified; M19.90 Unspecified osteoarthritis, unspecified site; F32.9 Major depressive disorder, single episode, unspecified; K21.9 Gastro-esophageal reflux disease without esophagitis; R00.1 Bradycardia, unspecified; R68.0 Hypothermia, not associated with low environmental temperature; R73.9 Hyperglycemia, unspecified; J44.9 Chronic obstructive pulmonary disease, unspecified; N40.0 Benign prostatic hyperplasia without lower urinary tract symptoms; I25.10 Atherosclerotic heart disease of native coronary artery without angina pectoris; G47.33 Obstructive sleep apnea (adult) (pediatric)
CPT/HCPCS: 31500; 36415; 36600; 70450; 71010; 74000; 80048; 80053; 80061; 80076; 81001; 81003; 82150; 82550; 82553; 82803; 82962; 83036; 83690; 83735; 84100; 84132; 84439; 84443; 84484; 85025; 85335; 85384; 85610; 85730; 87040; 87081; 92526; 92610; 92950; 93005; 93306; 93458; 94002; 94003; 94640; 94644; 94660; 94664; 94770; 96374; 96375; 96376; 97116; 97163; 97530; J2001; C1725; C1769; C1874; C1887; C9113; C9600; J0282; J0330; J0360; J0583; J1170; J1644; J1650; J1815; J1940; J1956; J2060; J2270; J3010; J3475; J3480; J7030; J7040; Q9967

== ENCOUNTER 2016-04-08 23:08 | Inpatient (IN) | payer MEDICARE, OTHER ==
[~2016-04-08] VITALS: Ht 170.2 cm; Wt 77.0 kg
[~2016-04-08 23:08] MED LIST changes: +ASPI81TA3 NGT; -BACTDS PO; +BUDE6HFA INHALATION; +DUTA0.5C PO; +FURO20TA3 PO; +GABA300C16 PO; +ISOS30TA5 PO; +LEVO500T72 NGT; +LIPA1CAP6 PO; +METO-448 PO; +NICO1PAT6 TRANSDERM; +NIT4 SL; -ROSU20TA PO; -SSD1C20 TOP; -TELM40TA2 PO; +TICA90TA PO
[2016-04-08] MEDS ORDERED: ASPIRIN 81 MG TAB PO STA (23:14)
[2016-04-08 23:56] LABS: BASOPHILS % 0.2 % (0.0-2.0); HEMATOCRIT 23.2 % (42.0-52.0); HEMOGLOBIN 7.6 g/dl (14.0-18.0); LYMPHOCYTES # 2.2 10^3/ul (0.8-2.9); LYMPHOCYTES % 13.8 % (15.0-51.0); MEAN CORPUSCULAR HGB CONC 32.9 g/dl (32.0-37.0); MEAN PLATELET VOLUME 8.2 fl (7.4-10.4); MONOCYTE # 1.3 10^3/ul (0.3-0.9); MONOCYTES % 8.3 % (0.0-11.0); NEUTROPHIL # 12.2 10^3/ul (1.6-7.5); NEUTROPHILS % 77.7 % (39.0-77.0); PLATELET COUNT 860 10^3/UL (140-440); RED BLOOD COUNT 2.63 10^6/ul (4.70-6.10); RED CELL DISTRIBUTION WIDTH 14.6 % (11.5-14.5); UNCORRECTED WBC 15.7 10^3/ul (4.8-10.8); WHITE BLOOD COUNT 15.7 10^3/ul (4.8-10.8)
[2016-04-09] VITALS (21 sets, daily range): BP systolic 95–119; BP diastolic 52–86; PULSE 60–95; RESP 16–24; Ht 170.2 cm; Wt 77.0 kg
[2016-04-09] MEDS ORDERED: morphine 2 MG INJ IV ONE
[2016-04-09 00:06] LABS: POTASSIUM 3.1 mmol/L (3.5-5.1)
[2016-04-09 00:07] LABS: INR 1.31; PROTIME 16.4 Sec (12.2-14.2); PT RATIO 1.3
[2016-04-09 00:09] LABS: CALCIUM 8.9 mg/dl (8.4-10.2); CREATININE 1.88 mg/dl (0.61-1.24)
[2016-04-09 00:15] LABS: CONDITION 1; LH ANALYZER COMMENTS 1
[2016-04-09 00:23] LABS: TROPONIN-I 0.883 ng/ml (0.00-0.12)
[2016-04-09] MEDS ORDERED: POTASSIUM CHLORIDE 250 ML IVPB ONE ×2 (00:30→12:00)
[2016-04-09] MEDS ORDERED: HEPARIN 25000 UNITS/250 ML 250 ML IV STA (00:31)
[2016-04-09] MEDS ORDERED: SOD CHLORIDE 0.9% 1,000 ML IV SCH (00:34)
--- NOTE | 2016-04-09 00:37 | RADRPT ---
PROCEDURE: CHEST - 1 VIEW CLINICAL INDICATION: 60-year-old male with chest pain. TECHNIQUE: A single frontal supine view of the chest was performed portably. The images were revi ewed on a PACS workstation. COMPARISON: Chest x-ray March 28, 2016. FINDINGS: There is a short intravenous line within the left external jugular vein region. The cardiomediastin al silhouette is enlarged but without significant interval change. There is mild linear subsegmental atelectasis within the left mid lung zone. There is no evidence for an infiltrate. There is no marisol dence for congestive heart failure. There is no evidence for pneumothorax. The osseous structures ar e intact. IMPRESSION: 1. Cardiomegaly. 2. Mild linear subsegmental atelectasis left mid lung zone. .Corey Bonilla MD, Date Time Electronically viewed and signed by .Corey Bonilla MD, on 04/09/2016 00:37 .M/
[2016-04-09] MEDS ORDERED: SOD CHLORIDE 0.9% 250 ML IV ONE (00:42)
--- NOTE | 2016-04-09 00:42 | ERA ---
ER Documentation Chief Complaint Date/Time DATE: 04/09/16 TIME: 00:36 Chief Complaint CP HPI This is a 60-year-old male who presents to the emergency room after being brought in by ambulance for evaluation of chest pain. EMS did call and state that this patient's EKG shows possible ST elevation OR. This patient is stating that he is having chest pain in the center of his chest which is a sharp pain no radiation. Pain was improved with nitroglycerin. The patient was brought in for evaluation and has no other complaints at this time. This patient was in the hospital on March 24 for cardiac arrest and did have a stent placed. ROS All systems reviewed and are negative except as per history of present illness. Medications Home Meds Active Scripts Furosemide* (Furosemide*) 20 Mg Tablet, 20 MG PO DAILY, #30 TAB 4 Refills Prov:SUNDEEP GARZA S. 04/01/16 Levofloxacin* (Levaquin*) 500 Mg Tablet, 500 MG NGT DAILY@06 for 5 Days, #5 TAB Prov:SUNDEEP GARZA S. 04/01/16 Ticagrelor* (Brilinta*) 90 Mg Tablet, 90 MG PO BID, #60 TAB 8 Refills Prov:SUNDEEP GARZA S. 04/01/16 Nitroglycerin* (Nitrostat*) 0.4 Mg Tab.subl, 1 TAB SL Q5M Y for CHEST PAIN, #14 2 Refills Prov:SUNDEEP GARZA S. 04/01/16 Nicotine* (Nicotine* Patch) 21 mg/day Patch, 1 PATCH TRANSDERM DAILY, #30 4 Refills Prov:SUNDEEP GARZA S. 04/01/16 Metoprolol Tartrate* (Lopressor*) 25 Mg Tab, 25 MG PO BID, #60 TAB 4 Refills Prov:SUNDEEP GARZA S. 04/01/16 Isosorbide Mononitrate* (Isosorbide Mononitrate*) 30 Mg Tab.er.24h, 30 MG PO DAILY, #30 4 Refills Prov:SUNDEEP GARZA S. 04/01/16 Aspirin (Aspirin) 81 Mg Chew, 81 MG NGT DAILY for 30 Days, #30 TAB 7 Refills Prov:SUNDEEP GARZA S. 04/01/16 Reported Medications Gabapentin* (Gabapentin*) 300 Mg Capsule, 300 MG PO QHS, #60 CAP 03/24/16 Budesonide-Formoterol Fumarate* (Symbicort*) 160-4.5 Hfa.aer.ad, 2 PUFF INHALATION BID, #1 EACH 03/24/16 Emkaoe-Zfedoexi-Ewakrwu* (Dangelo HARO* 24,000) 24,000 L-76,000-120,000 Unit Capsule.dr, 1 CAP PO WITH MEALS, CAP 03/24/16 Dutasteride* (Avodart*) 0.5 Mg Capsule, 0.5 MG PO DAILY, CAP 03/24/16 Diclofenac Sodium (Voltaren) 100 Gm Gel..gm., 100 GM TP 04/29/11 Duloxetine Hcl* (Cymbalta*) 60 Mg Capsule.dr, 60 MG PO 04/29/11 Esomeprazole Mag Trihydrate (Nexium) 40 Mg Capsule.dr, 40 MG PO 04/29/11 Tiotropium [place]* (Spiriva*) 18 Mcg Cap.w.dev, 18 MCG IH 04/29/11 Allergies Allergies: Coded Allergies: No Known Allergy (Unverified , 03/24/16) PMhx/Soc History of Surgery: Yes (stent placed) Hx Neurological Disorder: No Hx Respiratory Disorders: No Hx Cardiac Disorders: Yes Hx Psychiatric Problems: No Hx Miscellaneous Medical Probl: Yes (htn, hyperlipidemia, ) Hx Alcohol Use: Yes Hx Substance Use: No Hx Tobacco Use: Yes Smoking Status: Current every day smoker Physical Exam Vitals Vital Signs Date Time Temp Pulse Resp B/P Pulse Ox O2 Delivery O2 Flow Rate FiO2 04/08/16 23:59 77 20 110/76 99 Room Air 04/08/16 23:21 98.5 78 17 101/73 100 04/08/16 23:20 Nasal Cannula 2 Physical Exam INITIAL VITAL SIGNS: Reviewed by me GENERAL: The patient is well developed and appropriate for usual state of health in no apparent distress HEENT: Pupils equal, round, and reactive to light. EOMI. There is no scleral icterus. NECK: C-spine is soft and supple, there is no meningismus. There is no cervical lymphadenopathy. LUNGS: Clear to auscultation bilaterally. There are no rales, wheezes or rhonchi. HEART: Regular rate and rhythm, no murmurs, clicks, rubs or gallops. ABDOMEN: Soft, non-tender, non-distended. There are bowel sounds in all four quadrants. No rebound or guarding. EXTREMITIES: There is no peripheral cyanosis or edema. No focal swelling or erythema. NEUROLOGICAL: The patient moves all four extremities with 5/5 strength. Cranial nerves II - XII are intact. Normal gait. Alert and oriented SKIN: There is no apparent rash or petechiae. HEME/LYMPHATIC: There is no evidence of excessive bruising or lymphedema. PSYCHIATRIC: The patient does not appear anxious or depressed. Result Diagram: 04/08/16233504/08/162335 Results 24 hrs Laboratory Tests Test 04/08/16 23:36 Activated Partial Thromboplast Time 44.0Sec Anion Gap 17 Basophils # 0.010^3/ul Basophils % 0.2% Blood Morphology Comment Blood Urea Nitrogen 43mg/dl Calcium Level 8.9mg/dl Carbon Dioxide Level 29mmol/L Chloride Level 95mmol/L Creatinine 1.88mg/dl Eosinophils # 0.010^3/ul Eosinophils % 0.0% Glucose Level 115mg/dl Hematocrit 23.2% Hemoglobin 7.6g/dl INR International Normalized Ratio 1.31 Lymphocytes # 2.210^3/ul Lymphocytes % 13.8% Mean Corpuscular Hemoglobin 29.0pg Mean Corpuscular Hemoglobin Concent 32.9g/dl Mean Corpuscular Volume 88.0fl Mean Platelet Volume 8.2fl Monocytes # 1.310^3/ul Monocytes % 8.3% Neutrophils # 12.210^3/ul Neutrophils % 77.7% Nucleated Red Blood Cells # 0.010^3/ul Nucleated Red Blood Cells % 0.0/100WBC Platelet Count 62383^3/UL Potassium Level 3.1mmol/L Prothrombin Time 16.4Sec Prothrombin Time Ratio 1.3 Red Blood Count 2.6310^6/ul Red Cell Distribution Width 14.6% Sodium Level 138mmol/L Troponin I 0.883ng/ml White Blood Count 15.710^3/ul Current Medications Medications (Trade) Dose Ordered Sig/Sudheer Route PRN Reason Start Time Stop Time Status Last Admin Dose Admin Aspirin (Aspirin) 162 mg ONCE STAT PO 04/08/16 23:14 04/08/16 23:15 DC 04/08/16 23:18 Morphine Sulfate 2 mg 2 mg ONCE ONCE IV 04/09/16 00:00 04/09/16 00:01 DC 04/08/16 23:42 Potassium Chloride 250 ml @ 62.5 mls/hr ONCE ONCE IVPB 04/09/16 00:30 04/09/16 04:29 Heparin Sodium (Porcine) 250 ml @ 0 mls/hr ONCE STAT IV 04/09/16 00:31 04/09/16 00:33 DC Sodium Chloride (NS) 1,000 ml @ 80 mls/hr [id number] IV 04/09/16 00:34 04/09/16 13:03 Ondansetron HCl (Zofran Inj) 4 mg ER BRIDGE PRN IV NAUSEA AND/OR VOMITING 04/09/16 01:00 04/10/16 00:59 Acetaminophen (Tylenol Tab) 650 mg ER BRIDGE PRN PO MILD PAIN/FEVER 04/09/16 01:00 04/10/16 00:59 Procedures/MDM EKG: #1 Rate/Rhythm: [Normal Sinus Rhythm] QRS, ST, T-waves: [No changes consistent w/ acute ischemia] Impression: [No evidence of ischemia or arrhythmia] EKG: #2 Rate/Rhythm: [Normal Sinus Rhythm] QRS, ST, T-waves: [No changes consistent w/ acute ischemia] Impression: [No evidence of ischemia or arrhythmia] Chest X-ray 1V Interpreted by me: Soft Tissue: No acute abnormalities Bones: No acute abnormalities Mediastinum/Cardiac Silhouette/Lungs: [No acute abnormalities] This 60-year-old male presents to the emergency room for evaluation of chest pain. This patient was recently in the hospital on March 24 for a cardiac arrest. He did have a stent placed. Out of hospital EKG showed possible ST elevation OR. I was unable to receive this EKG prior to EMS arrival. I did obtain EKG when the patient arrived and there is no signs of ST elevation. The patient was given full dose aspirin, and was given 2 mg of morphine. When I reevaluated him he states that his pain has completely resolved. He is in no acute distress. His blood pressure is 112/64, pulse oxygenation is 100% on 2 L. He is chest pain-free at this time. The patient's troponin was slightly elevated at 0.883. Second troponin does not show any evolving changes or acute ischemia. Given his recent cardiac arrest and recent stent placement I did start this patient on a heparin drip. His potassium was 3.1 and he also has potassium replenished with 40 mEq IV. This patient also has a hemoglobin of 7.6. Elevated troponin could be due to demand mismatch. The patient will be transfused 1 unit of PRBCs in the emergency room. This patient will be placed on the telemetry floor under the care of Dr. Bingham who is aware of this patient' s previous critical history. Critical Care: Time: 38 minutes Treatments/Evaluations: Close monitoring and treatment of unstable vital signs, cardiorespiratory, and neurologic status, while maintaining tight balance of fluid, respiratory, and cardiac interventions. Departure Diagnosis: Primary Impression: Non-ST elevation OR (NSTEMI) Additional Impressions: Normocytic anemia Hypokalemia Condition: Serious TAMIKO WOODS DO Apr 09, 2016 00:42
[2016-04-09] MEDS ORDERED: ONDANSETRON 4 MG INJ IV PRN ×2 (01:00→03:00)
[2016-04-09] MEDS ORDERED: ACETAMINOPHEN 325 MG TAB PO PRN ×2 (01:00→03:00)
[2016-04-09] MEDS ORDERED: ASPI81TA3 PO (02:46)
[2016-04-09] MEDS ORDERED: ROSU40TA35 PO (02:48)
[2016-04-09] MEDS ORDERED: OLME40TA14 PO (02:48)
[2016-04-09] MEDS ORDERED: HYDR-906 PO (02:48)
[2016-04-09] MEDS ORDERED: morphine 10 MG INJ IM PRN (03:00)
[2016-04-09 03:05] LABS: HEMATOCRIT 21.9 % (42.0-52.0); HEMOGLOBIN 7.2 g/dl (14.0-18.0); LYMPHOCYTES # 1.2 10^3/ul (0.8-2.9); MEAN CORPUSCULAR HEMOGLOBIN 28.8 pg (29.0-33.0); MEAN CORPUSCULAR HGB CONC 32.8 g/dl (32.0-37.0); MEAN CORPUSCULAR VOLUME 87.7 fl (82.0-101.0); MEAN PLATELET VOLUME 7.9 fl (7.4-10.4); MONOCYTE # 0.9 10^3/ul (0.3-0.9); MONOCYTES % 7.2 % (0.0-11.0); NEUTROPHILS % 83.8 % (39.0-77.0); PLATELET COUNT 757 10^3/UL (140-440); RED BLOOD COUNT 2.49 10^6/ul (4.70-6.10); RED CELL DISTRIBUTION WIDTH 14.6 % (11.5-14.5); UNCORRECTED WBC 13.1 10^3/ul (4.8-10.8); WHITE BLOOD COUNT 13.1 10^3/ul (4.8-10.8)
[2016-04-09 03:14] LABS: CONDITION 1; LH ANALYZER COMMENTS 1
[2016-04-09] MEDS ORDERED: HEPARIN 25000 UNITS/250 ML 250 ML IV SCH (03:30)
[2016-04-09] MEDS ORDERED: HEPARIN 1000 UNITS/ML 10 ML INJ IV PRN (03:30)
[2016-04-09 03:42] LABS: ALBUMIN 3.1 g/dl (3.3-4.9)
[2016-04-09 03:43] LABS: POTASSIUM 3.4 mmol/L (3.5-5.1)
[2016-04-09 03:45] LABS: CREATININE 1.43 mg/dl (0.61-1.24)
[2016-04-09 03:46] LABS: ALBUMIN/GLOBULIN RATIO 0.81; BILIRUBIN,INDIRECT 0.3 mg/dl (0-1.1); BILIRUBIN,TOTAL 0.3 mg/dl (0.2-1.3); CALCIUM 8.7 mg/dl (8.4-10.2); PHOSPHORUS 4.3 mg/dl (2.5-4.9); TOTAL PROTEIN 6.9 g/dl (6.1-8.1)
[2016-04-09 03:47] LABS: MAGNESIUM 2.2 mg/dl (1.7-2.5)
[2016-04-09 04:12] LABS: THYROID STIMULATING HORMONE 5.28 MIU/L (0.465-4.680)
[2016-04-09 04:19] LABS: IRON 18 ug/dl (35-150)
[2016-04-09 04:28] LABS: TOTAL IRON BINDING CAPACITY 243 ug/dl (241-421)
[2016-04-09 04:44] LABS: CK-MB 0.37 ng/ml (0.0-2.4); TROPONIN-I 0.796 ng/ml (0.00-0.12)
[2016-04-09] MEDS: FUROSEMIDE 20 MG TAB PO SCH (06:05)
--- NOTE | 2016-04-09 07:07 | HP ---
DATE OF ADMISSION: 04/09/2016 TIME SEEN: 4 a.m. CHIEF COMPLAINT: Chest pain. HISTORY OF PRESENT ILLNESS: The patient is a 60-year-old male with a history of coronary artery dis ease, status post percutaneous coronary intervention with stent placement to the proximal RCA 2 week s ago here by Dr. Stephens, history of hypertension, asthma, and V fib cardiac arrest, depression, dy slipidemia, arthritis, and GERD who presented to the emergency department with chest pain. Chest pa in is localized and in the mid chest with no radiation, and it is described as sharp. EMS EKG showe d possible ST elevation, but when he presented to the ER, EKG did not show ST elevation. The patien patricia was last admitted here 2 weeks ago after he had V fib cardiac arrest. At that time, he underwent a cardiac catheterization with PCI with placement of stent to proximal RCA. At that time, he did larson ve an elevated troponin of 3.7 on presentation, but had been documented to be as high as 48. At the time of discharge last week it was 7. Now on presentation, it was 0.88. The patient was started o n a heparin drip in the ER. The patient was not given nitroglycerin by EMS because they said he was hypotensive, but on arrival to the ER, blood pressure was 101/73 with a heart rate of 78, and did r eceive nitro of which helped the pain. As far as his laboratory results are concerned, he presented with a hemoglobin of 7.6 from 9.7 at the time of discharge, a week ago and from a hemoglobin of 13 on initial admission 2 weeks ago when he had a cardiac arrest. His creatinine is 1.88 from 0.8 last week, potassium 3.1, and a WBC of almost 16 from 10 last week. A chest x-ray showed cardiomegaly a nd a mild linear subsegmental atelectasis on the left mid lung zone. REVIEW OF SYSTEMS: Negative except as mentioned in the HPI. PAST MEDICAL HISTORY: As per HPI. PAST SURGICAL HISTORY: Cardiac stent placement and right ear surgery. ALLERGIES: NO KNOWN DRUG ALLERGIES. HOME MEDICATIONS: 1. Spiriva. 2. Brilinta. 3. Imdur 4. Lopressor. 5. Sublingual nitroglycerin. 6. Benicar. 7. Crestor. 8. Aspirin. 9. Cymbalta 10. Gabapentin. 11. Fountain. 12. Lasix. 13. Symbicort. 14. Nexium. PHYSICAL EXAMINATION: VITAL SIGNS: Stable. GENERAL: No acute distress, answering questions appropriately and able to speak in full sentences. HEENT: No obvious head deformity. Pupils are reactive to light. Extraocular muscles intact. CARDIOVASCULAR: Regular rate and rhythm with no extra sounds. LUNGS: Clear. ABDOMEN: Soft, nontender, nondistended. Positive bowel sounds. EXTREMITIES: No edema. NEUROLOGIC: No focal deficit. LABORATORY: Pertinent positives as mentioned in the HPI. IMAGING: Chest x-ray results as mentioned in the HPI. IMPRESSION: 1. Chest pain, need to rule out acute coronary syndrome. 2. Status post ventricular fibrillation cardiac arrest 2 weeks ago. 3. Coronary artery disease, status post stent to proximal RCA 2 weeks ago. 4. Acute kidney injury. 5. Anemia, need to evaluate for gastrointestinal bleed. 6. Leukocytosis, likely stress-induced. 7. Thrombocytosis, likely inflammatory reaction. 8. History of ?. 9. History of hypertension. 10. History of dyslipidemia. 11. History of depression. 12. History of gastroesophageal reflux disease. PLAN: Will continue telemetry monitoring. He will be continued with his home medication which incl udes Brilinta, beta jerica, MINH inhibitor, Lipitor, and nitrite. The patient was started on a hepa rin drip for elevated troponin, but noted it is residual from his recent coronary artery disease and cardiac arrest, and it is actually trending down. I will stop his heparin, especially given his si gnificant anemia with a 5 g drop in hemoglobin in 2 weeks. Will check FOBT and iron profile and amy l place a GI consult. We will also notify Dr. Stephens, the electronics department manager, who placed his recent sten t about the patient's admission. His leukocytosis and thrombocytosis are likely stress-induced/infl ammatory reaction. We will follow up closely for now. For his elevated creatinine, which is acute kidney injury, it could be prerenal from a possible gastrointestinal bleed. We will not transfuse b lood, and will expect improvement, but if not will place a nephrology consult and obtain a renal ult rasound. Avoid nephrotoxins and renally dose all medications. Further workup and management per clinical course. Dictated By: CHANDAN TINSLEY/AMBER Conf#: [id number] DID#: [id number]
[2016-04-09 08:27] LABS: CK-MB 0.46 ng/ml (0.0-2.4); TROPONIN-I 0.759 ng/ml (0.00-0.12)
[2016-04-09] MEDS: TIOTROPIUM 18 MCG CAPSULE INHA DEV INH SCH (08:37)
[2016-04-09] MEDS: ASPIRIN 81 MG TAB PO SCH (08:37)
[2016-04-09] MEDS: DULOXETINE 30 MG CAP DR PO SCH (08:37)
[2016-04-09] MEDS: LOSARTAN 50 MG TAB PO SCH (08:37)
[2016-04-09] MEDS: ISOSORBIDE MONONITRATE(SR)30 MG TAB PO SCH (08:38)
[2016-04-09] MEDS: METOPROLOL 25 MG TAB PO SCH ×2 (08:38→20:09)
[2016-04-09] MEDS: NICOTINE (21 MG/24 HR) PATCH TRANSDERM SCH (08:38)
[2016-04-09] MEDS ORDERED: FAMOTIDINE 20 MG INJ IV SCH (09:00)
[2016-04-09] MEDS: HYDROCODONE/APAP (5/325) TAB PO PRN ×2 (10:15→20:25)
--- NOTE | 2016-04-09 12:02 | CONS ---
DATE OF ADMISSION: 04/09/2016 DATE OF CONSULTATION: 04/09/2016 TYPE OF CONSULTATION: Cardiology. REFERRING PHYSICIAN: Dr. Tilley REASON FOR EVALUATION: Coronary artery disease, history of recent drug-eluting stenting, now is lik clarita GI bleeding. HISTORY OF PRESENT ILLNESS: Mr. Guillory is a 60-year-old gentleman with hypertension, dyslipidemia , previous history of coronary artery disease, history of drug-eluting stent to his RCA in March who comes to the hospital now for evaluation of weakness. The patient was noted to be anemic on presentation and I been asked to see the patient in consultation. The patient still appears to be fairly pale and weak. Per discussion with the patient's son, he had black tarry stools for the l ast few days. The patient was on dual anticoagulation therapy with aspirin and Brilinta. For now we are going to hold off on his aspirin and Brilinta given active bleed. The patient will be evaluate d by the wet pour mixer. Hopefully, I think the patient will benefit from evaluation for possibl e source of bleeding in the form of EGD versus colonoscopy. Will reinitiate discussion once the GI w orkup is complete. For now blood transfusion as planned. PAST MEDICAL HISTORY: 1. Hypertension. 2. Dyslipidemia. 3. History of ongoing tobacco use. 4. History of very recent drug-eluting stent on dual anticoagulation. ALLERGIES: NO KNOWN ALLERGIES. SOCIAL HISTORY: The patient uses tobacco. He does not drink, no intravenous use of drugs. FAMILY HISTORY: Negative for sudden cardiac , premature coronary artery disease. MEDICATIONS: The patient's medications include: 1. Gabapentin 300 mg p.o. daily. 2. Crestor 40 mg. 3. Aspirin 81 mg. 4. Cymbalta. 5. Imdur 30 mg per day. 6. Metoprolol tartrate 25 mg p.o. b.i.d. 7. Nicotine patch. 8. Losartan 100 mg p.o. once a day. 9. Famotidine. 10. Lasix 20 mg p.o. once a day. 11. Nitroglycerin. 12. Tylenol. REVIEW OF SYSTEMS: CONSTITUTIONAL: No fevers, no chills, weakness as described. HEENT: No changes in vision or hearing. CARDIAC: No chest pain reported now. RESPIRATORY: Shortness of breath. GASTROINTESTINAL: No nausea, vomiting, diarrhea, constipation. GENITOURINARY: No dysuria, hematuria urination. NEUROLOGIC: No focal neurologic deficits. PSYCHIATRIC: No known history of psychiatric illness. PHYSICAL EXAMINATION: VITAL SIGNS: Temperature is 97.6, heart rate 80, blood pressure /79. GENERAL: He is a pale-appearing gentleman in no acute distress, alert and oriented x3, aware of his condition. HEAD: Normocephalic, atraumatic. Eyes anicteric. NECK: Supple. JVD 6-7 cm. There is no lymphadenopathy or thyromegaly. HEART: Regular with soft holosystolic murmur at the apex. PMI is nondisplaced. I do not hear an S 3. LUNGS: Coarse at the bases. ABDOMEN: Distended, bowel sounds present. There is no hepatosplenomegaly. GENITOURINARY: Grossly intact. EXTREMITIES: Show no cyanosis, trace edema. SKIN: Does not show any . NEUROLOGICAL: He is able to move his extremities. LABORATORY DATA: Sodium 141, potassium 3.4, BUN 35, creatinine 1.43. Troponin 0.796, fairly stable with CK-MB normal. ASSESSMENT AND PLAN: 1. History of coronary artery disease. The patient has history of coronary artery disease, recent drug-eluting stent placed. Based on self-description the patient has been compliant with dual antipl atelet therapy. Now the patient with likely active GI bleed. Will hold his aspirin and Plavix now, awaiting GI evaluation and follow expectedly. Patient will have a GI evaluation as soon as possibl e. 2. Elevated troponin. The patient has mildly elevated troponins, possibly chronic CK-MB is not binh vated. No chest pain noted. We will follow expectantly. 3. Anemia. Hemoglobin is low. Continue to replace as indicated. 4. Diastolic dysfunction. The patient's diastolic dysfunction does not appear to be fluid overload now. Will monitor post-transfusion, will spot Lasix as necessary. 5. Chronic obstructive pulmonary disease. No wheezing noted. 6. History of hazardous tobacco use. DC tobacco advised. I would like to thank Dr. Tilley for referring this patient for my evaluation. Dictated By: KORIN KLEIN MD ML/NTS Conf#: [id number] DID#: [id number]
[2016-04-09] MEDS: SALMETEROL/FLUTICASONE 250/50 INHA INH SCH ×2 (12:49→20:09)
[2016-04-09] MEDS: SOD CHLORIDE 0.9% 1,000 ML IV SCH (12:51)
[2016-04-09] MEDS: SOD FERRIC GLUC COMPLX 125 MG in SOD CHLORIDE 0.9% 100 ML IVPB SCH (13:47)
[2016-04-09] MEDS ORDERED: PROPOFOL 20 ML ONE (17:45)
--- NOTE | 2016-04-09 18:06 | QN ---
Documentation Comment Spoke with patient's son this am about treatment plan and answered questions. Also spoke with Cardiology and GI. DELMY OLIVER. Apr 09, 2016 18:06
[2016-04-09 20:04] LABS: HEMATOCRIT 25.6 % (42.0-52.0); HEMOGLOBIN 8.5 g/dl (14.0-18.0)
[2016-04-09] MEDS: PANTOPRAZOLE 40 MG INJ IV SCH (20:07)
[2016-04-09] MEDS: NITROGLYCERIN (SL) 0.4 MG TAB SL PRN ×2 (20:07→20:14)
[2016-04-09] MEDS: GABAPENTIN 300 MG CAP PO SCH (20:09)
[2016-04-09] MEDS: SUCRALFATE (100 MG/ML) 10ML CUP PO SCH (20:09)
[2016-04-09] MEDS: ROSUVASTATIN CALCIUM 40 MG TABLET PO SCH (20:59)
[2016-04-09] MEDS: morphine 2 MG INJ IV PRN (21:12)
[2016-04-09] MEDS: TICAGRELOR 90 MG TABLET PO SCH (22:50)
[2016-04-10] VITALS (13 sets, daily range): BP systolic 90–109; BP diastolic 56–73; PULSE 63–85; RESP 16–20
[2016-04-10] MEDS: SOD CHLORIDE 0.9% 1,000 ML IV SCH ×2 (02:32→17:47)
[2016-04-10] MEDS: PANTOPRAZOLE 40 MG INJ IV SCH ×2 (05:59→17:46)
[2016-04-10] MEDS: FUROSEMIDE 20 MG TAB PO SCH (06:00)
[2016-04-10 07:07] LABS: BASOPHILS % 0.1 % (0.0-2.0); HEMATOCRIT 23.1 % (42.0-52.0); HEMATOCRIT 23.4 % (42.0-52.0); HEMOGLOBIN 7.9 g/dl (14.0-18.0); LYMPHOCYTES # 0.8 10^3/ul (0.8-2.9); LYMPHOCYTES % 6.4 % (15.0-51.0); MEAN CORPUSCULAR HEMOGLOBIN 29.4 pg (29.0-33.0); MEAN CORPUSCULAR HGB CONC 33.9 g/dl (32.0-37.0); MEAN CORPUSCULAR VOLUME 86.8 fl (82.0-101.0); MEAN PLATELET VOLUME 8.4 fl (7.4-10.4); MONOCYTES % 7.8 % (0.0-11.0); NEUTROPHIL # 10.6 10^3/ul (1.6-7.5); NEUTROPHILS % 85.7 % (39.0-77.0); PLATELET COUNT 755 10^3/UL (140-440); RED CELL DISTRIBUTION WIDTH 15.4 % (11.5-14.5); UNCORRECTED WBC 12.3 10^3/ul (4.8-10.8); WHITE BLOOD COUNT 12.3 10^3/ul (4.8-10.8)
[2016-04-10 07:15] LABS: POTASSIUM 5.6 mmol/L (3.5-5.1)
[2016-04-10 07:17] LABS: CREATININE 1.21 mg/dl (0.61-1.24)
[2016-04-10 07:18] LABS: CALCIUM 9.4 mg/dl (8.4-10.2); CONDITION 1; MAGNESIUM 2.1 mg/dl (1.7-2.5)
[2016-04-10 07:19] LABS: LH ANALYZER COMMENTS 1
[2016-04-10 07:31] LABS: CK-MB 0.34 ng/ml (0.0-2.4); TROPONIN-I 0.586 ng/ml (0.00-0.12)
[2016-04-10] MEDS: ISOSORBIDE MONONITRATE(SR)30 MG TAB PO SCH (09:00)
[2016-04-10] MEDS: LOSARTAN 50 MG TAB PO SCH (09:00)
[2016-04-10] MEDS: DULOXETINE 30 MG CAP DR PO SCH (09:47)
[2016-04-10] MEDS: ASPIRIN 81 MG TAB PO SCH (09:47)
[2016-04-10] MEDS: SUCRALFATE (100 MG/ML) 10ML CUP PO SCH ×4 (09:48→20:53)
[2016-04-10] MEDS: METOPROLOL 25 MG TAB PO SCH ×2 (09:48→20:53)
[2016-04-10] MEDS: NICOTINE (21 MG/24 HR) PATCH TRANSDERM SCH (09:49)
[2016-04-10] MEDS: TICAGRELOR 90 MG TABLET PO SCH ×2 (09:53→21:13)
--- NOTE | 2016-04-10 11:18 | CONS ---
Date/Time of Note Date/Time of Note DATE: 04/10/16 TIME: 11:15 Assessment/Plan Assessment/Plan Additional Assessment/Plan 1. History of coronary artery disease. The patient has history of coronary artery disease, recent drug-eluting stent placed - resume adual platelet anti- therapy now - pt had CP episodes last nigh 2. GIB - with erosive esophagitis - per GI, oK to restart dual anti=-platelet therpy. 3. Elevated troponin. The patient has mildly elevated troponins, possibly chronic CK-MB is not elevated. No chest pain noted. We will follow expectantly. 3. Anemia. Hemoglobin is low. Continue to replace as indicated.Blood tx to day. 4. Diastolic dysfunction. The patient's diastolic dysfunction does not appear to be fluid overload now. Will monitor post-transfusion, will spot Lasix as necessary. 5. Chronic obstructive pulmonary disease. No wheezing noted. 6. History of hazardous tobacco use. DC tobacco advised. Consultation Date/Type/Reason Admit Date/Time Apr 09, 2016 at 00:35 Initial Consult Date 24 HR Interval Summary Free Text/Dictation No acute change - feels better today. Rx anemia - back on dual antiplatelet regiment. ROS: No fever, no chills, no nausea, no vomiting, no diarrhea/constipation No recent weight changes No chest pain, no PND, no orthopnea No dizziness, blurred vision No thirst, no heat or cold intolerance Exam/Review of Systems Vital Signs Vitals Vital Signs Date Time Temp Pulse Resp B/P Pulse Ox O2 Delivery O2 Flow Rate FiO2 04/10/16 08:35 76 04/10/16 08:28 2.0 04/10/16 07:23 98.1 18 107/69 98 04/10/16 01:30 Nasal Cannula Intake and Output 04/09/16 04/09/16 04/10/16 15:00 23:00 07:00 Intake Total 570 ml 1645 ml Balance 570 ml 1645 ml Exam Geneal: WN/WD/NAD, AOx 3 HEENT: Unicetric/atraumatic/EOMI NECK: JVD elevated, no thyromegaly Lymph: no lymphadenopathy HEART: regular with no S3, II/ systolic murmur at apex LUNGS: Coarse sounds ABD: soft, NT, ND, +BS : Intact Neuro: non focal SKIN: chronic changes EXT: trace edema Results Result Diagram: 1/28/17 0600 04/10/16 0600 Results 24 hrs Laboratory Tests Test 04/09/16 17:48 04/10/16 06:00 Hematocrit 25.6 L 23.1 L Hemoglobin 8.5 L 7.9 L Anion Gap 18 H Basophils # 0.0 Basophils % 0.1 Blood Morphology Comment Blood Urea Nitrogen 32 H Calcium Level 9.4 Carbon Dioxide Level 26 Chloride Level 106 Creatine Kinase 33 Creatine Kinase Index 1.0 Creatinine 1.21 Creatinine Kinase MB (Mass) 0.34 Eosinophils # 0.0 Eosinophils % 0.0 Glucose Level 101 Lymphocytes # 0.8 Lymphocytes % 6.4 L Magnesium Level 2.1 Mean Corpuscular Hemoglobin 29.4 Mean Corpuscular Hemoglobin Concent 33.9 Mean Corpuscular Volume 86.8 Mean Platelet Volume 8.4 Monocytes # 1.0 H Monocytes % 7.8 Neutrophils # 10.6 H Neutrophils % 85.7 H Nucleated Red Blood Cells # 0.0 Nucleated Red Blood Cells % 0.0 Platelet Count 755 H Potassium Level 5.6 #H Red Blood Count 2.70 L Red Cell Distribution Width 15.4 H Sodium Level 144 Troponin I 0.586 *H White Blood Count 12.3 H Medications Medications Current Medications Aspirin (Aspirin) 81 mg DAILY PO Last administered on 04/10/16 09:47; Admin Dose 81 MG; Start 04/09/16 at 09:00 Duloxetine HCl (Cymbalta) 60 mg DAILY PO Last administered on 04/10/16 09:47; Admin Dose 60 MG; Start 04/09/16 at 09:00 Furosemide (Lasix) 20 mg DAILY@06 PO Last administered on 04/10/16 06:00; Admin Dose 20 MG; Start 04/09/16 at 06:00 Gabapentin (Neurontin) 300 mg QHS PO Last administered on 04/09/16 20:09; Admin Dose 300 MG; Start 04/09/16 at 21:00 Acetaminophen/ Hydrocodone Bitart ([place] (5/325)) 1 tab Q6H PRN PO PAIN Last administered on 04/09/16 20:25; Admin Dose 1 TAB; Start 04/09/16 at 03:00 Isosorbide Mononitrate (Imdur) 30 mg DAILY PO Last administered on 04/09/16 08 :38; Admin Dose 30 MG; Start 04/09/16 at 09:00 Metoprolol Tartrate (Lopressor) 25 mg BID PO Last administered on 04/10/16 09: 48; Admin Dose 25 MG; Start 04/09/16 at 09:00 Nicotine (Nicoderm 21 Mg/ 24hr) 1 patch DAILY TRANSDERM Last administered on 09:49; Admin Dose 1 PATCH; Start 04/09/16 at 09:00 Nitroglycerin (Nitroglycerin (Sl Tab) 0.4 Mg) 1 tab Q5M PRN SL CHEST PAIN Last administered on 04/09/16 20:14; Admin Dose 1 TAB; Start 04/09/16 at 03:00 Rosuvastatin Calcium (Crestor) 40 mg QHS PO Last administered on 04/09/16 20: 59; Admin Dose 40 MG; Start 04/09/16 at 21:00 Tiotropium [place] (Spiriva) 1 inh DAILY INH Last administered on 04/09/16 08: 37; Admin Dose 1 INH; Start 04/09/16 at 09:00 Salmeterol Xinafoate/ Fluticasone (Advair 250/50 Diskus) 1 inh BID INH Last administered on 04/09/16 20:09; Admin Dose 1 INH; Start 04/09/16 at 09:00 Losartan Potassium (Cozaar) 100 mg DAILY PO Last administered on 04/09/16 08: 37; Admin Dose 100 MG; Start 04/09/16 at 09:00 Ondansetron HCl (Zofran Inj) 4 mg Q6H PRN IV NAUSEA AND/OR VOMITING; Start at 03:00 Acetaminophen (Tylenol Tab) 650 mg Q6H PRN PO PAIN AND OR ELEVATED TEMP; Start 04/09/16 at 03:00 Pantoprazole 40 mg 40 mg BID@06,18 IV Last administered on 04/10/16 05:59; Admin Dose 40 MG; Start 04/09/16 at 18:00 Sodium Chloride 1,000 ml @ 75 mls/hr [id number] IV Last administered on 02:32; Admin Dose 75 MLS/HR; Start 04/09/16 at 12:00 Ferric Sodium Gluconate Complex/ Sodium Chloride (Ferrlecit/NS) 110 ml @ 110 mls/hr Q24H IVPB Last administered on 04/09/16 13:47; Admin Dose 110 MLS/HR; Start 04/09/16 at 13:00; Stop 04/13/16 at 13:59 Sucralfate (Carafate Susp) 1 gm QID PO Last administered on 04/10/16 09:48; Admin Dose 1 GM; Start 04/09/16 at 21:00 Morphine Sulfate (morphine) 2 mg Q4H PRN IV PAIN Last administered on 21:12; Admin Dose 2 MG; Start 04/09/16 at 21:30 Ticagrelor (Brilinta) 90 mg BID PO Last administered on 04/10/16 09:53; Admin Dose 90 MG; Start 04/09/16 at 22:00 KORIN KLEIN MD Apr 10, 2016 11:18
--- NOTE | 2016-04-10 11:22 | PN ---
Date/Time of Note Date/Time of Note DATE: 04/10/16 TIME: 11:14 Assessment/Plan VTE Prophylaxis VTE Prophylaxis Intervention: other (Antiplatelet therapy on hold) Lines/Catheters [facility] Saline Lock Urinary Cath still in place: No Assessment/Plan Assessment/Plan Assessment : * GI bleeding/melena/significant anemia * EGD 04/09/2016 Severe erosive esophagitis Moderate gastritis. Rule out H. pylori infection. Biopsied * Severe anemia * Coronary artery disease status post stent to proximal RCA 2 weeks ago * No contraindication to cautious antiplatelet therapy * History of cardiac arrest secondary to ventricular fibrillation 2 weeks ago * Hypertension * Dyslipidemia Plan: * Continue present regimen * Monitor H&H and transfuse as necessary * If response to transfusions is inadequate should consider colonoscopy prior to discharge * Alternatively elective colonoscopy in a few weeks Subjective 24 Hr Interval Summary Free Text/Dictation Course reviewed with nursing staff Patient appears comfortable, he expresses no abdominal pain Tolerating diet No evidence of overt gastrointestinal bleeding Endoscopic findings reviewed i.e. severe erosive esophagitis, gastritis Will continue to observe on monitor H&H He is receiving 1 unit of packed red cells today If he experiences any further drops we should consider colonoscopy if cleared by cardiology Alternatively elective colonoscopy in a few weeks should be considered Exam/Review of Systems Vital Signs Vitals Vital Signs Date Time Temp Pulse Resp B/P Pulse Ox O2 Delivery O2 Flow Rate FiO2 04/10/16 08:35 76 04/10/16 08:28 2.0 04/10/16 07:23 98.1 18 107/69 98 04/10/16 01:30 Nasal Cannula Intake and Output 04/09/16 04/09/16 04/10/16 15:00 23:00 07:00 Intake Total 570 ml 1645 ml Balance 570 ml 1645 ml Exam Constitutional: alert, oriented, well developed Psych: nl mood/affect, no complaints Head: atraumatic, normocephalic Eyes: EOMI, PERRL, nl conjunctiva, nl lids, nl sclera ENMT: nl external ears & nose, nl lips & teeth, nl nasal mucosa & septum Neck: non-tender, supple Respiratory: clear to auscultation, normal air movement Cardiovascular: nl pulses, regular rate and rhythm Gastrointestinal: nl liver, spleen, non-tender, soft Musculoskeletal: nl extremities to inspection Lymph: nl lymph nodes Results Result Diagram: 04/10/16 0600 04/10/16 0600 Results 24 hrs Laboratory Tests Test 04/09/16 17:48 04/10/16 06:00 Hematocrit 25.6 L 23.1 L Hemoglobin 8.5 L 7.9 L Anion Gap 18 H Basophils # 0.0 Basophils % 0.1 Blood Morphology Comment Blood Urea Nitrogen 32 H Calcium Level 9.4 Carbon Dioxide Level 26 Chloride Level 106 Creatine Kinase 33 Creatine Kinase Index 1.0 Creatinine 1.21 Creatinine Kinase MB (Mass) 0.34 Eosinophils # 0.0 Eosinophils % 0.0 Glucose Level 101 Lymphocytes # 0.8 Lymphocytes % 6.4 L Magnesium Level 2.1 Mean Corpuscular Hemoglobin 29.4 Mean Corpuscular Hemoglobin Concent 33.9 Mean Corpuscular Volume 86.8 Mean Platelet Volume 8.4 Monocytes # 1.0 H Monocytes % 7.8 Neutrophils # 10.6 H Neutrophils % 85.7 H Nucleated Red Blood Cells # 0.0 Nucleated Red Blood Cells % 0.0 Platelet Count 755 H Potassium Level 5.6 #H Red Blood Count 2.70 L Red Cell Distribution Width 15.4 H Sodium Level 144 Troponin I 0.586 *H White Blood Count 12.3 H Medications Medications Current Medications Aspirin (Aspirin) 81 mg DAILY PO Last administered on 04/10/16 09:47; Admin Dose 81 MG; Start 04/09/16 at 09:00 Duloxetine HCl (Cymbalta) 60 mg DAILY PO Last administered on 04/10/16 09:47; Admin Dose 60 MG; Start 04/09/16 at 09:00 Furosemide (Lasix) 20 mg DAILY@06 PO Last administered on 04/10/16 06:00; Admin Dose 20 MG; Start 04/09/16 at 06:00 Gabapentin (Neurontin) 300 mg QHS PO Last administered on 04/09/16 20:09; Admin Dose 300 MG; Start 04/09/16 at 21:00 Acetaminophen/ Hydrocodone Bitart ([place] (5/325)) 1 tab Q6H PRN PO PAIN Last administered on 04/09/16 20:25; Admin Dose 1 TAB; Start 04/09/16 at 03:00 Isosorbide Mononitrate (Imdur) 30 mg DAILY PO Last administered on 04/09/16 08 :38; Admin Dose 30 MG; Start 04/09/16 at 09:00 Metoprolol Tartrate (Lopressor) 25 mg BID PO Last administered on 04/10/16 09: 48; Admin Dose 25 MG; Start 04/09/16 at 09:00 Nicotine (Nicoderm 21 Mg/ 24hr) 1 patch DAILY TRANSDERM Last administered on 09:49; Admin Dose 1 PATCH; Start 04/09/16 at 09:00 Nitroglycerin (Nitroglycerin (Sl Tab) 0.4 Mg) 1 tab Q5M PRN SL CHEST PAIN Last administered on 04/09/16 20:14; Admin Dose 1 TAB; Start 04/09/16 at 03:00 Rosuvastatin Calcium (Crestor) 40 mg QHS PO Last administered on 04/09/16 20: 59; Admin Dose 40 MG; Start 04/09/16 at 21:00 Tiotropium [place] (Spiriva) 1 inh DAILY INH Last administered on 04/09/16 08: 37; Admin Dose 1 INH; Start 04/09/16 at 09:00 Salmeterol Xinafoate/ Fluticasone (Advair 250/50 Diskus) 1 inh BID INH Last administered on 04/09/16 20:09; Admin Dose 1 INH; Start 04/09/16 at 09:00 Losartan Potassium (Cozaar) 100 mg DAILY PO Last administered on 04/09/16 08: 37; Admin Dose 100 MG; Start 04/09/16 at 09:00 Ondansetron HCl (Zofran Inj) 4 mg Q6H PRN IV NAUSEA AND/OR VOMITING; Start at 03:00 Acetaminophen (Tylenol Tab) 650 mg Q6H PRN PO PAIN AND OR ELEVATED TEMP; Start 04/09/16 at 03:00 Pantoprazole 40 mg 40 mg BID@06,18 IV Last administered on 04/10/16 05:59; Admin Dose 40 MG; Start 04/09/16 at 18:00 Sodium Chloride 1,000 ml @ 75 mls/hr [id number] IV Last administered on 02:32; Admin Dose 75 MLS/HR; Start 04/09/16 at 12:00 Ferric Sodium Gluconate Complex/ Sodium Chloride (Ferrlecit/NS) 110 ml @ 110 mls/hr Q24H IVPB Last administered on 04/09/16 13:47; Admin Dose 110 MLS/HR; Start 04/09/16 at 13:00; Stop 04/13/16 at 13:59 Sucralfate (Carafate Susp) 1 gm QID PO Last administered on 04/10/16 09:48; Admin Dose 1 GM; Start 04/09/16 at 21:00 Morphine Sulfate (morphine) 2 mg Q4H PRN IV PAIN Last administered on 21:12; Admin Dose 2 MG; Start 04/09/16 at 21:30 Ticagrelor (Brilinta) 90 mg BID PO Last administered on 04/10/16 09:53; Admin Dose 90 MG; Start 04/09/16 at 22:00 RIOS CERVANTES MD Apr 10, 2016 11:22
--- NOTE | 2016-04-10 11:28 | PN ---
Date/Time of Note Date/Time of Note DATE: 04/10/16 TIME: 11:18 Assessment/Plan VTE Prophylaxis VTE Prophylaxis Intervention: SCD's VTE Contraindication Reason: bleeding Lines/Catheters IV Catheter Type (from Nrs): Saline Lock Urinary Cath still in place: No Assessment/Plan Assessment/Plan 60 yo M with GI bleed * EGD 04/09/16 showed Severe erosive esophagitis/ Moderate gastritis. * Rule out H. pylori infection. F/u biopsies NSTEMI versus Chronic troponin elevation Status post ventricular fibrillation cardiac arrest 2 weeks ago. Coronary artery disease, status post stent to proximal RCA 2 weeks ago. Acute kidney injury 2/2 anemia: resolved Iron deficiency + Hemorrhagic Anemia 2/2 gastrointestinal bleed with Brilinta Leukocytosis and Thrombocytosis, Stress-induced: improving Hypertension >Hypotension Dyslipidemia. Chronic Depression. COPD: stable w/out exacerbation Chronic Tobacco abuse Gastroesophageal reflux disease. PLAN: Continue Transfusion F/u cardiology recs; re: observation versus repeat Cath Adjust antihypertensives for a less tight control Continue ASA / Brilinta / Statin Continue Spiriva / Advair / PRN Duonebs Continue Iron supplementation Closely monitor hgb and transfuse PRN Patient may need colonoscopy if no adequate response to transfusion per GI Tobacco cessation counselling done and will continue to be reinforced throughout hospitalization. Continue telemetry monitoring and supportive care Prophylaxis: SCDs / PPI Subjective 24 Hr Interval Summary Free Text/Dictation Patient seen and examined. Getting transfused for hgb 7.9 Exam/Review of Systems Vital Signs Vitals Vital Signs Date Time Temp Pulse Resp B/P Pulse Ox O2 Delivery O2 Flow Rate FiO2 04/10/16 08:35 76 04/10/16 08:28 2.0 04/10/16 07:23 98.1 18 107/69 98 04/10/16 01:30 Nasal Cannula Intake and Output 04/09/16 04/09/16 04/10/16 15:00 23:00 07:00 Intake Total 570 ml 1645 ml Balance 570 ml 1645 ml Exam Constitutional: alert, oriented ENMT: mucosa pink and moist Neck: supple Respiratory: clear to auscultation Cardiovascular: regular rate and rhythm, No murmurs/extra sounds Gastrointestinal: bowel sounds, non-tender, soft Extremities: No edema Neurological: nl mental status Results Result Diagram: 04/10/16 0600 04/10/16 0600 Results 24 hrs Laboratory Tests Test 04/09/16 17:48 04/10/16 06:00 Hematocrit 25.6 L 23.1 L Hemoglobin 8.5 L 7.9 L Anion Gap 18 H Basophils # 0.0 Basophils % 0.1 Blood Morphology Comment Blood Urea Nitrogen 32 H Calcium Level 9.4 Carbon Dioxide Level 26 Chloride Level 106 Creatine Kinase 33 Creatine Kinase Index 1.0 Creatinine 1.21 Creatinine Kinase MB (Mass) 0.34 Eosinophils # 0.0 Eosinophils % 0.0 Glucose Level 101 Lymphocytes # 0.8 Lymphocytes % 6.4 L Magnesium Level 2.1 Mean Corpuscular Hemoglobin 29.4 Mean Corpuscular Hemoglobin Concent 33.9 Mean Corpuscular Volume 86.8 Mean Platelet Volume 8.4 Monocytes # 1.0 H Monocytes % 7.8 Neutrophils # 10.6 H Neutrophils % 85.7 H Nucleated Red Blood Cells # 0.0 Nucleated Red Blood Cells % 0.0 Platelet Count 755 H Potassium Level 5.6 #H Red Blood Count 2.70 L Red Cell Distribution Width 15.4 H Sodium Level 144 Troponin I 0.586 *H White Blood Count 12.3 H Medications Medications Current Medications Aspirin (Aspirin) 81 mg DAILY PO Last administered on 04/10/16 09:47; Admin Dose 81 MG; Start 04/09/16 at 09:00 Duloxetine HCl (Cymbalta) 60 mg DAILY PO Last administered on 04/10/16 09:47; Admin Dose 60 MG; Start 04/09/16 at 09:00 Furosemide (Lasix) 20 mg DAILY@06 PO Last administered on 04/10/16 06:00; Admin Dose 20 MG; Start 04/09/16 at 06:00 Gabapentin (Neurontin) 300 mg QHS PO Last administered on 04/09/16 20:09; Admin Dose 300 MG; Start 04/09/16 at 21:00 Acetaminophen/ Hydrocodone Bitart ([place] (5/325)) 1 tab Q6H PRN PO PAIN Last administered on 04/09/16 20:25; Admin Dose 1 TAB; Start 04/09/16 at 03:00 Isosorbide Mononitrate (Imdur) 30 mg DAILY PO Last administered on 04/09/16 08 :38; Admin Dose 30 MG; Start 04/09/16 at 09:00 Metoprolol Tartrate (Lopressor) 25 mg BID PO Last administered on 04/10/16 09: 48; Admin Dose 25 MG; Start 04/09/16 at 09:00 Nicotine (Nicoderm 21 Mg/ 24hr) 1 patch DAILY TRANSDERM Last administered on 09:49; Admin Dose 1 PATCH; Start 04/09/16 at 09:00 Nitroglycerin (Nitroglycerin (Sl Tab) 0.4 Mg) 1 tab Q5M PRN SL CHEST PAIN Last administered on 04/09/16 20:14; Admin Dose 1 TAB; Start 04/09/16 at 03:00 Rosuvastatin Calcium (Crestor) 40 mg QHS PO Last administered on 04/09/16 20: 59; Admin Dose 40 MG; Start 04/09/16 at 21:00 Tiotropium [place] (Spiriva) 1 inh DAILY INH Last administered on 04/09/16 08: 37; Admin Dose 1 INH; Start 04/09/16 at 09:00 Salmeterol Xinafoate/ Fluticasone (Advair 250/50 Diskus) 1 inh BID INH Last administered on 04/09/16 20:09; Admin Dose 1 INH; Start 04/09/16 at 09:00 Losartan Potassium (Cozaar) 100 mg DAILY PO Last administered on 04/09/16 08: 37; Admin Dose 100 MG; Start 04/09/16 at 09:00 Ondansetron HCl (Zofran Inj) 4 mg Q6H PRN IV NAUSEA AND/OR VOMITING; Start at 03:00 Acetaminophen (Tylenol Tab) 650 mg Q6H PRN PO PAIN AND OR ELEVATED TEMP; Start 04/09/16 at 03:00 Pantoprazole 40 mg 40 mg BID@06,18 IV Last administered on 04/10/16 05:59; Admin Dose 40 MG; Start 04/09/16 at 18:00 Sodium Chloride 1,000 ml @ 75 mls/hr [id number] IV Last administered on 02:32; Admin Dose 75 MLS/HR; Start 04/09/16 at 12:00 Ferric Sodium Gluconate Complex/ Sodium Chloride (Ferrlecit/NS) 110 ml @ 110 mls/hr Q24H IVPB Last administered on 04/09/16 13:47; Admin Dose 110 MLS/HR; Start 04/09/16 at 13:00; Stop 04/13/16 at 13:59 Sucralfate (Carafate Susp) 1 gm QID PO Last administered on 04/10/16 09:48; Admin Dose 1 GM; Start 04/09/16 at 21:00 Morphine Sulfate (morphine) 2 mg Q4H PRN IV PAIN Last administered on 21:12; Admin Dose 2 MG; Start 04/09/16 at 21:30 Ticagrelor (Brilinta) 90 mg BID PO Last administered on 04/10/16 09:53; Admin Dose 90 MG; Start 04/09/16 at 22:00 DELMY OLIVER Apr 10, 2016 11:28
[2016-04-10] MEDS: SALMETEROL/FLUTICASONE 250/50 INHA INH SCH ×2 (11:54→20:52)
--- NOTE | 2016-04-10 11:58 | CONS ---
Date/Time of Note Date/Time of Note DATE: 04/10/16 TIME: 11:50 Assessment/Plan Assessment/Plan Additional Assessment/Plan Assessment : * GI bleeding/melena/significant anemia * Severe anemia * Coronary artery disease status post stent to proximal RCA 2 weeks ago * No contraindication to cautious antiplatelet therapy * History of cardiac arrest secondary to ventricular fibrillation 2 weeks ago * Hypertension * Dyslipidemia Plan: * Urgent EGD, patient informed via translation by his son of procedure, including risks, benefits and alternatives. Agreeable to proceed * Further recommendation will depend on findings and clinical course Consultation Date/Type/Reason Admit Date/Time Apr 09, 2016 at 00:35 Date of Consultation: Apr 09, 2016 Reason for Consultation Severe anemia/GI bleeding/melena Hx of Present Illness 60-year-old male with significant cardiac history, he had cardiac arrest secondary to ventricular tachycardia, he was evaluated with coronary angiography and a right coronary stent was placed, the patient was treated with the antiplatelet regimen. He is now hospitalized after several days of melena, resulting exacerbation of chest pain which luckily has not resulted in any significant myocardial injury. The patient is significantly anemic, receiving blood transfusions. I am requested to assist in evaluating for obvious gastrointestinal bleeding. The patient is comfortable at the time of this examination, plan EGD was discussed with the patient's son who is fluent in [place] who in turn discussed it with the patient and his . I included risks, benefits and alternatives. They are agreeable to proceed. Constitutional: improved, no complaints Respiratory: no complaints Cardiovascular: chest pain Gastrointestinal: other (Melenic stool), No constipation, No diarrhea, No nausea, No pain, No vomiting Genitourinary: no complaints Musculoskeletal: no complaints Neurologic: no complaints Past Medical History Medical History: angina, coronary artery disease Past Surgical History Past Surgical Hx: no surgical history Family History Significant Family History: no pertinent family hx Social History Alcohol Use: rarely Smoking Status: Former smoker Drug Use: none Exam/Review of Systems Vital Signs Vitals Vital Signs Date Time Temp Pulse Resp B/P Pulse Ox O2 Delivery O2 Flow Rate FiO2 04/10/16 11:30 97.4 87 18 90/66 98 04/10/16 08:28 2.0 04/10/16 01:30 Nasal Cannula Intake and Output 04/09/16 04/09/16 04/10/16 15:00 23:00 07:00 Intake Total 570 ml 1645 ml Balance 570 ml 1645 ml Exam Constitutional: alert, oriented, well developed Psych: nl mood/affect, no complaints Head: atraumatic, normocephalic Neck: non-tender, supple Respiratory: clear to auscultation, normal air movement Cardiovascular: nl pulses, regular rate and rhythm Gastrointestinal: nl liver, spleen, non-tender, soft Musculoskeletal: nl extremities to inspection Extremities: normal pulses Skin: nl turgor, No rash or lesions Lymph: nl lymph nodes Results Result Diagram: 04/10/16 0600 04/10/16 0600 Results 24 hrs Laboratory Tests Test 04/09/16 17:48 04/10/16 06:00 Hematocrit 25.6 L 23.1 L Hemoglobin 8.5 L 7.9 L Anion Gap 18 H Basophils # 0.0 Basophils % 0.1 Blood Morphology Comment Blood Urea Nitrogen 32 H Calcium Level 9.4 Carbon Dioxide Level 26 Chloride Level 106 Creatine Kinase 33 Creatine Kinase Index 1.0 Creatinine 1.21 Creatinine Kinase MB (Mass) 0.34 Eosinophils # 0.0 Eosinophils % 0.0 Glucose Level 101 Lymphocytes # 0.8 Lymphocytes % 6.4 L Magnesium Level 2.1 Mean Corpuscular Hemoglobin 29.4 Mean Corpuscular Hemoglobin Concent 33.9 Mean Corpuscular Volume 86.8 Mean Platelet Volume 8.4 Monocytes # 1.0 H Monocytes % 7.8 Neutrophils # 10.6 H Neutrophils % 85.7 H Nucleated Red Blood Cells # 0.0 Nucleated Red Blood Cells % 0.0 Platelet Count 755 H Potassium Level 5.6 #H Red Blood Count 2.70 L Red Cell Distribution Width 15.4 H Sodium Level 144 Troponin I 0.586 *H White Blood Count 12.3 H Medications Medications Current Medications Aspirin (Aspirin) 81 mg DAILY PO Last administered on 04/10/16 09:47; Admin Dose 81 MG; Start 04/09/16 at 09:00 Duloxetine HCl (Cymbalta) 60 mg DAILY PO Last administered on 04/10/16 09:47; Admin Dose 60 MG; Start 04/09/16 at 09:00 Furosemide (Lasix) 20 mg DAILY@06 PO Last administered on 04/10/16 06:00; Admin Dose 20 MG; Start 04/09/16 at 06:00 Gabapentin (Neurontin) 300 mg QHS PO Last administered on 04/09/16 20:09; Admin Dose 300 MG; Start 04/09/16 at 21:00 Acetaminophen/ Hydrocodone Bitart ([place] (5/325)) 1 tab Q6H PRN PO PAIN Last administered on 04/09/16 20:25; Admin Dose 1 TAB; Start 04/09/16 at 03:00 Nicotine (Nicoderm 21 Mg/ 24hr) 1 patch DAILY TRANSDERM Last administered on 09:49; Admin Dose 1 PATCH; Start 04/09/16 at 09:00 Nitroglycerin (Nitroglycerin (Sl Tab) 0.4 Mg) 1 tab Q5M PRN SL CHEST PAIN Last administered on 04/09/16 20:14; Admin Dose 1 TAB; Start 04/09/16 at 03:00 Rosuvastatin Calcium (Crestor) 40 mg QHS PO Last administered on 04/09/16 20: 59; Admin Dose 40 MG; Start 04/09/16 at 21:00 Tiotropium [place] (Spiriva) 1 inh DAILY INH Last administered on 04/09/16 08: 37; Admin Dose 1 INH; Start 04/09/16 at 09:00 Salmeterol Xinafoate/ Fluticasone (Advair 250/50 Diskus) 1 inh BID INH Last administered on 04/09/16 20:09; Admin Dose 1 INH; Start 04/09/16 at 09:00 Losartan Potassium (Cozaar) 100 mg DAILY PO Last administered on 04/09/16 08: 37; Admin Dose 100 MG; Start 04/09/16 at 09:00; Status Future Hold Ondansetron HCl (Zofran Inj) 4 mg Q6H PRN IV NAUSEA AND/OR VOMITING; Start at 03:00 Acetaminophen (Tylenol Tab) 650 mg Q6H PRN PO PAIN AND OR ELEVATED TEMP; Start 04/09/16 at 03:00 Pantoprazole 40 mg 40 mg BID@06,18 IV Last administered on 04/10/16 05:59; Admin Dose 40 MG; Start 04/09/16 at 18:00 Sodium Chloride 1,000 ml @ 75 mls/hr [id number] IV Last administered on 02:32; Admin Dose 75 MLS/HR; Start 04/09/16 at 12:00 Ferric Sodium Gluconate Complex/ Sodium Chloride (Ferrlecit/NS) 110 ml @ 110 mls/hr Q24H IVPB Last administered on 04/09/16 13:47; Admin Dose 110 MLS/HR; Start 04/09/16 at 13:00; Stop 04/13/16 at 13:59 Sucralfate (Carafate Susp) 1 gm QID PO Last administered on 04/10/16 09:48; Admin Dose 1 GM; Start 04/09/16 at 21:00 Morphine Sulfate (morphine) 2 mg Q4H PRN IV PAIN Last administered on 21:12; Admin Dose 2 MG; Start 04/09/16 at 21:30 Ticagrelor (Brilinta) 90 mg BID PO Last administered on 04/10/16 09:53; Admin Dose 90 MG; Start 04/09/16 at 22:00 Metoprolol Tartrate (Lopressor) 12.5 mg BID PO ; Start 04/10/16 at 21:00; Status UNV Isosorbide Mononitrate (Ismo) 10 mg BID PO ; Start 04/11/16 at 09:00; Status UNV RIOS CERVANTES MD Apr 10, 2016 11:58
[2016-04-10] MEDS: TIOTROPIUM 18 MCG CAPSULE INHA DEV INH SCH (12:26)
[2016-04-10] MEDS: SOD FERRIC GLUC COMPLX 125 MG in SOD CHLORIDE 0.9% 100 ML IVPB SCH (13:38)
[2016-04-10] MEDS ORDERED: NA POLYST SULFON 15 GM/60 ML BTL PO ONE (15:00)
[2016-04-10 19:48] LABS: HEMATOCRIT 27.4 % (42.0-52.0); HEMOGLOBIN 9.3 g/dl (14.0-18.0)
[2016-04-10] MEDS: ROSUVASTATIN CALCIUM 40 MG TABLET PO SCH (20:53)
[2016-04-10] MEDS: GABAPENTIN 300 MG CAP PO SCH (20:53)
[2016-04-10] MEDS: HYDROCODONE/APAP (5/325) TAB PO PRN (20:53)
[2016-04-10] MEDS: morphine 2 MG INJ IV PRN (22:41)
[2016-04-11] VITALS (13 sets, daily range): BP systolic 96–114; BP diastolic 61–72; PULSE 72–93; RESP 16–20
[2016-04-11 02:57] LABS: HEMATOCRIT 26.4 % (42.0-52.0); HEMOGLOBIN 9.1 g/dl (14.0-18.0)
[2016-04-11] MEDS: FUROSEMIDE 20 MG TAB PO SCH (06:06)
[2016-04-11] MEDS: PANTOPRAZOLE 40 MG INJ IV SCH ×2 (06:07→17:50)
[2016-04-11 06:51] LABS: POTASSIUM 3.7 mmol/L (3.5-5.1)
[2016-04-11 06:54] LABS: CALCIUM 8.9 mg/dl (8.4-10.2); CREATININE 1.11 mg/dl (0.61-1.24)
[2016-04-11] MEDS: SUCRALFATE (100 MG/ML) 10ML CUP PO SCH ×4 (08:53→20:32)
[2016-04-11] MEDS: NICOTINE (21 MG/24 HR) PATCH TRANSDERM SCH (08:53)
[2016-04-11] MEDS: DULOXETINE 30 MG CAP DR PO SCH (08:54)
[2016-04-11] MEDS: ISOSORBIDE MONONITRATE 20 MG TAB PO SCH ×2 (08:54→17:51)
[2016-04-11] MEDS: ASPIRIN 81 MG TAB PO SCH (08:54)
[2016-04-11] MEDS: METOPROLOL 25 MG TAB PO SCH ×2 (08:55→20:37)
[2016-04-11] MEDS: SALMETEROL/FLUTICASONE 250/50 INHA INH SCH ×2 (08:58→20:32)
[2016-04-11] MEDS: TIOTROPIUM 18 MCG CAPSULE INHA DEV INH SCH (08:59)
[2016-04-11] MEDS: TICAGRELOR 90 MG TABLET PO SCH ×2 (09:07→20:33)
[2016-04-11 09:15] LABS: EOSINOPHILS % 0.1 % (0.0-7.0); HEMATOCRIT 26.9 % (42.0-52.0); LYMPHOCYTES # 0.9 10^3/ul (0.8-2.9); LYMPHOCYTES % 8.7 % (15.0-51.0); MEAN CORPUSCULAR HGB CONC 33.4 g/dl (32.0-37.0); MEAN CORPUSCULAR VOLUME 86.8 fl (82.0-101.0); MEAN PLATELET VOLUME 8.4 fl (7.4-10.4); MONOCYTE # 1.1 10^3/ul (0.3-0.9); MONOCYTES % 10.7 % (0.0-11.0); NEUTROPHIL # 8.3 10^3/ul (1.6-7.5); NEUTROPHILS % 80.5 % (39.0-77.0); PLATELET COUNT 757 10^3/UL (140-440); RED CELL DISTRIBUTION WIDTH 14.8 % (11.5-14.5); UNCORRECTED WBC 10.3 10^3/ul (4.8-10.8); WHITE BLOOD COUNT 10.3 10^3/ul (4.8-10.8)
[2016-04-11 09:31] LABS: CONDITION 1; LH ANALYZER COMMENTS 1
[2016-04-11] MEDS: SOD CHLORIDE 0.9% 1,000 ML IV SCH (10:58)
--- NOTE | 2016-04-11 12:41 | CONS ---
Date/Time of Note Date/Time of Note DATE: 04/11/16 TIME: 12:39 Assessment/Plan Assessment/Plan Additional Assessment/Plan 1. History of coronary artery disease. The patient has history of coronary artery disease, recent drug-eluting stent placed - resume adual platelet anti- therapy now - no new e pisodes of CP - no intervention planned now 2. GIB - with erosive esophagitis - per GI, oK to restart dual anti-platelet therpy - tolerating well 3. Elevated troponin. The patient has mildly elevated troponins, possibly chronic CK-MB is not elevated. No chest pain noted. We will follow expectantly. 3. Anemia. Hemoglobin is low. Continue to replace as indicated.Blood tx to day. STable at 9.0 now. 4. Diastolic dysfunction. The patient's diastolic dysfunction does not appear to be fluid overload now. Will monitor post-transfusion, will spot Lasix as necessary. 5. Chronic obstructive pulmonary disease. No wheezing noted. 6. History of hazardous tobacco use. DC tobacco advised. Consultation Date/Type/Reason Admit Date/Time Apr 09, 2016 at 00:35 24 HR Interval Summary Free Text/Dictation NMO acute change. NO new CP - will adjust therapy as needed. ROS: No fever, no chills, no nausea, no vomiting, no diarrhea/constipation No recent weight changes No chest pain, no PND, no orthopnea No dizziness, blurred vision No thirst, no heat or cold intolerance Exam/Review of Systems Vital Signs Vitals Vital Signs Date Time Temp Pulse Resp B/P Pulse Ox O2 Delivery O2 Flow Rate FiO2 04/11/16 12:27 89 04/11/16 11:43 98.4 20 96/61 94 04/11/16 04:01 Nasal Cannula 2.0 Intake and Output 04/10/16 04/10/16 04/11/16 15:00 23:00 07:00 Intake Total 110 ml 1275 ml 150 ml Balance 110 ml 1275 ml 150 ml Exam General: WN/WD/NAD, AOx 3 - no longer pale HEENT: Unicetric/atraumatic/EOMI (follows commands) NECK: JVD elevated, no thyromegaly Lymph: no lymphadenopathy HEART: regular with no S3, II/ systolic murmur at apex LUNGS: Coarse sounds ABD: soft, NT, ND, +BS : Intact Neuro: non focal SKIN: chronic changes EXT: trace edema Results Result Diagram: 04/11/16 0607 04/11/16 0607 Results 24 hrs Laboratory Tests Test 04/10/16 19:33 04/11/16 01:59 04/11/16 06:07 Hematocrit 27.4 L 26.4 L 26.9 L Hemoglobin 9.3 L 9.1 L 9.0 L Anion Gap 15 Basophils # 0.0 Basophils % 0.0 Blood Morphology Comment Blood Urea Nitrogen 18 # Calcium Level 8.9 Carbon Dioxide Level 29 Chloride Level 104 Creatinine 1.11 Eosinophils # 0.0 Eosinophils % 0.1 Glucose Level 110 Lymphocytes # 0.9 Lymphocytes % 8.7 L Mean Corpuscular Hemoglobin 29.0 Mean Corpuscular Hemoglobin Concent 33.4 Mean Corpuscular Volume 86.8 Mean Platelet Volume 8.4 Monocytes # 1.1 H Monocytes % 10.7 Neutrophils # 8.3 H Neutrophils % 80.5 H Nucleated Red Blood Cells # 0.0 Nucleated Red Blood Cells % 0.0 Platelet Count 757 H Potassium Level 3.7 Red Blood Count 3.10 L Red Cell Distribution Width 14.8 H Sodium Level 144 White Blood Count 10.3 Medications Medications Current Medications Aspirin (Aspirin) 81 mg DAILY PO Last administered on 04/11/16 08:54; Admin Dose 81 MG; Start 04/09/16 at 09:00 Duloxetine HCl (Cymbalta) 60 mg DAILY PO Last administered on 04/11/16 08:54; Admin Dose 60 MG; Start 04/09/16 at 09:00 Furosemide (Lasix) 20 mg DAILY@06 PO Last administered on 04/11/16 06:06; Admin Dose 20 MG; Start 04/09/16 at 06:00 Gabapentin (Neurontin) 300 mg QHS PO Last administered on 04/10/16 20:53; Admin Dose 300 MG; Start 04/09/16 at 21:00 Acetaminophen/ Hydrocodone Bitart ([place] (5/325)) 1 tab Q6H PRN PO PAIN Last administered on 04/10/16 20:53; Admin Dose 1 TAB; Start 04/09/16 at 03:00 Nicotine (Nicoderm 21 Mg/ 24hr) 1 patch DAILY TRANSDERM Last administered on 08:53; Admin Dose 1 PATCH; Start 04/09/16 at 09:00 Nitroglycerin (Nitroglycerin (Sl Tab) 0.4 Mg) 1 tab Q5M PRN SL CHEST PAIN Last administered on 04/09/16 20:14; Admin Dose 1 TAB; Start 04/09/16 at 03:00 Rosuvastatin Calcium (Crestor) 40 mg QHS PO Last administered on 04/10/16 20: 53; Admin Dose 40 MG; Start 04/09/16 at 21:00 Tiotropium [place] (Spiriva) 1 inh DAILY INH Last administered on 04/11/16 08: 59; Admin Dose 1 INH; Start 04/09/16 at 09:00 Salmeterol Xinafoate/ Fluticasone (Advair 250/50 Diskus) 1 inh BID INH Last administered on 04/11/16 08:58; Admin Dose 1 INH; Start 04/09/16 at 09:00 Losartan Potassium (Cozaar) 100 mg DAILY PO Last administered on 04/09/16 08: 37; Admin Dose 100 MG; Start 04/09/16 at 09:00; Status Future Hold Ondansetron HCl (Zofran Inj) 4 mg Q6H PRN IV NAUSEA AND/OR VOMITING; Start at 03:00 Acetaminophen (Tylenol Tab) 650 mg Q6H PRN PO PAIN AND OR ELEVATED TEMP; Start 04/09/16 at 03:00 Pantoprazole 40 mg 40 mg BID@06,18 IV Last administered on 04/11/16 06:07; Admin Dose 40 MG; Start 04/09/16 at 18:00 Sodium Chloride 1,000 ml @ 75 mls/hr [id number] IV Last administered on 10:58; Admin Dose 75 MLS/HR; Start 04/09/16 at 12:00 Ferric Sodium Gluconate Complex/ Sodium Chloride (Ferrlecit/NS) 110 ml @ 110 mls/hr Q24H IVPB Last administered on 04/10/16 13:38; Admin Dose 110 MLS/HR; Start 04/09/16 at 13:00; Stop 04/13/16 at 13:59 Sucralfate (Carafate Susp) 1 gm QID PO Last administered on 04/11/16 08:53; Admin Dose 1 GM; Start 04/09/16 at 21:00 Morphine Sulfate (morphine) 2 mg Q4H PRN IV PAIN Last administered on 22:41; Admin Dose 2 MG; Start 04/09/16 at 21:30 Ticagrelor (Brilinta) 90 mg BID PO Last administered on 04/11/16 09:07; Admin Dose 90 MG; Start 04/09/16 at 22:00 Metoprolol Tartrate (Lopressor) 12.5 mg BID PO Last administered on 04/11/16 08:55; Admin Dose 12.5 MG; Start 04/10/16 at 21:00 Isosorbide Mononitrate (Ismo) 10 mg BID@09,16 PO Last administered on 08:54; Admin Dose 10 MG; Start 04/11/16 at 09:00 KORIN KLEIN MD Apr 11, 2016 12:41
[2016-04-11] MEDS: SOD FERRIC GLUC COMPLX 125 MG in SOD CHLORIDE 0.9% 100 ML IVPB SCH (13:53)
--- NOTE | 2016-04-11 14:02 | RADRPT ---
Vent Rate: 78 bpm RR Interval: 0 msec CA Interval: 142 msec QRS Duration: 78 msec QT Interval: 394 msec QTC Interval: 449 msec P-R-T Center: 42 - -17 - 18 degrees Normal sinus rhythm T wave abnormality, consider inferior ischemia Abnormal ECG Electronically Signed By: Tomasz Olvera [id number]
--- NOTE | 2016-04-11 14:09 | PN ---
Date/Time of Note Date/Time of Note DATE: 04/11/16 TIME: 14:06 Assessment/Plan VTE Prophylaxis VTE Prophylaxis Intervention: SCD's Lines/Catheters [facility] [place] [facility] Urinary Cath still in place: No Assessment/Plan Assessment/Plan Assessment : * GI bleeding/melena/significant anemia * EGD 04/09/2016 Severe erosive esophagitis Moderate gastritis. Rule out H. pylori infection. Biopsied * Severe anemia * Coronary artery disease status post stent to proximal RCA 2 weeks ago * No contraindication to cautious antiplatelet therapy * History of cardiac arrest secondary to ventricular fibrillation 2 weeks ago * Hypertension * Dyslipidemia Plan: * Continue present regimen * Monitor H&H and transfuse as necessary * If response to transfusions is inadequate should consider colonoscopy prior to discharge * Alternatively elective colonoscopy in a few weeks Subjective 24 Hr Interval Summary Free Text/Dictation Course reviewed with nursing staff Patient appears comfortable, he expresses no abdominal pain Tolerating diet without problems No evidence of overt gastrointestinal bleeding Alternatively elective colonoscopy in a few weeks should be considered Exam/Review of Systems Vital Signs Vitals Vital Signs Date Time Temp Pulse Resp B/P Pulse Ox O2 Delivery O2 Flow Rate FiO2 04/11/16 14:05 2.0 28 04/11/16 12:27 89 04/11/16 11:43 98.4 20 96/61 94 04/11/16 04:01 Nasal Cannula Intake and Output 04/10/16 04/10/16 04/11/16 15:00 23:00 07:00 Intake Total 110 ml 1275 ml 150 ml Balance 110 ml 1275 ml 150 ml Exam Constitutional: alert, oriented, well developed Psych: nl mood/affect, no complaints Head: atraumatic, normocephalic Eyes: EOMI, PERRL, nl conjunctiva, nl lids, nl sclera ENMT: nl external ears & nose, nl lips & teeth, nl nasal mucosa & septum Neck: non-tender, supple Respiratory: clear to auscultation, normal air movement Cardiovascular: nl pulses, regular rate and rhythm Gastrointestinal: nl liver, spleen, non-tender, soft Musculoskeletal: nl extremities to inspection Lymph: nl lymph nodes Results Result Diagram: 04/11/16 0607 04/11/16 0607 Results 24 hrs Laboratory Tests Test 04/10/16 19:33 04/11/16 01:59 04/11/16 06:07 Hematocrit 27.4 L 26.4 L 26.9 L Hemoglobin 9.3 L 9.1 L 9.0 L Anion Gap 15 Basophils # 0.0 Basophils % 0.0 Blood Morphology Comment Blood Urea Nitrogen 18 # Calcium Level 8.9 Carbon Dioxide Level 29 Chloride Level 104 Creatinine 1.11 Eosinophils # 0.0 Eosinophils % 0.1 Glucose Level 110 Lymphocytes # 0.9 Lymphocytes % 8.7 L Mean Corpuscular Hemoglobin 29.0 Mean Corpuscular Hemoglobin Concent 33.4 Mean Corpuscular Volume 86.8 Mean Platelet Volume 8.4 Monocytes # 1.1 H Monocytes % 10.7 Neutrophils # 8.3 H Neutrophils % 80.5 H Nucleated Red Blood Cells # 0.0 Nucleated Red Blood Cells % 0.0 Platelet Count 757 H Potassium Level 3.7 Red Blood Count 3.10 L Red Cell Distribution Width 14.8 H Sodium Level 144 White Blood Count 10.3 Medications Medications Current Medications Aspirin (Aspirin) 81 mg DAILY PO Last administered on 04/11/16 08:54; Admin Dose 81 MG; Start 04/09/16 at 09:00 Duloxetine HCl (Cymbalta) 60 mg DAILY PO Last administered on 04/11/16 08:54; Admin Dose 60 MG; Start 04/09/16 at 09:00 Furosemide (Lasix) 20 mg DAILY@06 PO Last administered on 04/11/16 06:06; Admin Dose 20 MG; Start 04/09/16 at 06:00 Gabapentin (Neurontin) 300 mg QHS PO Last administered on 04/10/16 20:53; Admin Dose 300 MG; Start 04/09/16 at 21:00 Acetaminophen/ Hydrocodone Bitart ([place] (5/325)) 1 tab Q6H PRN PO PAIN Last administered on 04/10/16 20:53; Admin Dose 1 TAB; Start 04/09/16 at 03:00 Nicotine (Nicoderm 21 Mg/ 24hr) 1 patch DAILY TRANSDERM Last administered on 08:53; Admin Dose 1 PATCH; Start 04/09/16 at 09:00 Nitroglycerin (Nitroglycerin (Sl Tab) 0.4 Mg) 1 tab Q5M PRN SL CHEST PAIN Last administered on 04/09/16 20:14; Admin Dose 1 TAB; Start 04/09/16 at 03:00 Rosuvastatin Calcium (Crestor) 40 mg QHS PO Last administered on 04/10/16 20: 53; Admin Dose 40 MG; Start 04/09/16 at 21:00 Tiotropium [place] (Spiriva) 1 inh DAILY INH Last administered on 04/11/16 08: 59; Admin Dose 1 INH; Start 04/09/16 at 09:00 Salmeterol Xinafoate/ Fluticasone (Advair 250/50 Diskus) 1 inh BID INH Last administered on 04/11/16 08:58; Admin Dose 1 INH; Start 04/09/16 at 09:00 Losartan Potassium (Cozaar) 100 mg DAILY PO Last administered on 04/09/16 08: 37; Admin Dose 100 MG; Start 04/09/16 at 09:00; Status Future Hold Ondansetron HCl (Zofran Inj) 4 mg Q6H PRN IV NAUSEA AND/OR VOMITING; Start at 03:00 Acetaminophen (Tylenol Tab) 650 mg Q6H PRN PO PAIN AND OR ELEVATED TEMP; Start 04/09/16 at 03:00 Pantoprazole 40 mg 40 mg BID@06,18 IV Last administered on 04/11/16 06:07; Admin Dose 40 MG; Start 04/09/16 at 18:00 Sodium Chloride 1,000 ml @ 75 mls/hr [id number] IV Last administered on 10:58; Admin Dose 75 MLS/HR; Start 04/09/16 at 12:00 Ferric Sodium Gluconate Complex/ Sodium Chloride (Ferrlecit/NS) 110 ml @ 110 mls/hr Q24H IVPB Last administered on 04/11/16 13:53; Admin Dose 110 MLS/HR; Start 04/09/16 at 13:00; Stop 04/13/16 at 13:59 Sucralfate (Carafate Susp) 1 gm QID PO Last administered on 04/11/16 13:53; Admin Dose 1 GM; Start 04/09/16 at 21:00 Morphine Sulfate (morphine) 2 mg Q4H PRN IV PAIN Last administered on 22:41; Admin Dose 2 MG; Start 04/09/16 at 21:30 Ticagrelor (Brilinta) 90 mg BID PO Last administered on 04/11/16 09:07; Admin Dose 90 MG; Start 04/09/16 at 22:00 Metoprolol Tartrate (Lopressor) 12.5 mg BID PO Last administered on 04/11/16 08:55; Admin Dose 12.5 MG; Start 04/10/16 at 21:00 Isosorbide Mononitrate (Ismo) 10 mg BID@09,16 PO Last administered on 08:54; Admin Dose 10 MG; Start 04/11/16 at 09:00 RIOS CERVANTES MD Apr 11, 2016 14:09
--- NOTE | 2016-04-11 16:44 | PN ---
Date/Time of Note Date/Time of Note DATE: 04/11/16 TIME: 16:38 Assessment/Plan VTE Prophylaxis VTE Prophylaxis Intervention: SCD's Lines/Catheters [facility] Urinary Cath still in place: No Assessment/Plan Assessment/Plan 60 yo M with GI bleed * EGD 04/09/16 showed Severe erosive esophagitis/ Moderate gastritis which per GI explains anemia * Rule out H. pylori infection. F/u biopsies * No colonoscopy for now, recommended in a couple of weeks Troponin elevation * 2/2 demand ischemia per cardio * no indication for repeat cath at this time * Patient has outpt f/u with Dr Stephens in 2 weeks Status post ventricular fibrillation cardiac arrest 2 weeks ago. Coronary artery disease, status post stent to proximal RCA 2 weeks ago. Acute kidney injury 2/2 anemia: resolved Iron deficiency + Hemorrhagic Anemia 2/2 gastrointestinal bleed * cleared for brilinta use by GI * s/p transfusion 3 units PRBC and IV iron Leukocytosis and Thrombocytosis, Stress-induced: improving Hypertension >Hypotension * BP control is slightly better on new regime * Losartan held and Imdur and metoprolol reduced. Dyslipidemia. Chronic Depression. COPD: stable w/out exacerbation Chronic Tobacco abuse Gastroesophageal reflux disease. Constipation PLAN: Treat Constipation F/u cardiology recs; re: observation versus repeat Cath Continue ASA / Brilinta / Statin Continue Spiriva / Advair / PRN Duonebs Closely monitor hgb and transfuse PRN Tobacco cessation counselling done and will continue to be reinforced throughout hospitalization. Continue telemetry monitoring and supportive care Patient has been cleared for d/c by all consultants/ will observe overnight for pain and constipation / d/c in am if resolved. Prophylaxis: SCDs / PPI Subjective 24 Hr Interval Summary Free Text/Dictation c/o intermittent, abd pain, diffuse no BM since admission Exam/Review of Systems Vital Signs Vitals Vital Signs Date Time Temp Pulse Resp B/P Pulse Ox O2 Delivery O2 Flow Rate FiO2 04/11/16 15:35 98.0 94 20 107/65 96 04/11/16 14:05 2.0 04/11/16 08:30 Nasal Cannula Intake and Output 04/10/16 04/10/16 04/11/16 15:00 23:00 07:00 Intake Total 110 ml 1275 ml 150 ml Balance 110 ml 1275 ml 150 ml Exam Constitutional: alert, oriented ENMT: mucosa pink and moist Neck: supple Respiratory: clear to auscultation Cardiovascular: regular rate and rhythm, No murmurs/extra sounds Gastrointestinal: bowel sounds, non-tender, soft Extremities: No edema Neurological: nl mental status Results Result Diagram: 04/11/16 0607 04/11/16 0607 Results 24 hrs Laboratory Tests Test 04/10/16 19:33 04/11/16 01:59 04/11/16 06:07 Hematocrit 27.4 L 26.4 L 26.9 L Hemoglobin 9.3 L 9.1 L 9.0 L Anion Gap 15 Basophils # 0.0 Basophils % 0.0 Blood Morphology Comment Blood Urea Nitrogen 18 # Calcium Level 8.9 Carbon Dioxide Level 29 Chloride Level 104 Creatinine 1.11 Eosinophils # 0.0 Eosinophils % 0.1 Glucose Level 110 Lymphocytes # 0.9 Lymphocytes % 8.7 L Mean Corpuscular Hemoglobin 29.0 Mean Corpuscular Hemoglobin Concent 33.4 Mean Corpuscular Volume 86.8 Mean Platelet Volume 8.4 Monocytes # 1.1 H Monocytes % 10.7 Neutrophils # 8.3 H Neutrophils % 80.5 H Nucleated Red Blood Cells # 0.0 Nucleated Red Blood Cells % 0.0 Platelet Count 757 H Potassium Level 3.7 Red Blood Count 3.10 L Red Cell Distribution Width 14.8 H Sodium Level 144 White Blood Count 10.3 Medications Medications Current Medications Aspirin (Aspirin) 81 mg DAILY PO Last administered on 04/11/16 08:54; Admin Dose 81 MG; Start 04/09/16 at 09:00 Duloxetine HCl (Cymbalta) 60 mg DAILY PO Last administered on 04/11/16 08:54; Admin Dose 60 MG; Start 04/09/16 at 09:00 Furosemide (Lasix) 20 mg DAILY@06 PO Last administered on 04/11/16 06:06; Admin Dose 20 MG; Start 04/09/16 at 06:00 Gabapentin (Neurontin) 300 mg QHS PO Last administered on 04/10/16 20:53; Admin Dose 300 MG; Start 04/09/16 at 21:00 Acetaminophen/ Hydrocodone Bitart ([place] (5/325)) 1 tab Q6H PRN PO PAIN Last administered on 04/10/16 20:53; Admin Dose 1 TAB; Start 04/09/16 at 03:00 Nicotine (Nicoderm 21 Mg/ 24hr) 1 patch DAILY TRANSDERM Last administered on 08:53; Admin Dose 1 PATCH; Start 04/09/16 at 09:00 Nitroglycerin (Nitroglycerin (Sl Tab) 0.4 Mg) 1 tab Q5M PRN SL CHEST PAIN Last administered on 04/09/16 20:14; Admin Dose 1 TAB; Start 04/09/16 at 03:00 Rosuvastatin Calcium (Crestor) 40 mg QHS PO Last administered on 04/10/16 20: 53; Admin Dose 40 MG; Start 04/09/16 at 21:00 Tiotropium [place] (Spiriva) 1 inh DAILY INH Last administered on 04/11/16 08: 59; Admin Dose 1 INH; Start 04/09/16 at 09:00 Salmeterol Xinafoate/ Fluticasone (Advair 250/50 Diskus) 1 inh BID INH Last administered on 04/11/16 08:58; Admin Dose 1 INH; Start 04/09/16 at 09:00 Losartan Potassium (Cozaar) 100 mg DAILY PO Last administered on 04/09/16 08: 37; Admin Dose 100 MG; Start 04/09/16 at 09:00; Status Future Hold Ondansetron HCl (Zofran Inj) 4 mg Q6H PRN IV NAUSEA AND/OR VOMITING; Start at 03:00 Acetaminophen (Tylenol Tab) 650 mg Q6H PRN PO PAIN AND OR ELEVATED TEMP; Start 04/09/16 at 03:00 Pantoprazole 40 mg 40 mg BID@06,18 IV Last administered on 04/11/16 06:07; Admin Dose 40 MG; Start 04/09/16 at 18:00 Sodium Chloride 1,000 ml @ 75 mls/hr [id number] IV Last administered on 10:58; Admin Dose 75 MLS/HR; Start 04/09/16 at 12:00 Ferric Sodium Gluconate Complex/ Sodium Chloride (Ferrlecit/NS) 110 ml @ 110 mls/hr Q24H IVPB Last administered on 04/11/16 13:53; Admin Dose 110 MLS/HR; Start 04/09/16 at 13:00; Stop 04/13/16 at 13:59 Sucralfate (Carafate Susp) 1 gm QID PO Last administered on 04/11/16 13:53; Admin Dose 1 GM; Start 04/09/16 at 21:00 Morphine Sulfate (morphine) 2 mg Q4H PRN IV PAIN Last administered on 22:41; Admin Dose 2 MG; Start 04/09/16 at 21:30 Ticagrelor (Brilinta) 90 mg BID PO Last administered on 04/11/16 09:07; Admin Dose 90 MG; Start 04/09/16 at 22:00 Metoprolol Tartrate (Lopressor) 12.5 mg BID PO Last administered on 04/11/16 08:55; Admin Dose 12.5 MG; Start 04/10/16 at 21:00 Isosorbide Mononitrate (Ismo) 10 mg BID@09,16 PO Last administered on 08:54; Admin Dose 10 MG; Start 04/11/16 at 09:00 DELMY OLIVER Apr 11, 2016 16:44
[2016-04-11] MEDS ORDERED: MAGNESIUM CITRATE 300 ML BTL PO ONE (18:00)
[2016-04-11 18:05] LABS: HEMATOCRIT 28.5 % (42.0-52.0); HEMOGLOBIN 9.6 g/dl (14.0-18.0)
[2016-04-11] MEDS: HYDROCODONE/APAP (5/325) TAB PO PRN (20:32)
[2016-04-11] MEDS: ROSUVASTATIN CALCIUM 40 MG TABLET PO SCH (20:32)
[2016-04-11] MEDS: DOCUSATE SODIUM 100 MG CAP PO SCH (20:32)
[2016-04-11] MEDS: GABAPENTIN 300 MG CAP PO SCH (20:32)
[2016-04-12] VITALS (8 sets, daily range): BP systolic 108–132; BP diastolic 63–80; PULSE 90–96; RESP 16–18
[2016-04-12] MEDS: FUROSEMIDE 20 MG TAB PO SCH (05:33)
[2016-04-12] MEDS: PANTOPRAZOLE 40 MG INJ IV SCH (05:33)
[2016-04-12 07:06] LABS: POTASSIUM 3.2 mmol/L (3.5-5.1)
[2016-04-12 07:08] LABS: CREATININE 1.03 mg/dl (0.61-1.24)
[2016-04-12 07:09] LABS: CALCIUM 8.7 mg/dl (8.4-10.2)
[2016-04-12 07:36] LABS: BASOPHILS % 0.3 % (0.0-2.0); EOSINOPHILS % 0.2 % (0.0-7.0); HEMATOCRIT 26.9 % (42.0-52.0); HEMOGLOBIN 9.4 g/dl (14.0-18.0); LYMPHOCYTES # 0.9 10^3/ul (0.8-2.9); LYMPHOCYTES % 10.8 % (15.0-51.0); MEAN CORPUSCULAR HEMOGLOBIN 29.7 pg (29.0-33.0); MEAN CORPUSCULAR HGB CONC 34.9 g/dl (32.0-37.0); MEAN CORPUSCULAR VOLUME 85.1 fl (82.0-101.0); MONOCYTE # 0.9 10^3/ul (0.3-0.9); MONOCYTES % 10.8 % (0.0-11.0); NEUTROPHIL # 6.4 10^3/ul (1.6-7.5); NEUTROPHILS % 77.9 % (39.0-77.0); PLATELET COUNT 852 10^3/UL (140-440); RED BLOOD COUNT 3.16 10^6/ul (4.70-6.10); RED CELL DISTRIBUTION WIDTH 14.7 % (11.5-14.5); UNCORRECTED WBC 8.3 10^3/ul (4.8-10.8); WHITE BLOOD COUNT 8.3 10^3/ul (4.8-10.8)
[2016-04-12 07:43] LABS: CONDITION 1; LH ANALYZER COMMENTS 1
[2016-04-12] MEDS: DOCUSATE SODIUM 100 MG CAP PO SCH (08:30)
[2016-04-12] MEDS: ASPIRIN 81 MG TAB PO SCH (08:30)
[2016-04-12] MEDS: METOPROLOL 25 MG TAB PO SCH (08:31)
[2016-04-12] MEDS: DULOXETINE 30 MG CAP DR PO SCH (08:32)
[2016-04-12] MEDS: SUCRALFATE (100 MG/ML) 10ML CUP PO SCH ×2 (08:33→12:55)
[2016-04-12] MEDS: TIOTROPIUM 18 MCG CAPSULE INHA DEV INH SCH (08:34)
[2016-04-12] MEDS: SALMETEROL/FLUTICASONE 250/50 INHA INH SCH (08:34)
[2016-04-12] MEDS: TICAGRELOR 90 MG TABLET PO SCH (08:37)
[2016-04-12] MEDS: NICOTINE (21 MG/24 HR) PATCH TRANSDERM SCH (08:50)
[2016-04-12] MEDS: ISOSORBIDE MONONITRATE 20 MG TAB PO SCH (08:50)
[2016-04-12] MEDS ORDERED: POTASSIUM CHLORIDE (SR) 20 MEQ TAB PO STA (11:16)
--- NOTE | 2016-04-12 11:22 | PDOCDIS ---
Discharge Instructions CONDITION Patient Condition: Stable HOME CARE INSTRUCTIONS: Special Diet: 2g na ACTIVITY: Activity Restrictions: Slowly Increase Activity FOLLOW UP/APPOINTMENTS Appointments Please follow up with Dr Stephens in the clinic, and take your medications as prescribed. SUNDEEP GARZA Apr 12, 2016 11:22
[2016-04-12] MEDS ORDERED: CARAS PO (11:23)
[2016-04-12] MEDS ORDERED: PANT40TA4 PO (11:23)
--- NOTE | 2016-04-12 12:03 | DS ---
DATE OF ADMISSION: 04/09/2016 DATE OF DISCHARGE: 04/12/2016 A 60-year-old male originally admitted on 04/09/2016 being discharged home on 04/12/2016. HOSPITAL COURSE: The patient came in with chest pain. He was admitted to telemetry floor, seen by cardiology team during this hospital stay and also GI team. His troponins were elevated. This was thought to be secondary to recent drug-eluting stent placement that patient had on his last admissio n here, which was about 2 weeks ago. At that time, he had a cardiac arrest and stenting to for kam nary artery disease, but in any event, his troponins are trending down. He had no significant chest pain. Initially he was also anemic when he came in, hemoglobin around 6.9 and he was given 2 units PRBC transfusion. After transfusion hemoglobin remained stable. His antiplatelet medicines aspirin and Brilinta were held on admission, but then restarted 24 hours prior to discharge. He had no uppe r or lower GI bleeding symptoms. He was found with erosive esophagitis and gastritis and after he h ad EGD performed on this admission by GI team after a couple days the patient was started on Carafat e and Protonix b.i.d. Over the course of hospital stay his abdominal pain and chest pain symptoms i mproved. He was able to ambulate and tolerate a p.o. diet. He continued his cardiac medications as well and after getting clearance from cardiology team, he will be discharged home today in an impro dagoberto condition. DISCHARGE MEDICATIONS: He will be sent with the following medications: 1. Protonix 40 mg p.o. b.i.d. 2. Carafate 1 gram p.o. q.i.d. 3. Aspirin 81 mg daily. 4. Symbicort 160/4.5 two puffs inhaled b.i.d. 5. Cymbalta 60 mg daily. 6. Lasix 20 mg daily p.o. 7. Gabapentin 300 mg at bedtime. 8. [place] 5/325 q.6h. p.r.n. 9. Imdur 30 mg daily. 10. Lopressor 25 mg b.i.d. 11. Nicotine patch transdermal 21 mg daily. 12. Nitroglycerin 0.4 mg q.5 minutes p.r.n. 13. Benicar 40 mg daily. 14. Crestor 40 mg at bedtime. 15. Brilinta 90 mg b.i.d. 16. Spiriva 18 mcg inhaled. He will need to follow cardiology team on 04/26/2015 and follow up wit h regular doctor in the clinic in the next 1 to 2 weeks. FINAL DIAGNOSES: 1. Troponin elevation, most likely secondary to demand ischemia with status post ventricular fibril lation cardiac arrest 6 weeks ago. No intervention performed this admission. 2. Coronary artery disease, status post stent to proximal RCA 2 weeks ago, now on aspirin and Brili nta. 3. Questionable gastrointestinal bleed with low hemoglobin. EGD showed erosive esophagitis, modera te gastritis, now on Carafate and PPI. No signs of any GI bleeding, status post PRBC transfusion. 4. Iron deficiency anemia, positive secondary to gastrointestinal bleeding and cleared for Brilinta and aspirin use, now status post EGD. 5. Hypertension. 6. High cholesterol. 7. Chronic depression. 8. Chronic obstructive pulmonary disease. 9. Chronic tobacco use. On nicotine patch. 10. Gastroesophageal reflux disease. 11. Acute kidney injury, resolved. Time spent discharging patient 45 minutes. Dictated By: SUNDEEP REDDY Conf#: [id number] DID#: [id number]
[2016-04-12 12:09] LABS: HEMATOCRIT 31.1 % (42.0-52.0); HEMOGLOBIN 10.4 g/dl (14.0-18.0)
[2016-04-12] MEDS: SOD FERRIC GLUC COMPLX 125 MG in SOD CHLORIDE 0.9% 100 ML IVPB SCH (12:56)
--- NOTE | 2016-04-13 07:02 | GILP ---
DATE OF PROCEDURE: 04/09/2016 PROCEDURE: Esophagogastroduodenoscopy with biopsies. PREMEDICATION: Monitored anesthesia care by anesthesiologist. BRIEF HISTORY AND INDICATIONS: The patient is being evaluated for anemia and melena. PREMEDICATION: Monitored anesthesia care by anesthesiologist. SURGEON: Rios Denson MD. INSTRUMENT USED: Olympus panendoscope. TECHNIQUE: After informed consent, with the patient/relatives understanding the procedure, its indic ations, potential risks and complications, including but not limited to: allergic reaction, bleeding , perforation or infection, and after all pertinent questions were answered to the patients satisfac tion, the patient/relatives signed witnessed informed consent. Following this, premedication was administered slowly IV push under careful cardiovascular and respi ratory monitoring with pulse oximetry, automatic blood pressure and playground monitor. Once the sedative effect was achieved the patient was place in the left lateral decubitus, the panen doscope was introduced and advanced under visual control. Careful examination of the upper gastrointestinal tract, both on insertion as well as withdrawal of the instrument disclosed the following findings: ESOPHAGUS: The distal esophagus shows erythema, edema and superficial erosion of the mucosa which is severe. No active bleeding is noted. STOMACH: Upon entrance to the stomach, air was insufflated, and the gastric vasquez distended normally . The mucosa of the fundus, body and antrum of the stomach was carefully examined. There was moder ate erythema and edema of the mucosa of the body and antrum of the stomach. Biopsies were obtained to rule out H. pylori infection. PYLORUS: The pylorus appears patent and within normal limits, with no evidence of gastric outlet obs truction. DUODENUM: The duodenal mucosa was carefully examined in the duodenal bulb as well as the second port ion of the duodenum and appears unremarkable with no evidence of duodenitis, ulcer or neoplasm. The instrument was then withdrawn, the patient tolerated the procedure well and was transfer out of the endoscopy suite awake, and in good condition to continue recovery under observation IMPRESSION: 1. Severe erosive esophagitis. 2. Gastritis, rule Helicobacter pylori infection, biopsies obtained. PLAN: The patient will be treated with PPIs and close observation. Pathology will be reviewed as s oon as available. If any evidence of further bleeding, the patient should be considered for colonos copy on an acute basis, otherwise, elective colonoscopy in a few weeks will be advisable. Dictated By: RIOS DENSON MS/AMBER Conf#: [id number] DID#: [id number]
== END 2016-04-12 15:45 | disposition home or self-care (01) | DRG 281 ==
LOC: E/R 23:08 → TEL 04-09 00:35
PROVIDERS: ADMIT Internal Medicine; ATTEND Internal Medicine
PROC: 30233N1 Transfusion of Nonautologous Red Blood Cells into Peripheral Vein, Percutaneous Approach (ICD-10-PCS; 2016-04-09)
PROC: 0DB68ZX Excision of Stomach, Via Natural or Artificial Opening Endoscopic, Diagnostic (ICD-10-PCS; principal; 2016-04-09 20:00)
DX: I21.4 Non-ST elevation (NSTEMI) myocardial infarction (principal); K92.2 Gastrointestinal hemorrhage, unspecified; N17.9 Acute kidney failure, unspecified; K22.10 Ulcer of esophagus without bleeding; K92.1 Melena; I10 Essential (primary) hypertension; I25.10 Atherosclerotic heart disease of native coronary artery without angina pectoris; Z95.5 Presence of coronary angioplasty implant and graft; D50.9 Iron deficiency anemia, unspecified; F32.9 Major depressive disorder, single episode, unspecified; Z72.0 Tobacco use; K21.9 Gastro-esophageal reflux disease without esophagitis; I22.0 Subsequent ST elevation (STEMI) myocardial infarction of anterior wall; E87.6 Hypokalemia; D47.3 Essential (hemorrhagic) thrombocythemia; Z79.02 Long term (current) use of antithrombotics/antiplatelets; J44.9 Chronic obstructive pulmonary disease, unspecified; K29.70 Gastritis, unspecified, without bleeding
CPT/HCPCS: 36415; 36430; 71010; 80048; 80053; 80061; 82270; 82550; 82553; 82728; 83036; 83540; 83735; 84100; 84443; 84484; 85014; 85018; 85025; 85610; 85730; 86850; 86900; 86901; 86920; 87081; 88305; 88312; 93005; 96374; 96375; C9113; J1644; J2270; J2405; J2916; J3480; J7030; J7040; P9016

== ENCOUNTER 2016-04-18 11:06 | Inpatient (IN) | payer MEDICARE, OTHER ==
[~2016-04-18] VITALS: Ht 165.1 cm; Wt 77.5 kg
[~2016-04-18 11:06] MED LIST changes: -ASPI81TA3 NGT; +ASPI81TA3 PO; +CARAS PO; -DICL100G9 TP; -DUTA0.5C PO; -ESOM40CA PO; +HYDR-906 PO; -LEVO500T72 NGT; -LIPA1CAP6 PO; +OLME40TA14 PO; +PANT40TA4 PO; +ROSU40TA35 PO
[2016-04-18] MEDS ORDERED: SOD CHLORIDE 0.9% 1,000 ML IV STA (11:10)
--- NOTE | 2016-04-18 11:16 | ERA ---
ER Documentation Chief Complaint Date/Time DATE: 04/18/16 TIME: 11:12 Chief Complaint HPI Patient is a 60-year-old male who is brought in by paramedics for a syncopal event. Unfortunately he speaks only [place] so the history of present illness and review of systems are limited. Reportedly he had some dizziness prior to the syncopal event. His family reported to the paramedics that he had been having some black and tarry stools prior to this. He does deny any pain anywhere and did not hit his head when he had a syncopal event. This is the limits of the history of present illness. ROS All systems reviewed and are negative except as per history of present illness. Medications Home Meds Active Scripts Pantoprazole (Protonix) 40 Mg Tabec, 40 MG PO BID for 30 Days, #60 TAB 2 Refills Prov:GREGSUNDEEP S. 04/12/16 Sucralfate* (Carafate*) 1 Gm/10 Ml Susp, 1 GM PO QID, #120 2 Refills Prov:GREGSUNDEEP S. 04/12/16 Furosemide* (Furosemide*) 20 Mg Tablet, 20 MG PO DAILY, #30 TAB 4 Refills Prov:RAHI,SUNDEEP S. 04/01/16 Ticagrelor* (Brilinta*) 90 Mg Tablet, 90 MG PO BID, #60 TAB 8 Refills Prov:RAHI,SUNDEEP S. 04/01/16 Nitroglycerin* (Nitrostat*) 0.4 Mg Tab.subl, 1 TAB SL Q5M Y for CHEST PAIN, #14 2 Refills Prov:JORGE LUIS,SUNDEEP S. 04/01/16 Metoprolol Tartrate* (Lopressor*) 25 Mg Tab, 25 MG PO BID, #60 TAB 4 Refills Prov:RAHI,SUNDEEP S. 04/01/16 Isosorbide Mononitrate* (Isosorbide Mononitrate*) 30 Mg Tab.er.24h, 30 MG PO DAILY, #30 4 Refills Prov:GREGSUNDEEP S. 04/01/16 Reported Medications Vtawlk-Koetguvp-Sotnbeu* (Dangelo HARO* 24,000) 24,000 L-76,000-120,000 Unit Capsule.dr, 1 CAP PO WITH MEALS, CAP 2/5/17 Dutasteride* (Avodart*) 0.5 Mg Capsule, 0.5 MG PO DAILY, CAP 04/18/16 Hydrocodone/Acetaminophen ([place] 5-325 Tablet) 1 Each Tablet, 1 EACH PO Q6 Y for PAIN, TAB 04/09/16 Rosuvastatin Calcium* (Crestor*) 40 Mg Tablet, 40 MG PO QHS, #30 TAB 04/09/16 Olmesartan Medoxomil (Benicar) 40 Mg Tablet, 40 MG PO DAILY, #30 TAB 04/09/16 Gabapentin* (Gabapentin*) 300 Mg Capsule, 300 MG PO QHS, #60 CAP 03/24/16 Budesonide-Formoterol Fumarate* (Symbicort*) 160-4.5 Hfa.aer.ad, 2 PUFF INHALATION BID, #1 EACH 03/24/16 Tiotropium [place]* (Spiriva*) 18 Mcg Cap.w.dev, 18 MCG IH 04/29/11 Discontinued Reported Medications Aspirin* (Aspirin* Chew) 81 Mg Tab.chew, 81 MG PO DAILY, TAB.CHEW 04/09/16 Duloxetine Hcl* (Cymbalta*) 60 Mg Capsule.dr, 60 MG PO DAILY 04/29/11 Esomeprazole Mag Trihydrate (Nexium) 40 Mg Capsule.dr, 40 MG PO 04/29/11 Discontinued Scripts Nicotine* (Nicotine* Patch) 21 mg/day Patch, 1 PATCH TRANSDERM DAILY, #30 4 Refills Prov:SUNDEEP GARZA S. 04/01/16 Allergies Allergies: Coded Allergies: No Known Allergies (Verified Allergy, Unknown, 04/09/16) PMhx/Soc History of Surgery: Yes (cardiac stent placement, right ear surgery) Anesthesia Reaction: No Hx Neurological Disorder: No Hx Respiratory Disorders: Yes (asthma) Hx Cardiac Disorders: Yes (HTN, heart attack, s/p cardiac arrest) Hx Psychiatric Problems: No Hx Miscellaneous Medical Probl: Yes (GERD) Hx Alcohol Use: Yes (occasional) Hx Substance Use: No Hx Tobacco Use: Yes FmHx Family History: coronary disease Physical Exam Vitals Vital Signs Date Time Temp Pulse Resp B/P Pulse Ox O2 Delivery O2 Flow Rate FiO2 04/18/16 11:41 Nasal Cannula 2 04/18/16 11:10 98.7 93 20 96/52 98 Physical Exam Const: [] Well-developed well-nourished male lying on the bed appearing acutely ill. He is obviously pale. Head: Atraumatic normocephalic Eyes: Pale conjunctiva ENT: Normal External Ears, Nose and Mouth. Lips and tongue are noted to be pale Neck: Full range of motion..~ No meningismus. Resp: Clear to auscultation bilaterally Cardio: Regular rate and rhythm, 2/6 systolic ejection murmur Abd: Soft, non tender, non distended. Normal bowel sounds Skin: No petechiae or rashes, skin noted to be very pale Back: Rectal exam reveals melena Ext: No cyanosis, or edema Neur: Awake and alert oriented 3 with a GCS 15 moves all extremities equally and nonfocal Psych: Normal Mood and Affect Result Diagram: 04/18/16 1115 04/18/16 1115 Results 24 hrs Laboratory Tests Test 04/18/16 11:15 Activated Partial Thromboplast Time 28.6Sec Alanine Aminotransferase (ALT/SGPT) 30IU/L Albumin 2.6g/dl Albumin/Globulin Ratio 0.92 Alkaline Phosphatase 127IU/L Anion Gap 14 Aspartate Amino Transf (AST/SGOT) 19IU/L Basophils # Pending Basophils % Pending Blood Morphology Comment Blood Urea Nitrogen 36mg/dl Calcium Level 8.2mg/dl Carbon Dioxide Level 23mmol/L Chloride Level 106mmol/L Creatinine 0.79mg/dl Direct Bilirubin 0.00mg/dl Eosinophils # Pending Eosinophils % Pending Globulin 2.80g/dl Glucose Level 136mg/dl Hematocrit 12.9% Hemoglobin 4.3g/dl INR International Normalized Ratio 1.10 Indirect Bilirubin 0.0mg/dl Lymphocytes # Pending Lymphocytes % Pending Mean Corpuscular Hemoglobin 29.5pg Mean Corpuscular Hemoglobin Concent 33.3g/dl Mean Corpuscular Volume 88.5fl Mean Platelet Volume 7.1fl Monocytes # Pending Monocytes % Pending Neutrophils # Pending Neutrophils % Pending Nucleated Red Blood Cells # Pending Nucleated Red Blood Cells % Pending Platelet Count 56082^3/UL Potassium Level 4.4mmol/L Prothrombin Time 14.2Sec Prothrombin Time Ratio 1.1 Red Blood Count 1.4610^6/ul Red Cell Distribution Width 15.5% Sodium Level 139mmol/L Total Bilirubin 0.0mg/dl Total Protein 5.4g/dl Troponin I 0.130ng/ml White Blood Count 11.610^3/ul Current Medications Medications (Trade) Dose Ordered Sig/Sudheer Route PRN Reason Start Time Stop Time Status Last Admin Dose Admin Sodium Chloride (NS) 1,000 ml @ 1,000 mls/hr Q1H STAT IV 04/18/16 11:10 04/18/16 12:09 04/18/16 11:29 Procedures/MDM Differential includes but is not limited to gastrointestinal bleeding, syncope secondary to anemia, cardiac arrhythmia, myocardial ischemia, bleeding ulcer, diverticular bleed EKG shows normal sinus rhythm at approximately 100 bpm without any evidence for acute ischemia noted he does have some T-wave inversion noted in the inferior leads no old EKG available at this time for comparison 1200: Patient's blood pressure remains around 100 systolically. His exam remains unchanged. The blood products are not available at this time. As long as he remains somewhat hemodynamically stable we will wait for the crossmatched blood. If at any time he drops his blood pressure we will order emergency release blood. 1205: I have discussed his case with the hospitalist Dr. Garza. He is going to consult Dr. Denson. Patient is to be admitted to the hospital for further evaluation and treatment. Critical care time of 30 minutes not to include any procedures. Departure Diagnosis: Primary Impression: Syncope Qualified Code: R55 - Syncope, unspecified syncope type Additional Impressions: Gastrointestinal hemorrhage Qualified Code: K92.2 - Gastrointestinal hemorrhage, unspecified gastrointestinal hemorrhage type Acute blood loss anemia Coronary artery disease Qualified Code: I25.10 - Coronary artery disease involving picayune coronary artery of picayune heart without angina pectoris Abnormal cardiac enzyme level Condition: JEVON Conley Apr 18, 2016 11:16
[2016-04-18 11:28] LABS: BASOPHILS % 0.4 % (0.0-2.0); HEMATOCRIT 12.9 % (42.0-52.0); LYMPHOCYTES # 2.5 10^3/ul (0.8-2.9); LYMPHOCYTES % 21.7 % (15.0-51.0); MEAN CORPUSCULAR HEMOGLOBIN 29.5 pg (29.0-33.0); MEAN CORPUSCULAR HGB CONC 33.3 g/dl (32.0-37.0); MEAN CORPUSCULAR VOLUME 88.5 fl (82.0-101.0); MEAN PLATELET VOLUME 7.1 fl (7.4-10.4); MONOCYTE # 0.7 10^3/ul (0.3-0.9); MONOCYTES % 5.9 % (0.0-11.0); NEUTROPHIL # 8.3 10^3/ul (1.6-7.5); PLATELET COUNT 514 10^3/UL (140-440); RED BLOOD COUNT 1.46 10^6/ul (4.70-6.10); RED CELL DISTRIBUTION WIDTH 15.5 % (11.5-14.5); UNCORRECTED WBC 11.6 10^3/ul (4.8-10.8); WHITE BLOOD COUNT 11.6 10^3/ul (4.8-10.8)
[2016-04-18 11:31] LABS: CONDITION 1; LH ANALYZER COMMENTS 1
[2016-04-18 11:34] LABS: HEMOGLOBIN 4.3 g/dl (14.0-18.0)
[2016-04-18 11:38] LABS: ALBUMIN 2.6 g/dl (3.3-4.9)
[2016-04-18 11:39] LABS: POTASSIUM 4.4 mmol/L (3.5-5.1)
[2016-04-18 11:41] LABS: ALBUMIN/GLOBULIN RATIO 0.92; CREATININE 0.79 mg/dl (0.61-1.24); TOTAL PROTEIN 5.4 g/dl (6.1-8.1)
[2016-04-18 11:42] LABS: CALCIUM 8.2 mg/dl (8.4-10.2)
[2016-04-18 11:43] LABS: INR 1.1; PROTIME 14.2 Sec (12.2-14.2); PT RATIO 1.1
[2016-04-18 11:44] LABS: PARTIAL THROMBOPLASTIN TIME 28.6 Sec (25.0-35.0)
[2016-04-18] MEDS ORDERED: DUTA0.5C PO (11:49)
[2016-04-18] MEDS ORDERED: LIPA1CAP6 PO (11:50)
[2016-04-18 11:59] LABS: TROPONIN-I 0.13 ng/ml (0.00-0.12)
[2016-04-18] MEDS ORDERED: ONDANSETRON 4 MG INJ IV PRN ×2 (12:30→14:00)
[2016-04-18] MEDS ORDERED: ACETAMINOPHEN 325 MG TAB PO PRN ×2 (12:30→14:00)
--- NOTE | 2016-04-18 12:39 | CONS ---
Date/Time of Note Date/Time of Note DATE: 04/18/16 TIME: 12:39 Assessment/Plan Assessment/Plan Additional Assessment/Plan Acute anemia * Likely secondary to LGIB * Recommend colonoscopy * Need cardiac clearance prior to colonoscopy * Previous EGD 04-12-16: 1. Severe erosive esophagitis. 2. Gastritis 3. Biopsy neg Helicobacter pylori, dysplasia, and malignancy * PPI drip * Carafate 4 times daily * Monitor hemoglobin every 6 hours, transfuse 2 units for hemoglobin less than 7.5 Coronary artery disease, status post stent to proximal RCA, aspirin and Brilinta * Cardiology following Hypertension High cholesterol Chronic depression Chronic obstructive pulmonary disease History of tobacco use * Stop smoking x 1 month GERD * Continue PPI Further recommendations depend on clinical course Patient seen in collaboration with Dr. Denson Consultation Date/Type/Reason Admit Date/Time Hx of Present Illness 60 YO M presented to ED with son after fainting. Per son, pt also reports one episode of hematochezia. Pt was recently discharged from [facility] 04-12-16 after evaluation for chest pain and anemia. Pt had EGD 04-12-16 that noted: 1. Severe erosive esophagitis. 2. Gastritis 3. Biopsy neg Helicobacter pylori, dysplasia , and malignancy. Patient's son states he was asymptomatic and current symptoms started abruptly. Patient denies fever, chills, nausea, vomiting, hemoptysis, and hematemesis. Past Medical History Medical History: GERD, GI bleed Past Surgical History Past Surgical Hx: no surgical history Social History Alcohol Use: none Smoking Status: Never smoker Exam/Review of Systems Vital Signs Vitals Vital Signs Date Time Temp Pulse Resp B/P Pulse Ox O2 Delivery O2 Flow Rate FiO2 04/18/16 11:41 Nasal Cannula 2 04/18/16 11:10 98.7 93 20 96/52 98 Exam Constitutional: alert, oriented, well developed Psych: nl mood/affect Head: normocephalic Eyes: EOMI, icteric ENMT: nl external ears & nose, nl lips & teeth, nl nasal mucosa & septum Respiratory: normal air movement Cardiovascular: regular rate and rhythm Gastrointestinal: soft, tender (Epigastrium and left upper quadrant) Neurological: SLIP FEEDER II-XII intact Results Result Diagram: 04/18/16 1115 04/18/16 1115 Results 24 hrs Laboratory Tests Test 04/18/16 11:15 Activated Partial Thromboplast Time 28.6 Alanine Aminotransferase (ALT/SGPT) 30 Albumin 2.6 L Albumin/Globulin Ratio 0.92 Alkaline Phosphatase 127 H Anion Gap 14 Aspartate Amino Transf (AST/SGOT) 19 Basophils # Pending Basophils % Pending Blood Morphology Comment Blood Urea Nitrogen 36 H Calcium Level 8.2 L Carbon Dioxide Level 23 Chloride Level 106 Creatinine 0.79 Direct Bilirubin 0.00 Eosinophils # Pending Eosinophils % Pending Globulin 2.80 Glucose Level 136 Hematocrit 12.9 #L Hemoglobin 4.3 #*L INR International Normalized Ratio 1.10 Indirect Bilirubin 0.0 Lymphocytes # Pending Lymphocytes % Pending Mean Corpuscular Hemoglobin 29.5 Mean Corpuscular Hemoglobin Concent 33.3 Mean Corpuscular Volume 88.5 Mean Platelet Volume 7.1 L Monocytes # Pending Monocytes % Pending Neutrophils # Pending Neutrophils % Pending Nucleated Red Blood Cells # Pending Nucleated Red Blood Cells % Pending Platelet Count 514 #H Potassium Level 4.4 Prothrombin Time 14.2 Prothrombin Time Ratio 1.1 Red Blood Count 1.46 #L Red Cell Distribution Width 15.5 H Sodium Level 139 Total Bilirubin 0.0 L Total Protein 5.4 L Troponin I 0.130 *H White Blood Count 11.6 #H JUAN MARTINEZ Apr 18, 2016 12:39
[2016-04-18 12:54] LABS: PLATELET ESTIMATE PLT APPEAR INCREASED
[2016-04-18] MEDS ORDERED: DOCUSATE SODIUM 100 MG CAP PO PRN (14:00)
[2016-04-18] MEDS ORDERED: hydrALAzine 20 MG INJ IV PRN (14:00)
[2016-04-18] MEDS ORDERED: morphine 2 MG INJ IV PRN (14:00)
[2016-04-18] MEDS ORDERED: MAGNESIUM HYDROXIDE 30ML CUP PO PRN (14:00)
[2016-04-18] MEDS ORDERED: LORAZEPAM 2 MG INJ IV PRN (14:00)
[2016-04-18] MEDS ORDERED: NITROGLYCERIN (SL) 0.4 MG TAB SL PRN ×2 (14:00)
[2016-04-18] MEDS ORDERED: NA PHOSPHATE/BIPHOS 133 ML ENEMA PR PRN (14:00)
[2016-04-18] MEDS ORDERED: HYDROCODONE/APAP (5/325) TAB PO PRN (14:00)
[2016-04-18] MEDS ORDERED: ALBUTEROL/IPRATROPIUM (NEB) 3 ML AMP HHN PRN (14:00)
[2016-04-18] MEDS ORDERED: NACL 0.9% 3 ML SYG IV SCH (14:00)
[2016-04-18 14:32] LABS: TROPONIN-I 0.127 ng/ml (0.00-0.12)
[2016-04-18 14:45] LABS: CK-MB 0.34 ng/ml (0.0-2.4)
[2016-04-18] MEDS: PANTOPRAZOLE IV 80 MG in SOD CHLORIDE 0.9% 100 ML IV SCH (16:09)
--- NOTE | 2016-04-18 16:12 | HP ---
DATE OF ADMISSION: 04/18/2016 CHIEF COMPLAINT: This is a 60-year-old male with dark stools and weakness. HISTORY OF PRESENT ILLNESS: A 60-year-old male who was recently hospitalized here at our hospital f rom 04/09/2016 to 04/12/2016 for possible GI bleed and anemia, and also coronary artery disease who has a prior history of coronary artery disease, status post stent, on aspirin and Brilinta; history of troponin elevation with a VFib cardiac arrest 8 weeks ago, iron deficiency anemia, hypertension, high cholesterol, chronic depression, COPD, chronic tobacco use, GERD and renal insufficiency who pr esents again with dark stools and symptoms that occurred in the last 24 hours, per son. The patient denied any nausea, vomiting; no fevers or chills. He has been dizzy, though, and had a syncopal ev ent lasting for a few seconds, and the son noticed the patient to be very pale. Apparently, his sym ptoms have been going on for the last 24 hours. Patient was, again, discharged here from our hospit al on 04/12/2016. When he came in this time, he had a hemoglobin of 4.3 but on discharge, a few day s ago, it was 10.4 and PRBC was ordered in the ER. He also has troponin elevation at 0.13 as well, but denies any chest pain and no shortness of breath, although he has been having some mild abdomina l pain. PAST MEDICAL HISTORY: As stated above. ALLERGIES: NO KNOWN DRUG ALLERGIES. HOME MEDICATIONS: 1. Spiriva inhaled. 2. Brilinta 90 mg b.i.d. 3. Imdur 30 mg daily. 4. Lopressor 25 mg b.i.d. 5. Nitroglycerin 0.4 mg sublingual q.5 minutes p.r.n. 6. Benicar 40 mg daily. 7. Crestor 40 mg at bedtime. 8. Gabapentin 300 mg at bedtime. 9. [place] 5/325 q.6 p.r.n. 10. Lasix 20 mg daily. 11. Symbicort 2 puffs inhaled b.i.d. 12. Creon DR 24,000 with meals. 13. Protonix 40 mg b.i.d. 14. Carafate 1 gram q.i.d. 15. Avodart 0.5 mg daily. PAST SURGICAL HISTORY: Cardiac stent placement in the past, right ear surgery in the past. FAMILY HISTORY: Both parents are of unknown causes. SOCIAL HISTORY: Current every-day smoker. Denies alcohol use. Denies IV drug abuse. PHYSICAL EXAMINATION VITAL SIGNS: T-max 98.7, pulse 93, respirations 20, blood pressure 96/52, saturating at 98% on 2 li ters nasal cannula. GENERAL: Appears very pale and weak but alert, answering questions. Son at the bedside. HEENT: Pupils equal, round, react to light. Extraocular muscles intact. NECK: Supple, no thyromegaly. LUNGS: Clear to auscultation bilaterally. CARDIOVASCULAR: S1, S2 heard, II/ systolic murmur heard at the left sternal border. No rubs, no gallops. ABDOMEN: Soft, nontender, nondistended. Normal bowel sounds. No rebound or guarding. MUSCULOSKELETAL: No lower extremity edema bilaterally. NEUROLOGIC: No focal deficits. RECTAL EXAM: In the ER, there was melena noted. LABORATORIES: WBC 11.6, hemoglobin 4.3, hematocrit 12.9, platelets 514. The comprehensive metaboli c panel was normal. Troponin 0.13. ASSESSMENT AND PLAN: A 60-year-old male coming in with weakness and anemia and lower gastrointestin al bleeding. 1. Anemia. Again, on last admission, the patient had EGD that showed erosive esophagitis, moderate gastritis. He was sent home on Carafate and PPI. He has also been on aspirin and Brilinta, so we are obviously going to hold those. It is unclear if he is having upper or lower GI bleeding, althou gh he does have dark stools, so suspect possible upper. Will get a GI consult. Again, obviously ho ld his anticoagulants and give him 2 units as part of PRBC transfusion, IV fluids; he may need 2 mor e. Monitor his H and H every 6 hours, at least for the first 24 hours. 2. Coronary artery disease. Again, he has got troponin elevation. Denies chest pain. Will get a cardiology consult. Again, we are holding his Brilinta medicine. He will be on H2 jerica b.i.d. Continue Imdur, hold Lasix. 3. History of chronic obstructive pulmonary disease. Continue to monitor for now. No present issu es, on DuoNeb p.r.n. 4. Gastroesophageal reflux disease. Again, he is going to be on an H2 jerica. 5. High cholesterol. Check lipid panel. 6. Chronic depression. He is on Ativan p.r.n. 7. Chronic tobacco use. Order nicotine patch. 8. History of iron deficiency anemia. Again, he is severely anemic now, giving him PRBC transfusio n. 9. Deep venous thrombosis prophylaxis, sequential compression devices. Dictated By: SUNDEEP REDDY Conf#: [id number] DID#: [id number]
[2016-04-18] MEDS: SOD CHLORIDE 0.9% 1,000 ML IV SCH ×3 (16:30→23:32)
[2016-04-18] MEDS: CREON (24K-76K-120K) 1 CAP PO SCH (18:00)
[2016-04-18] MEDS: SUCRALFATE (100 MG/ML) 10ML CUP PO SCH ×2 (18:21→22:36)
--- NOTE | 2016-04-18 18:42 | CONS ---
DATE OF ADMISSION: 04/18/2016 DATE OF CONSULTATION: 04/18/2016 HISTORY OF PRESENT ILLNESS: The patient is a 60-year-old gentleman who comes in with generalized we akness with syncope ____. Denies any chest pain, shortness of breath or palpitation. He complains of lower GI bleed. No nausea, vomiting. Denies any fever, chills, or rigors. Per patient, about 3 weeks ago had a PCI and stenting and was started on Brilinta. PAST MEDICAL HISTORY: 1. Significant for coronary artery disease, status post stenting. 2. Hypertension. 3. Dyslipidemia. 4. COPD. 5. Depression. 6. GERD. 7. Renal insufficiency. 8. Iron deficiency anemia. 9. Tobacco abuse. SOCIAL HISTORY: He is a smoker. No alcohol or recreational drugs. MEDICATIONS: 1. Metoprolol. 2. Advair. 3. Avodart. 4. Imdur. 5. Losartan. 6. Pepcid. 7. Gabapentin. 8. Crestor. 9. Sucralfate. REVIEW OF SYSTEMS: Unremarkable except that mentioned in the HPI. PHYSICAL EXAMINATION: VITAL SIGNS: Temperature 97.2, heart rate of 114, blood pressure 92/66 mmHg, breathing at 18 and sa turating 98% on 2 liters of oxygen. GENERAL: Patient awake, alert, oriented, in no apparent distress. NECK: No JVD or carotid bruit. CARDIOVASCULAR: Tachycardic. No murmur, rub or gallop. CHEST: Clear to auscultation. ABDOMEN: Soft. Bowel sounds are present. There is no organomegaly. EXTREMITIES: No pedal edema. Pedal pulses are felt bilaterally. EK-lead EKG shows sinus rhythm with a ventricular rate of 98 beats per minute with normal SD, normal QRS and normal QT intervals with T-wave inversion in lead 2, 3, aVF, consistent with inferior ischemia and prolonged QT intervals. LABORATORY DATA: WBC 11.6, hemoglobin 4.3, hematocrit 12.9, platelets 514. Sodium 139, potassium 4 .4, chloride 106, CO2 of 23, BUN 36, creatinine 0.79. Troponin first set is ____ Second set is 0.1 2. ASSESSMENT AND PLAN: A 60-year-old gentleman with a lower gastrointestinal bleed with severe anemia with a hemoglobin of 4.3 who had recently had coronary stent placement, on Brilinta, with history o f hypertension, cholesterol, COPD, tobacco abuse, GERD, renal insufficiency, chronic depression, iro n deficiency anemia. Review of 12-lead EKG shows inferior ischemia with T-wave inversion in 2, 3, a nd aVF. In addition, he has elevated troponins. RECOMMENDATIONS: 1. Recommend stat blood transfusion with 2 packed red blood cells. 2. Continue Imdur. 3. Continue metoprolol. 4. Continue losartan. 5. Continue to trend troponins. 6. Echocardiogram to assess for segmental wall motion abnormality. 7. Stop Brilinta. 8. Will ____ the Plavix in a.m. 9. Continue rosuvastatin. 10. Continue GI and DVT prophylaxis. Dictated By: YAMILET FLORES MD SR/NTS Conf#: [id number] DID#: [id number]
[2016-04-18 19:27] VITALS: TEMP 98.4
[2016-04-18 20:19] LABS: CK-MB 0.37 ng/ml (0.0-2.4)
[2016-04-18 20:21] LABS: TROPONIN-I 0.123 ng/ml (0.00-0.12)
[2016-04-18 21:00] VITALS: BP 105/62; PULSE 110; RESP 18
[2016-04-18 21:01] VITALS: PULSE 111
[2016-04-18] MEDS: GABAPENTIN 300 MG CAP PO SCH (22:11)
[2016-04-18] MEDS: FAMOTIDINE 20 MG INJ IV SCH (22:11)
[2016-04-18] MEDS: METOPROLOL 25 MG TAB PO SCH (22:11)
[2016-04-18] MEDS: SALMETEROL/FLUTICASONE 250/50 INHA INH SCH (22:36)
[2016-04-18] MEDS: ROSUVASTATIN CALCIUM 40 MG TABLET PO SCH (22:36)
[2016-04-18 23:40] VITALS: Ht 165.1 cm; Wt 77.5 kg
[2016-04-19] VITALS (13 sets, daily range): BP systolic 82–130; BP diastolic 38–80; PULSE 79–100; RESP 16–22
[2016-04-19] MEDS: PANTOPRAZOLE IV 80 MG in SOD CHLORIDE 0.9% 100 ML IV SCH ×3 (00:46→22:23)
[2016-04-19] MEDS: LOSARTAN 50 MG TAB PO SCH (08:44)
[2016-04-19] MEDS: METOPROLOL 25 MG TAB PO SCH ×2 (08:45→20:55)
[2016-04-19] MEDS: FAMOTIDINE 20 MG INJ IV SCH (08:45)
[2016-04-19] MEDS: SUCRALFATE (100 MG/ML) 10ML CUP PO SCH ×4 (08:46→20:53)
[2016-04-19] MEDS: CREON (24K-76K-120K) 1 CAP PO SCH ×3 (08:46→18:51)
[2016-04-19] MEDS ORDERED: FUROSEMIDE 20 MG TAB PO SCH (09:00)
[2016-04-19] MEDS ORDERED: ISOSORBIDE MONONITRATE(SR)30 MG TAB PO SCH (09:00)
[2016-04-19 10:17] LABS: HEMATOCRIT 17.5 % (42.0-52.0); MEAN CORPUSCULAR HEMOGLOBIN 31.3 pg (29.0-33.0); MEAN CORPUSCULAR HGB CONC 34.1 g/dl (32.0-37.0); MEAN CORPUSCULAR VOLUME 91.6 fl (82.0-101.0); MEAN PLATELET VOLUME 7.9 fl (7.4-10.4); PLATELET COUNT 216 10^3/UL (140-440); RED BLOOD COUNT 1.91 10^6/ul (4.70-6.10); UNCORRECTED WBC 10.2 10^3/ul (4.8-10.8); WHITE BLOOD COUNT 10.2 10^3/ul (4.8-10.8)
[2016-04-19] MEDS: CLOPIDOGREL 75 MG TAB NGT SCH (10:20)
[2016-04-19] MEDS: DUTASTERIDE 0.5 MG CAP PO SCH (10:20)
[2016-04-19] MEDS: SALMETEROL/FLUTICASONE 250/50 INHA INH SCH ×2 (10:21→20:54)
[2016-04-19 10:22] LABS: CONDITION 1; LH ANALYZER COMMENTS 1
[2016-04-19 10:26] LABS: POTASSIUM 4.4 mmol/L (3.5-5.1)
[2016-04-19 10:28] LABS: CHOL/HDL RATIO 5.3 RATIO; CREATININE 0.79 mg/dl (0.61-1.24)
[2016-04-19 10:29] LABS: CALCIUM 7.3 mg/dl (8.4-10.2); MAGNESIUM 1.4 mg/dl (1.7-2.5); PHOSPHORUS 2.7 mg/dl (2.5-4.9)
--- NOTE | 2016-04-19 10:57 | RADRPT ---
Echocardiogram Report Patient Name: JACKIE BARTHOLOMEW Gender: Male Date: 1955 Study Date: 19-Apr-2016 Pantry Cook: Emelia Olivares RDCS Location: I Ref. Physician: MONCHO FLORES Quality: Good Procedures: Transthoracic echocardiogram with complete 2D, M-Mode, and doppler examination. Indications: Evaluate Left Ventricular function. 2D/M Mode Doppler Measurement Value Normal Ranges Measurement Value Normal Ranges LVIDd 2D 5.4 3.5 - 5.6 cm AV Peak Clayton 1.8 m/sec LVIDs 2D 4.6 2.1 - 4.1 cm AV Peak PG 12.0 mmHg FS 2D 14.7 % LVOT Peak Clayton 1.3 m/sec LVPWd 2D 1.0 0.6 - 1.1 cm LVOT Peak PG 7.0 mmHg IVSd 2D 0.9 0.6 - 1.1 cm MV E Peak Clayton 0.8 m/sec IVS/LVPW 2D 0.9 MV A Peak Clayton 0.9 m/sec AoR Diam 2D 2.6 2.0 - 3.7 cm MV E/A 0.8 LA/Ao 2D 1 0 - 1 MV Decel Time 211 msec EDV 2D 155.0 cm3 MV E/A 0.8 ESV 2D 96.1 cm3 TR Peak Clayton 2.1 m/sec LA Dimen 2D 3.6 2.3 - 4.0 cm TR Peak PG 17.0 mmHg Findings Left Ventricle: Normal left ventricular systolic function. Normal left ventricular cavity size. Normal left ventricular wall thickness. Ejection fraction is visually estimated at 55 %. Tissue Doppler/Mitral Doppler indices are consistent with impaired relaxation (Stage I diastolic dysfunction). Right Ventricle: Normal right ventricular size. Normal right ventricular systolic function. Left Atrium: The left atrium is normal in size. Right Atrium: The right atrium is normal in size. Mitral Valve: Normal appearance and function of the mitral valve with trace physiologic regurgitation. Aortic Valve: Normal appearance of the aortic valve. No significant aortic stenosis or insufficiency. Tricuspid Valve: Normal appearance and function of the tricuspid valve with trace physiologic regurgitation. Estimated peak PA systolic pressure 32 mmHg. Pericardium: Normal pericardium with no significant pericardial effusion. Aorta: Normal aortic root. IVC: Inferior vena cava without respiratory collapse, however, patient on ventilator. Conclusions Normal left ventricular systolic function. Normal left ventricular cavity size. Normal left ventricular wall thickness. Ejection fraction is visually estimated at 55 %. Tissue Doppler/Mitral Doppler indices are consistent with impaired relaxation (Stage I diastolic dysfunction). Normal right ventricular size. Normal right ventricular systolic function. Normal appearance and function of the mitral valve with trace physiologic regurgitation. Normal appearance of the aortic valve. No significant aortic stenosis or insufficiency. Normal appearance and function of the tricuspid valve with trace physiologic regurgitation. Estimated peak PA systolic pressure 32 mmHg. Normal pericardium with no significant pericardial effusion. Electronically Signed By: Moncho Flores 19-Apr-2016 10:56:47 -0800 Patient Name: JACKIE BARTHOLOMEW Study Date: 19-Apr-2016 [id number]
[2016-04-19 11:14] LABS: LYMPHOCYTES # 1.2 10^3/ul (0.8-2.9); MONOCYTE # 0.4 10^3/ul (0.3-0.9); MYELOCYTES # 0.1; NEUTROPHIL # 8.3 10^3/ul (1.6-7.5)
[2016-04-19 11:20] LABS: THYROID STIMULATING HORMONE 3.52 MIU/L (0.465-4.680)
[2016-04-19] MEDS ORDERED: SOD CHLORIDE 0.9% 250 ML IV* ONE (11:45)
--- NOTE | 2016-04-19 11:50 | PN ---
Date/Time of Note Date/Time of Note DATE: 04/19/16 TIME: 11:46 Assessment/Plan VTE Prophylaxis VTE Prophylaxis Intervention: contraindicated, SCD's VTE Contraindication Reason: bleeding Lines/Catheters [facility] Peripheral IV Urinary Cath still in place: No Assessment/Plan Assessment/Plan A 60-year-old male coming in with weakness and anemia and lower gastrointestinal bleeding. 1. Anemia - acute blood loss - will continue with transfusion of PRBCS, s/p 4, will give and another two - PUD vs Other - defer to GI for scopes 2. Coronary artery disease. demand ischemia - with acute blood loss - as per cardio recs 3. Chronic obstructive pulmonary disease. Continue to monitor for now. No present issues, on DuoNeb p.r.n. 4. Gastroesophageal reflux disease. Again, he is going to be on Protonix 5. High cholesterol. Check lipid panel. 6. Chronic depression. He is on Ativan p.r.n. 7. Chronic tobacco use. Order nicotine patch. 8. Iron deficiency anemia. see - #1 9. Deep venous thrombosis prophylaxis, sequential compression devices. 10. GI ppx - protonix dispo - f/u recs, continue with transfusion, as per clinical course. this progress note took greater than 40 minutes to complete Subjective 24 Hr Interval Summary Free Text/Dictation Patient was transfused 4 units of blood. No overnight events. Spoke to the patient and son at bedside about the care plan. He still complains of diarrhea and active blood in stools. Spoke to him in regards to possible re-scope if active lesions noted. 20 minutes spent. Exam/Review of Systems Vital Signs Vitals Vital Signs Date Time Temp Pulse Resp B/P Pulse Ox O2 Delivery O2 Flow Rate FiO2 04/19/16 11:37 98.3 90 20 94/55 95 04/19/16 08:29 Room Air 04/19/16 04:04 2.0 Intake and Output 04/18/16 04/18/16 04/19/16 15:00 23:00 07:00 Intake Total 350 ml 1240 ml Balance 350 ml 1240 ml Exam Gen Ko: weakness, AAOx4 HEENT: NC/AT, PERRLA, EOMI, no pharyngeal erythema, no tonsillar exudates, no lymphadenopathy, no JVD, no carotid bruits, conjunctival pallor noted NECK: supple, no thyromegaly THORAX: symmetrical, no obvious deformities CV: S1S2, RRR, no M/G/R Lungs: CTAB no W/C/R/R Abd: soft, mild tenderness to deep palpation/ND, +BS, no rebound, no guarding, neg HSM EXT: no edema, no ecchymosis, no clubbing, FROM Neuro: CN II-XII grossly intact, no focal deficits Psych: fair mood and affect Skin: C/D/I Results Result Diagram: 04/19/1692904/19/1630 Results 24 hrs Laboratory Tests Test 04/18/16 13:29 04/18/16 19:48 04/19/16 03:10 04/19/16 09:30 Creatine Kinase 21 L 20 L Creatine Kinase Index 1.6 1.9 Creatinine Kinase MB (Mass) 0.34 0.37 Troponin I 0.127 *H 0.123 *H Stool Occult Blood POSITIVE Anion Gap 12 Band Neutrophils % 2.0 Basophils # Basophils % Blood Morphology Comment Blood Urea Nitrogen 34 H Calcium Level 7.3 L Carbon Dioxide Level 22 Chloride Level 108 Cholesterol Level 70 L Cholesterol/HDL Ratio 5.3 Creatinine 0.79 Differential Comment MANUAL DIFF Eosinophils # Eosinophils % Glucose Level 123 HDL Cholesterol 13 L Hematocrit 17.5 #L Hemoglobin 6.0 #*L Hemoglobin A1c 6.0 H LDL Cholesterol, Calculated Lymphocytes # 1.2 Lymphocytes % 12.0 L Magnesium Level 1.4 L Mean Corpuscular Hemoglobin 31.3 Mean Corpuscular Hemoglobin Concent 34.1 Mean Corpuscular Volume 91.6 Mean Platelet Volume 7.9 Monocytes # 0.4 Monocytes % 4.0 Myelocytes # 0.1 Myelocytes % 1.0 H Neutrophils # 8.3 H Neutrophils % 81.0 H Nucleated Red Blood Cells # Nucleated Red Blood Cells % Phosphorus Level 2.7 Platelet Count 216 # Potassium Level 4.4 Red Blood Count 1.91 #L Red Cell Distribution Width 15.0 H Sodium Level 138 Thyroid Stimulating Hormone (TSH) 3.520 Triglycerides Level 361 H White Blood Count 10.2 Medications Medications Current Medications Ondansetron HCl (Zofran Inj) 4 mg Q6H PRN IV NAUSEA AND/OR VOMITING; Start 04/18 at 14:00 Acetaminophen (Tylenol Tab) 650 mg Q6H PRN PO PAIN LEVEL 1-3 OR FEVER; Start at 14:00 Acetaminophen/ Hydrocodone Bitart ([place] (5/325)) 1 tab Q6H PRN PO MODERATE PAIN LEVEL 4-6; Start 04/18/16 at 14:00 Morphine Sulfate (morphine) 2 mg Q4H PRN IV SEVERE PAIN LEVEL 7-10; Start at 14:00 Docusate Sodium (Colace) 100 mg Q12H PRN PO CONSTIPATION; Start 04/18/16 at 14: 00 Magnesium Hydroxide (Milk Of Mag) 30 ml DAILY PRN PO CONSTIPATION; Start at 14:00 Sodium Biphosphate/ Sodium Phosphate (Fleet Enema) 133 ml DAILY PRN [place] CONSTIPATION; Start 04/18/16 at 14:00 Famotidine (Pepcid Iv) 20 mg Q12 IV Last administered on 04/19/16 08:45; Admin Dose 20 MG; Start 04/18/16 at 21:00 Lorazepam 0.5 mg 0.5 mg Q6H PRN IV ANXIETY; Start 04/18/16 at 14:00 Sodium Chloride (NS) 1,000 ml @ 100 mls/hr Q10H IV Last administered on 21:40; Admin Dose 100 MLS/HR; Start 04/18/16 at 13:32 Hydralazine HCl (Apresoline) 10 mg Q6H PRN IV ELEVATED BLOOD PRESSURE; Start at 14:00 Clonidine (Catapres) 0.1 mg Q6H PRN PO ELEVATED BLOOD PRESSURE; Start 04/18/16 at 14:00 Nitroglycerin (Nitroglycerin (Sl Tab) 0.4 Mg) 1 tab Q5M PRN SL ANGINA; Start at 14:00 Dutasteride (Avodart) 0.5 mg DAILY PO Last administered on 04/19/16 10:20; Admin Dose 0.5 MG; Start 04/19/16 at 09:00 Gabapentin (Neurontin) 300 mg QHS PO Last administered on 04/18/16 22:11; Admin Dose 300 MG; Start 04/18/16 at 21:00 Isosorbide Mononitrate (Imdur) 30 mg DAILY PO ; Start 04/19/16 at 09:00 Metoprolol Tartrate (Lopressor) 25 mg BID PO Last administered on 04/18/16 22: 11; Admin Dose 25 MG; Start 04/18/16 at 21:00 Rosuvastatin Calcium (Crestor) 40 mg QHS PO Last administered on 04/18/16 22:36 ; Admin Dose 40 MG; Start 04/18/16 at 21:00 Sucralfate (Carafate Susp) 1 gm QID PO Last administered on 04/19/16 08:46; Admin Dose 1 GM; Start 04/18/16 at 17:00 Salmeterol Xinafoate/ Fluticasone (Advair 250/50 Diskus) 1 inh BID INH Last administered on 04/19/16 10:21; Admin Dose 1 INH; Start 04/18/16 at 21:00 Losartan Potassium 100 mg 100 mg DAILY PO ; Start 04/19/16 at 09:00 Pantoprazole/ Sodium Chloride (Protonix Iv/NS) 100 ml @ 10 mls/hr Q10H IV Last administered on 04/19/16 00:46; Admin Dose 10 MLS/HR; Start 04/18/16 at 14: 30 Clopidogrel Bisulfate 75 mg 75 mg DAILY NGT Last administered on 04/19/16 10:20 ; Admin Dose 75 MG; Start 04/19/16 at 09:00 Magnesium Sulfate/ Sodium Chloride (Magnesium Sulfate/NS) 106 ml @ 35.333 mls/ hr ONCE ONCE IVPB ; Start 04/19/16 at 12:00; Stop 04/19/16 at 14:59 RAMAN BARRETT MD Apr 19, 2016 11:50
[2016-04-19] MEDS ORDERED: MAGNESIUM SULFATE 3 GM in SOD CHLORIDE 0.9% 100 ML IVPB ONE (12:00)
[2016-04-19] MEDS ORDERED: FUROSEMIDE 40 MG INJ IV SCH (12:00)
[2016-04-19] MEDS: SOD CHLORIDE 0.9% 1,000 ML IV SCH ×2 (12:07→19:32)
[2016-04-19] MEDS: metroNIDAZOLE 500 MG/NS (PMX) 100 ML IVPB SCH ×2 (13:30→18:00)
[2016-04-19] MEDS ORDERED: SOD FERRIC GLUC COMPLX 125 MG in SOD CHLORIDE 0.9% 100 ML IVPB ONE (16:30)
--- NOTE | 2016-04-19 17:18 | CONS ---
Date/Time of Note Date/Time of Note DATE: 04/19/16 TIME: 17:12 Assessment/Plan Assessment/Plan Chief Complaint/Hosp Course IMp: 1.H/O PTCA/stent-recently with [facility] 2.abnl ecg 3.Positive troponin-minimal in the setting of severe anemia/likely demand event 4.Hypotension-borderline labile 5.Anemia-severe 6.Dyslipidemia 7.COPD 8.C. Diff Recc -Tele -trend carediac enzymes -Plavix as possible -TRansfuse PRBC's -Continue BB/cozaar as tolerated only -Hold imdur given marginal BP -Ongoing GI eval -Continue statin -Continue abx's Problems: Consultation Date/Type/Reason Admit Date/Time Apr 18, 2016 at 12:11 Initial Consult Date 04/19/16 Type of Consultation: Cardiology Reason for Consultation positive troponin Referring Provider: RAMAN BARRETT MD Exam/Review of Systems Vital Signs Vitals Vital Signs Date Time Temp Pulse Resp B/P Pulse Ox O2 Delivery O2 Flow Rate FiO2 04/19/16 16:23 93 04/19/16 15:31 98.3 18 130/80 97 04/19/16 08:29 Room Air 04/19/16 04:04 2.0 Intake and Output 04/18/16 04/18/16 04/19/16 15:00 23:00 07:00 Intake Total 350 ml 1240 ml Balance 350 ml 1240 ml Exam Review of Systems: CONSTITUTIONAL: No fevers, chills. PULMONARY: mild sob CARDIOVASCULAR: No chest pain/palpitations GASTROINTESTINAL: No nausea/vomiting. GENITOURINARY: No hematuria/dysuria. MUSCULOSKELETAL: No myagias/arthalgias. PSYCHIATRIC: The patient denies depression. NEUROLOGIC: Generalized weakness Constitutional: alert Psych: no complaints Head: normocephalic ENMT: mucosa pink and moist Neck: jvd, supple Respiratory: diminished breath sounds Cardiovascular: regular rate and rhythm Gastrointestinal: non-tender, soft Musculoskeletal: muscle tone (normal) Extremities: edema (none) Neurological: other (No focal deficits) Results Result Diagram: 04/19/1630 04/19/1630 Results 24 hrs Laboratory Tests Test 04/18/16 19:48 04/19/16 03:10 04/19/16 09:30 Creatine Kinase 20 L Creatine Kinase Index 1.9 Creatinine Kinase MB (Mass) 0.37 Troponin I 0.123 *H Stool Occult Blood POSITIVE Anion Gap 12 Band Neutrophils % 2.0 Basophils # Basophils % Blood Morphology Comment Blood Urea Nitrogen 34 H Calcium Level 7.3 L Carbon Dioxide Level 22 Chloride Level 108 Cholesterol Level 70 L Cholesterol/HDL Ratio 5.3 Creatinine 0.79 Differential Comment MANUAL DIFF Eosinophils # Eosinophils % Glucose Level 123 HDL Cholesterol 13 L Hematocrit 17.5 #L Hemoglobin 6.0 #*L Hemoglobin A1c 6.0 H LDL Cholesterol, Calculated Lymphocytes # 1.2 Lymphocytes % 12.0 L Magnesium Level 1.4 L Mean Corpuscular Hemoglobin 31.3 Mean Corpuscular Hemoglobin Concent 34.1 Mean Corpuscular Volume 91.6 Mean Platelet Volume 7.9 Monocytes # 0.4 Monocytes % 4.0 Myelocytes # 0.1 Myelocytes % 1.0 H Neutrophils # 8.3 H Neutrophils % 81.0 H Nucleated Red Blood Cells # Nucleated Red Blood Cells % Phosphorus Level 2.7 Platelet Count 216 # Potassium Level 4.4 Red Blood Count 1.91 #L Red Cell Distribution Width 15.0 H Sodium Level 138 Thyroid Stimulating Hormone (TSH) 3.520 Triglycerides Level 361 H White Blood Count 10.2 Medications Medications Current Medications Ondansetron HCl (Zofran Inj) 4 mg Q6H PRN IV NAUSEA AND/OR VOMITING; Start 04/18 at 14:00 Acetaminophen (Tylenol Tab) 650 mg Q6H PRN PO PAIN LEVEL 1-3 OR FEVER; Start at 14:00 Acetaminophen/ Hydrocodone Bitart ([place] (5/325)) 1 tab Q6H PRN PO MODERATE PAIN LEVEL 4-6; Start 04/18/16 at 14:00 Morphine Sulfate (morphine) 2 mg Q4H PRN IV SEVERE PAIN LEVEL 7-10; Start at 14:00 Docusate Sodium (Colace) 100 mg Q12H PRN PO CONSTIPATION; Start 04/18/16 at 14: 00 Magnesium Hydroxide (Milk Of Mag) 30 ml DAILY PRN PO CONSTIPATION; Start at 14:00 Sodium Biphosphate/ Sodium Phosphate (Fleet Enema) 133 ml DAILY PRN [place] CONSTIPATION; Start 04/18/16 at 14:00 Lorazepam 0.5 mg 0.5 mg Q6H PRN IV ANXIETY; Start 04/18/16 at 14:00 Sodium Chloride (NS) 1,000 ml @ 100 mls/hr Q10H IV Last administered on 12:07; Admin Dose 100 MLS/HR; Start 04/18/16 at 13:32 Hydralazine HCl (Apresoline) 10 mg Q6H PRN IV ELEVATED BLOOD PRESSURE; Start at 14:00 Clonidine (Catapres) 0.1 mg Q6H PRN PO ELEVATED BLOOD PRESSURE; Start 04/18/16 at 14:00 Nitroglycerin (Nitroglycerin (Sl Tab) 0.4 Mg) 1 tab Q5M PRN SL ANGINA; Start at 14:00 Dutasteride (Avodart) 0.5 mg DAILY PO Last administered on 04/19/16 10:20; Admin Dose 0.5 MG; Start 04/19/16 at 09:00 Gabapentin (Neurontin) 300 mg QHS PO Last administered on 04/18/16 22:11; Admin Dose 300 MG; Start 04/18/16 at 21:00 Isosorbide Mononitrate (Imdur) 30 mg DAILY PO ; Start 04/19/16 at 09:00 Metoprolol Tartrate (Lopressor) 25 mg BID PO Last administered on 04/18/16 22: 11; Admin Dose 25 MG; Start 04/18/16 at 21:00 Rosuvastatin Calcium (Crestor) 40 mg QHS PO Last administered on 04/18/16 22:36 ; Admin Dose 40 MG; Start 04/18/16 at 21:00 Sucralfate (Carafate Susp) 1 gm QID PO Last administered on 04/19/16 12:30; Admin Dose 1 GM; Start 04/18/16 at 17:00 Salmeterol Xinafoate/ Fluticasone (Advair 250/50 Diskus) 1 inh BID INH Last administered on 04/19/16 10:21; Admin Dose 1 INH; Start 04/18/16 at 21:00 Losartan Potassium 100 mg 100 mg DAILY PO ; Start 04/19/16 at 09:00 Pantoprazole/ Sodium Chloride (Protonix Iv/NS) 100 ml @ 10 mls/hr Q10H IV Last administered on 04/19/16 12:07; Admin Dose 10 MLS/HR; Start 04/18/16 at 14: 30 Clopidogrel Bisulfate (plaVIX) 75 mg DAILY NGT Last administered on 04/19/16t 10 :20; Admin Dose 75 MG; Start 04/19/16 at 09:00 Furosemide 20 mg 20 mg ONCE IV ; Start 04/19/16 at 12:00; Stop 04/20/16 at 11:59 Metronidazole 100 ml @ 100 mls/hr Q6 IVPB ; Start 04/19/16 at 13:30 Ferric Sodium Gluconate Complex/ Sodium Chloride (Ferrlecit/NS) 110 ml @ 100 mls/hr ONCE ONCE IVPB ; Start 04/19/16 at 16:30; Stop 04/19/16 at 17:35 LEROY GARCIA Apr 19, 2016 17:18
--- NOTE | 2016-04-19 19:52 | PN ---
Date/Time of Note Date/Time of Note DATE: 04/19/16 TIME: 19:48 Assessment/Plan VTE Prophylaxis VTE Prophylaxis Intervention: contraindicated Lines/Catheters IV C[facility]ter Type (from [facility] [place] Urinary Cath still in place: No Assessment/Plan Assessment/Plan Acute anemia/melena * UGI vs LGIB * Previous EGD 04-12-16: 1. Severe erosive esophagitis. 2. Gastritis 3. Biopsy neg Helicobacter pylori, dysplasia, and malignancy * Recommend colonoscopy * Need cardiac clearance prior to colonoscopy Coronary artery disease, status post stent to proximal RCA, aspirin and Brilinta * Cardiology following Hypertension High cholesterol Chronic depression Chronic obstructive pulmonary disease History of tobacco use * Stop smoking x 1 month GERD * Continue PPI Further recommendations depend on clinical course Plan: * Reevaluate upper GI tract tomorrow * Colonoscopy once stable and cleared by cardiology prior to discharge Subjective 24 Hr Interval Summary Free Text/Dictation Course reviewed with nursing staff No evidence of active bleeding Receiving 6 unit of blood We will monitor H&H posttransfusion We will evaluate upper GI tract tomorrow We will need evaluation of the colon prior to discharge and once cleared by cardiology Exam/Review of Systems Vital Signs Vitals Vital Signs Date Time Temp Pulse Resp B/P Pulse Ox O2 Delivery O2 Flow Rate FiO2 04/19/16 16:23 93 04/19/16 15:31 98.3 18 130/80 97 04/19/16 08:29 Room Air 04/19/16 04:04 2.0 Intake and Output 04/18/16 04/18/16 04/19/16 15:00 23:00 07:00 Intake Total 350 ml 1240 ml Balance 350 ml 1240 ml Exam Constitutional: alert, oriented, well developed Head: atraumatic, normocephalic Neck: non-tender, supple Respiratory: clear to auscultation, normal air movement Cardiovascular: nl pulses, regular rate and rhythm Gastrointestinal: nl liver, spleen, non-tender, soft Results Result Diagram: 04/19/16 0930 04/19/16 0930 Results 24 hrs Laboratory Tests Test 04/19/16 03:10 04/19/16 09:30 Stool Occult Blood POSITIVE Anion Gap 12 Band Neutrophils % 2.0 Basophils # Basophils % Blood Morphology Comment Blood Urea Nitrogen 34 H Calcium Level 7.3 L Carbon Dioxide Level 22 Chloride Level 108 Cholesterol Level 70 L Cholesterol/HDL Ratio 5.3 Creatinine 0.79 Differential Comment MANUAL DIFF Eosinophils # Eosinophils % Glucose Level 123 HDL Cholesterol 13 L Hematocrit 17.5 #L Hemoglobin 6.0 #*L Hemoglobin A1c 6.0 H LDL Cholesterol, Calculated Lymphocytes # 1.2 Lymphocytes % 12.0 L Magnesium Level 1.4 L Mean Corpuscular Hemoglobin 31.3 Mean Corpuscular Hemoglobin Concent 34.1 Mean Corpuscular Volume 91.6 Mean Platelet Volume 7.9 Monocytes # 0.4 Monocytes % 4.0 Myelocytes # 0.1 Myelocytes % 1.0 H Neutrophils # 8.3 H Neutrophils % 81.0 H Nucleated Red Blood Cells # Nucleated Red Blood Cells % Phosphorus Level 2.7 Platelet Count 216 # Potassium Level 4.4 Red Blood Count 1.91 #L Red Cell Distribution Width 15.0 H Sodium Level 138 Thyroid Stimulating Hormone (TSH) 3.520 Triglycerides Level 361 H White Blood Count 10.2 Medications Medications Current Medications Ondansetron HCl (Zofran Inj) 4 mg Q6H PRN IV NAUSEA AND/OR VOMITING; Start 04/18 at 14:00 Acetaminophen (Tylenol Tab) 650 mg Q6H PRN PO PAIN LEVEL 1-3 OR FEVER; Start at 14:00 Acetaminophen/ Hydrocodone Bitart ([place] (5/325)) 1 tab Q6H PRN PO MODERATE PAIN LEVEL 4-6; Start 04/18/16 at 14:00 Morphine Sulfate (morphine) 2 mg Q4H PRN IV SEVERE PAIN LEVEL 7-10; Start at 14:00 Docusate Sodium (Colace) 100 mg Q12H PRN PO CONSTIPATION; Start 04/18/16 at 14: 00 Magnesium Hydroxide (Milk Of Mag) 30 ml DAILY PRN PO CONSTIPATION; Start at 14:00 Sodium Biphosphate/ Sodium Phosphate (Fleet Enema) 133 ml DAILY PRN [place] CONSTIPATION; Start 04/18/16 at 14:00 Lorazepam 0.5 mg 0.5 mg Q6H PRN IV ANXIETY; Start 04/18/16 at 14:00 Sodium Chloride (NS) 1,000 ml @ 100 mls/hr Q10H IV Last administered on t 12:07; Admin Dose 100 MLS/HR; Start 04/18/16 at 13:32 Hydralazine HCl (Apresoline) 10 mg Q6H PRN IV ELEVATED BLOOD PRESSURE; Start at 14:00 Clonidine (Catapres) 0.1 mg Q6H PRN PO ELEVATED BLOOD PRESSURE; Start 04/18/16 at 14:00 Nitroglycerin (Nitroglycerin (Sl Tab) 0.4 Mg) 1 tab Q5M PRN SL ANGINA; Start at 14:00 Dutasteride (Avodart) 0.5 mg DAILY PO Last administered on 04/19/16 10:20; Admin Dose 0.5 MG; Start 04/19/16 at 09:00 Gabapentin (Neurontin) 300 mg QHS PO Last administered on 04/18/16 22:11; Admin Dose 300 MG; Start 04/18/16 at 21:00 Metoprolol Tartrate (Lopressor) 25 mg BID PO Last administered on 04/18/16 22: 11; Admin Dose 25 MG; Start 04/18/16 at 21:00 Rosuvastatin Calcium (Crestor) 40 mg QHS PO Last administered on 04/18/16 22:36 ; Admin Dose 40 MG; Start 04/18/16 at 21:00 Sucralfate (Carafate Susp) 1 gm QID PO Last administered on 04/19/16 17:56; Admin Dose 1 GM; Start 04/18/16 at 17:00 Salmeterol Xinafoate/ Fluticasone (Advair 250/50 Diskus) 1 inh BID INH Last administered on 04/19/16 10:21; Admin Dose 1 INH; Start 04/18/16 at 21:00 Losartan Potassium 100 mg 100 mg DAILY PO ; Start 04/19/16 at 09:00 Pantoprazole/ Sodium Chloride (Protonix Iv/NS) 100 ml @ 10 mls/hr Q10H IV Last administered on 04/19/16 12:07; Admin Dose 10 MLS/HR; Start 04/18/16 at 14: 30 Clopidogrel Bisulfate (plaVIX) 75 mg DAILY NGT Last administered on 04/19/16 10 :20; Admin Dose 75 MG; Start 04/19/16 at 09:00 Furosemide 20 mg 20 mg ONCE IV Last administered on 04/19/16 17:56; Admin Dose 20 MG; Start 04/19/16 at 12:00; Stop 04/20/16 at 11:59 Metronidazole (Flagyl 500 Mg (Pmx)) 100 ml @ 100 mls/hr Q6 IVPB ; Start at 13:30 RIOS CERVANTES MD Apr 19, 2016 19:52
[2016-04-19] MEDS: GABAPENTIN 300 MG CAP PO SCH (20:54)
[2016-04-19] MEDS: ROSUVASTATIN CALCIUM 40 MG TABLET PO SCH (20:54)
[2016-04-19 22:10] LABS: HEMATOCRIT 23.3 % (42.0-52.0); HEMOGLOBIN 7.9 g/dl (14.0-18.0)
[2016-04-20] VITALS (18 sets, daily range): BP systolic 91–117; BP diastolic 52–69; PULSE 72–86; RESP 13–27
[2016-04-20] MEDS: metroNIDAZOLE 500 MG/NS (PMX) 100 ML IVPB SCH ×3 (00:12→14:51)
[2016-04-20 07:22] LABS: BASOPHILS % 0.4 % (0.0-2.0); EOSINOPHILS % 0.2 % (0.0-7.0); HEMATOCRIT 22.4 % (42.0-52.0); HEMOGLOBIN 7.7 g/dl (14.0-18.0); LYMPHOCYTES # 1.3 10^3/ul (0.8-2.9); LYMPHOCYTES % 13.1 % (15.0-51.0); MEAN CORPUSCULAR HEMOGLOBIN 31.6 pg (29.0-33.0); MEAN CORPUSCULAR HGB CONC 34.2 g/dl (32.0-37.0); MEAN CORPUSCULAR VOLUME 92.4 fl (82.0-101.0); MEAN PLATELET VOLUME 7.9 fl (7.4-10.4); MONOCYTE # 0.6 10^3/ul (0.3-0.9); MONOCYTES % 6.4 % (0.0-11.0); NEUTROPHIL # 7.8 10^3/ul (1.6-7.5); NEUTROPHILS % 79.9 % (39.0-77.0); PLATELET COUNT 178 10^3/UL (140-440); RED BLOOD COUNT 2.43 10^6/ul (4.70-6.10); RED CELL DISTRIBUTION WIDTH 14.7 % (11.5-14.5); UNCORRECTED WBC 9.7 10^3/ul (4.8-10.8); WHITE BLOOD COUNT 9.7 10^3/ul (4.8-10.8)
[2016-04-20 07:34] LABS: CONDITION 1; LH ANALYZER COMMENTS 1
[2016-04-20 07:58] LABS: POTASSIUM 3.8 mmol/L (3.5-5.1)
[2016-04-20 08:00] LABS: CREATININE 0.78 mg/dl (0.61-1.24)
[2016-04-20] MEDS: CREON (24K-76K-120K) 1 CAP PO SCH ×3 (08:00→17:46)
[2016-04-20 08:01] LABS: CALCIUM 7.6 mg/dl (8.4-10.2)
[2016-04-20] MEDS: METOPROLOL 25 MG TAB PO SCH ×2 (09:00→21:52)
[2016-04-20] MEDS: LOSARTAN 50 MG TAB PO SCH (09:00)
[2016-04-20] MEDS: DUTASTERIDE 0.5 MG CAP PO SCH (09:00)
--- NOTE | 2016-04-20 09:03 | CONS ---
Date/Time of Note Date/Time of Note DATE: 04/20/16 TIME: 08:59 Assessment/Plan Assessment/Plan Additional Assessment/Plan 1.H/O PTCA/stent-recently with [facility] - no CP, now, con't med rx 2.abnl ecg - no ischemia by description 3.Positive troponin-minimal in the setting of severe anemia/likely demand event - no intervention planned now 4.Hypotension-borderline labile - stable now, will monitor closely 5.Anemia-severe - blood transfusion as need, per family - still "black stools" GI follows 6.Dyslipidemia 7.COPD - no wheezing 8.C. Diff - primary team follows Consultation Date/Type/Reason Admit Date/Time Apr 18, 2016 at 12:11 Initial Consult Date Type of Consultation: Cardiology Referring Provider: RAMAN BARRETT MD 24 HR Interval Summary Free Text/Dictation No CP noted. Blood transfusion as need, per family - still "black stools" GI follows ROS: No fever, no chills, no nausea, no vomiting, no diarrhea/constipation No recent weight changes No chest pain, no PND, no orthopnea No dizziness, blurred vision No thirst, no heat or cold intolerance Exam/Review of Systems Vital Signs Vitals Vital Signs Date Time Temp Pulse Resp B/P Pulse Ox O2 Delivery O2 Flow Rate FiO2 04/20/16 08:36 72 04/20/16 08:06 98.7 17 104/63 96 04/20/16 05:23 2.0 04/19/16 08:29 Room Air Intake and Output 04/19/16 04/19/16 04/20/16 15:00 23:00 07:00 Intake Total 850 ml Balance 850 ml Exam General: WN/WD/NAD, AOx3 HEENT: Unicetric/atraumatic/EOMI (follow commands) NECK: JVD elevated, no thyromegaly Lymph: no lymphadenopathy HEART: regular with no S3, II/ systolic murmur at apex LUNGS: Coarse sounds ABD: soft, NT, ND, +BS : Intact Neuro: non focal SKIN: chronic changes EXT: trace edema Results Result Diagram: 04/20/16 0609 04/20/16 0609 Results 24 hrs Laboratory Tests Test 04/19/16 09:30 04/19/16 22:00 04/20/16 06:09 Anion Gap 12 12 Band Neutrophils % 2.0 Basophils # 0.0 Basophils % 0.4 Blood Morphology Comment Blood Urea Nitrogen 34 H 19 # Calcium Level 7.3 L 7.6 L Carbon Dioxide Level 22 27 Chloride Level 108 106 Cholesterol Level 70 L Cholesterol/HDL Ratio 5.3 Creatinine 0.79 0.78 Differential Comment MANUAL DIFF Eosinophils # 0.0 Eosinophils % 0.2 Glucose Level 123 99 HDL Cholesterol 13 L Hematocrit 17.5 #L 23.3 #L 22.4 L Hemoglobin 6.0 #*L 7.9 #L 7.7 L Hemoglobin A1c 6.0 H LDL Cholesterol, Calculated Lymphocytes # 1.2 1.3 Lymphocytes % 12.0 L 13.1 L Magnesium Level 1.4 L Mean Corpuscular Hemoglobin 31.3 31.6 Mean Corpuscular Hemoglobin Concent 34.1 34.2 Mean Corpuscular Volume 91.6 92.4 Mean Platelet Volume 7.9 7.9 Monocytes # 0.4 0.6 Monocytes % 4.0 6.4 Myelocytes # 0.1 Myelocytes % 1.0 H Neutrophils # 8.3 H 7.8 H Neutrophils % 81.0 H 79.9 H Nucleated Red Blood Cells # 0.0 Nucleated Red Blood Cells % 0.0 Phosphorus Level 2.7 Platelet Count 216 # 178 Potassium Level 4.4 3.8 Red Blood Count 1.91 #L 2.43 #L Red Cell Distribution Width 15.0 H 14.7 H Sodium Level 138 141 Thyroid Stimulating Hormone (TSH) 3.520 Triglycerides Level 361 H White Blood Count 10.2 9.7 Medications Medications Current Medications Ondansetron HCl (Zofran Inj) 4 mg Q6H PRN IV NAUSEA AND/OR VOMITING; Start 04/18 at 14:00 Acetaminophen (Tylenol Tab) 650 mg Q6H PRN PO PAIN LEVEL 1-3 OR FEVER; Start at 14:00 Acetaminophen/ Hydrocodone Bitart ([place] (5/325)) 1 tab Q6H PRN PO MODERATE PAIN LEVEL 4-6; Start 04/18/16 at 14:00 Morphine Sulfate (morphine) 2 mg Q4H PRN IV SEVERE PAIN LEVEL 7-10; Start at 14:00 Docusate Sodium (Colace) 100 mg Q12H PRN PO CONSTIPATION; Start 04/18/16 at 14: 00 Magnesium Hydroxide (Milk Of Mag) 30 ml DAILY PRN PO CONSTIPATION; Start at 14:00 Sodium Biphosphate/ Sodium Phosphate (Fleet Enema) 133 ml DAILY PRN [place] CONSTIPATION; Start 04/18/16 at 14:00 Lorazepam 0.5 mg 0.5 mg Q6H PRN IV ANXIETY; Start 04/18/16 at 14:00 Sodium Chloride (NS) 1,000 ml @ 100 mls/hr Q10H IV Last administered on 12:07; Admin Dose 100 MLS/HR; Start 04/18/16 at 13:32 Hydralazine HCl (Apresoline) 10 mg Q6H PRN IV ELEVATED BLOOD PRESSURE; Start at 14:00 Clonidine (Catapres) 0.1 mg Q6H PRN PO ELEVATED BLOOD PRESSURE; Start 04/18/16 at 14:00 Nitroglycerin (Nitroglycerin (Sl Tab) 0.4 Mg) 1 tab Q5M PRN SL ANGINA; Start at 14:00 Dutasteride (Avodart) 0.5 mg DAILY PO Last administered on 04/19/16 10:20; Admin Dose 0.5 MG; Start 04/19/16 at 09:00 Gabapentin (Neurontin) 300 mg QHS PO Last administered on 04/19/16 20:54; Admin Dose 300 MG; Start 04/18/16 at 21:00 Metoprolol Tartrate (Lopressor) 25 mg BID PO Last administered on 04/19/16 20: 55; Admin Dose 25 MG; Start 04/18/16 at 21:00 Rosuvastatin Calcium (Crestor) 40 mg QHS PO Last administered on 04/19/16 20:54 ; Admin Dose 40 MG; Start 04/18/16 at 21:00 Sucralfate (Carafate Susp) 1 gm QID PO Last administered on 04/19/16 20:53; Admin Dose 1 GM; Start 04/18/16 at 17:00 Salmeterol Xinafoate/ Fluticasone (Advair 250/50 Diskus) 1 inh BID INH Last administered on 04/19/16 20:54; Admin Dose 1 INH; Start 04/18/16 at 21:00 Losartan Potassium 100 mg 100 mg DAILY PO ; Start 04/19/16 at 09:00 Pantoprazole/ Sodium Chloride (Protonix Iv/NS) 100 ml @ 10 mls/hr Q10H IV Last administered on 04/19/16 22:23; Admin Dose 10 MLS/HR; Start 04/18/16 at 14: 30 Clopidogrel Bisulfate (plaVIX) 75 mg DAILY NGT Last administered on 04/19/16 10 :20; Admin Dose 75 MG; Start 04/19/16 at 09:00 Furosemide 20 mg 20 mg ONCE IV Last administered on 04/19/16 17:56; Admin Dose 20 MG; Start 04/19/16 at 12:00; Stop 04/20/16 at 11:59 Metronidazole (Flagyl 500 Mg (Pmx)) 100 ml @ 100 mls/hr Q6 IVPB Last administered on 04/20/16 06:19; Admin Dose 100 MLS/HR; Start 04/19/16 at 13:30 KORIN KLEIN MD Apr 20, 2016 09:03
[2016-04-20] MEDS: PANTOPRAZOLE IV 80 MG in SOD CHLORIDE 0.9% 100 ML IV SCH (09:05)
[2016-04-20] MEDS: CLOPIDOGREL 75 MG TAB NGT SCH (09:41)
[2016-04-20] MEDS: SUCRALFATE (100 MG/ML) 10ML CUP PO SCH ×4 (09:41→21:52)
[2016-04-20] MEDS: SALMETEROL/FLUTICASONE 250/50 INHA INH SCH ×2 (09:41→21:53)
--- NOTE | 2016-04-20 11:19 | PN ---
Date/Time of Note Date/Time of Note DATE: 04/20/16 TIME: 11:17 Assessment/Plan VTE Prophylaxis VTE Prophylaxis Intervention: SCD's Lines/Catheters IV Catheter Type (from Nrs): Peripheral IV Urinary Cath still in place: No Assessment/Plan Assessment/Plan 1. Anemia - acute blood loss - will continue with transfusion of PRBCS, s/p 4, will give and another two - PUD vs Other - defer to GI for scopes 2. Coronary artery disease. demand ischemia - with acute blood loss - as per cardio recs 3. Chronic obstructive pulmonary disease. Continue to monitor for now. No present issues, on DuoNeb p.r.n. 4. Gastroesophageal reflux disease. Again, he is going to be on Protonix 5. High cholesterol. Check lipid panel. 6. Chronic depression. He is on Ativan p.r.n. 7. Chronic tobacco use. Order nicotine patch. 8. Iron deficiency anemia. see - #1 9. Deep venous thrombosis prophylaxis, sequential compression devices. 10. GI ppx - protonix dispo - f/u recs, continue with transfusion, as per clinical course. pt is cleared by Cardiology for proecure, possible plan for EGD today this progress note took greater than 40 minutes to complete Subjective 24 Hr Interval Summary Free Text/Dictation pt cleared by cardiology , Plan for EGD by GI as per Nurse Exam/Review of Systems Vital Signs Vitals Vital Signs Date Time Temp Pulse Resp B/P Pulse Ox O2 Delivery O2 Flow Rate FiO2 04/20/16 08:36 72 04/20/16 08:06 98.7 17 104/63 96 04/20/16 05:23 2.0 04/19/16 08:29 Room Air Intake and Output 04/19/16 04/19/16 04/20/16 15:00 23:00 07:00 Intake Total 850 ml Balance 850 ml Exam Constitutional: alert Psych: no complaints Head: normocephalic ENMT: mucosa pink and moist Neck: jvd, supple Respiratory: diminished breath sounds Cardiovascular: regular rate and rhythm Gastrointestinal: non-tender, soft Musculoskeletal: muscle tone (normal) Extremities: edema (none) Neurological: other (No focal deficits) Results Result Diagram: 04/20/16 0609 04/20/16 0609 Results 24 hrs Laboratory Tests Test 04/19/16 22:00 04/20/16 06:09 Hematocrit 23.3 #L 22.4 L Hemoglobin 7.9 #L 7.7 L Anion Gap 12 Basophils # 0.0 Basophils % 0.4 Blood Morphology Comment Blood Urea Nitrogen 19 # Calcium Level 7.6 L Carbon Dioxide Level 27 Chloride Level 106 Creatinine 0.78 Eosinophils # 0.0 Eosinophils % 0.2 Glucose Level 99 Lymphocytes # 1.3 Lymphocytes % 13.1 L Mean Corpuscular Hemoglobin 31.6 Mean Corpuscular Hemoglobin Concent 34.2 Mean Corpuscular Volume 92.4 Mean Platelet Volume 7.9 Monocytes # 0.6 Monocytes % 6.4 Neutrophils # 7.8 H Neutrophils % 79.9 H Nucleated Red Blood Cells # 0.0 Nucleated Red Blood Cells % 0.0 Platelet Count 178 Potassium Level 3.8 Red Blood Count 2.43 #L Red Cell Distribution Width 14.7 H Sodium Level 141 White Blood Count 9.7 Medications Medications Current Medications Ondansetron HCl (Zofran Inj) 4 mg Q6H PRN IV NAUSEA AND/OR VOMITING; Start 04/18 at 14:00 Acetaminophen (Tylenol Tab) 650 mg Q6H PRN PO PAIN LEVEL 1-3 OR FEVER; Start at 14:00 Acetaminophen/ Hydrocodone Bitart ([place] (5/325)) 1 tab Q6H PRN PO MODERATE PAIN LEVEL 4-6; Start 04/18/16 at 14:00 Morphine Sulfate (morphine) 2 mg Q4H PRN IV SEVERE PAIN LEVEL 7-10; Start at 14:00 Docusate Sodium (Colace) 100 mg Q12H PRN PO CONSTIPATION; Start 04/18/16 at 14: 00 Magnesium Hydroxide (Milk Of Mag) 30 ml DAILY PRN PO CONSTIPATION; Start at 14:00 Sodium Biphosphate/ Sodium Phosphate (Fleet Enema) 133 ml DAILY PRN [place] CONSTIPATION; Start 04/18/16 at 14:00 Lorazepam 0.5 mg 0.5 mg Q6H PRN IV ANXIETY; Start 04/18/16 at 14:00 Sodium Chloride (NS) 1,000 ml @ 100 mls/hr Q10H IV Last administered on t 12:07; Admin Dose 100 MLS/HR; Start 04/18/16 at 13:32 Hydralazine HCl (Apresoline) 10 mg Q6H PRN IV ELEVATED BLOOD PRESSURE; Start at 14:00 Clonidine (Catapres) 0.1 mg Q6H PRN PO ELEVATED BLOOD PRESSURE; Start 04/18/16 at 14:00 Nitroglycerin (Nitroglycerin (Sl Tab) 0.4 Mg) 1 tab Q5M PRN SL ANGINA; Start at 14:00 Dutasteride (Avodart) 0.5 mg DAILY PO Last administered on 04/19/16 10:20; Admin Dose 0.5 MG; Start 04/19/16 at 09:00 Gabapentin (Neurontin) 300 mg QHS PO Last administered on 04/19/16 20:54; Admin Dose 300 MG; Start 04/18/16 at 21:00 Metoprolol Tartrate (Lopressor) 25 mg BID PO Last administered on 04/19/16 20: 55; Admin Dose 25 MG; Start 04/18/16 at 21:00 Rosuvastatin Calcium (Crestor) 40 mg QHS PO Last administered on 04/19/16 20:54 ; Admin Dose 40 MG; Start 04/18/16 at 21:00 Sucralfate (Carafate Susp) 1 gm QID PO Last administered on 04/20/16 09:41; Admin Dose 1 GM; Start 04/18/16 at 17:00 Salmeterol Xinafoate/ Fluticasone (Advair 250/50 Diskus) 1 inh BID INH Last administered on 04/20/16 09:41; Admin Dose 1 INH; Start 04/18/16 at 21:00 Losartan Potassium 100 mg 100 mg DAILY PO ; Start 04/19/16 at 09:00 Pantoprazole/ Sodium Chloride (Protonix Iv/NS) 100 ml @ 10 mls/hr Q10H IV Last administered on 04/20/16 09:05; Admin Dose 10 MLS/HR; Start 04/18/16 at 14: 30 Clopidogrel Bisulfate (plaVIX) 75 mg DAILY NGT Last administered on 04/20/16 09 :41; Admin Dose 75 MG; Start 04/19/16 at 09:00 Furosemide 20 mg 20 mg ONCE IV Last administered on 04/19/16 17:56; Admin Dose 20 MG; Start 04/19/16 at 12:00; Stop 04/20/16 at 11:59 Metronidazole (Flagyl 500 Mg (Pmx)) 100 ml @ 100 mls/hr Q6 IVPB Last administered on 04/20/16t 06:19; Admin Dose 100 MLS/HR; Start 04/19/16 at 13:30 ALONSO LOPEZ MD Apr 20, 2016 11:19
[2016-04-20] MEDS: SOD CHLORIDE 0.9% 1,000 ML IV SCH ×2 (12:00→15:32)
[2016-04-20 15:49] LABS: HEMATOCRIT 23.4 % (42.0-52.0); HEMOGLOBIN 7.9 g/dl (14.0-18.0)
[2016-04-20] MEDS ORDERED: PROPOFOL 40 ML ONE (18:56)
[2016-04-20] MEDS ORDERED: LIDOCAINE 2% (SDV) 5 ML INJ ONE (18:56)
[2016-04-20] MEDS: ROSUVASTATIN CALCIUM 40 MG TABLET PO SCH (21:52)
[2016-04-20] MEDS: GABAPENTIN 300 MG CAP PO SCH (21:52)
[2016-04-21] VITALS (12 sets, daily range): BP systolic 102–179; BP diastolic 57–85; PULSE 68–84; RESP 16–20
[2016-04-21 00:43] LABS: HEMATOCRIT 22.9 % (42.0-52.0); HEMOGLOBIN 7.7 g/dl (14.0-18.0)
[2016-04-21] MEDS: PANTOPRAZOLE (EC) 40 MG TAB PO SCH ×2 (06:15→17:04)
[2016-04-21] MEDS: SOD CHLORIDE 0.9% 1,000 ML IV SCH ×2 (06:15→11:31)
[2016-04-21] MEDS: metroNIDAZOLE 500 MG/NS (PMX) 100 ML IVPB SCH ×2 (06:15)
[2016-04-21] MEDS: CLOPIDOGREL 75 MG TAB NGT SCH (08:55)
[2016-04-21] MEDS: METOPROLOL 25 MG TAB PO SCH ×2 (08:55→21:36)
[2016-04-21] MEDS: SALMETEROL/FLUTICASONE 250/50 INHA INH SCH ×2 (08:56→21:35)
[2016-04-21] MEDS: CREON (24K-76K-120K) 1 CAP PO SCH ×3 (08:56→17:04)
[2016-04-21] MEDS: LOSARTAN 50 MG TAB PO SCH (08:56)
[2016-04-21] MEDS: SUCRALFATE (100 MG/ML) 10ML CUP PO SCH ×4 (08:56→21:35)
[2016-04-21] MEDS: DUTASTERIDE 0.5 MG CAP PO SCH (08:56)
[2016-04-21 09:52] LABS: BASOPHILS % 0.4 % (0.0-2.0); HEMATOCRIT 23.4 % (42.0-52.0); HEMOGLOBIN 7.9 g/dl (14.0-18.0); LYMPHOCYTES # 1.3 10^3/ul (0.8-2.9); LYMPHOCYTES % 17.7 % (15.0-51.0); MEAN CORPUSCULAR HEMOGLOBIN 31.6 pg (29.0-33.0); MEAN CORPUSCULAR HGB CONC 33.9 g/dl (32.0-37.0); MEAN CORPUSCULAR VOLUME 93.1 fl (82.0-101.0); MEAN PLATELET VOLUME 7.7 fl (7.4-10.4); MONOCYTE # 0.3 10^3/ul (0.3-0.9); MONOCYTES % 4.2 % (0.0-11.0); NEUTROPHIL # 5.7 10^3/ul (1.6-7.5); NEUTROPHILS % 77.7 % (39.0-77.0); PLATELET COUNT 182 10^3/UL (140-440); RED BLOOD COUNT 2.52 10^6/ul (4.70-6.10); RED CELL DISTRIBUTION WIDTH 15.1 % (11.5-14.5); UNCORRECTED WBC 7.4 10^3/ul (4.8-10.8); WHITE BLOOD COUNT 7.4 10^3/ul (4.8-10.8)
[2016-04-21 09:54] LABS: POTASSIUM 3.6 mmol/L (3.5-5.1)
[2016-04-21 09:56] LABS: CREATININE 0.75 mg/dl (0.61-1.24)
[2016-04-21 09:57] LABS: CALCIUM 8.2 mg/dl (8.4-10.2)
[2016-04-21 10:00] LABS: CONDITION 1; LH ANALYZER COMMENTS 1
[2016-04-21 12:30] LABS: HEMATOCRIT 22.6 % (42.0-52.0); HEMOGLOBIN 7.7 g/dl (14.0-18.0)
[2016-04-21] MEDS: metroNIDAZOLE 500 MG TAB PO SCH ×3 (12:51→21:35)
--- NOTE | 2016-04-21 12:55 | CONS ---
Date/Time of Note Date/Time of Note DATE: 04/21/16 TIME: 12:39 Assessment/Plan Assessment/Plan Chief Complaint/Hosp Course 60 YO M presented to ED with son after fainting. Per son, pt also reports one episode of hematochezia. Pt was recently discharged from [facility] 04-12-16 after evaluation for chest pain and anemia. Pt had EGD 04-12-16 that noted: 1. Severe erosive esophagitis. 2. Gastritis 3. Biopsy neg Helicobacter pylori, dysplasia , and malignancy. Patient's son states he was asymptomatic and current symptoms started abruptly. Patient denies fever, chills, nausea, vomiting, hemoptysis, and hematemesis. Problems: Additional Assessment/Plan Acute anemia/melena * UGI vs LGIB * Previous EGD 04-12-16: 1. Severe erosive esophagitis. 2. Gastritis 3. Biopsy neg Helicobacter pylori, dysplasia, and malignancy * Recommend colonoscopy in 6-8 wks Coronary artery disease, status post stent to proximal RCA, aspirin and Brilinta * Cardiology following Hypertension High cholesterol Chronic depression Chronic obstructive pulmonary disease History of tobacco use * Stop smoking x 1 month GERD * Continue PPI Further recommendations depend on clinical course Consultation Date/Type/Reason Admit Date/Time Apr 18, 2016 at 12:11 Initial Consult Date Type of Consultation: GI Referring Provider: RAMAN BARRETT MD 24 HR Interval Summary Free Text/Dictation [place] cardiac diet Denies abdominal pain, n/v Reviewed results with son and pt Recommend colonoscopy in 6-8 wks Exam/Review of Systems Vital Signs Vitals Vital Signs Date Time Temp Pulse Resp B/P Pulse Ox O2 Delivery O2 Flow Rate FiO2 04/21/16 12:12 80 04/21/16 12:06 99.2 20 112/67 98 04/21/16 01:34 2.0 04/20/16 19:38 Room Air Intake and Output 04/20/16 04/20/16 04/21/16 15:00 23:00 07:00 Intake Total 600 ml 250 ml Balance 600 ml 250 ml Exam Constitutional: alert, oriented, well developed Psych: nl mood/affect Head: normocephalic Eyes: EOMI, icteric ENMT: nl external ears & nose, nl lips & teeth, nl nasal mucosa & septum Respiratory: normal air movement Cardiovascular: regular rate and rhythm Gastrointestinal: soft, non tender 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 Results Result Diagram: 04/21/16 1210 04/21/16 0925 Results 24 hrs Laboratory Tests Test 04/20/16 15:40 04/20/16 23:54 04/21/16 09:25 04/21/16 12:10 Hematocrit 23.4 L 22.9 L 23.4 L 22.6 L Hemoglobin 7.9 L 7.7 L 7.9 L 7.7 L Anion Gap 12 Basophils # 0.0 Basophils % 0.4 Blood Morphology Comment Blood Urea Nitrogen 11 Calcium Level 8.2 L Carbon Dioxide Level 26 Chloride Level 107 Creatinine 0.75 Eosinophils # 0.0 Eosinophils % 0.0 Glucose Level 136 Lymphocytes # 1.3 Lymphocytes % 17.7 Mean Corpuscular Hemoglobin 31.6 Mean Corpuscular Hemoglobin Concent 33.9 Mean Corpuscular Volume 93.1 Mean Platelet Volume 7.7 Monocytes # 0.3 Monocytes % 4.2 Neutrophils # 5.7 Neutrophils % 77.7 H Nucleated Red Blood Cells # 0.0 Nucleated Red Blood Cells % 0.0 Platelet Count 182 Potassium Level 3.6 Red Blood Count 2.52 L Red Cell Distribution Width 15.1 H Sodium Level 141 White Blood Count 7.4 # Medications Medications Current Medications Ondansetron HCl (Zofran Inj) 4 mg Q6H PRN IV NAUSEA AND/OR VOMITING; Start 04/18 at 14:00 Acetaminophen (Tylenol Tab) 650 mg Q6H PRN PO PAIN LEVEL 1-3 OR FEVER; Start at 14:00 Acetaminophen/ Hydrocodone Bitart ([place] (5/325)) 1 tab Q6H PRN PO MODERATE PAIN LEVEL 4-6; Start 04/18/16 at 14:00 Morphine Sulfate (morphine) 2 mg Q4H PRN IV SEVERE PAIN LEVEL 7-10; Start at 14:00 Docusate Sodium (Colace) 100 mg Q12H PRN PO CONSTIPATION; Start 04/18/16 at 14: 00 Magnesium Hydroxide (Milk Of Mag) 30 ml DAILY PRN PO CONSTIPATION; Start at 14:00 Sodium Biphosphate/ Sodium Phosphate (Fleet Enema) 133 ml DAILY PRN [place] CONSTIPATION; Start 04/18/16 at 14:00 Lorazepam 0.5 mg 0.5 mg Q6H PRN IV ANXIETY; Start 04/18/16 at 14:00 Sodium Chloride (NS) 1,000 ml @ 100 mls/hr Q10H IV Last administered on 11:31; Admin Dose 100 MLS/HR; Start 04/18/16 at 13:32 Hydralazine HCl (Apresoline) 10 mg Q6H PRN IV ELEVATED BLOOD PRESSURE; Start at 14:00 Clonidine (Catapres) 0.1 mg Q6H PRN PO ELEVATED BLOOD PRESSURE; Start 04/18/16 at 14:00 Nitroglycerin (Nitroglycerin (Sl Tab) 0.4 Mg) 1 tab Q5M PRN SL ANGINA; Start at 14:00 Dutasteride (Avodart) 0.5 mg DAILY PO Last administered on 04/21/16 08:56; Admin Dose 0.5 MG; Start 04/19/16 at 09:00 Gabapentin (Neurontin) 300 mg QHS PO Last administered on 04/20/16 21:52; Admin Dose 300 MG; Start 04/18/16 at 21:00 Metoprolol Tartrate (Lopressor) 25 mg BID PO Last administered on 04/21/16 08: 55; Admin Dose 25 MG; Start 04/18/16 at 21:00 Rosuvastatin Calcium (Crestor) 40 mg QHS PO Last administered on 04/20/16 21:52 ; Admin Dose 40 MG; Start 04/18/16 at 21:00 Sucralfate (Carafate Susp) 1 gm QID PO Last administered on 04/21/16 08:56; Admin Dose 1 GM; Start 04/18/16 at 17:00 Salmeterol Xinafoate/ Fluticasone (Advair 250/50 Diskus) 1 inh BID INH Last administered on 04/21/16 08:56; Admin Dose 1 INH; Start 04/18/16 at 21:00 Losartan Potassium (Cozaar) 100 mg DAILY PO Last administered on 04/21/16 08:56 ; Admin Dose 100 MG; Start 04/19/16 at 09:00 Clopidogrel Bisulfate (plaVIX) 75 mg DAILY NGT Last administered on 04/21/16 08 :55; Admin Dose 75 MG; Start 04/19/16 at 09:00 Pantoprazole (Protonix Tab) 40 mg BID@06,18 PO Last administered on 04/21/16t 06 :15; Admin Dose 40 MG; Start 04/21/16 at 06:00 Metronidazole (Flagyl) 500 mg QID PO ; Start 04/21/16 at 13:00 JUAN MARTINEZ Apr 21, 2016 12:49
--- NOTE | 2016-04-21 13:24 | PN ---
Date/Time of Note Date/Time of Note DATE: 04/21/16 TIME: 13:21 Assessment/Plan VTE Prophylaxis VTE Prophylaxis Intervention: SCD's Lines/Catheters IV [facility]ter Type (from [facility]): Saline Lock Urinary Cath still in place: No Assessment/Plan Assessment/Plan 1. Upper GI bleeding- with transfusion of PRBCS, s/p 4, will give and another two -S/p 2. Coronary artery disease. demand ischemia - with acute blood loss - as per cardio recs 3. Chronic obstructive pulmonary disease. Continue to monitor for now. No present issues, on DuoNeb p.r.n. 4. Gastroesophageal reflux disease. Again, he is going to be on Protonix 5. High cholesterol. Check lipid panel. 6. Chronic depression. He is on Ativan p.r.n. 7. Chronic tobacco use. Order nicotine patch. 8. Iron deficiency anemia. see - #1 9. Deep venous thrombosis prophylaxis, sequential compression devices. 10. GI ppx - protonix dispo - downgrade to med/surge floor pt is cleared by Cardiology for proecure, EGD done , Cl .difficle positive- GI wants to wait for 6 weeks before doign colonoscopy - on Flagy for Cl.Difficle this progress note took greater than 40 minutes to complete Subjective 24 Hr Interval Summary Free Text/Dictation s/p EGD< Hb 7.7, pt denies any compalints Exam/Review of Systems Vital Signs Vitals Vital Signs Date Time Temp Pulse Resp B/P Pulse Ox O2 Delivery O2 Flow Rate FiO2 04/21/16 12:12 80 04/21/16 12:06 99.2 20 112/67 98 04/21/16 01:34 2.0 04/20/16 19:38 Room Air Intake and Output 04/20/16 04/20/16 04/21/16 15:00 23:00 07:00 Intake Total 600 ml 250 ml Balance 600 ml 250 ml Exam Constitutional: alert Psych: no complaints Head: normocephalic ENMT: mucosa pink and moist Neck: jvd, supple Respiratory: diminished breath sounds Cardiovascular: regular rate and rhythm Gastrointestinal: non-tender, soft Musculoskeletal: muscle tone (normal) Extremities: edema (none) Neurological: other (No focal deficits) Results Result Diagram: 04/21/16 1210 04/21/16 0925 Results 24 hrs Laboratory Tests Test 04/20/16 15:40 04/20/16 23:54 04/21/16 09:25 04/21/16 12:10 Hematocrit 23.4 L 22.9 L 23.4 L 22.6 L Hemoglobin 7.9 L 7.7 L 7.9 L 7.7 L Anion Gap 12 Basophils # 0.0 Basophils % 0.4 Blood Morphology Comment Blood Urea Nitrogen 11 Calcium Level 8.2 L Carbon Dioxide Level 26 Chloride Level 107 Creatinine 0.75 Eosinophils # 0.0 Eosinophils % 0.0 Glucose Level 136 Lymphocytes # 1.3 Lymphocytes % 17.7 Mean Corpuscular Hemoglobin 31.6 Mean Corpuscular Hemoglobin Concent 33.9 Mean Corpuscular Volume 93.1 Mean Platelet Volume 7.7 Monocytes # 0.3 Monocytes % 4.2 Neutrophils # 5.7 Neutrophils % 77.7 H Nucleated Red Blood Cells # 0.0 Nucleated Red Blood Cells % 0.0 Platelet Count 182 Potassium Level 3.6 Red Blood Count 2.52 L Red Cell Distribution Width 15.1 H Sodium Level 141 White Blood Count 7.4 # Medications Medications Current Medications Ondansetron HCl (Zofran Inj) 4 mg Q6H PRN IV NAUSEA AND/OR VOMITING; Start 04/18 at 14:00 Acetaminophen (Tylenol Tab) 650 mg Q6H PRN PO PAIN LEVEL 1-3 OR FEVER; Start at 14:00 Acetaminophen/ Hydrocodone Bitart ([place] (5/325)) 1 tab Q6H PRN PO MODERATE PAIN LEVEL 4-6; Start 04/18/16 at 14:00 Morphine Sulfate (morphine) 2 mg Q4H PRN IV SEVERE PAIN LEVEL 7-10; Start at 14:00 Docusate Sodium (Colace) 100 mg Q12H PRN PO CONSTIPATION; Start 04/18/16 at 14: 00 Magnesium Hydroxide (Milk Of Mag) 30 ml DAILY PRN PO CONSTIPATION; Start at 14:00 Sodium Biphosphate/ Sodium Phosphate (Fleet Enema) 133 ml DAILY PRN [place] CONSTIPATION; Start 04/18/16 at 14:00 Lorazepam 0.5 mg 0.5 mg Q6H PRN IV ANXIETY; Start 04/18/16 at 14:00 Sodium Chloride (NS) 1,000 ml @ 100 mls/hr Q10H IV Last administered on 11:31; Admin Dose 100 MLS/HR; Start 04/18/16 at 13:32 Hydralazine HCl (Apresoline) 10 mg Q6H PRN IV ELEVATED BLOOD PRESSURE; Start at 14:00 Clonidine (Catapres) 0.1 mg Q6H PRN PO ELEVATED BLOOD PRESSURE; Start 04/18/16 at 14:00 Nitroglycerin (Nitroglycerin (Sl Tab) 0.4 Mg) 1 tab Q5M PRN SL ANGINA; Start at 14:00 Dutasteride (Avodart) 0.5 mg DAILY PO Last administered on 04/21/16 08:56; Admin Dose 0.5 MG; Start 04/19/16 at 09:00 Gabapentin (Neurontin) 300 mg QHS PO Last administered on 04/20/16 21:52; Admin Dose 300 MG; Start 04/18/16 at 21:00 Metoprolol Tartrate (Lopressor) 25 mg BID PO Last administered on 04/21/16 08: 55; Admin Dose 25 MG; Start 04/18/16 at 21:00 Rosuvastatin Calcium (Crestor) 40 mg QHS PO Last administered on 04/20/16 21:52 ; Admin Dose 40 MG; Start 04/18/16 at 21:00 Sucralfate (Carafate Susp) 1 gm QID PO Last administered on 04/21/16 12:51; Admin Dose 1 GM; Start 04/18/16 at 17:00 Salmeterol Xinafoate/ Fluticasone (Advair 250/50 Diskus) 1 inh BID INH Last administered on 04/21/16 08:56; Admin Dose 1 INH; Start 04/18/16 at 21:00 Losartan Potassium (Cozaar) 100 mg DAILY PO Last administered on 04/21/16 08:56 ; Admin Dose 100 MG; Start 04/19/16 at 09:00 Clopidogrel Bisulfate (plaVIX) 75 mg DAILY NGT Last administered on 04/21/16 08 :55; Admin Dose 75 MG; Start 04/19/16 at 09:00 Pantoprazole (Protonix Tab) 40 mg BID@18 PO Last administered on 2/8/17at 06 :15; Admin Dose 40 MG; Start 04/21/16 at 06:00 Metronidazole (Flagyl) 500 mg QID PO Last administered on 04/21/16t 12:51; Admin Dose 500 MG; Start 04/21/16 at 13:00 ALONSO LOPEZ MD Apr 21, 2016 13:24
--- NOTE | 2016-04-21 13:28 | CONS ---
Date/Time of Note Date/Time of Note DATE: 04/21/16 TIME: 13:25 Assessment/Plan Assessment/Plan Chief Complaint/Hosp Course IMp: 1.H/O PTCA/stent-recently with [facility] 2.abnl ecg 3.Positive troponin-minimal in the setting of severe anemia/likely demand event 4.Hypotension-borderline labile 5.Anemia-severe s/p EGD with esophagitis/gastritis 6.Dyslipidemia 7.COPD 8.C. Diff Recc -Tele -trend cardiac enzymes -Plavix as possible -Continue BB/cozaar as tolerated only -Ongoing GI eval -Continue statin -Continue abx's Problems: Consultation Date/Type/Reason Admit Date/Time Apr 18, 2016 at 12:11 Initial Consult Date 04/19/16 Type of Consultation: Cardiology Reason for Consultation positive troponin Referring Provider: RAMAN BARRETT MD Exam/Review of Systems Vital Signs Vitals Vital Signs Date Time Temp Pulse Resp B/P Pulse Ox O2 Delivery O2 Flow Rate FiO2 04/21/16 12:12 80 04/21/16 12:06 99.2 20 112/67 98 04/21/16 01:34 2.0 04/20/16 19:38 Room Air Intake and Output 04/20/16 04/20/16 04/21/16 15:00 23:00 07:00 Intake Total 600 ml 250 ml Balance 600 ml 250 ml Exam Review of Systems: CONSTITUTIONAL: No fevers, chills. PULMONARY: No sob CARDIOVASCULAR: No chest pain/palpitations GASTROINTESTINAL: No nausea/vomiting. GENITOURINARY: No hematuria/dysuria. MUSCULOSKELETAL: No myagias/arthalgias. PSYCHIATRIC: The patient denies depression. NEUROLOGIC: No weakness Constitutional: alert Psych: no complaints Head: normocephalic ENMT: mucosa pink and moist Neck: jvd (8 cm water), supple Respiratory: clear to auscultation Cardiovascular: regular rate and rhythm Gastrointestinal: non-tender, soft Musculoskeletal: muscle tone (normal) Extremities: edema (none) Neurological: other (No focal deficits) Results Result Diagram: 04/21/16 1210 04/21/16 0925 Results 24 hrs Laboratory Tests Test 04/20/16 15:40 04/20/16 23:54 04/21/16 09:25 04/21/16 12:10 Hematocrit 23.4 L 22.9 L 23.4 L 22.6 L Hemoglobin 7.9 L 7.7 L 7.9 L 7.7 L Anion Gap 12 Basophils # 0.0 Basophils % 0.4 Blood Morphology Comment Blood Urea Nitrogen 11 Calcium Level 8.2 L Carbon Dioxide Level 26 Chloride Level 107 Creatinine 0.75 Eosinophils # 0.0 Eosinophils % 0.0 Glucose Level 136 Lymphocytes # 1.3 Lymphocytes % 17.7 Mean Corpuscular Hemoglobin 31.6 Mean Corpuscular Hemoglobin Concent 33.9 Mean Corpuscular Volume 93.1 Mean Platelet Volume 7.7 Monocytes # 0.3 Monocytes % 4.2 Neutrophils # 5.7 Neutrophils % 77.7 H Nucleated Red Blood Cells # 0.0 Nucleated Red Blood Cells % 0.0 Platelet Count 182 Potassium Level 3.6 Red Blood Count 2.52 L Red Cell Distribution Width 15.1 H Sodium Level 141 White Blood Count 7.4 # Medications Medications Current Medications Ondansetron HCl (Zofran Inj) 4 mg Q6H PRN IV NAUSEA AND/OR VOMITING; Start 04/18 at 14:00 Acetaminophen (Tylenol Tab) 650 mg Q6H PRN PO PAIN LEVEL 1-3 OR FEVER; Start at 14:00 Acetaminophen/ Hydrocodone Bitart ([place] (5/325)) 1 tab Q6H PRN PO MODERATE PAIN LEVEL 4-6; Start 04/18/16 at 14:00 Morphine Sulfate (morphine) 2 mg Q4H PRN IV SEVERE PAIN LEVEL 7-10; Start at 14:00 Docusate Sodium (Colace) 100 mg Q12H PRN PO CONSTIPATION; Start 04/18/16 at 14: 00 Magnesium Hydroxide (Milk Of Mag) 30 ml DAILY PRN PO CONSTIPATION; Start at 14:00 Sodium Biphosphate/ Sodium Phosphate (Fleet Enema) 133 ml DAILY PRN [place] CONSTIPATION; Start 04/18/16 at 14:00 Lorazepam 0.5 mg 0.5 mg Q6H PRN IV ANXIETY; Start 04/18/16 at 14:00 Sodium Chloride (NS) 1,000 ml @ 100 mls/hr Q10H IV Last administered on t 11:31; Admin Dose 100 MLS/HR; Start 04/18/16 at 13:32 Hydralazine HCl (Apresoline) 10 mg Q6H PRN IV ELEVATED BLOOD PRESSURE; Start at 14:00 Clonidine (Catapres) 0.1 mg Q6H PRN PO ELEVATED BLOOD PRESSURE; Start 04/18/16 at 14:00 Nitroglycerin (Nitroglycerin (Sl Tab) 0.4 Mg) 1 tab Q5M PRN SL ANGINA; Start at 14:00 Dutasteride (Avodart) 0.5 mg DAILY PO Last administered on 04/21/16 08:56; Admin Dose 0.5 MG; Start 04/19/16 at 09:00 Gabapentin (Neurontin) 300 mg QHS PO Last administered on 04/20/16 21:52; Admin Dose 300 MG; Start 04/18/16 at 21:00 Metoprolol Tartrate (Lopressor) 25 mg BID PO Last administered on 04/21/16 08: 55; Admin Dose 25 MG; Start 04/18/16 at 21:00 Rosuvastatin Calcium (Crestor) 40 mg QHS PO Last administered on 04/20/16 21:52 ; Admin Dose 40 MG; Start 04/18/16 at 21:00 Sucralfate (Carafate Susp) 1 gm QID PO Last administered on 04/21/16 12:51; Admin Dose 1 GM; Start 04/18/16 at 17:00 Salmeterol Xinafoate/ Fluticasone (Advair 250/50 Diskus) 1 inh BID INH Last administered on 04/21/16 08:56; Admin Dose 1 INH; Start 04/18/16 at 21:00 Losartan Potassium (Cozaar) 100 mg DAILY PO Last administered on 04/21/16 08:56 ; Admin Dose 100 MG; Start 04/19/16 at 09:00 Clopidogrel Bisulfate (plaVIX) 75 mg DAILY NGT Last administered on 04/21/16 08 :55; Admin Dose 75 MG; Start 04/19/16 at 09:00 Pantoprazole (Protonix Tab) 40 mg BID@18 PO Last administered on 04/21/16 06 :15; Admin Dose 40 MG; Start 04/21/16 at 06:00 Metronidazole (Flagyl) 500 mg QID PO Last administered on 04/21/16 12:51; Admin Dose 500 MG; Start 04/21/16 at 13:00 LEROY GARCIA Apr 21, 2016 13:28
--- NOTE | 2016-04-21 17:03 | GILP ---
DATE OF PROCEDURE: 04/20/2016 DATE: 04/20/2016 NAME OF PROCEDURE: Esophagogastroduodenoscopy. SURGEON: Rios Denson MD. HISTORY AND INDICATIONS: The patient has been evaluated for gastrointestinal bleeding while anticoag ulated. PREMEDICATION: Monitored anesthesia care by anesthesiologist. INSTRUMENT USED: Olympus panendoscope. TECHNIQUE: After informed consent, with the patient/relatives understanding the procedure, its indic ations, potential risks and complications, including but not limited to: allergic reaction, bleeding , perforation or infection, and after all pertinent questions were answered to the patients satisfac tion, the patient/relatives signed witnessed informed consent. Following this, premedication was administered slowly IV push under careful cardiovascular and respi ratory monitoring with pulse oximetry, automatic blood pressure and drill runner. Once the sedative effect was achieved the patient was place in the left lateral decubitus, the panen doscope was introduced and advanced under visual control. Careful examination of the upper gastrointestinal tract, both on insertion as well as withdrawal of the instrument disclosed the following findings: ESOPHAGUS: The distal esophageal shows significant improvement in the previously noted severe esopha gitis with only mild erythema and edema of the mucosa. STOMACH: Upon entrance to the stomach air was insufflated, the gastric vasquez distended normally. The re was erythema and edema in the mucosa of a moderate degree. PYLORUS: The pylorus appears patent and within normal limits, with no evidence of gastric outlet obs truction. DUODENUM: The duodenal mucosa was carefully examined in the duodenal bulb as well as the second port ion of the duodenum and appears unremarkable with no evidence of duodenitis, ulcer or neoplasm. The instrument was then withdrawn, the patient tolerated the procedure well and was transfer out of the endoscopy suite awake, and in good condition to continue recovery under observation IMPRESSION: 1. Mild distal esophagitis. There was mild gastritis. RECOMMENDATIONS: The patient will be treated with PPIs and close observation. Colonoscopy will be deferred, as the patient is positive for C. diff, which would obscure the fine detail of the colonic mucosa. Dictated By: RIOS DENSON MS/AMBER Conf#: [id number] DID#: [id number] CC: RIOS DENSON;*EndCC*
[2016-04-21 18:38] LABS: HEMATOCRIT 24.2 % (42.0-52.0); HEMOGLOBIN 8.3 g/dl (14.0-18.0)
[2016-04-21] MEDS: ROSUVASTATIN CALCIUM 40 MG TABLET PO SCH (21:35)
[2016-04-21] MEDS: GABAPENTIN 300 MG CAP PO SCH (21:35)
[2016-04-22] MEDS: PANTOPRAZOLE (EC) 40 MG TAB PO SCH ×2 (05:33→17:52)
[2016-04-22 05:39] LABS: BASOPHILS % 0.3 % (0.0-2.0); HEMATOCRIT 23.2 % (42.0-52.0); HEMOGLOBIN 7.9 g/dl (14.0-18.0); LYMPHOCYTES # 1.3 10^3/ul (0.8-2.9); LYMPHOCYTES % 19.2 % (15.0-51.0); MEAN CORPUSCULAR HEMOGLOBIN 31.8 pg (29.0-33.0); MEAN CORPUSCULAR VOLUME 93.5 fl (82.0-101.0); MEAN PLATELET VOLUME 7.6 fl (7.4-10.4); MONOCYTE # 0.5 10^3/ul (0.3-0.9); MONOCYTES % 7.7 % (0.0-11.0); NEUTROPHIL # 4.8 10^3/ul (1.6-7.5); NEUTROPHILS % 72.8 % (39.0-77.0); PLATELET COUNT 190 10^3/UL (140-440); RED BLOOD COUNT 2.49 10^6/ul (4.70-6.10); RED CELL DISTRIBUTION WIDTH 14.8 % (11.5-14.5); UNCORRECTED WBC 6.7 10^3/ul (4.8-10.8); WHITE BLOOD COUNT 6.7 10^3/ul (4.8-10.8)
[2016-04-22 05:45] LABS: INR 1.04; PROTIME 13.6 Sec (12.2-14.2); PT RATIO 1.1
[2016-04-22 05:46] LABS: PARTIAL THROMBOPLASTIN TIME 30.7 Sec (25.0-35.0)
[2016-04-22 06:05] LABS: TROPONIN-I 0.084 ng/ml (0.00-0.12)
[2016-04-22 06:11] LABS: CK-MB 0.26 ng/ml (0.0-2.4)
[2016-04-22 06:22] LABS: CONDITION 1; LH ANALYZER COMMENTS 1
[2016-04-22 08:20] VITALS: BP 125/72; RESP 18
[2016-04-22] MEDS: DUTASTERIDE 0.5 MG CAP PO SCH (08:57)
[2016-04-22] MEDS: CLOPIDOGREL 75 MG TAB NGT SCH (08:57)
[2016-04-22] MEDS: SALMETEROL/FLUTICASONE 250/50 INHA INH SCH ×2 (08:57→21:21)
[2016-04-22] MEDS: CREON (24K-76K-120K) 1 CAP PO SCH ×3 (08:57→17:51)
[2016-04-22] MEDS: LOSARTAN 50 MG TAB PO SCH (08:58)
[2016-04-22] MEDS: SUCRALFATE (100 MG/ML) 10ML CUP PO SCH ×4 (08:58→21:23)
[2016-04-22] MEDS: METOPROLOL 25 MG TAB PO SCH ×2 (08:58→21:30)
[2016-04-22] MEDS: metroNIDAZOLE 500 MG TAB PO SCH ×4 (08:58→21:27)
--- NOTE | 2016-04-22 13:05 | CONS ---
Date/Time of Note Date/Time of Note DATE: 04/22/16 TIME: 13:02 Assessment/Plan Assessment/Plan Chief Complaint/Hosp Course 60 YO M presented to ED with son after fainting. Per son, pt also reports one episode of hematochezia. Pt was recently discharged from [facility] 04-12-16 after evaluation for chest pain and anemia. Pt had EGD 04-12-16 that noted: 1. Severe erosive esophagitis. 2. Gastritis 3. Biopsy neg Helicobacter pylori, dysplasia , and malignancy. Patient's son states he was asymptomatic and current symptoms started abruptly. Patient denies fever, chills, nausea, vomiting, hemoptysis, and hematemesis. Problems: Additional Assessment/Plan Acute anemia/melena * UGI vs LGIB * EGD 04-21-16: Mild distal esophagitis. There was mild gastritis. * Previous EGD 04-12-16: 1. Severe erosive esophagitis. 2. Gastritis 3. Biopsy neg Helicobacter pylori, dysplasia, and malignancy * Recommend colonoscopy tomorrow. Patient advised of risks/benefits/ alternatives to procedure and they are agreeable to proceed with colonoscopy Coronary artery disease, status post stent to proximal RCA, aspirin and Brilinta * Cardiology following Hypertension High cholesterol Chronic depression Chronic obstructive pulmonary disease History of tobacco use * Stop smoking x 1 month GERD * Continue PPI Further recommendations depend on clinical course Consultation Date/Type/Reason Admit Date/Time Apr 18, 2016 at 12:11 Type of Consultation: Gastroenterology Referring Provider: RAMAN BARRETT MD 24 HR Interval Summary Free Text/Dictation Hemoglobin stable but dropping Recommend colonoscopy tomorrow Exam/Review of Systems Vital Signs Vitals Vital Signs Date Time Temp Pulse Resp B/P Pulse Ox O2 Delivery O2 Flow Rate FiO2 04/22/16 08:20 98.4 71 18 125/72 96 04/21/16 16:50 2.0 04/20/16 19:38 Room Air Intake and Output 04/21/16 04/21/16 04/22/16 15:00 23:00 07:00 Intake Total 500 ml 350 ml Balance 500 ml 350 ml Exam Constitutional: alert, oriented, well developed Psych: nl mood/affect Head: normocephalic Eyes: EOMI, icteric ENMT: nl external ears & nose, nl lips & teeth, nl nasal mucosa & septum Respiratory: normal air movement Cardiovascular: regular rate and rhythm Gastrointestinal: soft, non tender Neurological: [place] II-XII intact Results Result Diagram: 04/22/16 0500 04/21/16 0925 Results 24 hrs Laboratory Tests Test 04/21/16 18:30 04/22/16 05:00 Hematocrit 24.2 L 23.2 L Hemoglobin 8.3 L 7.9 L Activated Partial Thromboplast Time 30.7 Basophils # 0.0 Basophils % 0.3 Blood Morphology Comment Creatine Kinase 24 Creatine Kinase Index 1.1 Creatinine Kinase MB (Mass) 0.26 Eosinophils # 0.0 Eosinophils % 0.0 INR International Normalized Ratio 1.04 Lymphocytes # 1.3 Lymphocytes % 19.2 Mean Corpuscular Hemoglobin 31.8 Mean Corpuscular Hemoglobin Concent 34.0 Mean Corpuscular Volume 93.5 Mean Platelet Volume 7.6 Monocytes # 0.5 Monocytes % 7.7 Neutrophils # 4.8 Neutrophils % 72.8 Nucleated Red Blood Cells # 0.0 Nucleated Red Blood Cells % 0.0 Platelet Count 190 Prothrombin Time 13.6 Prothrombin Time Ratio 1.1 Red Blood Count 2.49 L Red Cell Distribution Width 14.8 H Troponin I 0.084 White Blood Count 6.7 Medications Medications Current Medications Ondansetron HCl (Zofran Inj) 4 mg Q6H PRN IV NAUSEA AND/OR VOMITING; Start 04/18 at 14:00 Acetaminophen (Tylenol Tab) 650 mg Q6H PRN PO PAIN LEVEL 1-3 OR FEVER; Start at 14:00 Acetaminophen/ Hydrocodone Bitart ([place] (5/325)) 1 tab Q6H PRN PO MODERATE PAIN LEVEL 4-6; Start 04/18/16 at 14:00 Morphine Sulfate (morphine) 2 mg Q4H PRN IV SEVERE PAIN LEVEL 7-10; Start at 14:00 Docusate Sodium (Colace) 100 mg Q12H PRN PO CONSTIPATION; Start 04/18/16 at 14: 00 Magnesium Hydroxide (Milk Of Mag) 30 ml DAILY PRN PO CONSTIPATION; Start at 14:00 Sodium Biphosphate/ Sodium Phosphate (Fleet Enema) 133 ml DAILY PRN [place] CONSTIPATION; Start 04/18/16 at 14:00 Lorazepam (Ativan) 0.5 mg Q6H PRN IV ANXIETY; Start 04/18/16 at 14:00 Hydralazine HCl (Apresoline) 10 mg Q6H PRN IV ELEVATED BLOOD PRESSURE; Start at 14:00 Clonidine (Catapres) 0.1 mg Q6H PRN PO ELEVATED BLOOD PRESSURE; Start 04/18/16 at 14:00 Nitroglycerin (Nitroglycerin (Sl Tab) 0.4 Mg) 1 tab Q5M PRN SL ANGINA; Start at 14:00 Dutasteride (Avodart) 0.5 mg DAILY PO Last administered on 04/22/16 08:57; Admin Dose 0.5 MG; Start 04/19/16 at 09:00 Gabapentin (Neurontin) 300 mg QHS PO Last administered on 04/21/16 21:35; Admin Dose 300 MG; Start 04/18/16 at 21:00 Metoprolol Tartrate (Lopressor) 25 mg BID PO Last administered on 04/22/16 08: 58; Admin Dose 25 MG; Start 04/18/16 at 21:00 Rosuvastatin Calcium (Crestor) 40 mg QHS PO Last administered on 04/21/16 21:35 ; Admin Dose 40 MG; Start 04/18/16 at 21:00 Sucralfate (Carafate Susp) 1 gm QID PO Last administered on 04/22/16 12:12; Admin Dose 1 GM; Start 04/18/16 at 17:00 Salmeterol Xinafoate/ Fluticasone (Advair 250/50 Diskus) 1 inh BID INH Last administered on 04/22/16 08:57; Admin Dose 1 INH; Start 04/18/16 at 21:00 Losartan Potassium (Cozaar) 100 mg DAILY PO Last administered on 04/22/16 08:58 ; Admin Dose 100 MG; Start 04/19/16 at 09:00 Clopidogrel Bisulfate (plaVIX) 75 mg DAILY NGT Last administered on 04/22/16 08 :57; Admin Dose 75 MG; Start 04/19/16 at 09:00 Pantoprazole (Protonix Tab) 40 mg BID@,18 PO Last administered on 04/22/16 05 :33; Admin Dose 40 MG; Start 04/21/16 at 06:00 Metronidazole (Flagyl) 500 mg QID PO Last administered on 04/22/16t 12:12; Admin Dose 500 MG; Start 04/21/16 at 13:00 JUAN MARTINEZ Apr 22, 2016 13:05
--- NOTE | 2016-04-22 13:24 | PN ---
Date/Time of Note Date/Time of Note DATE: 04/22/16 TIME: 13:23 Assessment/Plan VTE Prophylaxis VTE Prophylaxis Intervention: SCD's Lines/Catheters [facility] Saline Lock Urinary Cath still in place: No Assessment/Plan Assessment/Plan 1. Upper GI bleeding- with transfusion of PRBCS, s/p 4, will give and another two -S/p 2. Coronary artery disease. demand ischemia - with acute blood loss - as per cardio recs 3. Chronic obstructive pulmonary disease. Continue to monitor for now. No present issues, on DuoNeb p.r.n. 4. Gastroesophageal reflux disease. Again, he is going to be on Protonix 5. High cholesterol. Check lipid panel. 6. Chronic depression. He is on Ativan p.r.n. 7. Chronic tobacco use. Order nicotine patch. 8. Iron deficiency anemia. see - #1 9. Deep venous thrombosis prophylaxis, sequential compression devices. 10. GI ppx - protonix pt is cleared by Cardiology for proecure, EGD done , Cl .difficle positive- GI wants to wait for 6 weeks before doign colonoscopy - on Flagy for Cl.Difficle d/c home on tuesday this progress note took greater than 40 minutes to complete Subjective 24 Hr Interval Summary Free Text/Dictation pt stable, Hb stable, no diarrhea Exam/Review of Systems Vital Signs Vitals Vital Signs Date Time Temp Pulse Resp B/P Pulse Ox O2 Delivery O2 Flow Rate FiO2 04/22/16 08:20 98.4 71 18 125/72 96 04/21/16 16:50 2.0 04/20/16 19:38 Room Air Intake and Output 04/21/16 04/21/16 04/22/16 15:00 23:00 07:00 Intake Total 500 ml 350 ml Balance 500 ml 350 ml Exam Constitutional: alert Psych: no complaints Head: normocephalic ENMT: mucosa pink and moist Neck: jvd, supple Respiratory: diminished breath sounds Cardiovascular: regular rate and rhythm Gastrointestinal: non-tender, soft Musculoskeletal: muscle tone (normal) Extremities: edema (none) Neurological: other (No focal deficits) Results Result Diagram: 04/22/16 0500 04/21/16 0925 Results 24 hrs Laboratory Tests Test 04/21/16 18:30 04/22/16 05:00 Hematocrit 24.2 L 23.2 L Hemoglobin 8.3 L 7.9 L Activated Partial Thromboplast Time 30.7 Basophils # 0.0 Basophils % 0.3 Blood Morphology Comment Creatine Kinase 24 Creatine Kinase Index 1.1 Creatinine Kinase MB (Mass) 0.26 Eosinophils # 0.0 Eosinophils % 0.0 INR International Normalized Ratio 1.04 Lymphocytes # 1.3 Lymphocytes % 19.2 Mean Corpuscular Hemoglobin 31.8 Mean Corpuscular Hemoglobin Concent 34.0 Mean Corpuscular Volume 93.5 Mean Platelet Volume 7.6 Monocytes # 0.5 Monocytes % 7.7 Neutrophils # 4.8 Neutrophils % 72.8 Nucleated Red Blood Cells # 0.0 Nucleated Red Blood Cells % 0.0 Platelet Count 190 Prothrombin Time 13.6 Prothrombin Time Ratio 1.1 Red Blood Count 2.49 L Red Cell Distribution Width 14.8 H Troponin I 0.084 White Blood Count 6.7 Medications Medications Current Medications Ondansetron HCl (Zofran Inj) 4 mg Q6H PRN IV NAUSEA AND/OR VOMITING; Start 04/18 at 14:00 Acetaminophen (Tylenol Tab) 650 mg Q6H PRN PO PAIN LEVEL 1-3 OR FEVER; Start at 14:00 Acetaminophen/ Hydrocodone Bitart ([place] (5/325)) 1 tab Q6H PRN PO MODERATE PAIN LEVEL 4-6; Start 04/18/16 at 14:00 Morphine Sulfate (morphine) 2 mg Q4H PRN IV SEVERE PAIN LEVEL 7-10; Start at 14:00 Docusate Sodium (Colace) 100 mg Q12H PRN PO CONSTIPATION; Start 04/18/16 at 14: 00 Magnesium Hydroxide (Milk Of Mag) 30 ml DAILY PRN PO CONSTIPATION; Start at 14:00 Sodium Biphosphate/ Sodium Phosphate (Fleet Enema) 133 ml DAILY PRN [place] CONSTIPATION; Start 04/18/16 at 14:00 Lorazepam (Ativan) 0.5 mg Q6H PRN IV ANXIETY; Start 04/18/16 at 14:00 Hydralazine HCl (Apresoline) 10 mg Q6H PRN IV ELEVATED BLOOD PRESSURE; Start at 14:00 Clonidine (Catapres) 0.1 mg Q6H PRN PO ELEVATED BLOOD PRESSURE; Start 04/18/16 at 14:00 Nitroglycerin (Nitroglycerin (Sl Tab) 0.4 Mg) 1 tab Q5M PRN SL ANGINA; Start at 14:00 Dutasteride (Avodart) 0.5 mg DAILY PO Last administered on 04/22/16 08:57; Admin Dose 0.5 MG; Start 04/19/16 at 09:00 Gabapentin (Neurontin) 300 mg QHS PO Last administered on 04/21/16 21:35; Admin Dose 300 MG; Start 04/18/16 at 21:00 Metoprolol Tartrate (Lopressor) 25 mg BID PO Last administered on 04/22/16 08: 58; Admin Dose 25 MG; Start 04/18/16 at 21:00 Rosuvastatin Calcium (Crestor) 40 mg QHS PO Last administered on 04/21/16 21:35 ; Admin Dose 40 MG; Start 04/18/16 at 21:00 Sucralfate (Carafate Susp) 1 gm QID PO Last administered on 04/22/16 12:12; Admin Dose 1 GM; Start 04/18/16 at 17:00 Salmeterol Xinafoate/ Fluticasone (Advair 250/50 Diskus) 1 inh BID INH Last administered on 04/22/16 08:57; Admin Dose 1 INH; Start 04/18/16 at 21:00 Losartan Potassium (Cozaar) 100 mg DAILY PO Last administered on 04/22/16 08:58 ; Admin Dose 100 MG; Start 04/19/16 at 09:00 Clopidogrel Bisulfate (plaVIX) 75 mg DAILY NGT Last administered on 04/22/16 08 :57; Admin Dose 75 MG; Start 04/19/16 at 09:00 Pantoprazole (Protonix Tab) 40 mg BID@06,18 PO Last administered on 04/22/16 05 :33; Admin Dose 40 MG; Start 04/21/16 at 06:00 Metronidazole (Flagyl) 500 mg QID PO Last administered on 04/22/16 12:12; Admin Dose 500 MG; Start 04/21/16 at 13:00 Bisacodyl (Dulcolax) 10 mg ONCE ONCE PO ; Start 04/22/16 at 14:00; Stop 04/22/16 at 14:01 Magnesium Citrate (Citroma) 300 ml ONCE ONCE PO ; Start 04/22/16 at 15:00; Stop 04/22/16 at 15:01 Polyethylene Glycol (Miralax) 119 gm ONCE ONCE PO ; Start 04/22/16 at 16:00; Stop 04/22/16 at 16:01; Status UNV ALONSO LOPEZ MD Apr 22, 2016 13:24
--- NOTE | 2016-04-22 13:39 | CONS ---
Date/Time of Note Date/Time of Note DATE: 04/22/16 TIME: 13:36 Assessment/Plan Assessment/Plan Chief Complaint/Hosp Course IMp: 1.H/O PTCA/stent-recently with MARIAELENA 2.abnl ecg 3.Positive troponin-minimal in the setting of severe anemia/likely demand event 4.Hypotension-borderline labile 5.Anemia-severe s/p EGD with esophagitis/gastritis 6.Dyslipidemia 7.COPD 8.C. Diff Recc -Tele -trend cardiac enzymes -Continue Plavix as possible -Continue BB/cozaar as tolerated only -Ongoing GI eval -Continue statin -Continue abx's -Follow hgb closely -Ok to proceed with colonscopy from cardiac standpoint at moderate risk when GI ready to proceed Problems: Consultation Date/Type/Reason Admit Date/Time Apr 18, 2016 at 12:11 Initial Consult Date 04/19/16 Type of Consultation: Cardiology Reason for Consultation cad/stent Referring Provider: RAMAN BARRETT MD Exam/Review of Systems Vital Signs Vitals Vital Signs Date Time Temp Pulse Resp B/P Pulse Ox O2 Delivery O2 Flow Rate FiO2 04/22/16 08:20 98.4 71 18 125/72 96 04/21/16 16:50 2.0 04/20/16 19:38 Room Air Intake and Output 04/21/16 04/21/16 04/22/16 15:00 23:00 07:00 Intake Total 500 ml 350 ml Balance 500 ml 350 ml Exam Review of Systems: CONSTITUTIONAL: No fevers, chills. PULMONARY: No sob CARDIOVASCULAR: No chest pain/palpitations GASTROINTESTINAL: No nausea/vomiting. GENITOURINARY: No hematuria/dysuria. MUSCULOSKELETAL: No myagias/arthalgias. PSYCHIATRIC: The patient denies depression. NEUROLOGIC: No weakness Constitutional: alert Psych: no complaints Head: normocephalic ENMT: mucosa pink and moist Neck: jvd (8-9 cm water), supple Respiratory: diminished breath sounds (at bases/B) Cardiovascular: regular rate and rhythm Gastrointestinal: non-tender, soft Musculoskeletal: muscle tone (normal) Extremities: edema (none) Neurological: other (No focal deficits) Results Result Diagram: 04/22/16 0500 04/21/16 0925 Results 24 hrs Laboratory Tests Test 04/21/16 18:30 04/22/16 05:00 Hematocrit 24.2 L 23.2 L Hemoglobin 8.3 L 7.9 L Activated Partial Thromboplast Time 30.7 Basophils # 0.0 Basophils % 0.3 Blood Morphology Comment Creatine Kinase 24 Creatine Kinase Index 1.1 Creatinine Kinase MB (Mass) 0.26 Eosinophils # 0.0 Eosinophils % 0.0 INR International Normalized Ratio 1.04 Lymphocytes # 1.3 Lymphocytes % 19.2 Mean Corpuscular Hemoglobin 31.8 Mean Corpuscular Hemoglobin Concent 34.0 Mean Corpuscular Volume 93.5 Mean Platelet Volume 7.6 Monocytes # 0.5 Monocytes % 7.7 Neutrophils # 4.8 Neutrophils % 72.8 Nucleated Red Blood Cells # 0.0 Nucleated Red Blood Cells % 0.0 Platelet Count 190 Prothrombin Time 13.6 Prothrombin Time Ratio 1.1 Red Blood Count 2.49 L Red Cell Distribution Width 14.8 H Troponin I 0.084 White Blood Count 6.7 Medications Medications Current Medications Ondansetron HCl (Zofran Inj) 4 mg Q6H PRN IV NAUSEA AND/OR VOMITING; Start 04/18 at 14:00 Acetaminophen (Tylenol Tab) 650 mg Q6H PRN PO PAIN LEVEL 1-3 OR FEVER; Start at 14:00 Acetaminophen/ Hydrocodone Bitart ([place] (5/325)) 1 tab Q6H PRN PO MODERATE PAIN LEVEL 4-6; Start 04/18/16 at 14:00 Morphine Sulfate (morphine) 2 mg Q4H PRN IV SEVERE PAIN LEVEL 7-10; Start at 14:00 Docusate Sodium (Colace) 100 mg Q12H PRN PO CONSTIPATION; Start 04/18/16 at 14: 00 Magnesium Hydroxide (Milk Of Mag) 30 ml DAILY PRN PO CONSTIPATION; Start at 14:00 Sodium Biphosphate/ Sodium Phosphate (Fleet Enema) 133 ml DAILY PRN [place] CONSTIPATION; Start 04/18/16 at 14:00 Lorazepam (Ativan) 0.5 mg Q6H PRN IV ANXIETY; Start 04/18/16 at 14:00 Hydralazine HCl (Apresoline) 10 mg Q6H PRN IV ELEVATED BLOOD PRESSURE; Start at 14:00 Clonidine (Catapres) 0.1 mg Q6H PRN PO ELEVATED BLOOD PRESSURE; Start 04/18/16 at 14:00 Nitroglycerin (Nitroglycerin (Sl Tab) 0.4 Mg) 1 tab Q5M PRN SL ANGINA; Start at 14:00 Dutasteride (Avodart) 0.5 mg DAILY PO Last administered on 04/22/16 08:57; Admin Dose 0.5 MG; Start 04/19/16 at 09:00 Gabapentin (Neurontin) 300 mg QHS PO Last administered on 04/21/16 21:35; Admin Dose 300 MG; Start 04/18/16 at 21:00 Metoprolol Tartrate (Lopressor) 25 mg BID PO Last administered on 04/22/16 08: 58; Admin Dose 25 MG; Start 04/18/16 at 21:00 Rosuvastatin Calcium (Crestor) 40 mg QHS PO Last administered on 04/21/16 21:35 ; Admin Dose 40 MG; Start 04/18/16 at 21:00 Sucralfate (Carafate Susp) 1 gm QID PO Last administered on 04/22/16 12:12; Admin Dose 1 GM; Start 04/18/16 at 17:00 Salmeterol Xinafoate/ Fluticasone (Advair 250/50 Diskus) 1 inh BID INH Last administered on 04/22/16 08:57; Admin Dose 1 INH; Start 04/18/16 at 21:00 Losartan Potassium (Cozaar) 100 mg DAILY PO Last administered on 04/22/16 08:58 ; Admin Dose 100 MG; Start 04/19/16 at 09:00 Clopidogrel Bisulfate (plaVIX) 75 mg DAILY NGT Last administered on 04/22/16 08 :57; Admin Dose 75 MG; Start 04/19/16 at 09:00 Pantoprazole (Protonix Tab) 40 mg BID@18 PO Last administered on 04/22/16 05 :33; Admin Dose 40 MG; Start 04/21/16 at 06:00 Metronidazole (Flagyl) 500 mg QID PO Last administered on 04/22/16 12:12; Admin Dose 500 MG; Start 04/21/16 at 13:00 Bisacodyl (Dulcolax) 10 mg ONCE ONCE PO ; Start 04/22/16 at 14:00; Stop 04/22/16 at 14:01 Magnesium Citrate (Citroma) 300 ml ONCE ONCE PO ; Start 04/22/16 at 15:00; Stop 04/22/16 at 15:01 Polyethylene Glycol (Miralax) 119 gm ONCE ONCE PO ; Start 04/22/16 at 16:00; Stop 04/22/16 at 16:01; Status UNV LEROY GARCIA Apr 22, 2016 13:38
[2016-04-22] MEDS ORDERED: BISACODYL (EC) 5 MG TAB PO ONE ×2 (14:00→18:00)
[2016-04-22] MEDS ORDERED: MAGNESIUM CITRATE 300 ML BTL PO ONE (15:00)
[2016-04-22] MEDS ORDERED: POLYETHYLENE GLYCOL 3350 119 GM POWDER PO ONE ×2 (16:00→18:00)
[2016-04-22 21:23] VITALS: BP 137/71; RESP 18
[2016-04-22] MEDS: ROSUVASTATIN CALCIUM 40 MG TABLET PO SCH (21:24)
[2016-04-22] MEDS: GABAPENTIN 300 MG CAP PO SCH (21:25)
[2016-04-23 05:56] LABS: ADD SCAN DIFF NO
[2016-04-23] MEDS: PANTOPRAZOLE (EC) 40 MG TAB PO SCH ×2 (05:57→18:00)
[2016-04-23 06:01] LABS: BASOPHILS % 0.2 % (0.0-2.0); EOSINOPHILS # 0.1 10^3/ul (0.0-0.5); EOSINOPHILS % 0.8 % (0.0-7.0); HEMOGLOBIN 8.1 g/dl (14.0-18.0); LYMPHOCYTES # 1.1 10^3/ul (0.8-2.9); LYMPHOCYTES % 17.6 % (15.0-51.0); MEAN CORPUSCULAR HEMOGLOBIN 30.6 pg (29.0-33.0); MEAN CORPUSCULAR HGB CONC 31.2 g/dl (32.0-37.0); MEAN CORPUSCULAR VOLUME 98.1 fl (82.0-101.0); MEAN PLATELET VOLUME 9.8 fl (7.4-10.4); MONOCYTE # 0.5 10^3/ul (0.3-0.9); MONOCYTES % 7.5 % (0.0-11.0); NEUTROPHIL # 4.4 10^3/ul (1.6-7.5); NEUTROPHILS % 73.1 % (39.0-77.0); PLATELET COUNT 185 10^3/UL (140-415); RED BLOOD COUNT 2.65 10^6/ul (4.70-6.10); RED CELL DISTRIBUTION WIDTH 17.9 % (11.5-14.5)
[2016-04-23 06:18] LABS: INR 1.01; PROTIME 13.3 Sec (12.2-14.2)
[2016-04-23 06:19] LABS: PARTIAL THROMBOPLASTIN TIME 40.4 Sec (25.0-35.0)
[2016-04-23] MEDS: CLOPIDOGREL 75 MG TAB NGT SCH ×2 (09:00→20:52)
[2016-04-23 09:01] VITALS: BP 126/77; PULSE 80; RESP 16
[2016-04-23] MEDS: SALMETEROL/FLUTICASONE 250/50 INHA INH SCH ×2 (09:04→20:50)
[2016-04-23] MEDS: SUCRALFATE (100 MG/ML) 10ML CUP PO SCH ×4 (09:04→20:50)
[2016-04-23] MEDS: DUTASTERIDE 0.5 MG CAP PO SCH (09:04)
[2016-04-23] MEDS: LOSARTAN 50 MG TAB PO SCH (09:05)
[2016-04-23] MEDS: metroNIDAZOLE 500 MG TAB PO SCH ×4 (09:05→20:50)
[2016-04-23] MEDS: CREON (24K-76K-120K) 1 CAP PO SCH ×3 (09:06→17:35)
[2016-04-23] MEDS: METOPROLOL 25 MG TAB PO SCH ×2 (09:07→20:51)
--- NOTE | 2016-04-23 12:47 | CONS ---
Date/Time of Note Date/Time of Note DATE: 04/23/16 TIME: 12:46 Assessment/Plan Assessment/Plan Chief Complaint/Hosp Course IMp: 1.H/O PTCA/stent-recently with MARIAELENA 2.abnl ecg 3.Positive troponin-minimal in the setting of severe anemia/likely demand event 4.Hypotension-borderline labile 5.Anemia-severe s/p EGD with esophagitis/gastritis 6.Dyslipidemia 7.COPD 8.C. Diff Recc -Tele -trend cardiac enzymes -Continue Plavix as possible -Continue BB/cozaar as tolerated only -Ongoing GI eval -Continue statin -Continue abx's -Follow hgb closely -Ok to proceed with colonscopy from cardiac standpoint at moderate risk when GI ready to proceed Problems: Consultation Date/Type/Reason Admit Date/Time Apr 18, 2016 at 12:11 Initial Consult Date 04/19/16 Type of Consultation: Cardiology Reason for Consultation positive troponin Referring Provider: RAMAN BARRETT MD Exam/Review of Systems Vital Signs Vitals Vital Signs Date Time Temp Pulse Resp B/P Pulse Ox O2 Delivery O2 Flow Rate FiO2 04/23/16 09:01 98.4 80 16 126/77 97 Room Air 04/21/16 16:50 2.0 Intake and Output 04/22/16 04/22/16 04/23/16 15:00 23:00 07:00 Intake Total 720 ml 500 ml Output Total 800 ml Balance -80 ml 500 ml Exam Review of Systems: CONSTITUTIONAL: No fevers, chills. PULMONARY: No sob CARDIOVASCULAR: No chest pain/palpitations GASTROINTESTINAL: Loose stools GENITOURINARY: No hematuria/dysuria. MUSCULOSKELETAL: No myagias/arthalgias. PSYCHIATRIC: The patient denies depression. NEUROLOGIC: No weakness Constitutional: alert, oriented Psych: no complaints Head: normocephalic ENMT: mucosa pink and moist Neck: jvd, supple Respiratory: diminished breath sounds Cardiovascular: regular rate and rhythm Gastrointestinal: non-tender, soft Musculoskeletal: muscle tone (normal) Extremities: edema (none) Neurological: other (No focal deficits) Results Result Diagram: 04/23/16 0445 04/21/16 0925 Results 24 hrs Laboratory Tests Test 04/23/16 04:45 Activated Partial Thromboplast Time 40.4 H Basophils # 0.0 Basophils % 0.2 Eosinophils # 0.1 Eosinophils % 0.8 Hematocrit 26.0 L Hemoglobin 8.1 L INR International Normalized Ratio 1.01 Lymphocytes # 1.1 Lymphocytes % 17.6 Mean Corpuscular Hemoglobin 30.6 Mean Corpuscular Hemoglobin Concent 31.2 L Mean Corpuscular Volume 98.1 Mean Platelet Volume 9.8 # Monocytes # 0.5 Monocytes % 7.5 Neutrophils # 4.4 Neutrophils % 73.1 Nucleated Red Blood Cells # 0.0 Nucleated Red Blood Cells % 0.0 Platelet Count 185 Prothrombin Time 13.3 Prothrombin Time Ratio 1.0 Red Blood Count 2.65 L Red Cell Distribution Width 17.9 #H White Blood Count 6.0 Medications Medications Current Medications Ondansetron HCl (Zofran Inj) 4 mg Q6H PRN IV NAUSEA AND/OR VOMITING; Start 04/18 at 14:00 Acetaminophen (Tylenol Tab) 650 mg Q6H PRN PO PAIN LEVEL 1-3 OR FEVER; Start at 14:00 Acetaminophen/ Hydrocodone Bitart ([place] (5/325)) 1 tab Q6H PRN PO MODERATE PAIN LEVEL 4-6; Start 04/18/16 at 14:00 Morphine Sulfate (morphine) 2 mg Q4H PRN IV SEVERE PAIN LEVEL 7-10; Start at 14:00 Docusate Sodium (Colace) 100 mg Q12H PRN PO CONSTIPATION; Start 04/18/16 at 14: 00 Magnesium Hydroxide (Milk Of Mag) 30 ml DAILY PRN PO CONSTIPATION; Start at 14:00 Sodium Biphosphate/ Sodium Phosphate (Fleet Enema) 133 ml DAILY PRN [place] CONSTIPATION Last administered on 04/23/16t 06:29; Admin Dose 133 ML; Start 04/18 at 14:00 Lorazepam (Ativan) 0.5 mg Q6H PRN IV ANXIETY; Start 04/18/16 at 14:00 Hydralazine HCl (Apresoline) 10 mg Q6H PRN IV ELEVATED BLOOD PRESSURE; Start at 14:00 Clonidine (Catapres) 0.1 mg Q6H PRN PO ELEVATED BLOOD PRESSURE; Start 04/18/16 at 14:00 Nitroglycerin (Nitroglycerin (Sl Tab) 0.4 Mg) 1 tab Q5M PRN SL ANGINA; Start at 14:00 Dutasteride (Avodart) 0.5 mg DAILY PO Last administered on 04/23/16 09:04; Admin Dose 0.5 MG; Start 04/19/16 at 09:00 Gabapentin (Neurontin) 300 mg QHS PO Last administered on 04/22/16 21:25; Admin Dose 300 MG; Start 04/18/16 at 21:00 Metoprolol Tartrate (Lopressor) 25 mg BID PO Last administered on 04/23/16 09: 07; Admin Dose 25 MG; Start 04/18/16 at 21:00 Rosuvastatin Calcium (Crestor) 40 mg QHS PO Last administered on 04/22/16 21:24 ; Admin Dose 40 MG; Start 04/18/16 at 21:00 Sucralfate (Carafate Susp) 1 gm QID PO Last administered on 04/23/16 09:04; Admin Dose 1 GM; Start 04/18/16 at 17:00 Salmeterol Xinafoate/ Fluticasone (Advair 250/50 Diskus) 1 inh BID INH Last administered on 04/23/16 09:04; Admin Dose 1 INH; Start 04/18/16 at 21:00 Losartan Potassium (Cozaar) 100 mg DAILY PO Last administered on 04/23/16 09: 05; Admin Dose 100 MG; Start 04/19/16 at 09:00 Clopidogrel Bisulfate (plaVIX) 75 mg DAILY NGT Last administered on 04/22/16 08 :57; Admin Dose 75 MG; Start 04/19/16 at 09:00 Pantoprazole (Protonix Tab) 40 mg BID@,18 PO Last administered on 04/23/16 05:57; Admin Dose 40 MG; Start 04/21/16 at 06:00 Metronidazole (Flagyl) 500 mg QID PO Last administered on 04/23/16 09:05; Admin Dose 500 MG; Start 04/21/16 at 13:00 LEROY GARCIA Apr 23, 2016 12:47
--- NOTE | 2016-04-23 13:48 | PN ---
Date/Time of Note Date/Time of Note DATE: 04/23/16 TIME: 13:47 Assessment/Plan VTE Prophylaxis VTE Prophylaxis Intervention: SCD's Lines/Catheters IV [facility] (from [facility] Urinary Cath still in place: No Assessment/Plan Assessment/Plan 1. Upper GI bleeding- s/p total 6 units PRBC transfusion during this admission 2. Coronary artery disease. demand ischemia - with acute blood loss - as per cardio recs 3. Chronic obstructive pulmonary disease. Continue to monitor for now. No present issues, on DuoNeb p.r.n. 4. Gastroesophageal reflux disease. Again, he is going to be on Protonix 5. High cholesterol. Check lipid panel. 6. Chronic depression. He is on Ativan p.r.n. 7. Chronic tobacco use. Order nicotine patch. 8. Iron deficiency anemia. see - #1 9. Deep venous thrombosis prophylaxis, sequential compression devices. 10. GI ppx - protonix plan for colonoscopy today, Hb 8.1 this progress note took greater than 40 minutes to complete Subjective 24 Hr Interval Summary Free Text/Dictation plan for colonoscopy today evening, Hb 8.1, no melena,no BRBPR Exam/Review of Systems Vital Signs Vitals Vital Signs Date Time Temp Pulse Resp B/P Pulse Ox O2 Delivery O2 Flow Rate FiO2 04/23/16 09:01 98.4 80 16 126/77 97 Room Air 04/21/16 16:50 2.0 Intake and Output 04/22/16 04/22/16 04/23/16 15:00 23:00 07:00 Intake Total 720 ml 500 ml Output Total 800 ml Balance -80 ml 500 ml Results Result Diagram: 04/23/16 0445 04/21/16 0925 Results 24 hrs Laboratory Tests Test 04/23/16 04:45 Activated Partial Thromboplast Time 40.4 H Basophils # 0.0 Basophils % 0.2 Eosinophils # 0.1 Eosinophils % 0.8 Hematocrit 26.0 L Hemoglobin 8.1 L INR International Normalized Ratio 1.01 Lymphocytes # 1.1 Lymphocytes % 17.6 Mean Corpuscular Hemoglobin 30.6 Mean Corpuscular Hemoglobin Concent 31.2 L Mean Corpuscular Volume 98.1 Mean Platelet Volume 9.8 # Monocytes # 0.5 Monocytes % 7.5 Neutrophils # 4.4 Neutrophils % 73.1 Nucleated Red Blood Cells # 0.0 Nucleated Red Blood Cells % 0.0 Platelet Count 185 Prothrombin Time 13.3 Prothrombin Time Ratio 1.0 Red Blood Count 2.65 L Red Cell Distribution Width 17.9 #H White Blood Count 6.0 Medications Medications Current Medications Ondansetron HCl (Zofran Inj) 4 mg Q6H PRN IV NAUSEA AND/OR VOMITING; Start 04/18 at 14:00 Acetaminophen (Tylenol Tab) 650 mg Q6H PRN PO PAIN LEVEL 1-3 OR FEVER; Start at 14:00 Acetaminophen/ Hydrocodone Bitart ([place] (5/325)) 1 tab Q6H PRN PO MODERATE PAIN LEVEL 4-6; Start 04/18/16 at 14:00 Morphine Sulfate (morphine) 2 mg Q4H PRN IV SEVERE PAIN LEVEL 7-10; Start at 14:00 Docusate Sodium (Colace) 100 mg Q12H PRN PO CONSTIPATION; Start 04/18/16 at 14: 00 Magnesium Hydroxide (Milk Of Mag) 30 ml DAILY PRN PO CONSTIPATION; Start at 14:00 Sodium Biphosphate/ Sodium Phosphate (Fleet Enema) 133 ml DAILY PRN [place] CONSTIPATION Last administered on 04/23/16 06:29; Admin Dose 133 ML; Start 04/18 at 14:00 Lorazepam (Ativan) 0.5 mg Q6H PRN IV ANXIETY; Start 04/18/16 at 14:00 Hydralazine HCl (Apresoline) 10 mg Q6H PRN IV ELEVATED BLOOD PRESSURE; Start at 14:00 Clonidine (Catapres) 0.1 mg Q6H PRN PO ELEVATED BLOOD PRESSURE; Start 04/18/16 at 14:00 Nitroglycerin (Nitroglycerin (Sl Tab) 0.4 Mg) 1 tab Q5M PRN SL ANGINA; Start at 14:00 Dutasteride (Avodart) 0.5 mg DAILY PO Last administered on 04/23/16 09:04; Admin Dose 0.5 MG; Start 04/19/16 at 09:00 Gabapentin (Neurontin) 300 mg QHS PO Last administered on 04/22/16 21:25; Admin Dose 300 MG; Start 04/18/16 at 21:00 Metoprolol Tartrate (Lopressor) 25 mg BID PO Last administered on 04/23/16 09: 07; Admin Dose 25 MG; Start 04/18/16 at 21:00 Rosuvastatin Calcium (Crestor) 40 mg QHS PO Last administered on 04/22/16 21:24 ; Admin Dose 40 MG; Start 04/18/16 at 21:00 Sucralfate (Carafate Susp) 1 gm QID PO Last administered on 04/23/16 09:04; Admin Dose 1 GM; Start 04/18/16 at 17:00 Salmeterol Xinafoate/ Fluticasone (Advair 250/50 Diskus) 1 inh BID INH Last administered on 04/23/16 09:04; Admin Dose 1 INH; Start 04/18/16 at 21:00 Losartan Potassium (Cozaar) 100 mg DAILY PO Last administered on 04/23/16 09: 05; Admin Dose 100 MG; Start 04/19/16 at 09:00 Clopidogrel Bisulfate (plaVIX) 75 mg DAILY NGT Last administered on 04/22/16 08 :57; Admin Dose 75 MG; Start 04/19/16 at 09:00 Pantoprazole (Protonix Tab) 40 mg BID@06,18 PO Last administered on 04/23/16 05:57; Admin Dose 40 MG; Start 04/21/16 at 06:00 Metronidazole (Flagyl) 500 mg QID PO Last administered on 04/23/16 09:05; Admin Dose 500 MG; Start 04/21/16 at 13:00 ALONSO OLPEZ MD Apr 23, 2016 13:48
[2016-04-23 15:32] VITALS: BP 120/74; PULSE 86; RESP 16
[2016-04-23 16:23] VITALS: BP 128/80; PULSE 78; RESP 18
[2016-04-23] MEDS ORDERED: PROPOFOL 20 ML ONE (18:50)
[2016-04-23] MEDS ORDERED: FENTAnyl 50 MCG/ML VIAL ONE (18:50)
[2016-04-23] MEDS ORDERED: MIDAZOLAM 1 MG/ML 2 ML INJ ONE (18:51)
[2016-04-23] MEDS ORDERED: BARIUM SULF 2% 450 ML BTL (BERRY SMOOTHIE) PO ONE ×2 (19:30→23:00)
[2016-04-23 19:36] VITALS: BP 126/77; PULSE 77; RESP 18
[2016-04-23 20:02] VITALS: BP 130/80; RESP 18
[2016-04-23] MEDS: ROSUVASTATIN CALCIUM 40 MG TABLET PO SCH (20:50)
[2016-04-23] MEDS: GABAPENTIN 300 MG CAP PO SCH (20:51)
[2016-04-23] MEDS ORDERED: GLUCAGON 1 MG INJ IV SCH (23:30)
[2016-04-24] MEDS: PANTOPRAZOLE (EC) 40 MG TAB PO SCH ×2 (06:00→17:38)
[2016-04-24] MEDS: CREON (24K-76K-120K) 1 CAP PO SCH ×3 (07:35→17:38)
[2016-04-24 08:18] VITALS: BP 125/77; RESP 18
[2016-04-24] MEDS: SALMETEROL/FLUTICASONE 250/50 INHA INH SCH ×2 (08:24→20:48)
[2016-04-24] MEDS: METOPROLOL 25 MG TAB PO SCH ×2 (09:00→20:49)
[2016-04-24] MEDS: DUTASTERIDE 0.5 MG CAP PO SCH (09:00)
[2016-04-24] MEDS: metroNIDAZOLE 500 MG TAB PO SCH ×4 (09:00→20:48)
[2016-04-24] MEDS: LOSARTAN 50 MG TAB PO SCH (09:00)
[2016-04-24] MEDS: SUCRALFATE (100 MG/ML) 10ML CUP PO SCH ×4 (09:00→20:50)
--- NOTE | 2016-04-24 11:29 | PN ---
Date/Time of Note Date/Time of Note DATE: 04/24/16 TIME: 11:26 Assessment/Plan VTE Prophylaxis VTE Prophylaxis Intervention: SCD's Lines/Catheters [facility] Urinary Cath still in place: No Assessment/Plan Assessment/Plan 1. Upper GI bleeding- s/p total 6 units PRBC transfusion during this admission 2. Coronary artery disease. demand ischemia - with acute blood loss - as per cardio recs 3. Chronic obstructive pulmonary disease. Continue to monitor for now. No present issues, on DuoNeb p.r.n. 4. Gastroesophageal reflux disease. Again, he is going to be on Protonix 5. High cholesterol. Check lipid panel. 6. Chronic depression. He is on Ativan p.r.n. 7. Chronic tobacco use. Order nicotine patch. 8. Iron deficiency anemia. see - #1 9. Deep venous thrombosis prophylaxis, sequential compression devices. 10. GI ppx - protonix plan for colonoscopy today, Hb 8.1- no labs today to review, S/p Colonospcy- no obvious source of bleeding, CT abdomen + pelvis angiogram has been ordered to rule out for source of bleeding this progress note took greater than 40 minutes to complete Subjective 24 Hr Interval Summary Free Text/Dictation pt ordered to have CT abdominal angiogram, S/p colonoscopy, no labs today to review Exam/Review of Systems Vital Signs Vitals Vital Signs Date Time Temp Pulse Resp B/P Pulse Ox O2 Delivery O2 Flow Rate FiO2 04/24/16 08:18 98.7 73 18 125/77 96 04/23/16 19:36 Room Air 04/21/16 16:50 2.0 Intake and Output 04/23/16 04/23/16 04/24/16 15:00 23:00 07:00 Intake Total 720 ml 0 ml Balance 720 ml 0 ml Exam Constitutional: alert Psych: no complaints Head: normocephalic ENMT: mucosa pink and moist Neck: jvd, supple Respiratory: diminished breath sounds Cardiovascular: regular rate and rhythm Gastrointestinal: non-tender, soft Musculoskeletal: muscle tone (normal) Extremities: edema (none) Neurological: other (No focal deficits) Results Result Diagram: 04/23/16 0445 04/21/16 0925 Results 24 hrs Laboratory Tests Test 04/24/16 05:45 Troponin I 0.044 Medications Medications Current Medications Ondansetron HCl (Zofran Inj) 4 mg Q6H PRN IV NAUSEA AND/OR VOMITING; Start 04/18 at 14:00 Acetaminophen (Tylenol Tab) 650 mg Q6H PRN PO PAIN LEVEL 1-3 OR FEVER; Start at 14:00 Acetaminophen/ Hydrocodone Bitart ([place] (5/325)) 1 tab Q6H PRN PO MODERATE PAIN LEVEL 4-6; Start 04/18/16 at 14:00 Morphine Sulfate (morphine) 2 mg Q4H PRN IV SEVERE PAIN LEVEL 7-10; Start at 14:00 Docusate Sodium (Colace) 100 mg Q12H PRN PO CONSTIPATION; Start 04/18/16 at 14: 00 Magnesium Hydroxide (Milk Of Mag) 30 ml DAILY PRN PO CONSTIPATION; Start at 14:00 Sodium Biphosphate/ Sodium Phosphate (Fleet Enema) 133 ml DAILY PRN [place] CONSTIPATION Last administered on 04/23/16 06:29; Admin Dose 133 ML; Start 04/18 at 14:00 Lorazepam (Ativan) 0.5 mg Q6H PRN IV ANXIETY; Start 04/18/16 at 14:00 Hydralazine HCl (Apresoline) 10 mg Q6H PRN IV ELEVATED BLOOD PRESSURE; Start at 14:00 Clonidine (Catapres) 0.1 mg Q6H PRN PO ELEVATED BLOOD PRESSURE; Start 04/18/16 at 14:00 Nitroglycerin (Nitroglycerin (Sl Tab) 0.4 Mg) 1 tab Q5M PRN SL ANGINA; Start at 14:00 Dutasteride (Avodart) 0.5 mg DAILY PO Last administered on 04/23/16 09:04; Admin Dose 0.5 MG; Start 04/19/16 at 09:00 Gabapentin (Neurontin) 300 mg QHS PO Last administered on 04/23/16 20:51; Admin Dose 300 MG; Start 04/18/16 at 21:00 Metoprolol Tartrate (Lopressor) 25 mg BID PO Last administered on 04/23/16 20: 51; Admin Dose 25 MG; Start 04/18/16 at 21:00 Rosuvastatin Calcium (Crestor) 40 mg QHS PO Last administered on 04/23/16 20: 50; Admin Dose 40 MG; Start 04/18/16 at 21:00 Sucralfate (Carafate Susp) 1 gm QID PO Last administered on 04/23/16 20:50; Admin Dose 1 GM; Start 04/18/16 at 17:00 Salmeterol Xinafoate/ Fluticasone (Advair 250/50 Diskus) 1 inh BID INH Last administered on 04/24/16 08:24; Admin Dose 1 INH; Start 04/18/16 at 21:00 Losartan Potassium (Cozaar) 100 mg DAILY PO Last administered on 04/23/16 09: 05; Admin Dose 100 MG; Start 04/19/16 at 09:00 Clopidogrel Bisulfate (plaVIX) 75 mg DAILY NGT Last administered on 04/23/16 20:52; Admin Dose 75 MG; Start 04/19/16 at 09:00 Pantoprazole (Protonix Tab) 40 mg BID@,18 PO Last administered on 04/23/16 05:57; Admin Dose 40 MG; Start 04/21/16 at 06:00 Metronidazole (Flagyl) 500 mg QID PO Last administered on 04/23/16 20:50; Admin Dose 500 MG; Start 04/21/16 at 13:00 Glucagon (Glucagen) 1 mg ONCE IV ; Start 04/23/16 at 23:30; Stop 04/24/16 at 23: 29 ALONSO LOPEZ MD Apr 24, 2016 11:29
--- NOTE | 2016-04-24 12:33 | GILP ---
DATE OF PROCEDURE: PROCEDURE: Colonoscopy with polyp ablation. BRIEF HISTORY AND INDICATIONS: Patient with severe and recurrent anemia, with evidence of gastrointe stinal bleeding. PREMEDICATION: Monitored anesthesia care by the anesthesiologist. SURGEON: Minesh Denson MD. INSTRUMENT USED: Olympus colonoscope. PREPARATION: Fair, with solid stool in the right side of the colon. TECHNIQUE: After informed consent, with the patient/relatives understanding the procedure, its indic ations potential risks and complications, including but not limited to: allergic reaction, bleeding, perforation, infection, missed lesions and after all pertinent questions were answered to the patie nt's satisfaction, the patient/relatives signed the witnessed informed consent. Following this, premedication was administered slowly IV push by under careful cardiovascular and re spiratory monitoring with pulse oximetry, automatic blood pressure and care management associate. Once the sedativ e effect was achieved, the patient was placed in the left lateral decubitus position, digital rectal examination was performed. The colonoscope was then introduced and advanced under visual control th roughout all segments of the colon including: the rectum, sigmoid, descending colon, splenic flexure , transverse colon, hepatic flexure, ascending colon and finally reaching the cecum which was clearl y identified by transillumination, finger indentation and the ileocecal valve. Careful examination o f the mucosa of the lower gastrointestinal tract both on insertion as well as withdrawal of the inst rument disclosed the following findings: FINDINGS: Rectal Examination: No evidence of perirectal disease, no masses. Colonic Mucosa: The colonic mucosa appears essentially unremarkable, which is surprising, as the rochelle moreira tested positive for C. difficile. He has been under treatment for several days, but there kristyn ears to be no evidence of active colitis of any extent throughout the colon. There is a 5-mm polyp in the mid ascending colon. The polyp was completely ablated with biopsy force ps, without significant residual bleeding. The ileocecal valve was clearly identified and appears unremarkable. The instrument was withdrawn, reexamining the mucosa in detail. No additional abnormalities were noted, with the exception of mod erate-sized internal hemorrhoids. Of note, the stool present in the colon is brownish in color. The instrument was then withdrawn, the patient tolerated the procedure well and was transferred out of the Endoscopy Suite awake and in good condition to continue recovery under observation. IMPRESSION: 1. No evidence of active colitis. 2. A 5-mm polyp in the mid ascending colon, ablated. 3. Moderate sized internal hemorrhoids. PLAN: The patient will be followed up on the present regimen. CT enterography will be requested to rule out small bowel lesions of significance. Dictated By: MINESH DENSON MS/AMBER Conf#: [id number] DID#: [id number]
[2016-04-24] MEDS ORDERED: BARIUM SULFATE 0.1% 450 ML BTL (VOLUMEN) PO ONE (13:00)
[2016-04-24] MEDS ORDERED: IOHEXOL 100 ML ONE (14:30)
[2016-04-24] MEDS ORDERED: SOD CHLORIDE 0.9% 100 ML ONE (14:30)
--- NOTE | 2016-04-24 14:35 | PN ---
Date/Time of Note Date/Time of Note DATE: 04/24/16 TIME: 14:29 Assessment/Plan VTE Prophylaxis VTE Prophylaxis Intervention: contraindicated, SCD's Lines/Catheters [facility] Urinary Cath still in place: No Assessment/Plan Assessment/Plan :Assessment: Recurrent anemia/GI bleeding * UGI vs LGIB * EGD 04-21-16: Mild distal esophagitis. There was mild gastritis. * Previous EGD 04-12-16: 1. Severe erosive esophagitis. 2. Gastritis 3. Biopsy neg Helicobacter pylori, dysplasia, and malignancy * Colonoscopy to 12/31/2016 small ascending colon polyp/ablated,moderate size internal hemorrhoids, suboptimal prep but no gross lesions Coronary artery disease, status post stent to proximal RCA, aspirin and Brilinta * Cardiology following Hypertension High cholesterol Chronic depression Chronic obstructive pulmonary disease History of tobacco use * Stop smoking x 1 month GERD Plan: Awaiting CT enterography to be done today Patient anxious to go home may sign out AMA Advised patient son to wait for results of CT enterography Alternatively call my office and I will try to get results If patient develops further episodes of bleeding stat bleeding scan would be initial workup I have explained this in detail to the patient's son Subjective 24 Hr Interval Summary Free Text/Dictation Patient's course reviewed with nursing staff No new GI symptoms No evidence of overt GI bleeding Hemoglobin stable Awaiting for CT enterography Had threatened to leave AMA but nursing staff convinced him to stay I reviewed situation with patient's son, he states that he cannot hold back if he wants to leave At present willing to wait for CT enterography Exam/Review of Systems Vital Signs Vitals Vital Signs Date Time Temp Pulse Resp B/P Pulse Ox O2 Delivery O2 Flow Rate FiO2 04/24/16 08:18 98.7 73 18 125/77 96 04/23/16 19:36 Room Air 04/21/16 16:50 2.0 Intake and Output 04/23/16 04/23/16 04/24/16 15:00 23:00 07:00 Intake Total 720 ml 0 ml Balance 720 ml 0 ml Exam Constitutional: alert, oriented, well developed Psych: nl mood/affect, no complaints Head: atraumatic, normocephalic Eyes: EOMI, PERRL, nl conjunctiva, nl lids, nl sclera ENMT: nl external ears & nose, nl lips & teeth, nl nasal mucosa & septum Neck: non-tender, supple Respiratory: clear to auscultation, normal air movement Cardiovascular: nl pulses, regular rate and rhythm Gastrointestinal: nl liver, spleen, non-tender, soft Musculoskeletal: nl extremities to inspection Extremities: normal pulses Skin: nl turgor, No rash or lesions Lymph: nl lymph nodes Results Result Diagram: 04/23/16 0445 04/21/16 0925 Results 24 hrs Laboratory Tests Test 04/24/16 05:45 Troponin I 0.044 Medications Medications Current Medications Ondansetron HCl (Zofran Inj) 4 mg Q6H PRN IV NAUSEA AND/OR VOMITING; Start 04/18 at 14:00 Acetaminophen (Tylenol Tab) 650 mg Q6H PRN PO PAIN LEVEL 1-3 OR FEVER; Start at 14:00 Acetaminophen/ Hydrocodone Bitart ([place] (5/325)) 1 tab Q6H PRN PO MODERATE PAIN LEVEL 4-6; Start 04/18/16 at 14:00 Morphine Sulfate (morphine) 2 mg Q4H PRN IV SEVERE PAIN LEVEL 7-10; Start at 14:00 Docusate Sodium (Colace) 100 mg Q12H PRN PO CONSTIPATION; Start 04/18/16 at 14: 00 Magnesium Hydroxide (Milk Of Mag) 30 ml DAILY PRN PO CONSTIPATION; Start at 14:00 Sodium Biphosphate/ Sodium Phosphate (Fleet Enema) 133 ml DAILY PRN [place] CONSTIPATION Last administered on 04/23/16t 06:29; Admin Dose 133 ML; Start 04/18 at 14:00 Lorazepam (Ativan) 0.5 mg Q6H PRN IV ANXIETY; Start 04/18/16 at 14:00 Hydralazine HCl (Apresoline) 10 mg Q6H PRN IV ELEVATED BLOOD PRESSURE; Start at 14:00 Clonidine (Catapres) 0.1 mg Q6H PRN PO ELEVATED BLOOD PRESSURE; Start 04/18/16 at 14:00 Nitroglycerin (Nitroglycerin (Sl Tab) 0.4 Mg) 1 tab Q5M PRN SL ANGINA; Start at 14:00 Dutasteride (Avodart) 0.5 mg DAILY PO Last administered on 04/23/16 09:04; Admin Dose 0.5 MG; Start 04/19/16 at 09:00 Gabapentin (Neurontin) 300 mg QHS PO Last administered on 04/23/16 20:51; Admin Dose 300 MG; Start 04/18/16 at 21:00 Metoprolol Tartrate (Lopressor) 25 mg BID PO Last administered on 04/23/16 20: 51; Admin Dose 25 MG; Start 04/18/16 at 21:00 Rosuvastatin Calcium (Crestor) 40 mg QHS PO Last administered on 04/23/16 20: 50; Admin Dose 40 MG; Start 04/18/16 at 21:00 Sucralfate (Carafate Susp) 1 gm QID PO Last administered on 04/23/16 20:50; Admin Dose 1 GM; Start 04/18/16 at 17:00 Salmeterol Xinafoate/ Fluticasone (Advair 250/50 Diskus) 1 inh BID INH Last administered on 04/24/16 08:24; Admin Dose 1 INH; Start 04/18/16 at 21:00 Losartan Potassium (Cozaar) 100 mg DAILY PO Last administered on 04/23/16 09: 05; Admin Dose 100 MG; Start 04/19/16 at 09:00 Clopidogrel Bisulfate (plaVIX) 75 mg DAILY NGT Last administered on 04/23/16 20:52; Admin Dose 75 MG; Start 04/19/16 at 09:00 Pantoprazole (Protonix Tab) 40 mg BID@,18 PO Last administered on 04/23/16 05:57; Admin Dose 40 MG; Start 04/21/16 at 06:00 Metronidazole (Flagyl) 500 mg QID PO Last administered on 04/23/16 20:50; Admin Dose 500 MG; Start 04/21/16 at 13:00 Glucagon (Glucagen) 1 mg ONCE IV ; Start 04/23/16 at 23:30; Stop 04/24/16 at 23: 29 Barium Sulfate (Volumen) 1,350 ml ONCE ONCE PO Last administered on 04/24/16 13:20; Admin Dose 1,350 ML; Start 04/24/16 at 13:00; Stop 04/24/16 at 13:01 RIOS CERVANTES MD Apr 24, 2016 14:34
[2016-04-24] MEDS ORDERED: IOHEXOL 350MG/ML 50 ML BTL ONE (14:41)
[2016-04-24] MEDS ORDERED: GLUCAGON 1 MG INJ ONE (14:44)
--- NOTE | 2016-04-24 14:55 | CONS ---
Date/Time of Note Date/Time of Note DATE: 04/24/16 TIME: 14:53 Assessment/Plan Assessment/Plan Chief Complaint/Hosp Course IMp: 1.H/O PTCA/stent-recently with [facility] 2.abnl ecg 3.Positive troponin-minimal in the setting of severe anemia/likely demand event 4.Hypotension-borderline labile 5.Anemia-severe s/p EGD with esophagitis/gastritis 6.Dyslipidemia 7.COPD 8.C. Diff Recc -Continue Plavix as possible -Continue BB/cozaar as tolerated only -Ongoing GI eval/abd CT today -Continue statin -Continue abx's -Follow hgb closely -Ok to proceed with colonscopy from cardiac standpoint at moderate risk when GI ready to proceed Problems: Consultation Date/Type/Reason Admit Date/Time Apr 18, 2016 at 12:11 Initial Consult Date 04/19/16 Type of Consultation: Cardiology Reason for Consultation positive troponin Referring Provider: RAMAN BARRETT MD Exam/Review of Systems Vital Signs Vitals Vital Signs Date Time Temp Pulse Resp B/P Pulse Ox O2 Delivery O2 Flow Rate FiO2 04/24/16 08:18 98.7 73 18 125/77 96 04/23/16 19:36 Room Air 04/21/16 16:50 2.0 Intake and Output 04/23/16 04/23/16 04/24/16 15:00 23:00 07:00 Intake Total 720 ml 0 ml Balance 720 ml 0 ml Exam Review of Systems: CONSTITUTIONAL: No fevers, chills. PULMONARY: No sob CARDIOVASCULAR: No chest pain/palpitations GASTROINTESTINAL: No nausea/vomiting. GENITOURINARY: No hematuria/dysuria. MUSCULOSKELETAL: No myagias/arthalgias. PSYCHIATRIC: The patient denies depression. NEUROLOGIC: No weakness Constitutional: alert, oriented Psych: no complaints Head: normocephalic ENMT: mucosa pink and moist Neck: jvd (9 cm water), supple Respiratory: diminished breath sounds (at bases/B) Cardiovascular: regular rate and rhythm Gastrointestinal: distended, non-tender, soft, tender Musculoskeletal: muscle tone (normal) Extremities: edema (none) Neurological: other (No focal deficits) Results Result Diagram: 04/23/16 0445 04/21/16 0925 Results 24 hrs Laboratory Tests Test 04/24/16 05:45 Troponin I 0.044 Medications Medications Current Medications Ondansetron HCl (Zofran Inj) 4 mg Q6H PRN IV NAUSEA AND/OR VOMITING; Start 04/18 at 14:00 Acetaminophen (Tylenol Tab) 650 mg Q6H PRN PO PAIN LEVEL 1-3 OR FEVER; Start at 14:00 Acetaminophen/ Hydrocodone Bitart ([place] (5/325)) 1 tab Q6H PRN PO MODERATE PAIN LEVEL 4-6; Start 04/18/16 at 14:00 Morphine Sulfate (morphine) 2 mg Q4H PRN IV SEVERE PAIN LEVEL 7-10; Start at 14:00 Docusate Sodium (Colace) 100 mg Q12H PRN PO CONSTIPATION; Start 04/18/16 at 14: 00 Magnesium Hydroxide (Milk Of Mag) 30 ml DAILY PRN PO CONSTIPATION; Start at 14:00 Sodium Biphosphate/ Sodium Phosphate (Fleet Enema) 133 ml DAILY PRN [place] CONSTIPATION Last administered on 04/23/16 06:29; Admin Dose 133 ML; Start 04/18 at 14:00 Lorazepam (Ativan) 0.5 mg Q6H PRN IV ANXIETY; Start 04/18/16 at 14:00 Hydralazine HCl (Apresoline) 10 mg Q6H PRN IV ELEVATED BLOOD PRESSURE; Start at 14:00 Clonidine (Catapres) 0.1 mg Q6H PRN PO ELEVATED BLOOD PRESSURE; Start 04/18/16 at 14:00 Nitroglycerin (Nitroglycerin (Sl Tab) 0.4 Mg) 1 tab Q5M PRN SL ANGINA; Start at 14:00 Dutasteride (Avodart) 0.5 mg DAILY PO Last administered on 04/23/16 09:04; Admin Dose 0.5 MG; Start 04/19/16 at 09:00 Gabapentin (Neurontin) 300 mg QHS PO Last administered on 04/23/16 20:51; Admin Dose 300 MG; Start 04/18/16 at 21:00 Metoprolol Tartrate (Lopressor) 25 mg BID PO Last administered on 04/23/16 20: 51; Admin Dose 25 MG; Start 04/18/16 at 21:00 Rosuvastatin Calcium (Crestor) 40 mg QHS PO Last administered on 04/23/16 20: 50; Admin Dose 40 MG; Start 04/18/16 at 21:00 Sucralfate (Carafate Susp) 1 gm QID PO Last administered on 04/23/16 20:50; Admin Dose 1 GM; Start 04/18/16 at 17:00 Salmeterol Xinafoate/ Fluticasone (Advair 250/50 Diskus) 1 inh BID INH Last administered on 04/24/16 08:24; Admin Dose 1 INH; Start 04/18/16 at 21:00 Losartan Potassium (Cozaar) 100 mg DAILY PO Last administered on 04/23/16 09: 05; Admin Dose 100 MG; Start 04/19/16 at 09:00 Clopidogrel Bisulfate (plaVIX) 75 mg DAILY NGT Last administered on 04/23/16 20:52; Admin Dose 75 MG; Start 04/19/16 at 09:00 Pantoprazole (Protonix Tab) 40 mg BID@,18 PO Last administered on 04/23/16 05:57; Admin Dose 40 MG; Start 04/21/16 at 06:00 Metronidazole (Flagyl) 500 mg QID PO Last administered on 04/23/16 20:50; Admin Dose 500 MG; Start 04/21/16 at 13:00 Glucagon (Glucagen) 1 mg ONCE IV ; Start 04/23/16 at 23:30; Stop 04/24/16 at 23: 29 Barium Sulfate (Volumen) 1,350 ml ONCE ONCE PO Last administered on 04/24/16 13:20; Admin Dose 1,350 ML; Start 04/24/16 at 13:00; Stop 04/24/16 at 13:01 LEROY GARCIA Apr 24, 2016 14:55
[2016-04-24] MEDS: GABAPENTIN 300 MG CAP PO SCH (20:48)
[2016-04-24] MEDS: ROSUVASTATIN CALCIUM 40 MG TABLET PO SCH (20:48)
[2016-04-25] MEDS: PANTOPRAZOLE (EC) 40 MG TAB PO SCH (05:52)
[2016-04-25 06:28] LABS: INR 0.94; PROTIME 12.6 Sec (12.2-14.2)
[2016-04-25 06:40] LABS: ALBUMIN 2.9 g/dl (3.3-4.9)
[2016-04-25 06:41] LABS: BASOPHILS % 0.4 % (0.0-2.0); HEMATOCRIT 28.6 % (42.0-52.0); HEMOGLOBIN 9.6 g/dl (14.0-18.0); LYMPHOCYTES # 1.2 10^3/ul (0.8-2.9); LYMPHOCYTES % 18.9 % (15.0-51.0); MEAN CORPUSCULAR HEMOGLOBIN 31.5 pg (29.0-33.0); MEAN CORPUSCULAR HGB CONC 33.4 g/dl (32.0-37.0); MEAN CORPUSCULAR VOLUME 94.4 fl (82.0-101.0); MEAN PLATELET VOLUME 7.7 fl (7.4-10.4); MONOCYTE # 0.5 10^3/ul (0.3-0.9); MONOCYTES % 8.6 % (0.0-11.0); NEUTROPHIL # 4.6 10^3/ul (1.6-7.5); NEUTROPHILS % 72.1 % (39.0-77.0); PLATELET COUNT 262 10^3/UL (140-440); POTASSIUM 4.8 mmol/L (3.5-5.1); RED BLOOD COUNT 3.03 10^6/ul (4.70-6.10); RED CELL DISTRIBUTION WIDTH 16.5 % (11.5-14.5); UNCORRECTED WBC 6.3 10^3/ul (4.8-10.8); WHITE BLOOD COUNT 6.3 10^3/ul (4.8-10.8)
[2016-04-25 06:43] LABS: ALBUMIN/GLOBULIN RATIO 1.07; BILIRUBIN,INDIRECT 0.1 mg/dl (0-1.1); BILIRUBIN,TOTAL 0.1 mg/dl (0.2-1.3); CREATININE 0.76 mg/dl (0.61-1.24); TOTAL PROTEIN 5.6 g/dl (6.1-8.1)
[2016-04-25 06:44] LABS: CONDITION 1; LH ANALYZER COMMENTS 1
[2016-04-25 08:21] VITALS: BP 114/68; RESP 16
[2016-04-25] MEDS: CREON (24K-76K-120K) 1 CAP PO SCH ×2 (08:33→11:59)
[2016-04-25] MEDS: SUCRALFATE (100 MG/ML) 10ML CUP PO SCH ×2 (08:33→13:00)
[2016-04-25] MEDS: DUTASTERIDE 0.5 MG CAP PO SCH (08:34)
[2016-04-25] MEDS: METOPROLOL 25 MG TAB PO SCH (08:34)
[2016-04-25] MEDS: CLOPIDOGREL 75 MG TAB NGT SCH (08:34)
[2016-04-25] MEDS: metroNIDAZOLE 500 MG TAB PO SCH ×2 (08:34→13:00)
[2016-04-25] MEDS: LOSARTAN 50 MG TAB PO SCH (08:35)
[2016-04-25] MEDS: SALMETEROL/FLUTICASONE 250/50 INHA INH SCH (08:35)
--- NOTE | 2016-04-25 11:12 | RADRPT ---
PROCEDURE: CT abdomen and pelvis without and with contrast. CT enterography protocol CLINICAL INDICATION: Abdominal pain TECHNIQUE: CT scan of the abdomen and pelvis without and with contrast was performed on a multi-sl ice CT scanner . Examination was performed with CT enterography protocol with arterial and portal ve nous phase imaging of the abdomen and pelvis. The patient was scanned before and after administratio n of 115 cc of Omnipaque 350 intravenous contrast. Low-density oral contrast was also administered. 1350 ml of volumen Sagittal and coronal reformatted images were obtained from the axial source imag es. Given. DLP 2161.1 mGycm. CTDIvol 12 mGy COMPARISON: None. FINDINGS: Trace layering left-sided pleural effusion. There is a trace amount of pericardial fluid. There is no evidence of bowel obstruction or focal bowel inflammation. The appendix is not seen. T here is no free air. There is trace fluid in the cul-de-sac. There is diverticulosis without diver ticulitis. There is no visible focus of bowel wall edema or thickening with no evidence of bowel wa ll fat deposition, hyperenhancement, vascular proliferation, or adjacent adenopathy. No mesenteric inflammatory changes are present. There is normal density and enhancement of the liver with no focal lesion or biliary ductal dilatati on. The gallbladder is unremarkable without inflammation, and the portal vein is intact without thr ombus. The spleen is unremarkable without mass. The adrenal glands are within normal limits without mass. The kidneys enhance symmetrically bilaterally without hydronephrosis or perinephric stranding. The pancreas is unremarkable without focal lesion or surrounding inflammatory changes. There is aortic atherosclerosis without aneurysmal dilatation. Degenerative changes are seen in t he lumbar spine with no acute osseous abnormality. The prostate is at the upper limits of normal in size. RPTAT:AA IMPRESSION: No evidence of bowel obstruction or inflammation. No CT evidence for acute or chronic inflammatory changes of the bowel. There is diverticulosis without diverticulitis. Trace left-sided pleural effusion is present. Atherosclerotic disease. .Tanvir Mercedes MD, MD Date Time Electronically viewed and signed by .Tanvir Mercedes MD, on 04/25/2016 11:12 .J/
--- NOTE | 2016-04-25 11:32 | PN ---
Date/Time of Note Date/Time of Note DATE: 04/25/16 TIME: 11:30 Assessment/Plan VTE Prophylaxis VTE Prophylaxis Intervention: SCD's Lines/Catheters IV Catheter Type (from [facility]): Saline Lock Urinary Cath still in place: No Assessment/Plan Assessment/Plan :Assessment: Recurrent anemia/GI bleeding * UGI vs LGIB * EGD 04-21-16: Mild distal esophagitis. There was mild gastritis. * Previous EGD 04-12-16: 1. Severe erosive esophagitis. 2. Gastritis 3. Biopsy neg Helicobacter pylori, dysplasia, and malignancy * Colonoscopy to 12/31/2016 small ascending colon polyp/ablated,moderate size internal hemorrhoids, suboptimal prep but no gross lesions * CT enterography 04/24/16 no evidence of small bowel pathology Coronary artery disease, status post stent to proximal RCA, aspirin and Brilinta * Cardiology following Hypertension High cholesterol Chronic depression Chronic obstructive pulmonary disease History of tobacco use * Stop smoking x 1 month GERD Plan: Patient appears safe for outpatient follow-up He could be seen in my office within 1 month If patient develops further episodes of bleeding stat bleeding scan would be initial workup I have explained this in detail to the patient's son Exam/Review of Systems Vital Signs Vitals Vital Signs Date Time Temp Pulse Resp B/P Pulse Ox O2 Delivery O2 Flow Rate FiO2 04/25/16 08:21 98.2 75 16 114/68 96 04/23/16 19:36 Room Air 04/21/16 16:50 2.0 Intake and Output 04/24/16 04/24/16 04/25/16 15:00 23:00 07:00 Intake Total 560 ml 360 ml Balance 560 ml 360 ml Results Result Diagram: 04/25/16 0550 04/25/16 0550 Results 24 hrs Laboratory Tests Test 04/25/16 05:50 Activated Partial Thromboplast Time 31.0 Alanine Aminotransferase (ALT/SGPT) 33 Albumin 2.9 L Albumin/Globulin Ratio 1.07 Alkaline Phosphatase 86 Anion Gap 14 Aspartate Amino Transf (AST/SGOT) 24 Basophils # 0.0 Basophils % 0.4 Blood Morphology Comment Blood Urea Nitrogen 12 Calcium Level 9.0 Carbon Dioxide Level 30 Chloride Level 103 Creatinine 0.76 Direct Bilirubin 0.00 Eosinophils # 0.0 Eosinophils % 0.0 Globulin 2.70 Glucose Level 110 Hematocrit 28.6 L Hemoglobin 9.6 L INR International Normalized Ratio 0.94 Indirect Bilirubin 0.1 Lymphocytes # 1.2 Lymphocytes % 18.9 Mean Corpuscular Hemoglobin 31.5 Mean Corpuscular Hemoglobin Concent 33.4 Mean Corpuscular Volume 94.4 Mean Platelet Volume 7.7 # Monocytes # 0.5 Monocytes % 8.6 Neutrophils # 4.6 Neutrophils % 72.1 Nucleated Red Blood Cells # 0.0 Nucleated Red Blood Cells % 0.0 Platelet Count 262 # Potassium Level 4.8 Prothrombin Time 12.6 Prothrombin Time Ratio 1.0 Red Blood Count 3.03 L Red Cell Distribution Width 16.5 H Sodium Level 142 Total Bilirubin 0.1 L Total Protein 5.6 L White Blood Count 6.3 Medications Medications Current Medications Ondansetron HCl (Zofran Inj) 4 mg Q6H PRN IV NAUSEA AND/OR VOMITING; Start 04/18 at 14:00 Acetaminophen (Tylenol Tab) 650 mg Q6H PRN PO PAIN LEVEL 1-3 OR FEVER; Start at 14:00 Acetaminophen/ Hydrocodone Bitart ([place] (5/325)) 1 tab Q6H PRN PO MODERATE PAIN LEVEL 4-6; Start 04/18/16 at 14:00 Morphine Sulfate (morphine) 2 mg Q4H PRN IV SEVERE PAIN LEVEL 7-10; Start at 14:00 Docusate Sodium (Colace) 100 mg Q12H PRN PO CONSTIPATION; Start 04/18/16 at 14: 00 Magnesium Hydroxide (Milk Of Mag) 30 ml DAILY PRN PO CONSTIPATION; Start at 14:00 Sodium Biphosphate/ Sodium Phosphate (Fleet Enema) 133 ml DAILY PRN [place] CONSTIPATION Last administered on 04/23/16t 06:29; Admin Dose 133 ML; Start 04/18 at 14:00 Lorazepam (Ativan) 0.5 mg Q6H PRN IV ANXIETY; Start 04/18/16 at 14:00 Hydralazine HCl (Apresoline) 10 mg Q6H PRN IV ELEVATED BLOOD PRESSURE; Start at 14:00 Clonidine (Catapres) 0.1 mg Q6H PRN PO ELEVATED BLOOD PRESSURE; Start 04/18/16 at 14:00 Nitroglycerin (Nitroglycerin (Sl Tab) 0.4 Mg) 1 tab Q5M PRN SL ANGINA; Start at 14:00 Dutasteride (Avodart) 0.5 mg DAILY PO Last administered on 04/25/16 08:34; Admin Dose 0.5 MG; Start 04/19/16 at 09:00 Gabapentin (Neurontin) 300 mg QHS PO Last administered on 04/24/16 20:48; Admin Dose 300 MG; Start 04/18/16 at 21:00 Metoprolol Tartrate (Lopressor) 25 mg BID PO Last administered on 04/25/16 08: 34; Admin Dose 25 MG; Start 04/18/16 at 21:00 Rosuvastatin Calcium (Crestor) 40 mg QHS PO Last administered on 04/24/16 20: 48; Admin Dose 40 MG; Start 04/18/16 at 21:00 Sucralfate (Carafate Susp) 1 gm QID PO Last administered on 04/25/16 08:33; Admin Dose 1 GM; Start 04/18/16 at 17:00 Salmeterol Xinafoate/ Fluticasone (Advair 250/50 Diskus) 1 inh BID INH Last administered on 04/25/16 08:35; Admin Dose 1 INH; Start 04/18/16 at 21:00 Losartan Potassium (Cozaar) 100 mg DAILY PO Last administered on 04/25/16 08: 35; Admin Dose 100 MG; Start 04/19/16 at 09:00 Clopidogrel Bisulfate (plaVIX) 75 mg DAILY NGT Last administered on 04/25/16 08:34; Admin Dose 75 MG; Start 04/19/16 at 09:00 Pantoprazole (Protonix Tab) 40 mg BID@,18 PO Last administered on 04/25/16 05:52; Admin Dose 40 MG; Start 04/21/16 at 06:00 Metronidazole (Flagyl) 500 mg QID PO Last administered on 04/25/16 08:34; Admin Dose 500 MG; Start 04/21/16 at 13:00 Glucagon (Glucagen) 1 mg ONCE IV Last administered on 04/24/16 14:58; Admin Dose 1 MG; Start 04/23/16 at 23:30; Stop 04/24/16 at 23:29 Barium Sulfate (Volumen) 1,350 ml ONCE ONCE PO Last administered on 2/11/17at 13:20; Admin Dose 1,350 ML; Start 04/24/16 at 13:00; Stop 04/24/16 at 13:01 RIOS CERVANTES MD Apr 25, 2016 11:32
--- NOTE | 2016-04-25 12:17 | PN ---
Date/Time of Note Date/Time of Note DATE: 04/25/16 TIME: 12:15 Assessment/Plan VTE Prophylaxis VTE Prophylaxis Intervention: SCD's Lines/Catheters [facility] Saline Lock Urinary Cath still in place: No Assessment/Plan Assessment/Plan 1. Upper GI bleeding- s/p total 6 units PRBC transfusion during this admission 2. Coronary artery disease. demand ischemia - with acute blood loss - as per cardio recs 3. Chronic obstructive pulmonary disease. Continue to monitor for now. No present issues, on DuoNeb p.r.n. 4. Gastroesophageal reflux disease. Again, he is going to be on Protonix 5. High cholesterol. Check lipid panel. 6. Chronic depression. He is on Ativan p.r.n. 7. Chronic tobacco use. Order nicotine patch. 8. Iron deficiency anemia. see - #1 9. Deep venous thrombosis prophylaxis, sequential compression devices. 10. GI ppx - protonix CT angiogram negative for Acute bleeding, BP stable this progress note took greater than 40 minutes to complete Subjective 24 Hr Interval Summary Free Text/Dictation CT angiography negative for acute findigns, Hb stable, possible d/c home today Exam/Review of Systems Vital Signs Vitals Vital Signs Date Time Temp Pulse Resp B/P Pulse Ox O2 Delivery O2 Flow Rate FiO2 04/25/16 08:21 98.2 75 16 114/68 96 04/23/16 19:36 Room Air 04/21/16 16:50 2.0 Intake and Output 04/24/16 04/24/16 04/25/16 15:00 23:00 07:00 Intake Total 560 ml 360 ml Balance 560 ml 360 ml Results Result Diagram: 04/25/16 0550 04/25/16 0550 Results 24 hrs Laboratory Tests Test 04/25/16 05:50 Activated Partial Thromboplast Time 31.0 Alanine Aminotransferase (ALT/SGPT) 33 Albumin 2.9 L Albumin/Globulin Ratio 1.07 Alkaline Phosphatase 86 Anion Gap 14 Aspartate Amino Transf (AST/SGOT) 24 Basophils # 0.0 Basophils % 0.4 Blood Morphology Comment Blood Urea Nitrogen 12 Calcium Level 9.0 Carbon Dioxide Level 30 Chloride Level 103 Creatinine 0.76 Direct Bilirubin 0.00 Eosinophils # 0.0 Eosinophils % 0.0 Globulin 2.70 Glucose Level 110 Hematocrit 28.6 L Hemoglobin 9.6 L INR International Normalized Ratio 0.94 Indirect Bilirubin 0.1 Lymphocytes # 1.2 Lymphocytes % 18.9 Mean Corpuscular Hemoglobin 31.5 Mean Corpuscular Hemoglobin Concent 33.4 Mean Corpuscular Volume 94.4 Mean Platelet Volume 7.7 # Monocytes # 0.5 Monocytes % 8.6 Neutrophils # 4.6 Neutrophils % 72.1 Nucleated Red Blood Cells # 0.0 Nucleated Red Blood Cells % 0.0 Platelet Count 262 # Potassium Level 4.8 Prothrombin Time 12.6 Prothrombin Time Ratio 1.0 Red Blood Count 3.03 L Red Cell Distribution Width 16.5 H Sodium Level 142 Total Bilirubin 0.1 L Total Protein 5.6 L White Blood Count 6.3 Medications Medications Current Medications Ondansetron HCl (Zofran Inj) 4 mg Q6H PRN IV NAUSEA AND/OR VOMITING; Start 04/18 at 14:00 Acetaminophen (Tylenol Tab) 650 mg Q6H PRN PO PAIN LEVEL 1-3 OR FEVER; Start at 14:00 Acetaminophen/ Hydrocodone Bitart ([place] (5/325)) 1 tab Q6H PRN PO MODERATE PAIN LEVEL 4-6; Start 04/18/16 at 14:00 Morphine Sulfate (morphine) 2 mg Q4H PRN IV SEVERE PAIN LEVEL 7-10; Start at 14:00 Docusate Sodium (Colace) 100 mg Q12H PRN PO CONSTIPATION; Start 04/18/16 at 14: 00 Magnesium Hydroxide (Milk Of Mag) 30 ml DAILY PRN PO CONSTIPATION; Start at 14:00 Sodium Biphosphate/ Sodium Phosphate (Fleet Enema) 133 ml DAILY PRN [place] CONSTIPATION Last administered on 04/23/16t 06:29; Admin Dose 133 ML; Start 04/18 at 14:00 Lorazepam (Ativan) 0.5 mg Q6H PRN IV ANXIETY; Start 04/18/16 at 14:00 Hydralazine HCl (Apresoline) 10 mg Q6H PRN IV ELEVATED BLOOD PRESSURE; Start at 14:00 Clonidine (Catapres) 0.1 mg Q6H PRN PO ELEVATED BLOOD PRESSURE; Start 04/18/16 at 14:00 Nitroglycerin (Nitroglycerin (Sl Tab) 0.4 Mg) 1 tab Q5M PRN SL ANGINA; Start at 14:00 Dutasteride (Avodart) 0.5 mg DAILY PO Last administered on 04/25/16 08:34; Admin Dose 0.5 MG; Start 04/19/16 at 09:00 Gabapentin (Neurontin) 300 mg QHS PO Last administered on 04/24/16 20:48; Admin Dose 300 MG; Start 04/18/16 at 21:00 Metoprolol Tartrate (Lopressor) 25 mg BID PO Last administered on 04/25/16 08: 34; Admin Dose 25 MG; Start 04/18/16 at 21:00 Rosuvastatin Calcium (Crestor) 40 mg QHS PO Last administered on 04/24/16 20: 48; Admin Dose 40 MG; Start 04/18/16 at 21:00 Sucralfate (Carafate Susp) 1 gm QID PO Last administered on 04/25/16 08:33; Admin Dose 1 GM; Start 04/18/16 at 17:00 Salmeterol Xinafoate/ Fluticasone (Advair 250/50 Diskus) 1 inh BID INH Last administered on 04/25/16 08:35; Admin Dose 1 INH; Start 04/18/16 at 21:00 Losartan Potassium (Cozaar) 100 mg DAILY PO Last administered on 04/25/16 08: 35; Admin Dose 100 MG; Start 04/19/16 at 09:00 Clopidogrel Bisulfate (plaVIX) 75 mg DAILY NGT Last administered on 04/25/16 08:34; Admin Dose 75 MG; Start 04/19/16 at 09:00 Pantoprazole (Protonix Tab) 40 mg BID@,18 PO Last administered on 04/25/16 05:52; Admin Dose 40 MG; Start 04/21/16 at 06:00 Metronidazole (Flagyl) 500 mg QID PO Last administered on 04/25/16 08:34; Admin Dose 500 MG; Start 04/21/16 at 13:00 Glucagon (Glucagen) 1 mg ONCE IV Last administered on 04/24/16 14:58; Admin Dose 1 MG; Start 04/23/16 at 23:30; Stop 04/24/16 at 23:29 Barium Sulfate (Volumen) 1,350 ml ONCE ONCE PO Last administered on 2/11/17at 13:20; Admin Dose 1,350 ML; Start 04/24/16 at 13:00; Stop 04/24/16 at 13:01 ALONSO LOPEZ MD Apr 25, 2016 12:16
--- NOTE | 2016-04-25 12:18 | PDOCDIS ---
Discharge Instructions CONDITION Patient Condition: Good HOME CARE INSTRUCTIONS: Special Diet: 2 g na ACTIVITY: Activity Restrictions: Slowly Increase Activity Rest between Activity Avoid heavy lifting Avoid Heavy Housework FOLLOW UP/APPOINTMENTS Appointments Follow up with his own PMD in 1-2 week. Follow up with GI in 2-3 weeks after discharge ALONSO LOPEZ MD Apr 25, 2016 12:18
[2016-04-25] MEDS ORDERED: FERR325T5 PO (12:19)
[2016-04-25] MEDS ORDERED: ASC500 PO (12:19)
--- NOTE | 2016-04-25 22:00 | DS ---
DATE OF ADMISSION: 04/18/2016 DATE OF DISCHARGE: 04/25/2016 FINAL DISCHARGE DIAGNOSES: 1. Gastrointestinal bleeding with severe anemia, status post 6 units packed red blood cells transfu fausto. 2. Coronary artery disease with demand ischemia. 3. History of chronic obstructive pulmonary disease. 4. History of gastroesophageal reflux disease. 5. Chronic depression. 6. History of smoking. 7. Severe iron deficiency anemia secondary to gastrointestinal bleeding. CONSULTATIONS DONE DURING THIS HOSPITALIZATION: 1. GI consult, Dr. Denson 2. Cardiology consult, Dr. Didier Stephens PROCEDURES PERFORMED DURING THIS HOSPITALIZATION: 1. The patient underwent EGD during this admission which revealed gastritis and esophagitis. 2. The patient underwent colonoscopy that shows negative for any acute findings. No evidence of an y active GI bleeding. HOSPITAL COURSE: This is a 60-year-old male with a past medical history of coronary artery disease, gastroesophageal reflux disease who presented with a complaint of GI bleeding. The patient had sev ere iron deficiency anemia for which he required a total of 6 units of PRBC transfusion during this hospitalization. The patient initially had an upper endoscopy done which was negative for any acute finding. It showed gastritis and subsequently had a colonoscopy done that was also negative for an y acute colitis. The patient had a 5 mm polyp in the mid ascending colon, moderate-sized internal h emorrhoids. The patient also had Clostridium difficile positive during this hospitalization. The p atient already received Flagyl while being in the hospital for 1 week for his Clostridium difficile- positive stool. The patient's GI bleeding source was not certain, so the patient had CT abdominal a ngiography done which was negative for any acute source of bleeding. After getting a few units of P RBC transfusion, his hemoglobin was stable. He tolerated the procedure very well, and he gets disch arged home with prescriptions of ferrous sulfate and vitamin C. DISPOSITION: To home. DISCHARGE CONDITION: Stable, improved compared to admission. DISCHARGE ACTIVITIES: As tolerated. Slowly resume to the normal baseline activity. DISCHARGE DIET: Regular diet. DISCHARGE MEDICATIONS: As per medical reconciliation. DISCHARGE FOLLOWUP INSTRUCTIONS: 1. The patient is to follow up with his own primary care doctor through his HMO insurance 1 to 2 we eks after discharge. 2. The patient is to follow with Dr. Alonso Oliver in outpatient clinic 1 to 2 weeks after discharg e. He has been explained about the discharge plan, followup instructions. He understood and verbalized understanding. Dictated By: ALONSO OLIVER MD, KP/AMBER Conf#: [id number] DID#: [id number]
== END 2016-04-25 13:10 | disposition home or self-care (01) | DRG 378 ==
LOC: E/R 11:06 → MS4 12:11 → PP2 04-21 17:10
PROVIDERS: ADMIT Hospitalist; ATTEND Hospitalist
PROC: 0DJ08ZZ Inspection of Upper Intestinal Tract, Via Natural or Artificial Opening Endoscopic (ICD-10-PCS; principal; 2016-04-20 19:00)
PROC: 0D5K8ZZ Destruction of Ascending Colon, Via Natural or Artificial Opening Endoscopic (ICD-10-PCS; 2016-04-25)
DX: K92.2 Gastrointestinal hemorrhage, unspecified (principal); D62 Acute posthemorrhagic anemia; I24.8 Other forms of acute ischemic heart disease; I95.9 Hypotension, unspecified; K20.9 Esophagitis, unspecified; J44.9 Chronic obstructive pulmonary disease, unspecified; K29.70 Gastritis, unspecified, without bleeding; F32.9 Major depressive disorder, single episode, unspecified; I10 Essential (primary) hypertension; E78.5 Hyperlipidemia, unspecified; K64.8 Other hemorrhoids; I25.10 Atherosclerotic heart disease of native coronary artery without angina pectoris; K21.9 Gastro-esophageal reflux disease without esophagitis; D12.2 Benign neoplasm of ascending colon; Z86.74 Personal history of sudden cardiac arrest; Z22.1 Carrier of other intestinal infectious diseases; Z72.0 Tobacco use; Z95.5 Presence of coronary angioplasty implant and graft
CPT/HCPCS: 36415; 36430; 75635; 80048; 80053; 80061; 82270; 82550; 82553; 83036; 83735; 84100; 84439; 84443; 84484; 85014; 85018; 85025; 85610; 85730; 86850; 86900; 86901; 86920; 87075; 87081; 88305; 93005; 93306; 96374; 97162; C9113; J1610; J1940; J2250; J2916; J3010; J3475; J7030; J7040; P9016; Q9967